=== PATIENT | female | born 1965 | race Caucasian/White ===

== ENCOUNTER 2019-05-19 16:58 | Emergency (ER) | payer BC, OTHER ==
[2019-05-19 17:22] VITALS: BP 183/89; PULSE 94; TEMP 98.4; BMI 50.8
--- NOTE | 2019-05-19 17:46 | PDOC ---
History of Present Illness - General Chief Complaint: Respiratory Stated Complaint: sore throat dry cough Time Seen by Provider: 05/19/19 17:15 - History of Present Illness Initial Comments: 05/19/19 17:39 53 F with h/o HTN, HLD, DM, CKD, presenting to ED with cough and sore throat. Pt states that she started having ear pain and a sore throat a week ago. She went to urgent care and was started on flonase, which she has been using. Pt's sore throat eventually improved but she then developed a cough. She reports a dry cough that is worse at night. Denies CP/SOB. She reports a fever of 101 two days ago but no recent fevers/chills. Denies any leg swelling. Past History - Past Medical History Allergies/Adverse Reactions: Allergies Allergy/AdvReac Type Severity Reaction Status Date / Time amlodipine Allergy Severe Swelling Verified 05/19/19 17:21 ciprofloxacin [From Cipro] Allergy Severe Difficulty Verified 05/19/19 17:20 Breathing Home Medications: Ambulatory Orders Amoxicillin/Potassium Clav [Augmentin 875-125 Tablet] 1 each PO BID #10 tablet 05/19/19 Atorvastatin Ca [Lipitor] 40 mg PO HS 05/19/19 Azithromycin 250 mg PO DAILY #5 tablet 05/19/19 Carvedilol [Coreg -] 25 mg PO BID 05/19/19 Hydralazine HCl 100 mg PO TID 05/19/19 Insulin Glargine,Hum.rec.anlog [Basaglar Kwikpen U-100] 68 unit SQ BID 05/19/19 Insulin Lispro [Humalog] 27 unit SQ ASDIR 05/19/19 Linaclotide [Linzess] 145 mcg PO DAILY 05/19/19 Torsemide 100 mg PO DAILY 05/19/19 COPD: No Diabetes: Yes HTN: Yes Other medical history: RENAL INSUFFICIENCY - Psycho Social/Smoking Cessation Hx Smoking History: Former smoker Have you smoked in the past 12 months: No If you are a former smoker, when did you quit?: 1996 Information on smoking cessation initiated: No Hx Alcohol Use: Yes (SOCIAL) Drug/Substance Use Hx: No Review of Systems - Review of Systems Comments:: 05/19/19 17:47 GENERAL/CONSTITUTIONAL: No fever or chills. No weakness. HEAD, EYES, EARS, NOSE AND THROAT: No change in vision. No ear pain or discharge. No sore throat. CARDIOVASCULAR: No chest pain, no shortness of breath, no loss of consciousness RESPIRATORY: + cough, no wheezing, or hemoptysis. GASTROINTESTINAL: No nausea, vomiting, diarrhea or constipation. GENITOURINARY: No dysuria, frequency, or change in urination. MUSCULOSKELETAL: No joint or muscle swelling or pain. No neck or back pain. SKIN: No rash NEUROLOGIC: No vertigo, no change in strength/sensation. ENDOCRINE: No increased thirst. No abnormal weight change. HEMATOLOGIC/LYMPHATIC: No anemia, easy bleeding, or history of blood clots. ALLERGIC/IMMUNOLOGIC: No hives or skin allergy. *Physical Exam - Vital Signs Last Vital Signs Temp Pulse Resp BP Pulse Ox 98.4 F 94 H 20 183/89 H 96 05/19/19 17:01 05/19/19 17:01 05/19/19 17:01 05/19/19 17:05/19/19 17:01 - Physical Exam 05/19/19 17:54 GENERAL: Awake, alert, and fully oriented, in no acute distress. HEAD: No signs of trauma EYES: PERRLA, EOMI, sclera anicteric, conjunctiva clear ENT: Auricles normal inspection, hearing grossly normal, nares patent, oropharynx clear without exudates. Moist mucosa NECK: Nontender, no stepoffs, Normal ROM, supple, no lymphadenopathy, JVD, or masses LUNGS: Breath sounds equal, clear to auscultation bilaterally. No wheezes, and no crackles HEART: Regular rate and rhythm, normal S1 and S2, no murmurs, rubs or gallops ABDOMEN: Soft, nontender, normoactive bowel sounds. No guarding, no rebound. No masses EXTREMITIES: Normal range of motion, no edema. No clubbing or cyanosis. No cords, erythema, or tenderness NEUROLOGICAL: Cranial nerves II through XII intact. 5/5 strength and sensation in all extremities, Normal speech, normal gait, normal cerebellar function SKIN: Warm, Dry, normal turgor, no rashes or lesions noted. ED Treatment Course - RADIOLOGY Radiology Studies Ordered: Category Date Time Status CHEST PA & LAT [RAD] Stat Radiology 05/19/19 17:29 Ordered Medical Decision Making - Medical Decision Making 05/19/19 17:55 53 F with cough and sore throat. Likely viral URI. Pt with clear lungs but will r/o PNA with CXR. - CXR - Trial of nebulizer 05/19/19 18:22 CXR shows possible PNA Will tx with augmentin and azithro Pt's BP elevated today, states that she forgot to take her BP meds Pt is well appearing, with normal vitals. Clinically stable for DC at this time. I discussed the physical exam findings, ancillary test results and final diagnoses with the patient. I answered all of the patient's questions. The patient was satisfied with the care received and felt comfortable with the discharge plan and treatment plan. The patient agrees to follow up with the primary care physician within 24-72 hours. Discharge - Discharge Information Problems reviewed: Yes Clinical Impression/Diagnosis: Cough, Sore throat, PNA (pneumonia) Condition: Stable Disposition: HOME - Additional Discharge Information Prescriptions: Amoxicillin/Potassium Clav [Augmentin 875-125 Tablet] 1 each PO BID #10 tablet Azithromycin 250 mg PO DAILY #5 tablet - Follow up/Referral Referrals: Eulalio Osborne MD [Primary Care Provider] - - Patient Discharge Instructions Patient Printed Discharge Instructions: DI for Pneumonia -- Adult Additional Instructions: Take the antibiotics as prescribed to treat your pneumonia. If you experience worsening cough, fevers, shortness of breath, chest pain, or any other concerning symptoms, return to the ER immediately. Otherwise, please follow up with your primary doctor within 1 week for a re- evaluation. You also need to have your blood pressure re-checked by your primary doctor, as it was slightly elevated today. Uncontrolled blood pressure can eventually lead to kidney disease, heart disease, other serious illness, disability, or even . - Post Discharge Activity
[2019-05-19] MEDS ORDERED: ALBUTEROL SO4 2.5/IPRATROPIUM 0.5 INH SOL 3 ML VIAL.NEB. NEB ONE ×2 (17:54→18:05)
[2019-05-19] MEDS ORDERED: AMOX TR/POT CLAV 875MG/125MG TABLETS (FP) PO ONE (18:21)
[2019-05-19] MEDS ORDERED: AZITHROMYCIN 500 MG TABLET PO ONE (18:21)
[2019-05-19] MEDS ORDERED: AZITHROMYCIN 250 MG TABLET ONE (18:38)
[2019-05-19] MEDS ORDERED: AMOX TR/POT CLAV 875MG/125MG TABLETS (FP) ONE (18:38)
== END 2019-05-19 18:54 | disposition home or self-care (01) ==
LOC: FER 16:58
PROC: 3E0F7GC Introduction of Other Therapeutic Substance into Respiratory Tract, Via Natural or Artificial Opening (ICD-10-PCS; principal; 2019-05-19)
DX: J18.9 Pneumonia, unspecified organism (principal); R05 Cough; J02.9 Acute pharyngitis, unspecified; Z88.8 Allergy status to other drugs, medicaments and biological substances; Z87.891 Personal history of nicotine dependence; N28.9 Disorder of kidney and ureter, unspecified; E11.9 Type 2 diabetes mellitus without complications; I10 Essential (primary) hypertension
CPT/HCPCS: 71046-TC-FY; 99282-25

== ENCOUNTER 2019-07-05 09:38 | Inpatient (IN) | payer BC ==
[2019-07-05] MEDS ORDERED: METHOCARBAMOL 500 MG TABLET PO ONE (10:47)
[2019-07-05] MEDS ORDERED: ACETAMINOPHEN 325 MG TABLET (FP) PO ONE (10:47)
[2019-07-05] MEDS ORDERED: ACETAMINOPHEN 325 MG TABLET (FP) ONE (10:50)
[2019-07-05] MEDS ORDERED: METHOCARBAMOL 500 MG TABLET ONE (10:50)
[2019-07-05] MEDS ORDERED: ONDANSETRON *ODT* 4 MG TABLET SL ONE (10:53)
[2019-07-05] MEDS ORDERED: ONDANSETRON *ODT* 4 MG TABLET ONE (10:53)
--- NOTE | 2019-07-05 10:59 | PDOC ---
History of Present Illness <Agustina Stewart - Last Filed: 07/05/19 13:38> - General History Source: Patient Exam Limitations: Clinical Condition - History of Present Illness Initial Comments: 07/05/19 11:29 Patient with past medical history of hyperlipidemia, CKD not on dialysis, diabetes and hypertension presented with complaint of sudden onset of right mid back pain while sleeping this morning with nausea and vomiting. Patient report vomiting but unsure how many times she had vomited. Patient also reported urinary frequency which is unchanged for her history of chronic kidney disease. Denies fever, chills, diarrhea, constipation, chest pain, shortness of breath , palpitations. Patient has not taken anything for symptoms Timing/Duration: 4-6 hours <Eusebio Patel - Last Filed: 07/05/19 13:58> - General Chief Complaint: Back Pain Stated Complaint: BACK PAIN Time Seen by Provider: 07/05/19 09:59 Past History <Agustina Stewartmarilu - Last Filed: 07/05/19 13:38> - Past Medical History COPD: No Diabetes: Yes HTN: Yes - Psycho Social/Smoking Cessation Hx Smoking History: Never smoked Have you smoked in the past 12 months: No If you are a former smoker, when did you quit?: 1996 Hx Alcohol Use: No Drug/Substance Use Hx: No <JorgeEusebio Hulles - Last Filed: 07/05/19 13:58> - Past Medical History Allergies/Adverse Reactions: Allergies Allergy/AdvReac Type Severity Reaction Status Date / Time amlodipine Allergy Severe Swelling Verified 07/05/19 09:50 ciprofloxacin [From Cipro] Allergy Severe Difficulty Verified 07/05/19 09:50 Breathing Home Medications: Ambulatory Orders Amoxicillin/Potassium Clav [Augmentin 875-125 Tablet] 1 each PO BID #10 tablet 05/19/19 Atorvastatin Ca [Lipitor] 40 mg PO HS 05/19/19 Azithromycin 250 mg PO DAILY #5 tablet 05/19/19 Carvedilol [Coreg -] 25 mg PO BID 05/19/19 Hydralazine HCl 100 mg PO TID 05/19/19 Insulin Glargine,Hum.rec.anlog [Basaglar Kwikpen U-100] 68 unit SQ BID 05/19/19 Insulin Lispro [Humalog] 27 unit SQ ASDIR 05/19/19 Linaclotide [Linzess] 145 mcg PO DAILY 05/19/19 Torsemide 100 mg PO DAILY 05/19/19 Review of Systems - Review of Systems Able to Perform ROS?: Yes Is the patient limited Green[place]ic proficient: No Constitutional: No: Chills, Fever, Malaise HEENTM: No: Symptoms Reported, See HPI, Eye Pain, Blurred Vision, Tearing, Recent change in vision, Double Vision, Cataracts, Ear Pain, Ocular Prothesis, Ear Discharge, Nose Pain, Nose Congestion, Tinnitus, Nose Bleeding, Hearing Loss , Throat Pain, Throat Swelling, Mouth Pain, Dental Problems, Difficulty Swallowing, Mouth Swelling, Other Respiratory: No: Symptoms reported, See HPI, Cough, Orthopnea, Shortness of Breath, SOB with Exertion, SOB at Rest, Stridor, Wheezing, Productive cough, Hemoptysis, Other Cardiac (ROS): No: Symptoms Reported, See HPI, Chest Pain, Edema, Irregular Heart Rate, Lightheadedness, Palpitations, Syncope, Chest Tightness, Other ABD/GI: Yes: Symptoms Reported, See HPI, Nausea, Vomiting. No: Constipated, Diarrhea, Difficulty Swallowing, Poor Appetite, Rectal Bleeding, Indigestion, Abdominal cramping : Yes: Symptoms Reported, See HPI, Burning, Frequency, Flank Pain (right flank area pain), Urgency Musculoskeletal: Yes: Symptoms Reported, See HPI, Back Pain (right midback pain) Integumentary: No: Symptoms Reported Neurological: No: Symptoms reported, Numbness, Paresthesia, Dizziness All Other Systems: Reviewed and Negative <Eusebio Patel - Last Filed: 07/05/19 13:58> *Physical Exam - Vital Signs Last Vital Signs Temp Pulse Resp BP Pulse Ox 97.9 F 98 H 18 118/61 100 07/05/19 09:50 07/05/19 09:50 07/05/19 09:50 07/05/19 09:50 07/05/19 09:50 <Agustina Stewart - Last Filed: 07/05/19 13:38> - Vital Signs Last Vital Signs Temp Pulse Resp BP Pulse Ox 97.9 F 98 H 18 118/61 100 07/05/19 09:50 07/05/19 09:50 07/05/19 09:50 07/05/19 09:50 07/05/19 09:50 - Physical Exam 07/05/19 10:58 GENERAL: Well developed, well nourished. Awake and alert in mild acute distress. NECK: Supple. Full ROM. CARDIOVASCULAR: Regular rate and rhythm. No murmurs, rubs, or gallops. Distal pulses are 2+ and symmetric. PULMONARY: No evidence of respiratory distress. Lungs clear to auscultation bilaterally. No wheezing, rales or rhonchi. ABDOMINAL: Soft. Non-tender. Non-distended. No rebound or guarding. No organomegaly. Normoactive bowel sounds. MUSCULOSKELETAL Normal range of motion at all joints. Moderate point tenderness to right paravertebral muscle of lumbar spine of L2-L3 to S1 lateral aspect. No midline tenderness. SKIN: Warm and dry. Normal capillary refill. No rashes. No jaundice. NEUROLOGICAL: Alert, awake, appropriate. Gait is normal without ataxia. PSYCHIATRIC: Cooperative. Good eye contact. Appropriate mood General Appearance: Yes: Nourished, Appropriately Dressed, Mild Distress <JorgeEusebio - Last Filed: 07/05/19 13:58> ED Treatment Course - LABORATORY CBC & Chemistry Diagram: 07/05/19 10:59 07/05/19 11:05 - ADDITIONAL ORDERS Additional order review: Laboratory Results 07/05/19 11:05 Sodium 132 L Potassium 4.9 Chloride 103 Carbon Dioxide 13 L Anion Gap 16 BUN 111.9 H* Creatinine 4.7 H Est GFR (CKD-EPI)AfAm 11.39 Est GFR (CKD-EPI)NonAf 9.83 Random Glucose 392 H Calcium 9.2 Total Bilirubin 0.3 AST 13 L ALT 18 Alkaline Phosphatase 96 Total Protein 8.6 H Albumin 3.5 07/05/19 10:59 RBC 3.32 L MCV 82.7 MCHC 33.4 RDW 15.0 MPV 6.9 L Neutrophils % 84.3 H Lymphocytes % 8.7 Monocytes % 6.2 Eosinophils % 0.2 Basophils % 0.6 - Medications Given in the ED: ED Medications Discontinued Medications Generic Name Dose Route Start Last Admin Trade Name Freq PRN Reason Stop Dose Admin Acetaminophen 975 mg 07/05/19 10:47 07/05/19 11:04 Tylenol - PO 07/05/19 10:48 975 mg ONCE ONE Administration Methocarbamol 1,000 mg 07/05/19 10:47 07/05/19 11:04 Robaxin - PO 07/05/19 10:48 1,000 mg ONCE ONE Administration Ondansetron HCl 4 mg 07/05/19 10:53 07/05/19 11:04 Zofran Odt - SL 07/05/19 10:54 4 mg ONCE ONE Administration <Agustina Stewart - Last Filed: 07/05/19 13:38> - LABORATORY CBC & Chemistry Diagram: 07/05/19 10:59 07/05/19 11:05 - RADIOLOGY Radiology Studies Ordered: Category Date Time Status SPIRAL- RENAL-STONE CT [CT] Stat CT Scan 07/05/19 10:53 Ordered <Eusebio Patel - Last Filed: 07/05/19 13:58> Medical Decision Making - Medical Decision Making The patient was seen and evaluated in conjunction with midlevel provider under my direct supervision, ancillary studies were reviewed. I agree with the plan as outlined KELSI Patel. HPI, workup/dispo as outlined. VS reviewed, wnl. no fever HD appropriate labs and lytes with Cr 4.7, h/o CKD, baseline closer to 3.5. UA with +UTI, CT spiral give colicky pain, +rt hydro and 6mm stone tammi infected stone, IV ceftriaxone nephro cs DR valera. KELSI in touch with Reyna 07/05/19 12:15 07/05/19 13:39 <Agustina Stewart - Last Filed: 07/05/19 13:38> - Medical Decision Making 07/05/19 11:30 Patient with past medical history of hyperlipidemia, CKD not on dialysis, diabetes and hypertension presented with complaint of sudden onset of right mid back pain while sleeping this morning with nausea and vomiting. Patient report vomiting but unsure how many times she had vomited. Patient also reported urinary frequency which is unchanged for her history of chronic kidney disease. Denies fever, chills, diarrhea, constipation, chest pain, shortness of breath , palpitations. Patient has not taken anything for symptoms Exam significant for moderate point tenderness to right paravertebral muscle of lumbar spine of L2 to L4 with no midline tenderness and pain radiating to lateral aspect. No CVA tenderness. Lungs clear to auscultation bilateral no abdominal tenderness. Symptoms likely back spasm versus cystitis versus less likely kidney stone. CBC, CMP lab ordered and spiral CT ordered to rule out kidney stone. UA and urine culture ordered to rule out cystitis. Tylenol 975 mg p.o. and Robaxin thousand milligrams p.o. ordered for pain and spasm. Treat based on lab and imaging results 07/05/19 13:45 CBC shows no elevated WBC. Chemistry lab showed elevated BUN/creatinine of 4.7 creatinine and 112 BUN. Call placed to patient's PCP Dr. India Tsai ands spoke to Dr. Landrum. [place] office in [facility] will report patient had chemistry lab done a month ago which shows creatinine of 3.6 and BUN of 88. Spiral CT shows 6 mm partially obstructing renal stone to right ureter at the proximal aspect with mild hydronephrosis. Patient seen by flatwork tier Dr. Goldsmith who request patient to be admitted for treatment of obstructing stone and consult urology. Nephrology request to give patient 1 amp of bicarb due to acidosis. Consultation placed with Dr. Hussein urologist will report to prep patient for OR today for stent placement for obstructing right ureter 6 mm stone. UA shows many WBCs and bacteria. Patient still with vomiting despite Zofran and in pain despite Tylenol. Will give Reglan IV for nausea and vomiting and morphine 4 mg IV for pain. Will keep patient n.p.o. as per urologist request for possible surgery later today or tomorrow morning 07/05/19 13:58 Spoke to medicine team who agrees to accept patient for admission to hospitalist under Dr. Roc Heath <Eusebio Patel - Last Filed: 07/05/19 13:58> Discharge <Agustina Stewart - Last Filed: 07/05/19 13:38> - Discharge Information Problems reviewed: Yes - Admission Yes <Eusebio Patel - Last Filed: 07/05/19 13:58> - Discharge Information Clinical Impression/Diagnosis: Renal calculus or stone CKD (chronic kidney disease) Qualifiers: Chronic kidney disease stage: stage 4 (severe) Qualified Code(s): N18.4 - Chronic kidney disease, stage 4 (severe) Diabetes Qualifiers: Diabetes mellitus type: type 2 Diabetes mellitus buttermaker insulin use: without retirement use Diabetes mellitus complication status: with skin complications HTN (hypertension) Qualifiers: Hypertension type: essential hypertension Qualified Code(s): I10 - Essential ( primary) hypertension Condition: Stable - Patient Discharge Instructions - Post Discharge Activity
[2019-07-05 11:16] LABS: BASO % 0.6 % (0-2.0); EOS % 0.2 % (0-4.5); HEMATOCRIT 27.4 % (32.4-45.2); HEMOGLOBIN 9.2 GM/dL (10.7-15.3); LYMPH % 8.7 % (8-40); MCH 27.6 pg (25.7-33.7); MCHC 33.4 g/dl (32.0-36.0); MEAN CELL VOLUME 82.7 fl (80-96); MEAN PLT VOLUME 6.9 fl (7.5-11.1); MONO % 6.2 % (3.8-10.2); NEUT % 84.3 % (42.8-82.8); PLATELET COUNT 347 K/MM3 (134-434); RBC 3.32 M/mm3 (3.60-5.2); WHITE BLOOD COUNT 5.9 K/mm3 (4.0-10.0)
[2019-07-05 11:53] LABS: ALBUMIN 3.5 g/dl (3.4-5.0); ALK PHOS 96 U/L (45-117); ANION GAP 16 MMOL/L (8-16); BILIRUBIN,TOTAL 0.3 mg/dL (0.2-1); CALCIUM 9.2 mg/dL (8.5-10.1); CHLORIDE 103 mmol/L (98-107); CO2 13 mmol/L (21-32); CREATININE 4.7 mg/dL (0.55-1.3); GLUCOSE,RANDOM 392 mg/dL (74-106); POTASSIUM 4.9 mmol/L (3.5-5.1); SGOT/AST 13 U/L (15-37); SGPT/ALT 18 U/L (13-61); SODIUM 132 mmol/L (136-145); TOT PROT 8.6 g/dl (6.4-8.2)
[2019-07-05 11:59] LABS: BLOOD UREA NITROGEN 111.9 mg/dL (7-18)
[2019-07-05] MEDS ORDERED: morphine CARPU-JECT 4 MG/1 ML DISP.SYRIN IVPUSH ONE (13:06)
[2019-07-05] MEDS ORDERED: METOCLOPRAMIDE HCL INJECTION 10 MG/2 ML VIAL IVPB ONE (13:07)
[2019-07-05 13:12] LABS: EPI CELLS 6.1 /HPF (0-5/HPF); HYALINE CASTS 4 /lpf (0-8); URINE APPEARANCE TURBID; URINE BACTERIA 4417.3 /hpf (NEGATIVE); URINE BILIRUBIN NEGATIVE (NEGATIVE); URINE COLOR YELLOW; URINE GLUCOSE (UA) 1+ (NEGATIVE); URINE KETONE TRACE (NEGATIVE); URINE LEUK ESTERASE 2+ (NEGATIVE); URINE NITRITE NEGATIVE (NEGATIVE); URINE PROTEIN 3+ (NEGATIVE); URINE RBC 22 /hpf (0-4); URINE UROBILINOGEN 0.2 mg/dL (0.2-1.0); URINE WBC 943 /hpf (0-5)
[2019-07-05] MEDS ORDERED: morphine SULFATE 4 MG/ML VIAL ONE (13:19)
[2019-07-05] MEDS ORDERED: METOCLOPRAMIDE HCL INJECTION 10 MG/2 ML VIAL ONE (13:19)
[2019-07-05] MEDS ORDERED: SODIUM BICARBONATE 8.4% 50 MEQ/50 ML VIAL IV ONE (13:23)
[2019-07-05] MEDS ORDERED: SODIUM BICARBONATE 8.4% 50 MEQ/50 ML VIAL ONE (13:32)
[2019-07-05] MEDS ORDERED: CEFTRIAXONE 1,000 MG in DEXTROSE 5%-WATER - 50 ML IVPB ONE ×2 (13:37→14:40)
--- NOTE | 2019-07-05 14:07 | CON.GU ---
Consult Consult Specialty:: Reason for Consultation:: Ureteral calculus - History of Present Illness Chief Complaint: R flank pain History of Present Illness: 53 yo f w hx CKD, p/w sudden onset severe R flank pain this morning assoc w N,V d/t 6 mm obstructing R proximal ureteral calculus w mild hydro. No fever, chills. u/a appears infected - History Source History Provided By: Patient, Medical Record - Alcohol/Substance Use Hx Alcohol Use: No - Smoking History Smoking history: Never smoked Have you smoked in the past 12 months: No If you are a former smoker, when did you quit?: 1996 Home Medications - Allergies Allergies/Adverse Reactions: Allergies Allergy/AdvReac Type Severity Reaction Status Date / Time amlodipine Allergy Severe Swelling Verified 07/05/19 09:50 ciprofloxacin [From Cipro] Allergy Severe Difficulty Verified 07/05/19 09:50 Breathing - Home Medications Home Medications: Ambulatory Orders Amoxicillin/Potassium Clav [Augmentin 875-125 Tablet] 1 each PO BID #10 tablet 05/19/19 Atorvastatin Ca [Lipitor] 40 mg PO HS 05/19/19 Azithromycin 250 mg PO DAILY #5 tablet 05/19/19 Carvedilol [Coreg -] 25 mg PO BID 05/19/19 Hydralazine HCl 100 mg PO TID 05/19/19 Insulin Glargine,Hum.rec.anlog [Basaglar Kwikpen U-100] 68 unit SQ BID 05/19/19 Insulin Lispro [Humalog] 27 unit SQ ASDIR 05/19/19 Linaclotide [Linzess] 145 mcg PO DAILY 05/19/19 Torsemide 100 mg PO DAILY 05/19/19 Physical Exam- Vital Signs: Vital Signs Temperature 97.9 F 07/05/19 09:50 Pulse Rate 98 H 07/05/19 09:50 Respiratory Rate 18 07/05/19 09:50 Blood Pressure 118/61 07/05/19 09:50 O2 Sat by Pulse Oximetry (%) 100 07/05/19 09:50 Gastrointestinal: Yes: Soft Renal/: Yes: CVA Tenderness - Right Labs: CBC, BMP 07/05/19 10:59 07/05/19 11:05 Imaging - Results Cat Scan: Report Reviewed Problem List - Problems (1) Ureteral calculus Assessment/Plan: cysto R JJ stent insertion. RULL JJ chng after uti resolved. Code(s): N20.1 - CALCULUS OF URETER (2) Hydronephrosis concurrent with and due to calculi of kidney and ureter Code(s): N13.2 - HYDRONEPHROSIS WITH RENAL AND URETERAL CALCULOUS OBSTRUCTION (3) CKD (chronic kidney disease) Code(s): N18.9 - CHRONIC KIDNEY DISEASE, UNSPECIFIED Qualifiers: Chronic kidney disease stage: stage 4 (severe) Qualified Code(s): N18.4 - Chronic kidney disease, stage 4 (severe) (4) Diabetes Code(s): E11.9 - TYPE 2 DIABETES MELLITUS WITHOUT COMPLICATIONS Qualifiers: Diabetes mellitus type: type 2 Diabetes mellitus vermin exterminator insulin use: without vermin exterminator use Diabetes mellitus complication status: with skin complications (5) HTN (hypertension) Code(s): I10 - ESSENTIAL (PRIMARY) HYPERTENSION Qualifiers: Hypertension type: essential hypertension Qualified Code(s): I10 - Essential (primary) hypertension (6) UTI (urinary tract infection) Assessment/Plan: ur cx, iv abxs Code(s): N39.0 - URINARY TRACT INFECTION, SITE NOT SPECIFIED
[2019-07-05 14:24] LABS: INR 0.98 (0.83-1.09); PROTHROMBIN TIME (PATIENT) 11.6 SEC (9.7-13.0)
[2019-07-05] MEDS ORDERED: CEFTRIAXONE 1 GM/50 ML BAG ONE ×2 (14:24→14:41)
[2019-07-05 14:26] LABS: ACTIVATED PTT 32.4 SECONDS (25.2-36.5)
[2019-07-05] MEDS ORDERED: MORPHINE SULFATE 2 MG/ML VIAL IVPUSH PRN ×2 (14:44→16:56)
[2019-07-05] MEDS ORDERED: ACETAMINOPHEN 1000 MG/100 ML VIAL (NON FORMULARY) IVPB PRN ×2 (14:45→16:56)
[2019-07-05] MEDS ORDERED: INSULIN (LEVEMIR) 100 UNITS/ML UNITS SQ ONE ×3 (14:46→14:57)
[2019-07-05] MEDS ORDERED: TAMSULOSIN HCL 0.4 MG CAP PO ONE (14:50)
[2019-07-05] MEDS ORDERED: SODIUM CHLORIDE 1,000 ML IV SCH ×2 (15:00→16:56)
[2019-07-05] MEDS ORDERED: PROCHLORPERAZINE INJECTION 10 MG/2 ML VIAL IVPB PRN ×2 (15:13→16:56)
--- NOTE | 2019-07-05 15:13 | OP ---
Operative Note - Note: Operative Date: 07/05/19 Pre-Operative Diagnosis: R ureteral calculus, R hydronephrosis Operation: cystoscopy and R JJ stent insertion Findings: 6 mm R proximal ureteral calculus, mild R hydro Post-Operative Diagnosis: Same as Pre-op Surgeon: Brad Hussein Anesthesiologist/[employer]PARTMENT MANAGER: Thien Lawrence Anesthesia: General Estimated Blood Loss (mls): 0 Drains & Tubes with Location: 6 fr 22 cm R JJ stent Operative Report Dictated: Yes
--- NOTE | 2019-07-05 15:14 | HP ---
CHIEF COMPLAINT: right flank pain PCP:Dr. Osborne HISTORY OF PRESENT ILLNESS: Patient is a 53 year old female with past medical history of CKD, HTN, HLD, T2DM on insulin, and kidney stones, presented to the ED due to sudden, severe 10 /10 right flank pain, radiating down to the RLQ that started this morning. Patient reported right flank pain started suddenly at around 5am this morning. Patient reported history of kidney stones about 7 years ago that passed spontaneously. This was accompanied by episodes of NBNB vomiting. Patient denies fevers, chills, headache, dizziness, chest pain, shortness of breath, palpitations, diarrhea, constipation, urinary symptoms. Of note, recent blood work with PCP about 2 weeks ago revealed BUN/Cr 88/3.6. ER course was notable for: (1)Spiral CT - small left pleural effusion and basilar atelectasis. 6mm proximal right ureteral calculus with hydronephrosis. Extensive arterial calcification within the bowel aorta and its branches. (2) (3) Recent Travel:denies PAST MEDICAL HISTORY: CKD HTN HLD T2DM kidney stones PAST SURGICAL HISTORY: x1 Social History: Smoking:denies Alcohol:denies Drugs: denies Allergies amlodipine Allergy (Severe, Verified 07/05/19 09:50) Swelling ciprofloxacin [From Cipro] Allergy (Severe, Verified 07/05/19 09:50) Difficulty Breathing HOME MEDICATIONS: Home Medications Medication Instructions Recorded Amoxicillin/Potassium Clav 1 each PO BID #10 tablet 05/19/19 [Augmentin 875-125 Tablet] Atorvastatin Ca [Lipitor] 40 mg PO HS 05/19/19 Azithromycin 250 mg PO DAILY #5 tablet 05/19/19 Carvedilol [Coreg -] 25 mg PO BID 05/19/19 Hydralazine HCl 100 mg PO TID 05/19/19 Insulin Glargine,Hum.rec.anlog 68 unit SQ BID 05/19/19 [Basaglar Kwikpen U-100] Insulin Lispro [Humalog] 27 unit SQ ASDIR 05/19/19 Linaclotide [Linzess] 145 mcg PO DAILY 05/19/19 Torsemide 100 mg PO DAILY 05/19/19 REVIEW OF SYSTEMS CONSTITUTIONAL: Absent: fever, chills, diaphoresis, generalized weakness, malaise, loss of appetite, weight change HEENT: Absent: rhinorrhea, nasal congestion, throat pain, throat swelling, difficulty swallowing, mouth swelling, ear pain, eye pain, visual changes CARDIOVASCULAR: Absent: chest pain, syncope, palpitations, irregular heart rate, lightheadedness , peripheral edema RESPIRATORY: Absent: cough, shortness of breath, dyspnea with exertion, orthopnea, wheezing, stridor, hemoptysis GASTROINTESTINAL: Absent: abdominal pain, abdominal distension, nausea, vomiting, diarrhea, constipation, melena, hematochezia GENITOURINARY: R flank pain Absent: dysuria, frequency, urgency, hesitancy, hematuria,genital pain MUSCULOSKELETAL: Absent: myalgia, arthralgia, joint swelling, back pain, neck pain SKIN: Absent: rash, itching, pallor HEMATOLOGIC/IMMUNOLOGIC: Absent: easy bleeding, easy bruising, lymphadenopathy, frequent infections ENDOCRINE: Absent: unexplained weight gain, unexplained weight loss, heat intolerance, cold intolerance NEUROLOGIC: Absent: headache, focal weakness or paresthesias, dizziness, unsteady gait, seizure, mental status changes, bladder or bowel incontinence PSYCHIATRIC: Absent: anxiety, depression, suicidal or homicidal ideation, hallucinations. PHYSICAL EXAMINATION Vital Signs - 24 hr 07/05/19 09:50 Temperature 97.9 F Pulse Rate 98 H Respiratory 18 Rate Blood Pressure 118/61 O2 Sat by Pulse 100 Oximetry (%) GENERAL: Awake, alert, and fully oriented, in no acute distress. HEAD: Normal with no signs of trauma. EYES: PERRLA, EOMI, sclera anicteric, conjunctiva clear. EARS, NOSE, THROAT: Dry mucous membranes. NECK: Normal range of motion, supple without lymphadenopathy, JVD, or masses. LUNGS: Breath sounds equal, clear to auscultation bilaterally. HEART: Regular rate and rhythm, normal S1 and S2 without murmur, rub or gallop. ABDOMEN: Soft, nontender, not distended, normoactive bowel sounds. MUSCULOSKELETAL: Normal range of motion at all joints. +Right CVA tenderness. LOWER EXTREMITIES: 2+ pulses, warm, well-perfused. No peripheral edema. NEUROLOGICAL: Cranial nerves II-XII intact. Normal speech. Normal gait. PSYCHIATRIC: Cooperative. Good eye contact. Appropriate mood and affect. SKIN: Warm, dry, normal turgor. Laboratory Results - last 24 hr 07/05/19 07/05/19 07/05/19 10:59 11:05 12:32 WBC 5.9 RBC 3.32 L Hgb 9.2 L Hct 27.4 L MCV 82.7 MCH 27.6 MCHC 33.4 RDW 15.0 Plt Count 347 MPV 6.9 L Absolute Neuts (auto) 5.0 Neutrophils % 84.3 H Lymphocytes % 8.7 Monocytes % 6.2 Eosinophils % 0.2 Basophils % 0.6 Nucleated RBC % 0 PT with INR INR PTT (Actin FS) Sodium 132 L Potassium 4.9 Chloride 103 Carbon Dioxide 13 L Anion Gap 16 BUN 111.9 H* Creatinine 4.7 H Est GFR (CKD-EPI)AfAm 11.39 Est GFR (CKD-EPI)NonAf 9.83 Random Glucose 392 H Calcium 9.2 Total Bilirubin 0.3 AST 13 L ALT 18 Alkaline Phosphatase 96 Total Protein 8.6 H Albumin 3.5 Urine Color Yellow Urine Appearance Turbid Urine pH 5.0 Ur Specific [place] 1.014 Urine Protein 3+ H Urine Glucose (UA) 1+ H Urine Ketones Trace H Urine Blood 3+ H Urine Nitrite Negative Urine Bilirubin Negative Urine Urobilinogen 0.2 Ur Leukocyte Esterase 2+ H Urine WBC (Auto) 943 Urine RBC (Auto) 22 Urine Casts (Auto) 4 U Epithel Cells (Auto) 6.1 Urine Bacteria (Auto) 4417.3 Blood Type Antibody Screen 07/05/19 07/05/19 13:50 13:50 WBC RBC Hgb Hct MCV MCH MCHC RDW Plt Count MPV Absolute Neuts (auto) Neutrophils % Lymphocytes % Monocytes % Eosinophils % Basophils % Nucleated RBC % PT with INR 11.60 INR 0.98 PTT (Actin FS) 32.4 Sodium Potassium Chloride Carbon Dioxide Anion Gap BUN Creatinine Est GFR (CKD-EPI)AfAm Est GFR (CKD-EPI)NonAf Random Glucose Calcium Total Bilirubin AST ALT Alkaline Phosphatase Total Protein Albumin Urine Color Urine Appearance Urine pH Ur Specific [place] Urine Protein Urine Glucose (UA) Urine Ketones Urine Blood Urine Nitrite Urine Bilirubin Urine Urobilinogen Ur Leukocyte Esterase Urine WBC (Auto) Urine RBC (Auto) Urine Casts (Auto) U Epithel Cells (Auto) Urine Bacteria (Auto) Blood Type Cancelled Antibody Screen Cancelled ASSESSMENT/PLAN: Patient is a 53 year old female with past medical history of CKD, HTN, HLD, T2DM on insulin, and kidney stones, presented to the ED due to sudden, severe 10 /10 right flank pain, radiating down to the RLQ that started this morning. #Acute complicated pyelonephritis with R ureteral stone -Spiral CT - small left pleural effusion and basilar atelectasis. 6mm proximal right ureteral calculus with hydronephrosis. Extensive arterial calcification within the bowel aorta and its branches. -UA: 3+TIM, 3+blood, 2+LE, 943 WBC, >4000 bacteria -urine culture, blood cultures pending -will give IV Ceftriaxone 2000mg daily -Plan for stent placement -will keep NPO -IVF -pain control with IV morphine and tylenol -ID (Dr. Pierre) consulted. Recommendations appreciated. -Urology (Dr. Hussein) consulted. Recommendations appreciated. -Cardiology (Dr. Hazel) consulted. Recommendations appreciated. #CKD -worsening renal function, likely due to obstruction -gentle IVF hydration -Nephrology (Dr. Warren) consulted. #HTN -continue home meds [id number] bid, Nifedipine 30mg daily, hydralazine 100mg tid #DM -On Insulin Basaglar 68u BID at home, and Insulin humalog 27u with meals -will continue Levemir 34u bid as patient is currently NPO -Insulin sliding scale implemented -BGM ACHS #HLD -Continue Lipitor 40mg HS #Normocytic Anemia -likely ACD, no previous labs for comparison -will order anemia basic work up including iron studies, retic ct, stool occult -monitor H/H #FEN -Iv NS @75cc/hr -hyponatremia, routine bmp monitoring -NPO #Prophylaxis -SCDs #Disposition -full code -admit to med surg Visit type - Emergency Visit Emergency Visit: Yes ED Registration Date: 07/05/19 Care time: The patient presented to the Emergency Department on the above date and was hospitalized for further evaluation of their emergent condition. - New Patient This patient is new to me today: Yes Date on this admission: 07/05/19 - Critical Care Critical Care patient: No ATTENDING PHYSICIAN STATEMENT I saw and evaluated the patient. I reviewed the resident's note and discussed the case with the resident. I agree with the resident's findings and plan as documented. SUBJECTIVE: OBJECTIVE: ASSESSMENT AND PLAN:
--- NOTE | 2019-07-05 15:48 | CON.CARD ---
Consult Consult Specialty:: Cardiology Referred by:: Medicine Reason for Consultation:: preoperative evaluation - History of Present Illness Chief Complaint: R flank pain History of Present Illness: 53F h/o CKD, HTN, HLD, DM, kidney stones p/w R flank pain, UTI with ureteral cyst on CT abdomen. No cardiac hx, had stress test years ago no cardio follow up recently. No chest pain, palps, dizziness, dyspnea. Was diagnosed with PNA a month ago, since then had mild dyspnea on exertion which has been improving, prior to PNA no dyspnea or exertional symptoms. - Alcohol/Substance Use Hx Alcohol Use: No - Smoking History Smoking history: Never smoked Have you smoked in the past 12 months: No If you are a former smoker, when did you quit?: 1996 Home Medications - Allergies Allergies/Adverse Reactions: Allergies Allergy/AdvReac Type Severity Reaction Status Date / Time amlodipine Allergy Severe Swelling Verified 07/05/19 09:50 ciprofloxacin [From Cipro] Allergy Severe Difficulty Verified 07/05/19 09:50 Breathing - Home Medications Home Medications: Ambulatory Orders Amoxicillin/Potassium Clav [Augmentin 875-125 Tablet] 1 each PO BID #10 tablet 05/19/19 Atorvastatin Ca [Lipitor] 40 mg PO HS 05/19/19 Azithromycin 250 mg PO DAILY #5 tablet 05/19/19 Carvedilol [Coreg -] 25 mg PO BID 05/19/19 Hydralazine HCl 100 mg PO TID 05/19/19 Insulin Glargine,Hum.rec.anlog [Basaglar Kwikpen U-100] 68 unit SQ BID 05/19/19 Insulin Lispro [Humalog] 27 unit SQ ASDIR 05/19/19 Linaclotide [Linzess] 145 mcg PO DAILY 05/19/19 Torsemide 100 mg PO DAILY 05/19/19 Family Medical History Family History: Unremarkable Review of Systems - Review of Systems Constitutional: reports: Weakness Eyes: reports: No Symptoms HENT: reports: No Symptoms Neck: reports: No Symptoms Cardiovascular: reports: No Symptoms Respiratory: reports: No Symptoms Gastrointestinal: reports: No Symptoms Genitourinary: reports: Flank Pain Musculoskeletal: reports: No Symptoms Integumentary: reports: No Symptoms Neurological: reports: No Symptoms Endocrine: reports: No Symptoms Hematology/Lymphatic: reports: No Symptoms Psychiatric: reports: No Symptoms Vital Signs: Vital Signs Temperature 97.9 F 07/05/19 09:50 Pulse Rate 98 H 07/05/19 09:50 Respiratory Rate 18 07/05/19 09:50 Blood Pressure 118/61 07/05/19 09:50 O2 Sat by Pulse Oximetry (%) 100 07/05/19 09:50 Constitutional: Yes: Well Nourished, Calm Eyes: Yes: Conjunctiva Clear, EOM Intact HENT: Yes: Atraumatic, Normocephalic Neck: Yes: Supple, Trachea Midline Respiratory: Yes: Regular, CTA Bilaterally Gastrointestinal: Yes: Normal Bowel Sounds, Soft Cardiovascular: Yes: Regular Rate and Rhythm JVD: No Heart Sounds: Yes: S1, S2 Extremities: No: Cold Edema: No Peripheral Pulses WNL: No Integumentary: No: Jaundice Neurological: Yes: Alert, Oriented Psychiatric: No: Agitated - Other Data Labs, Other Data: CBC, BMP 07/05/19 10:59 07/05/19 11:05 INR, PTT INR 0.98 (0.83-1.09) 07/05/19 13:50 Assessment/Plan EKG: sinus tach, LA enlargement, no ischemic changes CXR: no acute process CT abd: sm L pleural effusion and bibasilar atelectasis, prox R ureteral calculus with mild hydronephrosis, extensive arterial calcification within bowel aorta and its branches preop evaluation, acute complicated pyelonephritis, ureteral stone - she has multiple CV risk factors, however no hx cardiac disease and is stable from cardiac perspective - echo ordered given risk factors, however this does not need to be done prior to cystoscopy - she is at acceptable risk for procedure, no further testing needed prior to cystoscopy/stent placement HTN - cont home meds DM - manage per primary HLD - cont statin calcification of aorta - noted on CT abd/pelvis with extensive arterial calcification of aorta and its branches - cont statin, would consider further workup as outpatient when acute issues resolved
[2019-07-05] MEDS ORDERED: MIDAZOLAM HCL 2 MG/2 ML SINGLE DOSE VIAL ONE (15:54)
[2019-07-05] MEDS ORDERED: fentaNYL CITRATE 250 MCG/5 ML VIAL ONE (15:54)
--- NOTE | 2019-07-05 15:59 | PN ---
Teaching Attending Note Name of Resident: Adamaris Calderon ATTENDING PHYSICIAN STATEMENT I saw and evaluated the patient. I reviewed the resident's note and discussed the case with the resident. I agree with the resident's findings and plan as documented. SUBJECTIVE: Patient seen and examined at bedside. She presents with R mid back pain radiating down R flank, found to have 6mm ureteral stone w/ underlying pyelonephritis. OBJECTIVE: PE GA AAox3, speaking in full sentences, mild distress HEENT NC/AT, EOMI, dry MM, neck supple Chest CTAB, no crackles or wheezing CVS S1, S2+, RRR, no m/r/g Abd obese, Soft, NT, BS+, no guarding Ext 1+ non-pitting edema LE b/l, no calf tenderness, good pedal pulses R CVA tenderness, no guarding Vital Signs - 24 hr 07/05/19 09:50 Temperature 97.9 F Pulse Rate 98 H Respiratory 18 Rate Blood Pressure 118/61 O2 Sat by Pulse 100 Oximetry (%) Laboratory Results - last 24 hr 07/05/19 07/05/19 07/05/19 10:59 11:05 12:32 WBC 5.9 RBC 3.32 L Hgb 9.2 L Hct 27.4 L MCV 82.7 MCH 27.6 MCHC 33.4 RDW 15.0 Plt Count 347 MPV 6.9 L Absolute Neuts (auto) 5.0 Neutrophils % 84.3 H Lymphocytes % 8.7 Monocytes % 6.2 Eosinophils % 0.2 Basophils % 0.6 Nucleated RBC % 0 PT with INR INR PTT (Actin FS) Sodium 132 L Potassium 4.9 Chloride 103 Carbon Dioxide 13 L Anion Gap 16 BUN 111.9 H* Creatinine 4.7 H Est GFR (CKD-EPI)AfAm 11.39 Est GFR (CKD-EPI)NonAf 9.83 Random Glucose 392 H Calcium 9.2 Total Bilirubin 0.3 AST 13 L ALT 18 Alkaline Phosphatase 96 Total Protein 8.6 H Albumin 3.5 Urine Color Yellow Urine Appearance Turbid Urine pH 5.0 Ur Specific [place] 1.014 Urine Protein 3+ H Urine Glucose (UA) 1+ H Urine Ketones Trace H Urine Blood 3+ H Urine Nitrite Negative Urine Bilirubin Negative Urine Urobilinogen 0.2 Ur Leukocyte Esterase 2+ H Urine WBC (Auto) 943 Urine RBC (Auto) 22 Urine Casts (Auto) 4 U Epithel Cells (Auto) 6.1 Urine Bacteria (Auto) 4417.3 Blood Type Antibody Screen 07/05/19 07/05/19 13:50 13:50 WBC RBC Hgb Hct MCV MCH MCHC RDW Plt Count MPV Absolute Neuts (auto) Neutrophils % Lymphocytes % Monocytes % Eosinophils % Basophils % Nucleated RBC % PT with INR 11.60 INR 0.98 PTT (Actin FS) 32.4 Sodium Potassium Chloride Carbon Dioxide Anion Gap BUN Creatinine Est GFR (CKD-EPI)AfAm Est GFR (CKD-EPI)NonAf Random Glucose Calcium Total Bilirubin AST ALT Alkaline Phosphatase Total Protein Albumin Urine Color Urine Appearance Urine pH Ur Specific [place] Urine Protein Urine Glucose (UA) Urine Ketones Urine Blood Urine Nitrite Urine Bilirubin Urine Urobilinogen Ur Leukocyte Esterase Urine WBC (Auto) Urine RBC (Auto) Urine Casts (Auto) U Epithel Cells (Auto) Urine Bacteria (Auto) Blood Type Cancelled Antibody Screen Cancelled Home Medications Medication Instructions Recorded Amoxicillin/Potassium Clav 1 each PO BID #10 tablet 05/19/19 [Augmentin 875-125 Tablet] Atorvastatin Ca [Lipitor] 40 mg PO HS 05/19/19 Azithromycin 250 mg PO DAILY #5 tablet 05/19/19 Carvedilol [Coreg -] 25 mg PO BID 05/19/19 Hydralazine HCl 100 mg PO TID 05/19/19 Insulin Glargine,Hum.rec.anlog 68 unit SQ BID 05/19/19 [Basaglar Kwikpen U-100] Insulin Lispro [Humalog] 27 unit SQ ASDIR 05/19/19 Linaclotide [Linzess] 145 mcg PO DAILY 05/19/19 Torsemide 100 mg PO DAILY 05/19/19 Current Medications Generic Name Dose Route Start Last Admin Trade Name Freq PRN Reason Stop Dose Admin Acetaminophen 1,000 mg 07/05/19 14:45 Ofirmev Injection - IVPB 07/06/19 14:45 Q6H PRN PAIN LEVEL 6-10 Ceftriaxone Sodium 2,000 mg/ 50 mls @ 100 mls/hr 07/06/19 10:00 Dextrose IVPB DAILY ESA Sodium Chloride 1,000 mls @ 75 mls/hr 07/05/19 15:00 07/05/19 15:07 Normal Saline - IV 75 mls/hr ASDIR ESA Administration Insulin Aspart 0 vial 07/05/19 16:30 Novolog Vial Sliding Scale - SQ ACHS [facility] Protocol Insulin Detemir 34 units 07/05/19 22:00 Levemir Vial SQ BID [facility] Morphine Sulfate 2 mg 07/05/19 14:44 Morphine Injection - IVPUSH Q4H PRN PAIN LEVEL 7 - 10 Prochlorperazine Edisylate 10 mg 07/05/19 15:13 Compazine Injection - IVPB Q4H PRN NAUSEA AND/OR VOMITING Tamsulosin HCl 0.4 mg 07/05/19 14:50 07/05/19 15:07 Flomax - PO 07/05/19 14:51 0.4 mg ONCE ONE Administration Tamsulosin HCl 0.4 mg 07/06/19 08:30 Flomax - PO DAILY@0830 [facility] ASSESSMENT AND PLAN: 53 year old female with past medical history of CKD, HTN, HLD, T2DM on insulin, and kidney stones, presented to the ED due to sudden, severe 10/10 right flank pain, radiating down to the RLQ that started this morning. Acute R pyelonephritis w/ underlying urosepsis IV Ceftriaxone 2g, Flomax, IVF, pain control with morphine urology consult: Dr Hussein JUN on CKD 4 likely 2/2 ureteral obstructive with moderate hydronephrosis avoidance of nephrotoxins, IV hydration (avoid overload), morphine for pain control, start PO HCo3 in view of low Bicarb levels, pt. does not report uremic symptoms right now, no signs of fluid overload Renal consult: Dr Warren HTN Restart BP medications as tolerated Uncontrolled IDDM give 50% home dose of basal insulin, supplement with premeal insulin and ISS PRN counseled on diet, exercise, weight loss, and glucose management HLD restart statin Anemia likely anemia of chronic disease from underlying CKD send anemia workup Med-surg
[2019-07-05] MEDS ORDERED: LIDOCAINE HCL/PF 2% SDV 5ML VIAL ONE (16:13)
[2019-07-05] MEDS ORDERED: PROPOFOL 20 ML ONE (16:23)
[2019-07-05] MEDS ORDERED: INSULIN SLIDING SCALE (NOVOLOG) 1 VIAL SQ SCH (16:30)
--- NOTE | 2019-07-05 16:41 | OP ---
DATE OF OPERATION: 07/05/2019 PREOPERATIVE DIAGNOSIS: Right ureteral calculus, right hydronephrosis. POSTOPERATIVE DIAGNOSIS: Right ureteral calculus, right hydronephrosis. PROCEDURE PERFORMED: Cystoscopy, right double J stent insertion. SURGEON: Brad Harrison M.D. WINDOWS APPLICATION PACKAGER: None. ANESTHESIA: General via laryngeal mask. ANESTHESIOLOGIST: Thien Lawrence M.D. SPECIMENS: None. CULTURES: None. DRAINS: A 6-Azerbaijani 24-cm right double J stent. ESTIMATED BLOOD LOSS: None. COMPLICATIONS: None. DESCRIPTION OF PROCEDURE: The patient was brought into the operating room and placed on the operating table in the supine position. After the administration of general anesthesia via laryngeal mask, intravenous antibiotics had been administered in the ER. The patient was placed in the dorsal lithotomy position. The vagina and perineum were prepped and draped in the usual sterile manner. A 22-Azerbaijani cystoscope was inserted into the bladder, with the obturator in place. The obturator was removed. Urine was evacuated. The 30-degree telescope was inserted and cystoscopy was performed. This demonstrated no foreign bodies, tumor, stones or inflammation. Both ureteral orifices were in their locations, with clear efflux bilaterally. There was diminished efflux on the right. The right ureteral orifice was cannulated with the 0.038 guidewire, which was advanced to the level of the right renal pelvis under direct visual and fluoroscopic guidance. A dual-lumen catheter was inserted. Retrograde pyelogram was done and demonstrated mild right hydronephrosis and a proximal right ureteral calculus. The dual-lumen catheter was removed and a 6-Azerbaijani 24-cm right double J stent was inserted over the guidewire under direct visual and fluoroscopic guidance, leaving 1 coil in the renal pelvis and 1 coil in the bladder. The bladder was emptied and the cystoscope removed. She tolerated the procedure well and was transferred to the recovery room in stable condition. BRAD HARRISON M.D. [id number]
[2019-07-05] MEDS ORDERED: INSULIN (NOVOLOG) ASPART 100 UNITS/ML 10ML VIAL ONE ×2 (17:15→21:26)
--- NOTE | 2019-07-05 17:16 | PN ---
Progress Note (short form) - Note Progress Note: ID consult dictated imp/reccd 53 yo with dm and ckd admitted with renal colic- found to have nephrolithaisis with obstructive uropathy and UTI she is s/p stent placement and resting comfortably in the recovery room no fevers, normal wbc, no history of prior UTIs no MDRO would continue rocephin as ordered f/u cultures in am quinolone allergy noted CKD- for f/u with renal DM- per primary service
--- NOTE | 2019-07-05 17:39 | CONS ---
DATE OF CONSULTATION: 07/05/2019 REQUESTED BY: The hospitalist service This is a 53-year-old woman with a history of CKD and diabetes, she has never been in the hospital, she says, who is now admitted with acute onset of right flank pain that started at 5 a.m. this morning. She had not been feeling well last night. She started vomiting. The vomiting continued and she presented to the ER. There was no fevers or chills. She has not had any urinary symptoms, no hematuria or dysuria. She is known to have CKD and she follows with Dr. Chicas. She had a spiral CT done in the ER that showed a small left pleural effusion and a 6-mm proximal right ureteral calculus with accompanying mild hydronephrosis. She is currently status post cystoscopy and right JJ stent insertion, and she had a 6-mm right proximal ureteral calculus with mild right hydro. She is resting comfortably in the recovery room and with stable vital signs. She is awake and alert and her vomiting has stopped. Her past medical history is notable for history of CKD, hypertension, hyperlipidemia, type 2 diabetes. She had apparently kidney stones that passed spontaneously about 7 years ago. She has never had a UTI. SURGICAL HISTORY: Surgical history is notable for section. SOCIAL HISTORY: She lives at home with her daughter and her . There is no history of cigarette, alcohol, or substance use. She is allergic to AMLODIPINE, which causes leg swelling, and CIPRO, which causes difficulty breathing. Her medications at home include atorvastatin, Coreg, hydralazine, insulin, Linzess, . REVIEW OF SYSTEMS: The vomiting has stopped. She currently is resting comfortably. PHYSICAL EXAMINATION: Vital Signs: Temperature is 97.9. Pulse 98. Blood pressure 118/61. Weight 122 kg. HEENT: Normocephalic. Her eyes are anicteric. Neck: Supple. Lungs: Clear to auscultation. Abdomen: Soft, nontender. Extremities: Without edema. White count 5.9, hemoglobin 9.2, platelets 347. BUN 111, creatinine 4.7, glucose 392. Urinalysis has 2+ leukocytes with 943 white cells. Urine and blood cultures are pending. In summary, this is a 53-year-old diabetic woman with CKD, admitted with renal colic and right ureteral stone with UTI. She has been started on ceftriaxone. The stone has been removed. Would suggest we continue her on ceftriaxone and follow up based on the culture results. Case was discussed with the hospitalist. LETY CEDENO M.D. [id number]
[2019-07-05] MEDS ORDERED: INSULIN REGULAR HUMAN 100 UNITS/ML *VIAL SQ ONE (17:40)
[2019-07-05] MEDS ORDERED: ONDANSETRON 4 MG/2 ML VIAL IVPUSH PRN (17:40)
[2019-07-05] MEDS ORDERED: LABETALOL HCL 5 MG/1 ML (100MG/20 ML VIAL) IVPUSH ONE (17:40)
[2019-07-05] MEDS ORDERED: LACTATED RINGERS SOLUTION 1,000 ML IV SCH (17:45)
[2019-07-05] MEDS: INSULIN SLIDING SCALE (NOVOLOG) 1 VIAL SQ SCH (21:43)
[2019-07-05] MEDS: INSULIN (LEVEMIR) 100 UNITS/ML UNITS SQ SCH (21:43)
--- NOTE | 2019-07-05 21:46 | CONSULT ---
Consult Consult Specialty:: Nephrology Reason for Consultation:: JUN - History of Present Illness Chief Complaint: right flank pain History of Present Illness: Pt is a 53 year old female wiht pmhx of ckd, htn, hld, dm and nephrolithiasis who presents to the ER with worsening renal failure and right flank pain. Pain is rateed 10/10. SHe says that it started with morning. 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 She was also found to have a right kidney stone with hydro. She has nausea and vomiting. She denies shortness of breath or palpitations. She denies fevers or chills. - History Source History Provided By: Patient, Medical Record - Past Medical History Cardio/Vascular: Yes: HTN, Hyperlipdemia Renal/: Yes: Renal Inusuff Endocrine: Yes: Diabetes Mellitus - Alcohol/Substance Use Hx Alcohol Use: No - Smoking History Smoking history: Never smoked Have you smoked in the past 12 months: No If you are a former smoker, when did you quit?: 1996 Home Medications - Allergies Allergies/Adverse Reactions: Allergies Allergy/AdvReac Type Severity Reaction Status Date / Time amlodipine Allergy Severe Swelling Verified 07/05/19 09:50 ciprofloxacin [From Cipro] Allergy Severe Difficulty Verified 07/05/19 09:50 Breathing - Home Medications Home Medications: Ambulatory Orders Amoxicillin/Potassium Clav [Augmentin 875-125 Tablet] 1 each PO BID #10 tablet 05/19/19 Atorvastatin Ca [Lipitor] 40 mg PO HS 05/19/19 Azithromycin 250 mg PO DAILY #5 tablet 05/19/19 Carvedilol [Coreg -] 25 mg PO BID 05/19/19 Hydralazine HCl 100 mg PO TID 05/19/19 Insulin Glargine,Hum.rec.anlog [Basaglar Kwikpen U-100] 68 unit SQ BID 05/19/19 Insulin Lispro [Humalog] 27 unit SQ ASDIR 05/19/19 Linaclotide [Linzess] 145 mcg PO DAILY 05/19/19 Torsemide 100 mg PO DAILY 05/19/19 Family Medical History Family History: Denies Review of Systems - Review of Systems Constitutional: reports: Malaise Eyes: reports: No Symptoms HENT: reports: No Symptoms Neck: reports: No Symptoms Cardiovascular: reports: No Symptoms Respiratory: reports: No Symptoms Gastrointestinal: reports: Vomiting Genitourinary: reports: Flank Pain Musculoskeletal: reports: No Symptoms Integumentary: reports: No Symptoms Neurological: reports: No Symptoms Endocrine: reports: No Symptoms Hematology/Lymphatic: reports: No Symptoms Psychiatric: reports: No Symptoms Physical Exam Vital Signs: Vital Signs Temperature 98.1 F 07/05/19 18:54 Pulse Rate 98 H 07/05/19 18:54 Respiratory Rate 18 07/05/19 18:54 Blood Pressure 158/81 07/05/19 18:54 O2 Sat by Pulse Oximetry (%) 96 07/05/19 18:54 Constitutional: Yes: Calm Eyes: Yes: Conjunctiva Clear HENT: Yes: Atraumatic Cardiovascular: Yes: S1, S2 Respiratory: Yes: CTA Bilaterally Gastrointestinal: Yes: Soft, Abdomen, Obese Renal/: Yes: WNL Musculoskeletal: Yes: WNL Edema: No Neurological: Yes: Oriented Psychiatric: Yes: Oriented Labs: CBC, BMP 07/05/19 10:59 07/05/19 11:05 Imaging - Results Cat Scan: Report Reviewed Problem List - Problems (1) CKD (chronic kidney disease) Code(s): N18.9 - CHRONIC KIDNEY DISEASE, UNSPECIFIED Qualifiers: Chronic kidney disease stage: stage 4 (severe) Qualified Code(s): N18.4 - Chronic kidney disease, stage 4 (severe) (2) Diabetes Code(s): E11.9 - TYPE 2 DIABETES MELLITUS WITHOUT COMPLICATIONS Qualifiers: Diabetes mellitus type: type 2 Diabetes mellitus half-way insulin use: without terminal press operator use Diabetes mellitus complication status: with skin complications (3) HTN (hypertension) Code(s): I10 - ESSENTIAL (PRIMARY) HYPERTENSION Qualifiers: Hypertension type: essential hypertension Qualified Code(s): I10 - Essential (primary) hypertension (4) Hydronephrosis concurrent with and due to calculi of kidney and ureter Code(s): N13.2 - HYDRONEPHROSIS WITH RENAL AND URETERAL CALCULOUS OBSTRUCTION Assessment/Plan Current Medications Generic Name Dose Route Start Last Admin Trade Name Freq PRN Reason Stop Dose Admin Acetaminophen 1,000 mg 07/05/19 16:56 Ofirmev Injection - IVPB 07/06/19 14:45 Q6H PRN PAIN LEVEL 6-10 Ceftriaxone Sodium 2,000 mg/ 50 mls @ 100 mls/hr 07/06/19 10:00 Dextrose IVPB DAILY ESA Sodium Chloride 1,000 mls @ 75 mls/hr 07/05/19 16:56 07/05/19 19:42 Normal Saline - IV 75 mls/hr ASDIR [facility] Administration Insulin Aspart 1 vial 07/05/19 22:00 07/05/19 21:43 Novolog Vial Sliding Scale - SQ 8 units ACHS [facility] Administration Protocol Insulin Detemir 34 units 07/05/19 22:00 07/05/19 21:43 Levemir Vial SQ 34 units BID [facility] Administration Morphine Sulfate 2 mg 07/05/19 16:56 07/05/19 19:41 Morphine Sulfate IVPUSH 2 mg Q4H PRN Administration PAIN LEVEL 7 - 10 Prochlorperazine Edisylate 10 mg 07/05/19 16:56 Compazine Injection - IVPB Q4H PRN NAUSEA AND/OR VOMITING Tamsulosin HCl 0.4 mg 07/06/19 08:30 Flomax - PO DAILY@0830 [facility] Impression 1. CKD 2. jun 3. hydronephrosis 4. nephrolithiasis 5. htn 6. DM 7. obesity 8. anemia Plan - urology eval - will start fluids - check blood and urine cultures - renal diet once she is eating - monitor renal function closely - avoid nsaids
[2019-07-05] MEDS ORDERED: INSULIN (LEVEMIR) 100 UNITS/ML UNITS SQ SCH ×2 (22:00)
[2019-07-05] MEDS: SODIUM CHLORIDE 0.45% 1,000 ML IV SCH (22:16)
[2019-07-05] MEDS: SODIUM BICARBONATE 650 MG TABLET PO SCH (22:17)
[2019-07-06] MEDS: INSULIN SLIDING SCALE (NOVOLOG) 1 VIAL SQ SCH ×4 (06:10→21:13)
[2019-07-06 08:12] LABS: BASO % 0.3 % (0-2.0); EOS % 0.1 % (0-4.5); HEMATOCRIT 21.8 % (32.4-45.2); HEMOGLOBIN 7.3 GM/dL (10.7-15.3); LYMPH % 10.9 % (8-40); MCH 27.5 pg (25.7-33.7); MCHC 33.7 g/dl (32.0-36.0); MEAN CELL VOLUME 81.6 fl (80-96); MEAN PLT VOLUME 7.1 fl (7.5-11.1); NEUT % 72.7 % (42.8-82.8); PLATELET COUNT 293 K/MM3 (134-434); RBC 2.67 M/mm3 (3.60-5.2); RDW 15.1 % (11.6-15.6); WHITE BLOOD COUNT 5.3 K/mm3 (4.0-10.0)
[2019-07-06] MEDS ORDERED: TAMSULOSIN HCL 0.4 MG CAP PO SCH (08:30)
[2019-07-06 08:52] LABS: ALBUMIN 2.8 g/dl (3.4-5.0); BILIRUBIN,TOTAL 0.6 mg/dL (0.2-1); CALCIUM 8.9 mg/dL (8.5-10.1); CREATININE 4.5 mg/dL (0.55-1.3); MAGNESIUM 2.2 mg/dL (1.8-2.4); PHOSPHOROUS 5.7 mg/dL (2.5-4.9); POTASSIUM 4.1 mmol/L (3.5-5.1); TOT PROT 7.1 g/dl (6.4-8.2)
[2019-07-06 09:04] LABS: BLOOD UREA NITROGEN 113.8 mg/dL (7-18)
[2019-07-06] MEDS: TAMSULOSIN HCL 0.4 MG CAP PO SCH (09:27)
[2019-07-06] MEDS: SODIUM BICARBONATE 650 MG TABLET PO SCH ×2 (09:27→21:56)
[2019-07-06] MEDS: INSULIN (LEVEMIR) 100 UNITS/ML UNITS SQ SCH ×2 (09:29→21:17)
[2019-07-06] MEDS ORDERED: INSULIN (LEVEMIR) 100 UNITS/ML UNITS SQ ONE (09:36)
[2019-07-06] MEDS ORDERED: DEXTROSE 5%-WATER 100 ML IVPB ONE (09:37)
[2019-07-06] MEDS ORDERED: CEFTRIAXONE 2 GM in DEXTROSE 5%-WATER 100 ML IVPB SCH (10:00)
[2019-07-06] MEDS ORDERED: CEFTRIAXONE 2,000 MG in DEXTROSE 5%-WATER - 50 ML IVPB SCH (10:00)
[2019-07-06] MEDS: ACETAMINOPHEN 325 MG TABLET (FP) PO PRN ×2 (11:38→21:00)
--- NOTE | 2019-07-06 11:45 | PN ---
Physical Exam: SUBJECTIVE: Patient seen and examined OBJECTIVE: Vital Signs Period Temp Pulse Resp BP Sys/Sloan Pulse Ox Last 24 Hr 97.8 F-98.9 F 88-108 16-20 109-194/64-81 96-100 GENERAL: The patient is awake, alert, and fully oriented, in no acute distress. HEAD: Normal with no signs of trauma. EYES: PERRL, extraocular movements intact, sclera anicteric, conjunctiva clear. No ptosis. ENT: Ears normal, nares patent, oropharynx clear without exudates, moist mucous membranes. NECK: Trachea midline, full range of motion, supple. LUNGS: Breath sounds equal, clear to auscultation bilaterally, no wheezes, no crackles, no accessory muscle use. HEART: Regular rate and rhythm, S1, S2 without murmur, rub or gallop. ABDOMEN: Soft, nontender, nondistended, normoactive bowel sounds, no guarding, no rebound, no hepatosplenomegaly, no masses. EXTREMITIES: 2+ pulses, warm, well-perfused, no edema. NEUROLOGICAL: Cranial nerves II through XII grossly intact. Normal speech, gait not observed. PSYCH: Normal mood, normal affect. SKIN: Warm, dry, normal turgor, no rashes or lesions noted Laboratory Results - last 24 hr 07/05/19 07/05/19 07/05/19 11:05 12:32 13:50 WBC RBC Hgb Hct MCV MCH MCHC RDW Plt Count MPV Absolute Neuts (auto) Neutrophils % Lymphocytes % Monocytes % Eosinophils % Basophils % Nucleated RBC % Retic Count PT with INR INR PTT (Actin FS) Sodium 132 L Potassium 4.9 Chloride 103 Carbon Dioxide 13 L Anion Gap 16 BUN 111.9 H* Creatinine 4.7 H Est GFR (CKD-EPI)AfAm 11.39 Est GFR (CKD-EPI)NonAf 9.83 POC Glucometer Random Glucose 392 H Calcium 9.2 Phosphorus Magnesium Iron TIBC Iron Saturation Unsaturated IBC Ferritin Total Bilirubin 0.3 AST 13 L ALT 18 Alkaline Phosphatase 96 Creatine Kinase 33 Troponin I < 0.02 Total Protein 8.6 H Albumin 3.5 TSH Urine Color Yellow Urine Appearance Turbid Urine pH 5.0 Ur Specific Doswell 1.014 Urine Protein 3+ H Urine Glucose (UA) 1+ H Urine Ketones Trace H Urine Blood 3+ H Urine Nitrite Negative Urine Bilirubin Negative Urine Urobilinogen 0.2 Ur Leukocyte Esterase 2+ H Urine WBC (Auto) 943 Urine RBC (Auto) 22 Urine Casts (Auto) 4 U Epithel Cells (Auto) 6.1 Urine Bacteria (Auto) 4417.3 Blood Type Cancelled Antibody Screen Cancelled 07/05/19 07/05/19 07/05/19 13:50 15:00 15:55 WBC RBC Hgb Hct MCV MCH MCHC RDW Plt Count MPV Absolute Neuts (auto) Neutrophils % Lymphocytes % Monocytes % Eosinophils % Basophils % Nucleated RBC % Retic Count PT with INR 11.60 INR 0.98 PTT (Actin FS) 32.4 Sodium Potassium Chloride Carbon Dioxide Anion Gap BUN Creatinine Est GFR (CKD-EPI)AfAm Est GFR (CKD-EPI)NonAf POC Glucometer 455 Random Glucose Calcium Phosphorus Magnesium Iron TIBC Iron Saturation Unsaturated IBC Ferritin Total Bilirubin AST ALT Alkaline Phosphatase Creatine Kinase Troponin I Total Protein Albumin TSH Urine Color Urine Appearance Urine pH Ur Specific [place] Urine Protein Urine Glucose (UA) Urine Ketones Urine Blood Urine Nitrite Urine Bilirubin Urine Urobilinogen Ur Leukocyte Esterase Urine WBC (Auto) Urine RBC (Auto) Urine Casts (Auto) U Epithel Cells (Auto) Urine Bacteria (Auto) Blood Type A POSITIVE Antibody Screen Negative 07/05/19 07/05/19 07/05/19 17:05 19:30 21:42 WBC RBC Hgb Hct MCV MCH MCHC RDW Plt Count MPV Absolute Neuts (auto) Neutrophils % Lymphocytes % Monocytes % Eosinophils % Basophils % Nucleated RBC % Retic Count PT with INR INR PTT (Actin FS) Sodium Potassium Chloride Carbon Dioxide Anion Gap BUN Creatinine Est GFR (CKD-EPI)AfAm Est GFR (CKD-EPI)NonAf POC Glucometer 377 313 Random Glucose Calcium Phosphorus Magnesium Iron TIBC Iron Saturation Unsaturated IBC Ferritin Total Bilirubin AST ALT Alkaline Phosphatase Creatine Kinase Troponin I < 0.02 Total Protein Albumin TSH Urine Color Urine Appearance Urine pH Ur Specific [place] Urine Protein Urine Glucose (UA) Urine Ketones Urine Blood Urine Nitrite Urine Bilirubin Urine Urobilinogen Ur Leukocyte Esterase Urine WBC (Auto) Urine RBC (Auto) Urine Casts (Auto) U Epithel Cells (Auto) Urine Bacteria (Auto) Blood Type Antibody Screen 07/06/19 07/06/19 07/06/19 06:09 07:15 07:15 WBC 5.3 RBC 2.67 L Hgb 7.3 L Hct 21.8 L D MCV 81.6 MCH 27.5 MCHC 33.7 RDW 15.1 Plt Count 293 MPV 7.1 L Absolute Neuts (auto) 3.8 Neutrophils % 72.7 Lymphocytes % 10.9 D Monocytes % 16.0 H D Eosinophils % 0.1 Basophils % 0.3 Nucleated RBC % 0 Retic Count PT with INR INR PTT (Actin FS) Sodium 137 Potassium 4.1 Chloride 108 H Carbon Dioxide 19 L Anion Gap 10 BUN 113.8 H* Creatinine 4.5 H Est GFR (CKD-EPI)AfAm 12.00 Est GFR (CKD-EPI)NonAf 10.36 POC Glucometer 168 Random Glucose 150 H Calcium 8.9 Phosphorus 5.7 H Magnesium 2.2 Iron TIBC Iron Saturation Unsaturated IBC Ferritin Total Bilirubin 0.6 AST 6 L ALT 14 Alkaline Phosphatase 78 Creatine Kinase Troponin I Total Protein 7.1 Albumin 2.8 L TSH 3.73 Urine Color Urine Appearance Urine pH Ur Specific [place] Urine Protein Urine Glucose (UA) Urine Ketones Urine Blood Urine Nitrite Urine Bilirubin Urine Urobilinogen Ur Leukocyte Esterase Urine WBC (Auto) Urine RBC (Auto) Urine Casts (Auto) U Epithel Cells (Auto) Urine Bacteria (Auto) Blood Type Antibody Screen 07/06/19 07/06/19 07/06/19 07:15 07:15 11:35 WBC RBC Hgb Hct MCV MCH MCHC RDW Plt Count MPV Absolute Neuts (auto) Neutrophils % Lymphocytes % Monocytes % Eosinophils % Basophils % Nucleated RBC % Retic Count 2.83 H PT with INR INR PTT (Actin FS) Sodium Potassium Chloride Carbon Dioxide Anion Gap BUN Creatinine Est GFR (CKD-EPI)AfAm Est GFR (CKD-EPI)NonAf POC Glucometer 133 Random Glucose Calcium Phosphorus Magnesium Iron 17 L TIBC 216 L Iron Saturation 7 L Unsaturated IBC 199 L Ferritin 80.7 Total Bilirubin AST ALT Alkaline Phosphatase Creatine Kinase Troponin I Total Protein Albumin TSH Urine Color Urine Appearance Urine pH Ur Specific [place] Urine Protein Urine Glucose (UA) Urine Ketones Urine Blood Urine Nitrite Urine Bilirubin Urine Urobilinogen Ur Leukocyte Esterase Urine WBC (Auto) Urine RBC (Auto) Urine Casts (Auto) U Epithel Cells (Auto) Urine Bacteria (Auto) Blood Type Antibody Screen Active Medications Generic Name Dose Route Start Last Admin Trade Name Freq PRN Reason Stop Dose Admin Acetaminophen 650 mg 07/06/19 11:31 07/06/19 11:38 Tylenol - PO 650 mg Q6H PRN Administration PAIN LEVEL 4 - 6 Sodium Chloride 1,000 mls @ 83 mls/hr 07/05/19 22:00 07/05/19 22:16 1/2 Normal Saline IV 83 mls/hr ASDIR ESA Administration Ceftriaxone Sodium 2 gm/ 100 mls @ 100 mls/hr 07/06/19 10:00 07/06/19 09:39 Dextrose IVPB 100 mls/hr DAILY ESA Administration Insulin Aspart 1 vial 07/05/19 22:00 07/06/19 11:36 Novolog Vial Sliding Scale - SQ Not Given [facility] Protocol Insulin Detemir 34 units 07/05/19 22:00 07/06/19 09:29 Levemir Vial SQ 34 units BID ESA Administration Morphine Sulfate 2 mg 07/05/19 16:56 07/05/19 19:41 Morphine Sulfate IVPUSH 2 mg Q4H PRN Administration PAIN LEVEL 7 - 10 Prochlorperazine Edisylate 10 mg 07/05/19 16:56 Compazine Injection - IVPB Q4H PRN NAUSEA AND/OR VOMITING Sodium Bicarbonate 650 mg 07/05/19 22:00 07/06/19 09:27 Sodium Bicarbonate - PO 650 mg BID [facility] Administration Tamsulosin HCl 0.4 mg 07/06/19 08:30 07/06/19 09:27 Flomax - PO 0.4 mg DAILY@0830 [facility] Administration ASSESSMENT/PLAN:
--- NOTE | 2019-07-06 11:55 | EKG ---
Test Reason : Blood Pressure : / mmHG Vent. Rate : 106 BPM Atrial Rate : 106 BPM P-R Int : 180 ms QRS Dur : 088 ms QT Int : 348 ms P-R-T Axes : 054 003 078 degrees QTc Int : 462 ms SINUS TACHYCARDIA POSSIBLE LEFT ATRIAL ENLARGEMENT NONSPECIFIC ST AND T WAVE ABNORMALITY ABNORMAL ECG WHEN COMPARED WITH ECG OF 23-JUL-2001 01:13, NONSPECIFIC T WAVE ABNORMALITY NOW EVIDENT IN LATERAL LEADS Confirmed by DENISE CARY MD ([id number]) on 07/06/2019 11:54:44 AM Referred By: Confirmed By:DENISE CARY MD
--- NOTE | 2019-07-06 13:06 | PN ---
Progress Note, Physician Chief Complaint: This is a 53-year-old female with the morbid obesity and advanced Chronic kidney failure, Admitted with RIGHT renal colic. Patient underwent placement of a double-J stent. The patient had acute severe gross hematuria which is getting better since placement of the stent. The pain has remarkably improved. The patient does not recall passing of the stone. Denies chest pain or shortness of breath. Denies palpitations. - Current Medication List Current Medications: Active Medications Acetaminophen (Tylenol -) 650 mg PO Q6H PRN PRN Reason: PAIN LEVEL 4 - 6 Last Admin: 07/06/19 11:38 Dose: 650 mg Atorvastatin Calcium (Lipitor -) 40 mg PO HS [facility] Carvedilol (Coreg -) 25 mg PO BID [facility] Hydralazine HCl (Apresoline -) 100 mg PO TID [facility] Sodium Chloride (1/2 Normal Saline) 1,000 mls @ 83 mls/hr IV ASDIR [facility] Last Admin: 07/05/19 22:16 Dose: 83 mls/hr Ceftriaxone Sodium 2 gm/ (Dextrose) 100 mls @ 100 mls/hr IVPB DAILY [facility] Last Admin: 07/06/19 09:39 Dose: 100 mls/hr Insulin Aspart (Novolog Vial Sliding Scale -) 1 vial SQ ACHS [facility]; Protocol Last Admin: 07/06/19 11:36 Dose: Not Given Insulin Detemir (Levemir Vial) 34 units SQ BID [facility] Last Admin: 07/06/19 09:29 Dose: 34 units Morphine Sulfate (Morphine Sulfate) 2 mg IVPUSH Q4H PRN PRN Reason: PAIN LEVEL 7 - 10 Last Admin: 07/05/19 19:41 Dose: 2 mg Prochlorperazine Edisylate (Compazine Injection -) 10 mg IVPB Q4H PRN PRN Reason: NAUSEA AND/OR VOMITING Sodium Bicarbonate (Sodium Bicarbonate -) 650 mg PO BID [facility] Last Admin: 07/06/19 09:27 Dose: 650 mg Tamsulosin HCl (Flomax -) 0.4 mg PO DAILY@0830 [facility] Last Admin: 07/06/19 09:27 Dose: 0.4 mg Torsemide (Demadex -) 100 mg PO DAILY [facility] - Objective Vital Signs: Vital Signs Temperature 97.8 F 07/06/19 09:37 Pulse Rate 92 H 07/06/19 09:37 Respiratory Rate 17 02/21/20 09:37 Blood Pressure 182/79 H 07/06/19 09:37 O2 Sat by Pulse Oximetry (%) 96 07/05/19 21:00 Constitutional: Yes: No Distress, Anxious Eyes: Yes: Conjunctiva Clear HENT: Yes: Normocephalic Cardiovascular: Yes: Regular Rate and Rhythm, S1, S2 Respiratory: Yes: Regular, Diminished, Poor Air Entry Gastrointestinal: Yes: Normal Bowel Sounds, Soft, Abdomen, Obese. No: Tenderness, Tenderness, Rebound Neurological: Yes: Alert, Oriented Labs: CBC, BMP 07/06/19 07:15 07/06/19 07:15 INR, PTT INR 0.98 (0.83-1.09) 07/05/19 13:50 Problem List - Problems (1) Kidney disease, chronic, stage IV (GFR 15-29 ml/min) Code(s): N18.4 - CHRONIC KIDNEY DISEASE, STAGE 4 (SEVERE) (2) Diabetes Code(s): E11.9 - TYPE 2 DIABETES MELLITUS WITHOUT COMPLICATIONS Qualifiers: Diabetes mellitus type: type 2 Diabetes mellitus senior care insulin use: without superintendent container terminal use Diabetes mellitus complication status: with skin complications (3) HTN (hypertension) Code(s): I10 - ESSENTIAL (PRIMARY) HYPERTENSION Qualifiers: Hypertension type: essential hypertension Qualified Code(s): I10 - Essential (primary) hypertension (4) Hydronephrosis concurrent with and due to calculi of kidney and ureter Code(s): N13.2 - HYDRONEPHROSIS WITH RENAL AND URETERAL CALCULOUS OBSTRUCTION (5) Renal calculus or stone Code(s): N20.0 - CALCULUS OF KIDNEY (6) UTI (urinary tract infection) Code(s): N39.0 - URINARY TRACT INFECTION, SITE NOT SPECIFIED (7) Ureteral calculus Code(s): N20.1 - CALCULUS OF URETER Assessment/Plan This is a 53-year-old morbidly obese female with history of hypertension, diabetes, morbid obesity, and advanced chronic kidney disease. Patient was admitted with LEFT ureteric colic. The patient underwent placement of double-J stent on the RIGHT side last evening. Hematuria has improved. The renal colic has improved. No passing of a renal stone reported. The patient has advanced chronic kidney disease, Stage V. Had detailed discussion about the renal replacement therapy with the patient. The patient has no symptoms suggestive of uremia, nor any acute electrolyte abnormalities that necessitates renal replacement therapy. We will continue intravenous hydration to force diuresis. If the patient is discharged, I shall see her as outpatient for close monitoring of her renal function. Dr. Rosa M Chicas
[2019-07-06] MEDS: CARVEDILOL 25 MG TABLET (FP) PO SCH ×2 (14:14→21:56)
[2019-07-06] MEDS: TORSEMIDE 100 MG TABLET PO SCH (14:15)
[2019-07-06] MEDS: hydrALAZINE HCL 50 MG TABLET (FP) PO SCH ×2 (14:15→21:56)
--- NOTE | 2019-07-06 14:20 | PN ---
Progress Note (short form) - Note Progress Note: S: NO CP SOB PALPS DIZZY Current Medications Generic Name Dose Route Start Last Admin Trade Name Freq PRN Reason Stop Dose Admin Acetaminophen 650 mg 07/06/19 11:31 07/06/19 11:38 Tylenol - PO 650 mg Q6H PRN Administration PAIN LEVEL 4 - 6 Atorvastatin Calcium 40 mg 07/06/19 22:00 Lipitor - PO HS [facility] Carvedilol 25 mg 07/06/19 11:45 07/06/19 14:14 Coreg - PO 25 mg BID [facility] Administration Hydralazine HCl 100 mg 07/06/19 14:00 07/06/19 14:15 Apresoline - PO 100 mg TID [facility] Administration Sodium Chloride 1,000 mls @ 83 mls/hr 07/05/19 22:00 07/05/19 22:16 1/2 Normal Saline IV 83 mls/hr ASDIR [facility] Administration Ceftriaxone Sodium 2 gm/ 100 mls @ 100 mls/hr 07/06/19 10:00 07/06/19 09:39 Dextrose IVPB 100 mls/hr DAILY [facility] Administration Insulin Aspart 1 vial 07/05/19 22:00 07/06/19 11:36 Novolog Vial Sliding Scale - SQ Not Given ACHS [facility] Protocol Insulin Detemir 34 units 07/05/19 22:00 07/06/19 09:29 Levemir Vial SQ 34 units BID [facility] Administration Morphine Sulfate 2 mg 07/05/19 16:56 07/05/19 19:41 Morphine Sulfate IVPUSH 2 mg Q4H PRN Administration PAIN LEVEL 7 - 10 Nifedipine 30 mg 07/06/19 14:30 Procardia Xl - PO DAILY [facility] Prochlorperazine Edisylate 10 mg 07/05/19 16:56 Compazine Injection - IVPB Q4H PRN NAUSEA AND/OR VOMITING Sodium Bicarbonate 650 mg 07/05/19 22:00 07/06/19 09:27 Sodium Bicarbonate - PO 650 mg BID [facility] Administration Tamsulosin HCl 0.4 mg 07/06/19 08:30 07/06/19 09:27 Flomax - PO 0.4 mg DAILY@0830 [facility] Administration Torsemide 100 mg 07/06/19 11:45 07/06/19 14:15 Demadex - PO 100 mg DAILY [facility] Administration Vital Signs Period Temp Pulse Resp BP Sys/Sloan Pulse Ox Last 24 Hr 97.8 F-98.9 F 88-108 16-20 109-194/64-81 96-100 Constitutional: Yes: Well Nourished, Calm Eyes: Yes: Conjunctiva Clear Neck: Yes: Supple, Trachea Midline Respiratory: Yes: Regular, CTA Bilaterally Gastrointestinal: Yes: Normal Bowel Sounds, Soft Cardiovascular: Yes: Regular Rate and Rhythm JVD: No Heart Sounds: Yes: S1, S2 Extremities: No: Cold Edema: No Peripheral Pulses WNL: No Integumentary: No: Jaundice Neurological: Yes: Alert, Oriented Psychiatric: No: Agitated CBC, BMP 07/06/19 07:15 07/06/19 07:15 Assessment/Plan EKG: sinus tach, LA enlargement, no ischemic changes CXR: no acute process CT abd: sm L pleural effusion and bibasilar atelectasis, prox R ureteral calculus with mild hydronephrosis, extensive arterial calcification within bowel aorta and its branches preop evaluation, acute complicated pyelonephritis, ureteral stone - she has multiple CV risk factors, however no hx cardiac disease and is stable from cardiac perspective - echo ordered given risk factors, however this does not need to be done prior to cystoscopy - she is at acceptable risk for procedure, no further testing needed prior to cystoscopy/stent placement-->now s/p ureter stent HTN - cont home meds, pt also on nifedipine 30 qd at home, will add DM - manage per primary HLD - cont statin calcification of aorta - noted on CT abd/pelvis with extensive arterial calcification of aorta and its branches - cont statin, would consider further workup as outpatient when acute issues resolved
--- NOTE | 2019-07-06 14:34 | ECHO ---
Name: GLORIA LAWTON Exam:Adult Echocardiogram Study Date: 07/06/2019 01:37 PM Age: 53 yrs Reason For Study: EVALUATE CARDIAC FXN Height: 62 in Weight: 270 lb BSA: 2.2 m2 MMode/2D Measurements & Calculations IVSd: 1.3 cm Ao root diam: 2.5 cm LVIDd: 5.0 cm LA dimension: 3.6 cm LVIDs: 3.2 cm ACS: 1.5 cm LVPWd: 1.2 cm EDV(Dayanara): 116.0 ml LVOT diam: 2.0 cm ESV(Dayanara): 40.5 ml TAPSE: 2.1 cm RV S Manny: 20.1 cm/sec Doppler Measurements & Calculations MV E max manny: 114.6 cm/sec Ao V2 max: 183.2 cm/sec MV A max manny: 94.9 cm/sec Ao max P.4 mmHg MV E/A: 1.2 Ao V2 mean: 125.3 cm/sec MV dec time: 0.18 sec Ao mean P.4 mmHg Ao V2 VTI: 34.9 cm RAISA(I,D): 2.2 cm2 RAISA(V,D): 2.4 cm2 LV V1 max P.3 mmHg SV(LVOT): 78.4 ml LV V1 mean P.5 mmHg LV V1 max: 135.4 cm/sec LV V1 mean: 88.0 cm/sec LV V1 VTI: 24.5 cm TR max manny: 287.8 cm/sec PA V2 max: 124.9 cm/sec TR max P.1 mmHg PA max P.2 mmHg PA acc slope: 744.4 cm/sec2 PA acc time: 0.10 sec Med Peak E' Manny: 7.7 cm/sec PA pr(Accel): 33.1 mmHg Med E/e': 14.9 Lat Peak E' Manny: 7.1 cm/sec Lat E/e': 16.1 Pulm Sys Manny: 70.1 cm/sec Pulm Sloan Manny: 50.3 cm/sec Pulm S/D: 1.4 Tech Comments TDS. Morbidly obese. Left Ventricle There is mild concentric left ventricular hypertrophy. Left ventricular systolic function is normal. Ejection Fraction = 55-60%. Right Ventricle The right ventricle is normal in size and function. Atria The left atrium is mildly dilated. Mitral Valve The mitral valve is normal in structure and function. There is no mitral valve stenosis. There is mil d mitral regurgitation. Tricuspid Valve The tricuspid valve is not well visualized, but is grossly normal. There is mild tricuspid regurgitat ion. Right ventricular systolic pressure is normal. Aortic Valve There is mild to moderate aortic sclerosis.;. No hemodynamically significant valvular aortic stenosis . No aortic regurgitation is present. Pulmonic Valve The pulmonic valve is not well seen, but is grossly normal. There is no pulmonic valvular stenosis. Great Vessels The aortic root is normal size. Pericardium/Pleura There is no pericardial effusion. Interpretation Summary Left ventricular systolic function is normal. Ejection Fraction = 55-60%. The left atrium is mildly dilated. There is mild mitral regurgitation. There is mild tricuspid regurgitation. There is mild to moderate aortic sclerosis.; There is no pericardial effusion. MD Langford *Antonette 07/06/2019 02:33 PM
--- NOTE | 2019-07-06 15:01 | PN ---
Physical Exam: SUBJECTIVE: Patient seen and examined at the bedside. states her pain is controlled. OBJECTIVE: Patient is a 53 year old female with past medical history of CKD, HTN, HLD, T2DM on insulin, and kidney stones, presented to the ED due to sudden, severe 10 /10 right flank pain, radiating down to the RLQ. Patient reported history of kidney stones about 7 years ago that passed spontaneously. Per Ed notes, recent blood work with PCP about 2 weeks ago revealed BUN/Cr 88/3.6. She is s/p cystoscopy and R JJ stent insertion for right ureteral calculus and right hydronephrosis. imaging: Spiral CT - small left pleural effusion and basilar atelectasis. 6mm proximal right ureteral calculus with hydronephrosis. Extensive arterial calcification within the bowel aorta and its branches. Vital Signs Period Temp Pulse Resp BP Sys/Sloan Pulse Ox Last 24 Hr 97.8 F-98.9 F 88-108 16-20 109-194/64-81 96-100 GENERAL: The patient is awake, alert, and fully oriented, in no acute distress. HEAD: Normal with no signs of trauma. EYES: PERRL, extraocular movements intact, sclera anicteric, conjunctiva clear. No ptosis. ENT: Ears normal, nares patent, oropharynx clear without exudates, moist mucous membranes. NECK: Trachea midline, full range of motion, supple. LUNGS: Breath sounds equal, clear to auscultation bilaterally HEART: Regular rate and rhythm ABDOMEN: Soft, nontender, nondistended, normoactive bowel sounds, no guarding, no rebound, no hepatosplenomegaly, no masses. EXTREMITIES: 2+ pulses, warm, well-perfused, no edema. NEUROLOGICAL: Normal speech, gait not observed. PSYCH: Normal mood, normal affect. SKIN: Warm, dry, normal turgor, no rashes or lesions noted Laboratory Results - last 24 hr 07/05/19 07/05/19 07/05/19 11:05 15:00 15:55 WBC RBC Hgb Hct MCV MCH MCHC RDW Plt Count MPV Absolute Neuts (auto) Neutrophils % Lymphocytes % Monocytes % Eosinophils % Basophils % Nucleated RBC % Retic Count Sodium 132 L Potassium 4.9 Chloride 103 Carbon Dioxide 13 L Anion Gap 16 BUN 111.9 H* Creatinine 4.7 H Est GFR (CKD-EPI)AfAm 11.39 Est GFR (CKD-EPI)NonAf 9.83 POC Glucometer 455 Random Glucose 392 H Calcium 9.2 Phosphorus Magnesium Iron TIBC Iron Saturation Unsaturated IBC Ferritin Total Bilirubin 0.3 AST 13 L ALT 18 Alkaline Phosphatase 96 Creatine Kinase 33 Troponin I < 0.02 Total Protein 8.6 H Albumin 3.5 TSH Blood Type A POSITIVE Antibody Screen Negative 07/05/19 07/05/19 07/05/19 17:05 19:30 21:42 WBC RBC Hgb Hct MCV MCH MCHC RDW Plt Count MPV Absolute Neuts (auto) Neutrophils % Lymphocytes % Monocytes % Eosinophils % Basophils % Nucleated RBC % Retic Count Sodium Potassium Chloride Carbon Dioxide Anion Gap BUN Creatinine Est GFR (CKD-EPI)AfAm Est GFR (CKD-EPI)NonAf POC Glucometer 377 313 Random Glucose Calcium Phosphorus Magnesium Iron TIBC Iron Saturation Unsaturated IBC Ferritin Total Bilirubin AST ALT Alkaline Phosphatase Creatine Kinase Troponin I < 0.02 Total Protein Albumin TSH Blood Type Antibody Screen 07/06/19 07/06/19 07/06/19 06:09 07:15 07:15 WBC 5.3 RBC 2.67 L Hgb 7.3 L Hct 21.8 L D MCV 81.6 MCH 27.5 MCHC 33.7 RDW 15.1 Plt Count 293 MPV 7.1 L Absolute Neuts (auto) 3.8 Neutrophils % 72.7 Lymphocytes % 10.9 D Monocytes % 16.0 H D Eosinophils % 0.1 Basophils % 0.3 Nucleated RBC % 0 Retic Count Sodium 137 Potassium 4.1 Chloride 108 H Carbon Dioxide 19 L Anion Gap 10 BUN 113.8 H* Creatinine 4.5 H Est GFR (CKD-EPI)AfAm 12.00 Est GFR (CKD-EPI)NonAf 10.36 POC Glucometer 168 Random Glucose 150 H Calcium 8.9 Phosphorus 5.7 H Magnesium 2.2 Iron TIBC Iron Saturation Unsaturated IBC Ferritin Total Bilirubin 0.6 AST 6 L ALT 14 Alkaline Phosphatase 78 Creatine Kinase Troponin I Total Protein 7.1 Albumin 2.8 L TSH 3.73 Blood Type Antibody Screen 07/06/19 07/06/19 07/06/19 07:15 07:15 11:35 WBC RBC Hgb Hct MCV MCH MCHC RDW Plt Count MPV Absolute Neuts (auto) Neutrophils % Lymphocytes % Monocytes % Eosinophils % Basophils % Nucleated RBC % Retic Count 2.83 H Sodium Potassium Chloride Carbon Dioxide Anion Gap BUN Creatinine Est GFR (CKD-EPI)AfAm Est GFR (CKD-EPI)NonAf POC Glucometer 133 Random Glucose Calcium Phosphorus Magnesium Iron 17 L TIBC 216 L Iron Saturation 7 L Unsaturated IBC 199 L Ferritin 80.7 Total Bilirubin AST ALT Alkaline Phosphatase Creatine Kinase Troponin I Total Protein Albumin TSH Blood Type Antibody Screen Active Medications Generic Name Dose Route Start Last Admin Trade Name Freq PRN Reason Stop Dose Admin Acetaminophen 650 mg 07/06/19 11:31 07/06/19 11:38 Tylenol - PO 650 mg Q6H PRN Administration PAIN LEVEL 4 - 6 Atorvastatin Calcium 40 mg 07/06/19 22:00 Lipitor - PO HS ESA Carvedilol 25 mg 07/06/19 11:45 07/06/19 14:14 Coreg - PO 25 mg BID ESA Administration Hydralazine HCl 100 mg 07/06/19 14:00 07/06/19 14:15 Apresoline - PO 100 mg TID ESA Administration Sodium Chloride 1,000 mls @ 83 mls/hr 07/05/19 22:00 07/05/19 22:16 1/2 Normal Saline IV 83 mls/hr ASDIR ESA Administration Ceftriaxone Sodium 2 gm/ 100 mls @ 100 mls/hr 07/06/19 10:00 07/06/19 09:39 Dextrose IVPB 100 mls/hr DAILY ESA Administration Insulin Aspart 1 vial 07/05/19 22:00 07/06/19 11:36 Novolog Vial Sliding Scale - SQ Not Given [facility] Protocol Insulin Detemir 34 units 07/05/19 22:00 07/06/19 09:29 Levemir Vial SQ 34 units BID ESA Administration Morphine Sulfate 2 mg 07/05/19 16:56 07/05/19 19:41 Morphine Sulfate IVPUSH 2 mg Q4H PRN Administration PAIN LEVEL 7 - 10 Nifedipine 30 mg 07/06/19 14:30 Procardia Xl - PO DAILY [facility] Prochlorperazine Edisylate 10 mg 07/05/19 16:56 Compazine Injection - IVPB Q4H PRN NAUSEA AND/OR VOMITING Sodium Bicarbonate 650 mg 07/05/19 22:00 07/06/19 09:27 Sodium Bicarbonate - PO 650 mg BID ESA Administration Tamsulosin HCl 0.4 mg 07/06/19 08:30 07/06/19 09:27 Flomax - PO 0.4 mg DAILY@0830 ESA Administration Torsemide 100 mg 07/06/19 11:45 07/06/19 14:15 Demadex - PO 100 mg DAILY ESA Administration ASSESSMENT/PLAN: Problem List - Problems (1) Pyelonephritis Assessment/Plan: acute complicated pyelonephritis, ureteral stone on rocephin monitor intake and output Code(s): N12 - TUBULO-INTERSTITIAL NEPHRITIS, NOT SPCF ACUTE OR CHRONIC (2) CKD (chronic kidney disease) Assessment/Plan: elevated bun/creat renal dose meds monitor daily renal following Code(s): N18.9 - CHRONIC KIDNEY DISEASE, UNSPECIFIED Qualifiers: Chronic kidney disease stage: stage 4 (severe) Qualified Code(s): N18.4 - Chronic kidney disease, stage 4 (severe) (3) Diabetes Assessment/Plan: on novolog bgms readings acceptable levels Code(s): E11.9 - TYPE 2 DIABETES MELLITUS WITHOUT COMPLICATIONS Qualifiers: Diabetes mellitus type: type 2 Diabetes mellitus fci insulin use: without fci use Diabetes mellitus complication status: with skin complications (4) HTN (hypertension) Assessment/Plan: bp elevated, restart home meds Code(s): I10 - ESSENTIAL (PRIMARY) HYPERTENSION Qualifiers: Hypertension type: essential hypertension Qualified Code(s): I10 - Essential (primary) hypertension (5) Hydronephrosis concurrent with and due to calculi of kidney and ureter Code(s): N13.2 - HYDRONEPHROSIS WITH RENAL AND URETERAL CALCULOUS OBSTRUCTION (6) Prophylactic measure Assessment/Plan: 1/2 ns @ 83 no a/c due to hematuria/scds only Code(s): Z29.9 - ENCOUNTER FOR PROPHYLACTIC MEASURES, UNSPECIFIED Visit type - Emergency Visit Emergency Visit: Yes ED Registration Date: 07/05/19 Care time: The patient presented to the Emergency Department on the above date and was hospitalized for further evaluation of their emergent condition. - New Patient This patient is new to me today: Yes Date on this admission: 07/06/19 - Critical Care Critical Care patient: No - Discharge Referral Referred to [facility] Med P.C.: No
--- NOTE | 2019-07-06 15:48 | PN ---
Progress Note (short form) - Note Progress Note: no fevers minimal pain less hematuria since last night Vital Signs Period Temp Pulse Resp BP Sys/Sloan Pulse Ox Last 24 Hr 97.8 F-98.9 F 88-108 16-20 109-194/64-81 96-100 cor-rrr lungs clear'no cvat abd soft,nt ext no edema CBC, BMP 07/06/19 07:15 07/06/19 07:15 Microbiology 07/05/19 13:55 Blood - Peripheral Venous Blood Culture - Preliminary NO GROWTH OBTAINED AFTER 24 HOURS, INCUBATION TO CONTINUE FOR 4 DAYS. 07/05/19 13:50 Blood - Peripheral Venous Blood Culture - Preliminary NO GROWTH OBTAINED AFTER 24 HOURS, INCUBATION TO CONTINUE FOR 4 DAYS. 07/05/19 12:32 Urine - Urine Clean Catch Urine Culture - Final NO GROWTH OBTAINED imp/reccd 53 yo with dm and ckd nephrolithiasis with hydronephrosis s/p stent placement last night anemia quinolone allergy noted CKD- for f/u with renal DM- per primary service continue rocephin can switch to ceftin 500 daily when ready for discharge for one week Problem List - Problems (1) Hydronephrosis concurrent with and due to calculi of kidney and ureter Code(s): N13.2 - HYDRONEPHROSIS WITH RENAL AND URETERAL CALCULOUS OBSTRUCTION (2) UTI (urinary tract infection) Code(s): N39.0 - URINARY TRACT INFECTION, SITE NOT SPECIFIED (3) CKD (chronic kidney disease) Code(s): N18.9 - CHRONIC KIDNEY DISEASE, UNSPECIFIED Qualifiers: Chronic kidney disease stage: stage 4 (severe) Qualified Code(s): N18.4 - Chronic kidney disease, stage 4 (severe) (4) Diabetes Code(s): E11.9 - TYPE 2 DIABETES MELLITUS WITHOUT COMPLICATIONS Qualifiers: Diabetes mellitus type: type 2 Diabetes mellitus ferry terminal agent insulin use: without custodial use Diabetes mellitus complication status: with skin complications (5) Allergy to antibiotic Code(s): Z88.1 - ALLERGY STATUS TO OTHER ANTIBIOTIC AGENTS STATUS
[2019-07-06 16:31] LABS: BASO % 0.5 % (0-2.0); EOS % 0.9 % (0-4.5); HEMATOCRIT 22.9 % (32.4-45.2); HEMOGLOBIN 7.7 GM/dL (10.7-15.3); LYMPH % 13.2 % (8-40); MCH 27.5 pg (25.7-33.7); MCHC 33.8 g/dl (32.0-36.0); MEAN CELL VOLUME 81.4 fl (80-96); MEAN PLT VOLUME 7.2 fl (7.5-11.1); MONO % 16.2 % (3.8-10.2); NEUT % 69.2 % (42.8-82.8); PLATELET COUNT 284 K/MM3 (134-434); RBC 2.81 M/mm3 (3.60-5.2); RDW 14.9 % (11.6-15.6); WHITE BLOOD COUNT 4.9 K/mm3 (4.0-10.0)
[2019-07-06] MEDS: NIFEdipine E.R. 30 MG TABLET PO SCH (16:34)
[2019-07-06] MEDS: ATORVASTATIN CA 40 MG TABLET (FP) PO SCH (21:56)
[2019-07-07] MEDS: hydrALAZINE HCL 50 MG TABLET (FP) PO SCH ×3 (05:45→21:31)
[2019-07-07] MEDS: SODIUM CHLORIDE 0.45% 1,000 ML IV SCH ×4 (05:50→21:32)
[2019-07-07] MEDS: INSULIN SLIDING SCALE (NOVOLOG) 1 VIAL SQ SCH ×4 (06:07→21:51)
[2019-07-07] MEDS ORDERED: PT OWN MED DRAWER 7, Y5N ONE (08:53)
[2019-07-07] MEDS ORDERED: cefTRIAXone SODIUM 1 GM VIAL ONE (08:54)
[2019-07-07] MEDS ORDERED: DEXTROSE 5%-WATER - 50 ML IVPB ONE (08:54)
[2019-07-07] MEDS: CEFTRIAXONE 1 GM in DEXTROSE 5%-WATER - 50 ML IVPB SCH (09:02)
[2019-07-07] MEDS: SODIUM BICARBONATE 650 MG TABLET PO SCH ×2 (09:02→21:32)
[2019-07-07] MEDS: TAMSULOSIN HCL 0.4 MG CAP PO SCH (09:02)
[2019-07-07] MEDS: NIFEdipine E.R. 30 MG TABLET PO SCH (09:02)
[2019-07-07] MEDS: CARVEDILOL 25 MG TABLET (FP) PO SCH ×2 (09:02→21:40)
[2019-07-07] MEDS: INSULIN (LEVEMIR) 100 UNITS/ML UNITS SQ SCH ×2 (09:07→21:51)
[2019-07-07 09:26] LABS: ALBUMIN 2.8 g/dl (3.4-5.0); BILIRUBIN,TOTAL 0.2 mg/dL (0.2-1); BLOOD UREA NITROGEN 102.5 mg/dL (7-18); CALCIUM 8.7 mg/dL (8.5-10.1); CREATININE 4.3 mg/dL (0.55-1.3); POTASSIUM 3.9 mmol/L (3.5-5.1); TOT PROT 7.4 g/dl (6.4-8.2)
--- NOTE | 2019-07-07 09:46 | PN ---
Physical Exam: SUBJECTIVE: Patient seen and examined at the bedside. OBJECTIVE: Patient is a 53 year old female with past medical history of CKD, HTN, HLD, T2DM on insulin, and kidney stones, presented to the ED on 07/05/19 due to sudden , severe 10/10 right flank pain, radiating down to the RLQ. Patient reported history of kidney stones about 7 years ago that passed spontaneously. Per Ed notes, recent blood work with PCP about 2 weeks ago revealed BUN/Cr 88/3.6. She is s/p cystoscopy and R JJ stent insertion for right ureteral calculus and right hydronephrosis. imaging: Spiral CT - small left pleural effusion and basilar atelectasis. 6mm proximal right ureteral calculus with hydronephrosis. Extensive arterial calcification within the bowel aorta and its branches. Vital Signs Period Temp Pulse Resp BP Sys/Sloan Pulse Ox Last 24 Hr 98.2 F-100.0 F 94-98 16-18 151-164/72-81 98 GENERAL: The patient is awake, alert, and fully oriented, in no acute distress. HEAD: Normal with no signs of trauma. EYES: PERRL, extraocular movements intact, sclera anicteric, conjunctiva clear. No ptosis. ENT: Ears normal, nares patent, oropharynx clear without exudates, moist mucous membranes. NECK: Trachea midline, full range of motion, supple. LUNGS: Breath sounds equal, clear to auscultation bilaterally HEART: Regular rate and rhythm ABDOMEN: Soft, nontender, nondistended, normoactive bowel sounds, no guarding, no rebound, no hepatosplenomegaly, no masses. EXTREMITIES: 2+ pulses, warm, well-perfused, no edema. NEUROLOGICAL: Normal speech, gait not observed. PSYCH: Normal mood, normal affect. SKIN: Warm, dry, normal turgor, no rashes or lesions noted Laboratory Results - last 24 hr 07/06/19 07/06/19 07/06/19 11:35 15:45 16:36 WBC 4.9 RBC 2.81 L Hgb 7.7 L Hct 22.9 L MCV 81.4 MCH 27.5 MCHC 33.8 RDW 14.9 Plt Count 284 MPV 7.2 L Absolute Neuts (auto) 3.4 Neutrophils % 69.2 Lymphocytes % 13.2 D Monocytes % 16.2 H Eosinophils % 0.9 D Basophils % 0.5 Nucleated RBC % 0 Sodium Potassium Chloride Carbon Dioxide Anion Gap BUN Creatinine Est GFR (CKD-EPI)AfAm Est GFR (CKD-EPI)NonAf POC Glucometer 133 88 Random Glucose Calcium Total Bilirubin AST ALT Alkaline Phosphatase Total Protein Albumin 07/06/19 07/07/19 07/07/19 21:08 05:48 08:30 WBC RBC Hgb Hct MCV MCH MCHC RDW Plt Count MPV Absolute Neuts (auto) Neutrophils % Lymphocytes % Monocytes % Eosinophils % Basophils % Nucleated RBC % Sodium 135 L Potassium 3.9 Chloride 106 Carbon Dioxide 19 L Anion Gap 10 BUN 102.5 H Creatinine 4.3 H Est GFR (CKD-EPI)AfAm 12.68 Est GFR (CKD-EPI)NonAf 10.94 POC Glucometer 98 80 Random Glucose 104 Calcium 8.7 Total Bilirubin 0.2 AST 11 L ALT 14 Alkaline Phosphatase 80 Total Protein 7.4 Albumin 2.8 L 07/07/19 08:59 WBC RBC Hgb Hct MCV MCH MCHC RDW Plt Count MPV Absolute Neuts (auto) Neutrophils % Lymphocytes % Monocytes % Eosinophils % Basophils % Nucleated RBC % Sodium Potassium Chloride Carbon Dioxide Anion Gap BUN Creatinine Est GFR (CKD-EPI)AfAm Est GFR (CKD-EPI)NonAf POC Glucometer 136 Random Glucose Calcium Total Bilirubin AST ALT Alkaline Phosphatase Total Protein Albumin Active Medications Generic Name Dose Route Start Last Admin Trade Name Freq PRN Reason Stop Dose Admin Acetaminophen 650 mg 07/06/19 11:31 07/06/19 21:00 Tylenol - PO 650 mg Q6H PRN Administration PAIN LEVEL 4 - 6 Atorvastatin Calcium 40 mg 07/06/19 22:00 07/06/19 21:56 Lipitor - PO 40 mg HS ESA Administration Carvedilol 25 mg 07/06/19 11:45 07/07/19 09:02 Coreg - PO 25 mg BID ESA Administration Hydralazine HCl 100 mg 07/06/19 14:00 07/07/19 05:45 Apresoline - PO 100 mg TID ESA Administration Sodium Chloride 1,000 mls @ 83 mls/hr 07/05/19 22:00 07/07/19 05:51 1/2 Normal Saline IV 83 mls/hr ASDIR ESA Administration Ceftriaxone Sodium 1 gm/ 50 mls @ 100 mls/hr 07/07/19 10:00 07/07/19 09:02 Dextrose IVPB 100 mls/hr DAILY ESA Administration Protocol Insulin Aspart 1 vial 07/05/19 22:00 07/07/19 06:07 Novolog Vial Sliding Scale - SQ Not Given ACHS [facility] Protocol Insulin Detemir 34 units 07/05/19 22:00 07/07/19 09:07 Levemir Vial SQ 34 units BID ESA Administration Morphine Sulfate 2 mg 07/05/19 16:56 07/05/19 19:41 Morphine Sulfate IVPUSH 2 mg Q4H PRN Administration PAIN LEVEL 7 - 10 Nifedipine 30 mg 07/06/19 14:30 07/07/19 09:02 Procardia Xl - PO 30 mg DAILY ESA Administration Prochlorperazine Edisylate 10 mg 07/05/19 16:56 Compazine Injection - IVPB Q4H PRN NAUSEA AND/OR VOMITING Sodium Bicarbonate 650 mg 07/05/19 22:00 07/07/19 09:02 Sodium Bicarbonate - PO 650 mg BID ESA Administration Tamsulosin HCl 0.4 mg 07/06/19 08:30 07/07/19 09:02 Flomax - PO 0.4 mg DAILY@0830 ESA Administration Torsemide 100 mg 07/06/19 11:45 07/06/19 14:15 Demadex - PO 100 mg DAILY ESA Administration ASSESSMENT/PLAN: Problem List - Problems (1) Pyelonephritis Assessment/Plan: acute complicated pyelonephritis, ureteral stone on rocephin monitor intake and output Code(s): N12 - TUBULO-INTERSTITIAL NEPHRITIS, NOT SPCF ACUTE OR CHRONIC (2) CKD (chronic kidney disease) Assessment/Plan: elevated bun/creat renal dose meds monitor daily renal following Code(s): N18.9 - CHRONIC KIDNEY DISEASE, UNSPECIFIED Qualifiers: Chronic kidney disease stage: stage 4 (severe) Qualified Code(s): N18.4 - Chronic kidney disease, stage 4 (severe) (3) Diabetes Assessment/Plan: on novolog bgms readings acceptable levels Code(s): E11.9 - TYPE 2 DIABETES MELLITUS WITHOUT COMPLICATIONS Qualifiers: Diabetes mellitus type: type 2 Diabetes mellitus jail insulin use: without jail use Diabetes mellitus complication status: with skin complications (4) HTN (hypertension) Assessment/Plan: bp elevated, restart home meds Code(s): I10 - ESSENTIAL (PRIMARY) HYPERTENSION Qualifiers: Hypertension type: essential hypertension Qualified Code(s): I10 - Essential (primary) hypertension (5) Hydronephrosis concurrent with and due to calculi of kidney and ureter Code(s): N13.2 - HYDRONEPHROSIS WITH RENAL AND URETERAL CALCULOUS OBSTRUCTION (6) Anemia Assessment/Plan: likely from underlying CKD cbc daily, transfuse if <7 hmg Code(s): D64.9 - ANEMIA, UNSPECIFIED (7) Prophylactic measure Assessment/Plan: / ns @ 83 no a/c due to hematuria/scds only Code(s): Z29.9 - ENCOUNTER FOR PROPHYLACTIC MEASURES, UNSPECIFIED Visit type - Emergency Visit Emergency Visit: Yes ED Registration Date: 07/05/19 Care time: The patient presented to the Emergency Department on the above date and was hospitalized for further evaluation of their emergent condition. - New Patient This patient is new to me today: No - Critical Care Critical Care patient: No - Discharge Referral Referred to [facility] Med P.C.: No
--- NOTE | 2019-07-07 10:22 | PN ---
Progress Note (short form) - Note Progress Note: S: NO CP SOB PALPS DIZZY Current Medications Generic Name Dose Route Start Last Admin Trade Name Freq PRN Reason Stop Dose Admin Acetaminophen 650 mg 07/06/19 11:31 07/06/19 21:00 Tylenol - PO 650 mg Q6H PRN Administration PAIN LEVEL 4 - 6 Atorvastatin Calcium 40 mg 07/06/19 22:00 07/06/19 21:56 Lipitor - PO 40 mg HS ESA Administration Carvedilol 25 mg 07/06/19 11:45 07/07/19 09:02 Coreg - PO 25 mg BID ESA Administration Hydralazine HCl 100 mg 07/06/19 14:00 07/07/19 05:45 Apresoline - PO 100 mg TID ESA Administration Sodium Chloride 1,000 mls @ 83 mls/hr 07/05/19 22:00 07/07/19 05:51 1/2 Normal Saline IV 83 mls/hr ASDIR ESA Administration Ceftriaxone Sodium 1 gm/ 50 mls @ 100 mls/hr 07/07/19 10:00 07/07/19 09:02 Dextrose IVPB 100 mls/hr DAILY ESA Administration Protocol Insulin Aspart 1 vial 07/05/19 22:00 07/07/19 06:07 Novolog Vial Sliding Scale - SQ Not Given ACHS [facility] Protocol Insulin Detemir 34 units 07/05/19 22:00 07/07/19 09:07 Levemir Vial SQ 34 units BID ESA Administration Morphine Sulfate 2 mg 07/05/19 16:56 07/05/19 19:41 Morphine Sulfate IVPUSH 2 mg Q4H PRN Administration PAIN LEVEL 7 - 10 Nifedipine 30 mg 07/06/19 14:30 07/07/19 09:02 Procardia Xl - PO 30 mg DAILY ESA Administration Prochlorperazine Edisylate 10 mg 07/05/19 16:56 Compazine Injection - IVPB Q4H PRN NAUSEA AND/OR VOMITING Sodium Bicarbonate 650 mg 07/05/19 22:00 07/07/19 09:02 Sodium Bicarbonate - PO 650 mg BID ESA Administration Tamsulosin HCl 0.4 mg 07/06/19 08:30 07/07/19 09:02 Flomax - PO 0.4 mg DAILY@0830 ESA Administration Torsemide 100 mg 07/06/19 11:45 07/06/19 14:15 Demadex - PO 100 mg DAILY ESA Administration CBC, [facility] 07/06/19 15:45 07/07/19 08:30 Constitutional: Yes: Well Nourished, Calm Eyes: Yes: Conjunctiva Clear Neck: Yes: Supple, Trachea Midline Respiratory: Yes: Regular, CTA Bilaterally Gastrointestinal: Yes: Normal Bowel Sounds, Soft Cardiovascular: Yes: Regular Rate and Rhythm JVD: No Heart Sounds: Yes: S1, S2 Extremities: No: Cold Edema: No Peripheral Pulses WNL: No Integumentary: No: Jaundice Neurological: Yes: Alert, Oriented Psychiatric: No: Agitated CBC, [facility] 07/06/19 15:45 07/07/19 08:30 Assessment/Plan EKG: sinus tach, LA enlargement, no ischemic changes CXR: no acute process CT abd: sm L pleural effusion and bibasilar atelectasis, prox R ureteral calculus with mild hydronephrosis, extensive arterial calcification within bowel aorta and its branches preop evaluation, acute complicated pyelonephritis, ureteral stone - she has multiple CV risk factors, however no hx cardiac disease and is stable from cardiac perspective - echo ordered given risk factors, however this does not need to be done prior to cystoscopy - she is at acceptable risk for procedure, no further testing needed prior to cystoscopy/stent placement-->now s/p ureter stent HTN - cont home meds, bp improved today DM - manage per primary HLD - cont statin calcification of aorta - noted on CT abd/pelvis with extensive arterial calcification of aorta and its branches - cont statin, would consider further workup as outpatient when acute issues resolved
[2019-07-07] MEDS: TORSEMIDE 100 MG TABLET PO SCH (14:35)
[2019-07-07 15:19] LABS: BASO % 0.7 % (0-2.0); EOS % 0.9 % (0-4.5); HEMATOCRIT 22.8 % (32.4-45.2); HEMOGLOBIN 7.6 GM/dL (10.7-15.3); LYMPH % 10.1 % (8-40); MCH 27.5 pg (25.7-33.7); MCHC 33.4 g/dl (32.0-36.0); MEAN CELL VOLUME 82.1 fl (80-96); MONO % 11.6 % (3.8-10.2); NEUT % 76.7 % (42.8-82.8); PLATELET COUNT 281 K/MM3 (134-434); RBC 2.77 M/mm3 (3.60-5.2); RDW 15.2 % (11.6-15.6); WHITE BLOOD COUNT 4.4 K/mm3 (4.0-10.0)
[2019-07-07] MEDS ORDERED: INSULIN (NOVOLOG) ASPART 100 UNITS/ML 10ML VIAL ONE (21:15)
[2019-07-07] MEDS: ATORVASTATIN CA 40 MG TABLET (FP) PO SCH (21:32)
--- NOTE | 2019-07-07 23:43 | PN ---
Progress Note (short form) - Note Progress Note: This is a 53-year-old morbidly obese female with history of hypertension, diabetes, morbid obesity, and advanced chronic kidney disease. Patient was admitted with LEFT ureteric colic. The patient underwent placement of double-J stent on the RIGHT side last evening. Hematuria has improved. The renal colic has improved. No passing of a renal stone reported. The patient has advanced chronic kidney disease, Stage V. Had detailed discussion about the renal replacement therapy with the patient. The patient has no symptoms suggestive of uremia, nor any acute electrolyte abnormalities that necessitates renal replacement therapy. We will continue intravenous hydration to force diuresis. If the patient is discharged, I shall see her as outpatient for close monitoring of her renal function. Current Medications Acetaminophen (Tylenol -) 650 mg PO Q6H PRN PRN Reason: PAIN LEVEL 4 - 6 Last Admin: 07/06/19 21:00 Dose: 650 mg Atorvastatin Calcium (Lipitor -) 40 mg PO HS [facility] Last Admin: 07/07/19 21:32 Dose: 40 mg Carvedilol (Coreg -) 25 mg PO BID [facility] Last Admin: 07/07/19 21:40 Dose: 25 mg Hydralazine HCl (Apresoline -) 100 mg PO TID [facility] Last Admin: 07/07/19 21:31 Dose: 100 mg Sodium Chloride (1/2 Normal Saline) 1,000 mls @ 83 mls/hr IV ASDIR [facility] Last Admin: 07/07/19 21:32 Dose: Not Given Ceftriaxone Sodium 1 gm/ (Dextrose) 50 mls @ 100 mls/hr IVPB DAILY [facility]; Protocol Last Admin: 07/07/19 09:02 Dose: 100 mls/hr Insulin Aspart (Novolog Vial Sliding Scale -) 1 vial SQ ACHS [facility]; Protocol Last Admin: 07/07/19 21:51 Dose: Not Given Insulin Detemir (Levemir Vial) 34 units SQ BID [facility] Last Admin: 07/07/19 21:51 Dose: 34 units Morphine Sulfate (Morphine Sulfate) 2 mg IVPUSH Q4H PRN PRN Reason: PAIN LEVEL 7 - 10 Last Admin: 07/05/19 19:41 Dose: 2 mg Nifedipine (Procardia Xl -) 30 mg PO DAILY [facility] Last Admin: 07/07/19 09:02 Dose: 30 mg Prochlorperazine Edisylate (Compazine Injection -) 10 mg IVPB Q4H PRN PRN Reason: NAUSEA AND/OR VOMITING Sodium Bicarbonate (Sodium Bicarbonate -) 650 mg PO BID [facility] Last Admin: 07/07/19 21:32 Dose: 650 mg Tamsulosin HCl (Flomax -) 0.4 mg PO DAILY@0830 [facility] Last Admin: 07/07/19 09:02 Dose: 0.4 mg Last Vital Signs Temp Pulse Resp BP Pulse Ox 98.4 F 93 H 16 148/76 97 07/07/19 19:00 07/07/19 19:00 07/07/19 21:00 07/07/19 19:00 07/07/19 21:00 CBC, BMP 07/07/19 14:45 07/07/19 08:30 CKD 5 left renal stone Plan- follow up labs
[2019-07-08] MEDS: SODIUM CHLORIDE 0.45% 1,000 ML IV SCH ×2 (05:42→16:11)
[2019-07-08] MEDS: hydrALAZINE HCL 50 MG TABLET (FP) PO SCH ×4 (05:51→21:10)
[2019-07-08] MEDS: INSULIN SLIDING SCALE (NOVOLOG) 1 VIAL SQ SCH ×4 (06:08→21:11)
[2019-07-08 09:17] LABS: ALBUMIN 2.7 g/dl (3.4-5.0); BILIRUBIN,TOTAL 0.3 mg/dL (0.2-1); BLOOD UREA NITROGEN 103.8 mg/dL (7-18); CALCIUM 8.6 mg/dL (8.5-10.1); CREATININE 4.7 mg/dL (0.55-1.3); TOT PROT 7.2 g/dl (6.4-8.2)
[2019-07-08] MEDS ORDERED: DEXTROSE 5%-WATER - 50 ML IVPB ONE (09:39)
[2019-07-08] MEDS ORDERED: cefTRIAXone SODIUM 1 GM VIAL ONE (09:39)
[2019-07-08] MEDS: CEFTRIAXONE 1 GM in DEXTROSE 5%-WATER - 50 ML IVPB SCH (09:43)
[2019-07-08] MEDS: TAMSULOSIN HCL 0.4 MG CAP PO SCH (09:47)
[2019-07-08] MEDS: CARVEDILOL 25 MG TABLET (FP) PO SCH ×2 (09:47→21:10)
[2019-07-08] MEDS: SODIUM BICARBONATE 650 MG TABLET PO SCH ×2 (09:47→21:11)
[2019-07-08] MEDS: NIFEdipine E.R. 30 MG TABLET PO SCH (09:47)
--- NOTE | 2019-07-08 09:52 | PN ---
Progress Note (short form) - Note Progress Note: S: NO CP SOB PALPS DIZZY Current Medications Generic Name Dose Route Start Last Admin Trade Name Freq PRN Reason Stop Dose Admin Acetaminophen 650 mg 07/06/19 11:31 07/06/19 21:00 Tylenol - PO 650 mg Q6H PRN Administration PAIN LEVEL 4 - 6 Atorvastatin Calcium 40 mg 07/06/19 22:00 07/07/19 21:32 Lipitor - PO 40 mg HS ESA Administration Carvedilol 25 mg 07/06/19 11:45 07/08/19 09:47 Coreg - PO 25 mg BID ESA Administration Hydralazine HCl 100 mg 07/06/19 14:00 07/08/19 05:51 Apresoline - PO 100 mg TID ESA Administration Sodium Chloride 1,000 mls @ 83 mls/hr 07/05/19 22:00 07/08/19 05:42 1/2 Normal Saline IV 83 mls/hr ASDIR ESA Administration Ceftriaxone Sodium 1 gm/ 50 mls @ 100 mls/hr 07/07/19 10:00 07/08/19 09:43 Dextrose IVPB 100 mls/hr DAILY ESA Administration Protocol Insulin Aspart 1 vial 07/05/19 22:00 07/08/19 06:08 Novolog Vial Sliding Scale - SQ Not Given ACHS [facility] Protocol Insulin Detemir 34 units 07/05/19 22:00 07/07/19 21:51 Levemir Vial SQ 34 units BID ESA Administration Morphine Sulfate 2 mg 07/05/19 16:56 07/05/19 19:41 Morphine Sulfate IVPUSH 2 mg Q4H PRN Administration PAIN LEVEL 7 - 10 Nifedipine 30 mg 07/06/19 14:30 07/08/19 09:47 Procardia Xl - PO 30 mg DAILY ESA Administration Prochlorperazine Edisylate 10 mg 07/05/19 16:56 Compazine Injection - IVPB Q4H PRN NAUSEA AND/OR VOMITING Sodium Bicarbonate 650 mg 07/05/19 22:00 07/08/19 09:47 Sodium Bicarbonate - PO 650 mg BID ESA Administration Tamsulosin HCl 0.4 mg 07/06/19 08:30 07/08/19 09:47 Flomax - PO 0.4 mg DAILY@0830 ESA Administration Vital Signs Period Temp Pulse Resp BP Sys/Sloan Pulse Ox Last 24 Hr 97.9 F-99.8 F 93-103 14-18 107-155/56-87 97 Constitutional: Yes: Well Nourished, Calm Eyes: Yes: Conjunctiva Clear Neck: Yes: Supple, Trachea Midline Respiratory: Yes: Regular, CTA Bilaterally Gastrointestinal: Yes: Normal Bowel Sounds, Soft Cardiovascular: Yes: Regular Rate and Rhythm JVD: No Heart Sounds: Yes: S1, S2 Extremities: No: Cold Edema: No Peripheral Pulses WNL: No Integumentary: No: Jaundice Neurological: Yes: Alert, Oriented Psychiatric: No: Agitated CBC, BMP 07/07/19 14:45 07/08/19 07:40 Assessment/Plan EKG: sinus tach, LA enlargement, no ischemic changes CXR: no acute process CT abd: sm L pleural effusion and bibasilar atelectasis, prox R ureteral calculus with mild hydronephrosis, extensive arterial calcification within bowel aorta and its branches preop evaluation, acute complicated pyelonephritis, ureteral stone - she is at acceptable risk for procedure, no further testing needed prior to cystoscopy/stent placement-->now s/p ureter stent HTN - cont home meds DM - manage per primary HLD - cont statin calcification of aorta - noted on CT abd/pelvis with extensive arterial calcification of aorta and its branches - cont statin, would consider further workup as outpatient when acute issues resolved
[2019-07-08] MEDS: INSULIN (LEVEMIR) 100 UNITS/ML UNITS SQ SCH ×2 (09:56→21:10)
[2019-07-08] MEDS ORDERED: INSULIN (NOVOLOG) ASPART 100 UNITS/ML 10ML VIAL ONE ×2 (11:09→21:01)
--- NOTE | 2019-07-08 11:12 | PN ---
Physical Exam: SUBJECTIVE: Patient seen and examined at the bedside. OBJECTIVE: +blood culture bottle (gram pos cocci in chains) repeat blood cultures negative ----- Patient is a 53 year old female with past medical history of CKD, HTN, HLD, T2DM on insulin, and kidney stones, presented to the ED on 07/05/19 due to sudden , severe 10/10 right flank pain, radiating down to the RLQ. Patient reported history of kidney stones about 7 years ago that passed spontaneously. Per Ed notes, recent blood work with PCP about 2 weeks ago revealed BUN/Cr 88/3.6. She is s/p cystoscopy and R JJ stent insertion for right ureteral calculus and right hydronephrosis. imaging: Spiral CT - small left pleural effusion and basilar atelectasis. 6mm proximal right ureteral calculus with hydronephrosis. Extensive arterial calcification within the bowel aorta and its branches. Vital Signs Period Temp Pulse Resp BP Sys/Sloan Pulse Ox Last 24 Hr 97.9 F-99.8 F 93-103 14-18 107-155/56-87 97 GENERAL: The patient is awake, alert, and fully oriented, in no acute distress. HEAD: Normal with no signs of trauma. EYES: PERRL, extraocular movements intact, sclera anicteric, conjunctiva clear. No ptosis. ENT: Ears normal, nares patent, oropharynx clear without exudates, moist mucous membranes. NECK: Trachea midline, full range of motion, supple. LUNGS: Breath sounds equal, clear to auscultation bilaterally HEART: Regular rate and rhythm ABDOMEN: Soft, nontender, nondistended, normoactive bowel sounds, no guarding, no rebound, no hepatosplenomegaly, no masses. EXTREMITIES: 2+ pulses, warm, well-perfused, no edema. NEUROLOGICAL: Normal speech, gait not observed. PSYCH: Normal mood, normal affect. SKIN: Warm, dry, normal turgor, no rashes or lesions noted Laboratory Results - last 24 hr 07/07/19 07/07/19 07/07/19 14:45 16:18 21:28 WBC 4.4 RBC 2.77 L Hgb 7.6 L Hct 22.8 L MCV 82.1 MCH 27.5 MCHC 33.4 RDW 15.2 Plt Count 281 MPV 7.0 L Absolute Neuts (auto) 3.4 Neutrophils % 76.7 Lymphocytes % 10.1 D Monocytes % 11.6 H Eosinophils % 0.9 Basophils % 0.7 Nucleated RBC % 0 Sodium Potassium Chloride Carbon Dioxide Anion Gap BUN Creatinine Est GFR (CKD-EPI)AfAm Est GFR (CKD-EPI)NonAf POC Glucometer 100 89 Random Glucose Calcium Total Bilirubin AST ALT Alkaline Phosphatase Total Protein Albumin 07/08/19 07/08/19 07/08/19 05:45 07:40 09:52 WBC RBC Hgb Hct MCV MCH MCHC RDW Plt Count MPV Absolute Neuts (auto) Neutrophils % Lymphocytes % Monocytes % Eosinophils % Basophils % Nucleated RBC % Sodium 134 L Potassium 4.0 Chloride 104 Carbon Dioxide 20 L Anion Gap 10 BUN 103.8 H Creatinine 4.7 H Est GFR (CKD-EPI)AfAm 11.39 Est GFR (CKD-EPI)NonAf 9.83 POC Glucometer 75 140 Random Glucose 90 Calcium 8.6 Total Bilirubin 0.3 AST 11 L ALT 15 Alkaline Phosphatase 79 Total Protein 7.2 Albumin 2.7 L 07/08/19 11:01 WBC RBC Hgb Hct MCV MCH MCHC RDW Plt Count MPV Absolute Neuts (auto) Neutrophils % Lymphocytes % Monocytes % Eosinophils % Basophils % Nucleated RBC % Sodium Potassium Chloride Carbon Dioxide Anion Gap BUN Creatinine Est GFR (CKD-EPI)AfAm Est GFR (CKD-EPI)NonAf POC Glucometer 152 Random Glucose Calcium Total Bilirubin AST ALT Alkaline Phosphatase Total Protein Albumin Active Medications Generic Name Dose Route Start Last Admin Trade Name Freq PRN Reason Stop Dose Admin Acetaminophen 650 mg 07/06/19 11:31 07/06/19 21:00 Tylenol - PO 650 mg Q6H PRN Administration PAIN LEVEL 4 - 6 Atorvastatin Calcium 40 mg 07/06/19 22:00 07/07/19 21:32 Lipitor - PO 40 mg HS ESA Administration Carvedilol 25 mg 07/06/19 11:45 07/08/19 09:47 Coreg - PO 25 mg BID ESA Administration Hydralazine HCl 100 mg 07/06/19 14:00 07/08/19 05:51 Apresoline - PO 100 mg TID ESA Administration Sodium Chloride 1,000 mls @ 83 mls/hr 07/05/19 22:00 07/08/19 05:42 1/2 Normal Saline IV 83 mls/hr ASDIR ESA Administration Ceftriaxone Sodium 1 gm/ 50 mls @ 100 mls/hr 07/07/19 10:00 07/08/19 09:43 Dextrose IVPB 100 mls/hr DAILY ESA Administration Protocol Insulin Aspart 1 vial 07/05/19 22:00 07/08/19 06:08 Novolog Vial Sliding Scale - SQ Not Given ACHS [facility] Protocol Insulin Detemir 34 units 07/05/19 22:00 07/08/19 09:56 Levemir Vial SQ 34 units BID ESA Administration Morphine Sulfate 2 mg 07/05/19 16:56 07/05/19 19:41 Morphine Sulfate IVPUSH 2 mg Q4H PRN Administration PAIN LEVEL 7 - 10 Nifedipine 30 mg 07/06/19 14:30 07/08/19 09:47 Procardia Xl - PO 30 mg DAILY ESA Administration Prochlorperazine Edisylate 10 mg 07/05/19 16:56 Compazine Injection - IVPB Q4H PRN NAUSEA AND/OR VOMITING Sodium Bicarbonate 650 mg 07/05/19 22:00 07/08/19 09:47 Sodium Bicarbonate - PO 650 mg BID ESA Administration Tamsulosin HCl 0.4 mg 07/06/19 08:30 07/08/19 09:47 Flomax - PO 0.4 mg DAILY@0830 ESA Administration ASSESSMENT/PLAN: Problem List - Problems (1) Pyelonephritis Assessment/Plan: s/p cystoscopy and R JJ stent insertion for right ureteral calculus and right hydronephrosis. on rocephin monitor intake and output Code(s): N12 - TUBULO-INTERSTITIAL NEPHRITIS, NOT SPCF ACUTE OR CHRONIC (2) CKD (chronic kidney disease) Assessment/Plan: elevated bun/creat renal dose meds monitor daily renal following Code(s): N18.9 - CHRONIC KIDNEY DISEASE, UNSPECIFIED Qualifiers: Chronic kidney disease stage: stage 4 (severe) Qualified Code(s): N18.4 - Chronic kidney disease, stage 4 (severe) (3) Diabetes Assessment/Plan: on novolog bgms readings acceptable levels Code(s): E11.9 - TYPE 2 DIABETES MELLITUS WITHOUT COMPLICATIONS Qualifiers: Diabetes mellitus type: type 2 Diabetes mellitus halfway insulin use: without long term care social worker use Diabetes mellitus complication status: with skin complications (4) HTN (hypertension) Assessment/Plan: bp elevated, restart home meds Code(s): I10 - ESSENTIAL (PRIMARY) HYPERTENSION Qualifiers: Hypertension type: essential hypertension Qualified Code(s): I10 - Essential (primary) hypertension (5) Hydronephrosis concurrent with and due to calculi of kidney and ureter Code(s): N13.2 - HYDRONEPHROSIS WITH RENAL AND URETERAL CALCULOUS OBSTRUCTION (6) Anemia Assessment/Plan: likely from underlying CKD cbc daily, transfuse if <7 hmg Code(s): D64.9 - ANEMIA, UNSPECIFIED (7) Prophylactic measure Assessment/Plan: 1/2 ns @ 83 no a/c due to hematuria/scds only Code(s): Z29.9 - ENCOUNTER FOR PROPHYLACTIC MEASURES, UNSPECIFIED Visit type - Emergency Visit Emergency Visit: Yes ED Registration Date: 07/05/19 Care time: The patient presented to the Emergency Department on the above date and was hospitalized for further evaluation of their emergent condition. - New Patient This patient is new to me today: No - Critical Care Critical Care patient: No - Discharge Referral Referred to [facility] Med P.C.: No
[2019-07-08 11:15] LABS: BASO % 0.9 % (0-2.0); EOS % 1.3 % (0-4.5); HEMATOCRIT 23.5 % (32.4-45.2); HEMOGLOBIN 7.8 GM/dL (10.7-15.3); LYMPH % 11.2 % (8-40); MCH 27.4 pg (25.7-33.7); MCHC 33.2 g/dl (32.0-36.0); MEAN CELL VOLUME 82.6 fl (80-96); MEAN PLT VOLUME 7.3 fl (7.5-11.1); MONO % 8.6 % (3.8-10.2); PLATELET COUNT 300 K/MM3 (134-434); RBC 2.84 M/mm3 (3.60-5.2); RDW 15.6 % (11.6-15.6); WHITE BLOOD COUNT 3.7 K/mm3 (4.0-10.0)
[2019-07-08 11:51] LABS: PLATELET ESTIMATE ADEQUATE
[2019-07-08 12:17] VITALS: BMI 48.8
--- NOTE | 2019-07-08 18:26 | PN ---
Progress Note (short form) - Note Progress Note: hypertension, diabetes, morbid obesity, and advanced chronic kidney disease. LEFT ureteric colic. s/p double-J stent on the RIGHT side last evening. s/p Hematuria advanced chronic kidney disease, Stage V. Current Medications Acetaminophen (Tylenol -) 650 mg PO Q6H PRN PRN Reason: PAIN LEVEL 4 - 6 Last Admin: 07/06/19 21:00 Dose: 650 mg Atorvastatin Calcium (Lipitor -) 40 mg PO HS [facility] Last Admin: 07/07/19 21:32 Dose: 40 mg Carvedilol (Coreg -) 25 mg PO BID [facility] Last Admin: 07/08/19 09:47 Dose: 25 mg Hydralazine HCl (Apresoline -) 100 mg PO TID [facility] Last Admin: 07/08/19 14:27 Dose: 100 mg Sodium Chloride (1/2 Normal Saline) 1,000 mls @ 83 mls/hr IV ASDIR [facility] Last Admin: 07/08/19 16:11 Dose: 83 mls/hr Ceftriaxone Sodium 1 gm/ (Dextrose) 50 mls @ 100 mls/hr IVPB DAILY [facility]; Protocol Last Admin: 07/08/19 09:43 Dose: 100 mls/hr Insulin Aspart (Novolog Vial Sliding Scale -) 1 vial SQ ACHS [facility]; Protocol Last Admin: 07/08/19 16:07 Dose: Not Given Insulin Detemir (Levemir Vial) 34 units SQ BID [facility] Last Admin: 07/08/19 09:56 Dose: 34 units Morphine Sulfate (Morphine Sulfate) 2 mg IVPUSH Q4H PRN PRN Reason: PAIN LEVEL 7 - 10 Last Admin: 07/05/19 19:41 Dose: 2 mg Nifedipine (Procardia Xl -) 30 mg PO DAILY [facility] Last Admin: 07/08/19 09:47 Dose: 30 mg Prochlorperazine Edisylate (Compazine Injection -) 10 mg IVPB Q4H PRN PRN Reason: NAUSEA AND/OR VOMITING Sodium Bicarbonate (Sodium Bicarbonate -) 650 mg PO BID [facility] Last Admin: 07/08/19 09:47 Dose: 650 mg Tamsulosin HCl (Flomax -) 0.4 mg PO DAILY@0830 [facility] Last Admin: 07/08/19 09:47 Dose: 0.4 mg Last Vital Signs Temp Pulse Resp BP Pulse Ox 97.8 F 94 H 16 152/72 96 07/08/19 14:45 07/08/19 14:45 07/08/19 14:45 07/08/19 14:45 07/08/19 09:00 alert in nad Lungs clear Heart reg Abd soft nontender Ext no edema CBC, BMP 07/08/19 07:40 07/08/19 07:40 CBC, BMP 07/07/19 14:45 07/07/19 08:30 CKD 5 left renal stone anemia Plan- follow up labs
[2019-07-08] MEDS: ATORVASTATIN CA 40 MG TABLET (FP) PO SCH (21:10)
[2019-07-09] MEDS ORDERED: INSULIN (NOVOLOG) ASPART 100 UNITS/ML 10ML VIAL ONE ×2 (06:01→21:38)
[2019-07-09] MEDS: hydrALAZINE HCL 50 MG TABLET (FP) PO SCH ×3 (06:16→21:50)
[2019-07-09] MEDS: INSULIN SLIDING SCALE (NOVOLOG) 1 VIAL SQ SCH ×4 (07:18→21:51)
[2019-07-09 09:02] LABS: BASO % 0.6 % (0-2.0); EOS % 0.8 % (0-4.5); HEMATOCRIT 22.5 % (32.4-45.2); HEMOGLOBIN 7.6 GM/dL (10.7-15.3); LYMPH % 8.5 % (8-40); MCH 27.5 pg (25.7-33.7); MCHC 33.8 g/dl (32.0-36.0); MEAN CELL VOLUME 81.4 fl (80-96); MEAN PLT VOLUME 7.1 fl (7.5-11.1); MONO % 9.4 % (3.8-10.2); NEUT % 80.7 % (42.8-82.8); PLATELET COUNT 273 K/MM3 (134-434); RBC 2.77 M/mm3 (3.60-5.2); RDW 15.1 % (11.6-15.6); WHITE BLOOD COUNT 4.2 K/mm3 (4.0-10.0)
[2019-07-09] MEDS: TAMSULOSIN HCL 0.4 MG CAP PO SCH (09:17)
[2019-07-09] MEDS: INSULIN (LEVEMIR) 100 UNITS/ML UNITS SQ SCH ×2 (09:17→21:50)
[2019-07-09] MEDS: SODIUM BICARBONATE 650 MG TABLET PO SCH ×2 (09:17→21:50)
[2019-07-09] MEDS: NIFEdipine E.R. 30 MG TABLET PO SCH (09:17)
[2019-07-09] MEDS: CARVEDILOL 25 MG TABLET (FP) PO SCH ×2 (09:17→21:50)
[2019-07-09 09:40] LABS: ALBUMIN 2.6 g/dl (3.4-5.0); BILIRUBIN,TOTAL 0.2 mg/dL (0.2-1); CALCIUM 8.4 mg/dL (8.5-10.1); CREATININE 4.6 mg/dL (0.55-1.3); MAGNESIUM 2.2 mg/dL (1.8-2.4); POTASSIUM 3.9 mmol/L (3.5-5.1); TOT PROT 6.7 g/dl (6.4-8.2)
[2019-07-09] MEDS: CEFTRIAXONE 1 GM in DEXTROSE 5%-WATER - 50 ML IVPB SCH (10:08)
[2019-07-09] MEDS: FERROUS SO4 325 MG TABLET (FP) PO SCH ×2 (12:52→21:50)
[2019-07-09 13:57] LABS: EPI CELLS 11.8 /HPF (0-5/HPF); HYALINE CASTS 10 /lpf (0-8); URINE APPEARANCE CLOUDY; URINE BACTERIA 6.4 /hpf (NEGATIVE); URINE BILIRUBIN NEGATIVE (NEGATIVE); URINE COLOR YELLOW; URINE GLUCOSE (UA) NEGATIVE (NEGATIVE); URINE KETONE NEGATIVE (NEGATIVE); URINE LEUK ESTERASE 1+ (NEGATIVE); URINE NITRITE NEGATIVE (NEGATIVE); URINE PROTEIN 3+ (NEGATIVE); URINE RBC 5 /hpf (0-4); URINE UROBILINOGEN 0.2 mg/dL (0.2-1.0); URINE WBC 42 /hpf (0-5)
[2019-07-09] MEDS ORDERED: CEFTRIAXONE 1 GM in DEXTROSE 5%-WATER - 50 ML IVPB ONE (14:31)
--- NOTE | 2019-07-09 14:41 | PN ---
Progress Note (short form) - Note Progress Note: no complaints feels well Vital Signs Period Temp Pulse Resp BP Sys/Sloan Pulse Ox Last 24 Hr 97.4 F-98.7 F 86-99 16-18 146-163/66-72 96-96 cor-rrr lungs clear abd soft,nt ext no edema CBC, BMP 07/09/19 07:30 07/09/19 07:30 Microbiology 07/05/19 13:55 Blood - Peripheral Venous Blood Culture - Preliminary NO GROWTH OBTAINED AFTER 96 HOURS, INCUBATION TO CONTINUE FOR 1 DAYS. 07/05/19 13:50 Blood - Peripheral Venous Blood Culture - Final Streptococcus Mitis 07/07/19 08:30 Blood - Peripheral Venous Blood Culture - Preliminary NO GROWTH OBTAINED AFTER 48 HOURS, INCUBATION TO CONTINUE FOR 3 DAYS. 07/07/19 08:30 Blood - Peripheral Venous Blood Culture - Preliminary NO GROWTH OBTAINED AFTER 48 HOURS, INCUBATION TO CONTINUE FOR 3 DAYS. 07/05/19 12:32 Urine - Urine Clean Catch Urine Culture - Final NO GROWTH OBTAINED echo- no vegt imp/reccd 53 yo with dm and ckd nephrolithiasis with hydronephrosis-s/p stent placement chronic anemia quinolone allergy noted CKD- for f/u with renal DM- per primary service asked to f/u for gram positive bacteremia- one of 4 bottles with strep mitis- no fevers, normal wbc, repeat blood cultures negative suspect most likely contaminant now day #4 ceftriaxone, would complete 7 days iv then po ceftin for one week suggest repeat blood cultures as outpt one week after she completes all her antibiotics Problem List - Problems (1) Hydronephrosis concurrent with and due to calculi of kidney and ureter Code(s): N13.2 - HYDRONEPHROSIS WITH RENAL AND URETERAL CALCULOUS OBSTRUCTION (2) UTI (urinary tract infection) Code(s): N39.0 - URINARY TRACT INFECTION, SITE NOT SPECIFIED (3) CKD (chronic kidney disease) Code(s): N18.9 - CHRONIC KIDNEY DISEASE, UNSPECIFIED Qualifiers: Chronic kidney disease stage: stage 4 (severe) Qualified Code(s): N18.4 - Chronic kidney disease, stage 4 (severe) (4) Diabetes Code(s): E11.9 - TYPE 2 DIABETES MELLITUS WITHOUT COMPLICATIONS Qualifiers: Diabetes mellitus type: type 2 Diabetes mellitus keno terminal operator insulin use: without keno terminal operator use Diabetes mellitus complication status: with skin complications (5) Allergy to antibiotic Code(s): Z88.1 - ALLERGY STATUS TO OTHER ANTIBIOTIC AGENTS STATUS
[2019-07-09] MEDS ORDERED: DEXTROSE 5%-WATER - 50 ML IVPB ONE (15:14)
[2019-07-09] MEDS ORDERED: cefTRIAXone SODIUM 1 GM VIAL ONE (15:14)
--- NOTE | 2019-07-09 15:47 | PN ---
Progress Note (short form) - Note Progress Note: S: no cp, sob, palps, dizziness Current Medications Acetaminophen (Tylenol -) 650 mg PO Q6H PRN PRN Reason: PAIN LEVEL 4 - 6 Last Admin: 07/06/19 21:00 Dose: 650 mg Atorvastatin Calcium (Lipitor -) 40 mg PO HS [facility] Last Admin: 07/08/19 21:10 Dose: 40 mg Carvedilol (Coreg -) 25 mg PO BID [facility] Last Admin: 07/09/19 09:17 Dose: 25 mg Ferrous Sulfate (Feosol -) 325 mg PO BID [facility] Last Admin: 07/09/19 12:52 Dose: 325 mg Hydralazine HCl (Apresoline -) 100 mg PO TID [facility] Last Admin: 07/09/19 14:04 Dose: 100 mg Sodium Chloride (1/2 Normal Saline) 1,000 mls @ 83 mls/hr IV ASDIR [facility] Last Admin: 07/08/19 16:11 Dose: 83 mls/hr Ceftriaxone Sodium 2 gm/ (Dextrose) 100 mls @ 100 mls/hr IVPB DAILY [facility]; Protocol Insulin Aspart (Novolog Vial Sliding Scale -) 1 vial SQ ACHS [facility]; Protocol Last Admin: 07/09/19 12:07 Dose: Not Given Insulin Detemir (Levemir Vial) 34 units SQ BID [facility] Last Admin: 07/09/19 09:17 Dose: 34 units Morphine Sulfate (Morphine Sulfate) 2 mg IVPUSH Q4H PRN PRN Reason: PAIN LEVEL 7 - 10 Last Admin: 07/05/19 19:41 Dose: 2 mg Nifedipine (Procardia Xl -) 30 mg PO DAILY [facility] Last Admin: 07/09/19 09:17 Dose: 30 mg Prochlorperazine Edisylate (Compazine Injection -) 10 mg IVPB Q4H PRN PRN Reason: NAUSEA AND/OR VOMITING Sodium Bicarbonate (Sodium Bicarbonate -) 650 mg PO BID [facility] Last Admin: 07/09/19 09:17 Dose: 650 mg Tamsulosin HCl (Flomax -) 0.4 mg PO DAILY@0830 [facility] Last Admin: 07/09/19 09:17 Dose: 0.4 mg Vital Signs Period Temp Pulse Resp BP Sys/Sloan Pulse Ox Last 24 Hr 97.4 F-99.1 F 86-99 18-18 126-163/64-68 96-96 Constitutional: Yes: Well Nourished, Calm Eyes: Yes: Conjunctiva Clear Neck: Yes: Supple, Trachea Midline Respiratory: Yes: Regular, CTA Bilaterally Gastrointestinal: Yes: Normal Bowel Sounds, Soft Cardiovascular: Yes: Regular Rate and Rhythm JVD: No Heart Sounds: Yes: S1, S2 Extremities: No: Cold Edema: No Peripheral Pulses WNL: No Integumentary: No: Jaundice Neurological: Yes: Alert, Oriented Psychiatric: No: Agitated Assessment/Plan EKG: sinus tach, LA enlargement, no ischemic changes CXR: no acute process CT abd: sm L pleural effusion and bibasilar atelectasis, prox R ureteral calculus with mild hydronephrosis, extensive arterial calcification within bowel aorta and its branches preop evaluation, acute complicated pyelonephritis, ureteral stone - s/p ureter stent - manage per urology HTN - cont home meds DM - manage per primary HLD - cont statin calcification of aorta - noted on CT abd/pelvis with extensive arterial calcification of aorta and its branches - cont statin, would consider further workup as outpatient when acute issues resolved
--- NOTE | 2019-07-09 17:51 | PN ---
Physical Exam: SUBJECTIVE: Patient seen and examined OBJECTIVE: +blood culture bottle (gram pos cocci in chains) repeat blood cultures negative. informed ID and ceftriaxone dose increased. per ID, patient now day #4 ceftriaxone, would complete 7 days iv then po ceftin for one week. she will need repeat blood cultures as an outpatient once completes antibiotics. ----- Patient is a 53 year old female with past medical history of CKD, HTN, HLD, T2DM on insulin, and kidney stones, presented to the ED on 07/05/19 due to sudden , severe 10/10 right flank pain, radiating down to the RLQ. Patient reported history of kidney stones about 7 years ago that passed spontaneously. Per Ed notes, recent blood work with PCP about 2 weeks ago revealed BUN/Cr 88/3.6. She is s/p cystoscopy and R JJ stent insertion for right ureteral calculus and right hydronephrosis. imaging: Spiral CT - small left pleural effusion and basilar atelectasis. 6mm proximal right ureteral calculus with hydronephrosis. Extensive arterial calcification within the bowel aorta and its branches. Vital Signs Period Temp Pulse Resp BP Sys/Sloan Pulse Ox Last 24 Hr 97.4 F-99.1 F 86-99 18-18 126-163/64-68 96-96 GENERAL: The patient is awake, alert, and fully oriented, in no acute distress. HEAD: Normal with no signs of trauma. EYES: PERRL, extraocular movements intact, sclera anicteric, conjunctiva clear. No ptosis. ENT: Ears normal, nares patent, oropharynx clear without exudates, moist mucous membranes. NECK: Trachea midline, full range of motion, supple. LUNGS: Breath sounds equal, clear to auscultation bilaterally HEART: Regular rate and rhythm ABDOMEN: Soft, nontender, nondistended, normoactive bowel sounds, no guarding, no rebound, no hepatosplenomegaly, no masses. EXTREMITIES: 2+ pulses, warm, well-perfused, no edema. NEUROLOGICAL: Normal speech, gait not observed. PSYCH: Normal mood, normal affect. SKIN: Warm, dry, normal turgor, no rashes or lesions noted Laboratory Results - last 24 hr 07/08/19 07/09/19 07/09/19 21:08 06:15 07:30 WBC 4.2 RBC 2.77 L Hgb 7.6 L Hct 22.5 L MCV 81.4 MCH 27.5 MCHC 33.8 RDW 15.1 Plt Count 273 MPV 7.1 L Absolute Neuts (auto) 3.4 Neutrophils % 80.7 Lymphocytes % 8.5 D Monocytes % 9.4 Eosinophils % 0.8 Basophils % 0.6 Nucleated RBC % 0 Sodium Potassium Chloride Carbon Dioxide Anion Gap BUN Creatinine Est GFR (CKD-EPI)AfAm Est GFR (CKD-EPI)NonAf POC Glucometer 128 99 Random Glucose Calcium Magnesium Total Bilirubin AST ALT Alkaline Phosphatase Total Protein Albumin Urine Color Urine Appearance Urine pH Ur Specific [place] Urine Protein Urine Glucose (UA) Urine Ketones Urine Blood Urine Nitrite Urine Bilirubin Urine Urobilinogen Ur Leukocyte Esterase Urine WBC (Auto) Urine RBC (Auto) Urine Casts (Auto) U Pathogenic Cast Auto U Epithel Cells (Auto) U Sm Round Cell (Auto) Urine Bacteria (Auto) Urine Yeast (Auto) 07/09/19 07/09/19 07/09/19 07:30 12:00 13:30 WBC RBC Hgb Hct MCV MCH MCHC RDW Plt Count MPV Absolute Neuts (auto) Neutrophils % Lymphocytes % Monocytes % Eosinophils % Basophils % Nucleated RBC % Sodium 134 L Potassium 3.9 Chloride 104 Carbon Dioxide 18 L Anion Gap 12 BUN 103.0 H Creatinine 4.6 H Est GFR (CKD-EPI)AfAm 11.69 Est GFR (CKD-EPI)NonAf 10.08 POC Glucometer 100 Random Glucose 96 Calcium 8.4 L Magnesium 2.2 Total Bilirubin 0.2 AST 9 L ALT 15 Alkaline Phosphatase 76 Total Protein 6.7 Albumin 2.6 L Urine Color Yellow Urine Appearance Cloudy Urine pH 5.0 Ur Specific [place] 1.012 Urine Protein 3+ H Urine Glucose (UA) Negative Urine Ketones Negative Urine Blood Negative Urine Nitrite Negative Urine Bilirubin Negative Urine Urobilinogen 0.2 Ur Leukocyte Esterase 1+ H Urine WBC (Auto) 42 Urine RBC (Auto) 5 Urine Casts (Auto) 10 U Pathogenic Cast Auto Rare waxy U Epithel Cells (Auto) 11.8 U Sm Round Cell (Auto) None Urine Bacteria (Auto) 6.4 Urine Yeast (Auto) None 07/09/19 16:57 WBC RBC Hgb Hct MCV MCH MCHC RDW Plt Count MPV Absolute Neuts (auto) Neutrophils % Lymphocytes % Monocytes % Eosinophils % Basophils % Nucleated RBC % Sodium Potassium Chloride Carbon Dioxide Anion Gap BUN Creatinine Est GFR (CKD-EPI)AfAm Est GFR (CKD-EPI)NonAf POC Glucometer 72 Random Glucose Calcium Magnesium Total Bilirubin AST ALT Alkaline Phosphatase Total Protein Albumin Urine Color Urine Appearance Urine pH Ur Specific [place] Urine Protein Urine Glucose (UA) Urine Ketones Urine Blood Urine Nitrite Urine Bilirubin Urine Urobilinogen Ur Leukocyte Esterase Urine WBC (Auto) Urine RBC (Auto) Urine Casts (Auto) U Pathogenic Cast Auto U Epithel Cells (Auto) U Sm Round Cell (Auto) Urine Bacteria (Auto) Urine Yeast (Auto) Active Medications Generic Name Dose Route Start Last Admin Trade Name Freq PRN Reason Stop Dose Admin Acetaminophen 650 mg 07/06/19 11:31 07/06/19 21:00 Tylenol - PO 650 mg Q6H PRN Administration PAIN LEVEL 4 - 6 Atorvastatin Calcium 40 mg 07/06/19 22:00 07/08/19 21:10 Lipitor - PO 40 mg HS ESA Administration Carvedilol 25 mg 07/06/19 11:45 07/09/19 09:17 Coreg - PO 25 mg BID ESA Administration Ferrous Sulfate 325 mg 07/09/19 12:30 07/09/19 12:52 Feosol - PO 325 mg BID ESA Administration Hydralazine HCl 100 mg 07/06/19 14:00 07/09/19 14:04 Apresoline - PO 100 mg TID ESA Administration Sodium Chloride 1,000 mls @ 83 mls/hr 07/05/19 22:00 07/08/19 16:11 1/2 Normal Saline IV 83 mls/hr ASDIR ESA Administration Ceftriaxone Sodium 2 gm/ 100 mls @ 100 mls/hr 07/10/19 10:00 Dextrose IVPB DAILY [facility] Protocol Insulin Aspart 1 vial 07/05/19 22:00 07/09/19 17:00 Novolog Vial Sliding Scale - SQ Not Given ACHS [facility] Protocol Insulin Detemir 34 units 07/05/19 22:00 07/09/19 09:17 Levemir Vial SQ 34 units BID ESA Administration Morphine Sulfate 2 mg 07/05/19 16:56 07/05/19 19:41 Morphine Sulfate IVPUSH 2 mg Q4H PRN Administration PAIN LEVEL 7 - 10 Nifedipine 30 mg 07/06/19 14:30 07/09/19 09:17 Procardia Xl - PO 30 mg DAILY ESA Administration Prochlorperazine Edisylate 10 mg 07/05/19 16:56 Compazine Injection - IVPB Q4H PRN NAUSEA AND/OR VOMITING Sodium Bicarbonate 650 mg 07/05/19 22:00 07/09/19 09:17 Sodium Bicarbonate - PO 650 mg BID ESA Administration Tamsulosin HCl 0.4 mg 07/06/19 08:30 07/09/19 09:17 Flomax - PO 0.4 mg DAILY@0830 ESA Administration ASSESSMENT/PLAN: Problem List - Problems (1) Pyelonephritis Assessment/Plan: s/p cystoscopy and R JJ stent insertion for right ureteral calculus and right hydronephrosis. on day #4 ceftriaxone, per ID, complete 7 days, then po ceftin for one week monitor intake and output urology follow up appreciated Code(s): N12 - TUBULO-INTERSTITIAL NEPHRITIS, NOT SPCF ACUTE OR CHRONIC (2) CKD (chronic kidney disease) Assessment/Plan: elevated bun/creat renal dose meds monitor daily renal following Code(s): N18.9 - CHRONIC KIDNEY DISEASE, UNSPECIFIED Qualifiers: Chronic kidney disease stage: stage 4 (severe) Qualified Code(s): N18.4 - Chronic kidney disease, stage 4 (severe) (3) Diabetes Assessment/Plan: on novolog bgms readings acceptable levels Code(s): E11.9 - TYPE 2 DIABETES MELLITUS WITHOUT COMPLICATIONS Qualifiers: Diabetes mellitus type: type 2 Diabetes mellitus snf insulin use: without terminal gauger use Diabetes mellitus complication status: with skin complications (4) HTN (hypertension) Assessment/Plan: bp elevated, restart home meds Code(s): I10 - ESSENTIAL (PRIMARY) HYPERTENSION Qualifiers: Hypertension type: essential hypertension Qualified Code(s): I10 - Essential (primary) hypertension (5) Hydronephrosis concurrent with and due to calculi of kidney and ureter Code(s): N13.2 - HYDRONEPHROSIS WITH RENAL AND URETERAL CALCULOUS OBSTRUCTION (6) Anemia Assessment/Plan: likely from underlying CKD cbc daily, transfuse if <7 hmg Code(s): D64.9 - ANEMIA, UNSPECIFIED (7) Prophylactic measure Assessment/Plan: 1/2 ns @ 83 no a/c due to hematuria/scds only Code(s): Z29.9 - ENCOUNTER FOR PROPHYLACTIC MEASURES, UNSPECIFIED Visit type - Emergency Visit Emergency Visit: Yes ED Registration Date: 07/05/19 Care time: The patient presented to the Emergency Department on the above date and was hospitalized for further evaluation of their emergent condition. - New Patient This patient is new to me today: No - Critical Care Critical Care patient: No - Discharge Referral Referred to [facility] No
--- NOTE | 2019-07-09 18:56 | PN ---
Progress Note, Physician History of Present Illness: Pt seen and examined at bedside. She is awake and alert. SHe denies pain. - Current Medication List Current Medications: Active Medications Acetaminophen (Tylenol -) 650 mg PO Q6H PRN PRN Reason: PAIN LEVEL 4 - 6 Last Admin: 07/06/19 21:00 Dose: 650 mg Atorvastatin Calcium (Lipitor -) 40 mg PO HS [facility] Last Admin: 07/08/19 21:10 Dose: 40 mg Carvedilol (Coreg -) 25 mg PO BID [facility] Last Admin: 07/09/19 09:17 Dose: 25 mg Ferrous Sulfate (Feosol -) 325 mg PO BID [facility] Last Admin: 07/09/19 12:52 Dose: 325 mg Hydralazine HCl (Apresoline -) 100 mg PO TID [facility] Last Admin: 07/09/19 14:04 Dose: 100 mg Sodium Chloride (1/2 Normal Saline) 1,000 mls @ 83 mls/hr IV ASDIR [facility] Last Admin: 07/08/19 16:11 Dose: 83 mls/hr Ceftriaxone Sodium 2 gm/ (Dextrose) 100 mls @ 100 mls/hr IVPB DAILY [facility]; Protocol Insulin Aspart (Novolog Vial Sliding Scale -) 1 vial SQ ACHS [facility]; Protocol Last Admin: 07/09/19 17:00 Dose: Not Given Insulin Detemir (Levemir Vial) 34 units SQ BID [facility] Last Admin: 07/09/19 09:17 Dose: 34 units Morphine Sulfate (Morphine Sulfate) 2 mg IVPUSH Q4H PRN PRN Reason: PAIN LEVEL 7 - 10 Last Admin: 07/05/19 19:41 Dose: 2 mg Nifedipine (Procardia Xl -) 30 mg PO DAILY [facility] Last Admin: 07/09/19 09:17 Dose: 30 mg Prochlorperazine Edisylate (Compazine Injection -) 10 mg IVPB Q4H PRN PRN Reason: NAUSEA AND/OR VOMITING Sodium Bicarbonate (Sodium Bicarbonate -) 650 mg PO BID [facility] Last Admin: 07/09/19 09:17 Dose: 650 mg Tamsulosin HCl (Flomax -) 0.4 mg PO DAILY@0830 [facility] Last Admin: 07/09/19 09:17 Dose: 0.4 mg - Objective Vital Signs: Vital Signs Temperature 99.1 F 07/09/19 14:55 Pulse Rate 95 H 07/09/19 14:55 Respiratory Rate 18 07/09/19 14:55 Blood Pressure 126/64 07/09/19 14:55 O2 Sat by Pulse Oximetry (%) 96 07/09/19 09:00 Constitutional: Yes: Calm Eyes: Yes: Conjunctiva Clear HENT: Yes: Atraumatic Neck: Yes: Supple Cardiovascular: Yes: S1, S2 Respiratory: Yes: CTA Bilaterally Gastrointestinal: Yes: Soft, Abdomen, Obese Genitourinary: Yes: WNL Edema: No Integumentary: Yes: Tattoos Neurological: Yes: Oriented Psychiatric: Yes: Oriented Labs: CBC, BMP 07/09/19 07:30 07/09/19 07:30 INR, PTT INR 0.98 (0.83-1.09) 07/05/19 13:50 Problem List - Problems (1) CKD (chronic kidney disease) Code(s): N18.9 - CHRONIC KIDNEY DISEASE, UNSPECIFIED Qualifiers: Qualified Code(s): N18.4 - Chronic kidney disease, stage 4 (severe) (2) Diabetes Code(s): E11.9 - TYPE 2 DIABETES MELLITUS WITHOUT COMPLICATIONS (3) HTN (hypertension) Code(s): I10 - ESSENTIAL (PRIMARY) HYPERTENSION Qualifiers: Qualified Code(s): I10 - Essential (primary) hypertension (4) Hydronephrosis concurrent with and due to calculi of kidney and ureter Code(s): N13.2 - HYDRONEPHROSIS WITH RENAL AND URETERAL CALCULOUS OBSTRUCTION Assessment/Plan Current Medications Generic Name Dose Route Start Last Admin Trade Name Freq PRN Reason Stop Dose Admin Acetaminophen 650 mg 07/06/19 11:31 07/06/19 21:00 Tylenol - PO 650 mg Q6H PRN Administration PAIN LEVEL 4 - 6 Atorvastatin Calcium 40 mg 07/06/19 22:00 07/08/19 21:10 Lipitor - PO 40 mg HS ESA Administration Carvedilol 25 mg 07/06/19 11:45 07/09/19 09:17 Coreg - PO 25 mg BID ESA Administration Ferrous Sulfate 325 mg 07/09/19 12:30 07/09/19 12:52 Feosol - PO 325 mg BID ESA Administration Hydralazine HCl 100 mg 07/06/19 14:00 07/09/19 14:04 Apresoline - PO 100 mg TID ESA Administration Sodium Chloride 1,000 mls @ 83 mls/hr 07/05/19 22:00 07/08/19 16:11 1/2 Normal Saline IV 83 mls/hr ASDIR ESA Administration Ceftriaxone Sodium 2 gm/ 100 mls @ 100 mls/hr 07/10/19 10:00 Dextrose IVPB DAILY [facility] Protocol Insulin Aspart 1 vial 07/05/19 22:00 07/09/19 17:00 Novolog Vial Sliding Scale - SQ Not Given ACHS [facility] Protocol Insulin Detemir 34 units 07/05/19 22:00 07/09/19 09:17 Levemir Vial SQ 34 units BID [facility] Administration Morphine Sulfate 2 mg 07/05/19 16:56 07/05/19 19:41 Morphine Sulfate IVPUSH 2 mg Q4H PRN Administration PAIN LEVEL 7 - 10 Nifedipine 30 mg 07/06/19 14:30 07/09/19 09:17 Procardia Xl - PO 30 mg DAILY [facility] Administration Prochlorperazine Edisylate 10 mg 07/05/19 16:56 Compazine Injection - IVPB Q4H PRN NAUSEA AND/OR VOMITING Sodium Bicarbonate 650 mg 07/05/19 22:00 07/09/19 09:17 Sodium Bicarbonate - PO 650 mg BID ESA Administration Tamsulosin HCl 0.4 mg 07/06/19 08:30 07/09/19 09:17 Flomax - PO 0.4 mg DAILY@0830 ESA Administration Impression 1. CKD 2. leander 3. hydronephrosis 4. nephrolithiasis 5. htn 6. DM 7. obesity 8. anemia Plan - cont fluids - cont bicarb - repeat labs in am - urology follow up - monitor renal function - avoid nsaids
[2019-07-09] MEDS ORDERED: SODIUM CHLORIDE 1,000 ML IV SCH (19:00)
[2019-07-09] MEDS: ATORVASTATIN CA 40 MG TABLET (FP) PO SCH (21:50)
[2019-07-10] MEDS ORDERED: INSULIN (NOVOLOG) ASPART 100 UNITS/ML 10ML VIAL ONE (06:10)
[2019-07-10] MEDS: hydrALAZINE HCL 50 MG TABLET (FP) PO SCH ×3 (06:33→21:25)
[2019-07-10] MEDS: INSULIN SLIDING SCALE (NOVOLOG) 1 VIAL SQ SCH ×4 (06:33→21:29)
[2019-07-10] MEDS: TAMSULOSIN HCL 0.4 MG CAP PO SCH (08:32)
[2019-07-10 08:37] LABS: BASO % 0.5 % (0-2.0); EOS % 1.2 % (0-4.5); HEMOGLOBIN 7.8 GM/dL (10.7-15.3); LYMPH % 9.4 % (8-40); MCH 27.3 pg (25.7-33.7); MCHC 33.8 g/dl (32.0-36.0); MONO % 11.6 % (3.8-10.2); NEUT % 77.3 % (42.8-82.8); PLATELET COUNT 299 K/MM3 (134-434); RBC 2.84 M/mm3 (3.60-5.2); RDW 15.3 % (11.6-15.6); WHITE BLOOD COUNT 4.3 K/mm3 (4.0-10.0)
[2019-07-10 08:55] LABS: ALBUMIN 2.6 g/dl (3.4-5.0); BILIRUBIN,TOTAL 0.8 mg/dL (0.2-1); BLOOD UREA NITROGEN 100.1 mg/dL (7-18); CALCIUM 8.4 mg/dL (8.5-10.1); CREATININE 4.4 mg/dL (0.55-1.3); MAGNESIUM 2.1 mg/dL (1.8-2.4); POTASSIUM 3.7 mmol/L (3.5-5.1); TOT PROT 6.8 g/dl (6.4-8.2)
--- NOTE | 2019-07-10 09:00 | PN ---
Progress Note, Physician Chief Complaint: States she is ready to go home. Questioning why her torsemide is being held. History of Present Illness: This is a 53-year-old female with the morbid obesity and advanced Chronic kidney failure, Admitted with RIGHT renal colic. Patient underwent placement of a double-J stent. The patient had acute severe gross hematuria which is getting better since placement of the stent. The pain has remarkably improved. The patient does not recall passing of the stone. Denies chest pain or shortness of breath. Denies palpitations. - Current Medication List Current Medications: Active Medications Acetaminophen (Tylenol -) 650 mg PO Q6H PRN PRN Reason: PAIN LEVEL 4 - 6 Last Admin: 07/06/19 21:00 Dose: 650 mg Atorvastatin Calcium (Lipitor -) 40 mg PO HS [facility] Last Admin: 07/09/19 21:50 Dose: 40 mg Carvedilol (Coreg -) 25 mg PO BID [facility] Last Admin: 07/09/19 21:50 Dose: 25 mg Ferrous Sulfate (Feosol -) 325 mg PO BID [facility] Last Admin: 07/09/19 21:50 Dose: 325 mg Hydralazine HCl (Apresoline -) 100 mg PO TID [facility] Last Admin: 07/10/19 06:33 Dose: 100 mg Ceftriaxone Sodium 2 gm/ (Dextrose) 100 mls @ 100 mls/hr IVPB DAILY [facility]; Protocol Insulin Aspart (Novolog Vial Sliding Scale -) 1 vial SQ ACHS [facility]; Protocol Last Admin: 07/10/19 06:33 Dose: Not Given Insulin Detemir (Levemir Vial) 34 units SQ BID [facility] Last Admin: 07/09/19 21:50 Dose: 34 units Morphine Sulfate (Morphine Sulfate) 2 mg IVPUSH Q4H PRN PRN Reason: PAIN LEVEL 7 - 10 Last Admin: 07/05/19 19:41 Dose: 2 mg Nifedipine (Procardia Xl -) 30 mg PO DAILY [facility] Last Admin: 07/09/19 09:17 Dose: 30 mg Prochlorperazine Edisylate (Compazine Injection -) 10 mg IVPB Q4H PRN PRN Reason: NAUSEA AND/OR VOMITING Sodium Bicarbonate (Sodium Bicarbonate -) 650 mg PO BID [facility] Last Admin: 07/09/19 21:50 Dose: 650 mg Tamsulosin HCl (Flomax -) 0.4 mg PO DAILY@0830 [facility] Last Admin: 07/10/19 08:32 Dose: 0.4 mg - Objective Vital Signs: Vital Signs Temperature 97.9 F 07/10/19 06:00 Pulse Rate 86 07/10/19 06:00 Respiratory Rate 18 07/10/19 06:00 Blood Pressure 139/58 L 07/10/19 06:00 O2 Sat by Pulse Oximetry (%) 96 07/09/19 21:00 Constitutional: Yes: Well Nourished, No Distress, Calm, Obese Eyes: Yes: WNL, Conjunctiva Clear HENT: Yes: WNL, Atraumatic, Normocephalic Neck: Yes: WNL, Supple, Trachea Midline Cardiovascular: Yes: WNL, Regular Rate and Rhythm Respiratory: Yes: WNL, Regular, CTA Bilaterally Gastrointestinal: Yes: WNL, Normal Bowel Sounds, Soft, Abdomen, Obese ...Rectal Exam: Yes: Deferred Genitourinary: Yes: WNL Breast(s): Yes: WNL Musculoskeletal: Yes: WNL Extremities: Yes: WNL Edema: Yes Edema: LLE: 2+, RLE: 2+ Peripheral Pulses WNL: Yes Peripheral Pulses: Left Radial: 2+, Right Radial: 2+, Left Doralis Pedis: 2+, Right Dorsalis Pedis: 2+, Left Femoral: 2+, Right Femoral: 2+ Integumentary: Yes: WNL, Tattoos Neurological: Yes: WNL, Alert, Oriented ...Motor Strength: WNL Psychiatric: Yes: WNL Labs: CBC, BMP 07/10/19 07:50 07/10/19 07:50 INR, PTT INR 0.98 (0.83-1.09) 07/05/19 13:50 - ....Imaging Cat Scan: Report Reviewed (Left pleural effusion. Right renal calculus with mild hydro.) Problem List - Problems (1) CKD (chronic kidney disease) Assessment/Plan: Cr baseline in 4.0's currently 4.4 avoid nephrotovic agents hold torsemide until GFR returns to baseline c/w IVF renal following Code(s): N18.9 - CHRONIC KIDNEY DISEASE, UNSPECIFIED Qualifiers: Chronic kidney disease stage: stage 4 (severe) Qualified Code(s): N18.4 - Chronic kidney disease, stage 4 (severe) (2) Diabetes Assessment/Plan: BGM AC/qHS with novolog sliding scale BS 73 this am levemir decreased to 28 from 32 continue to monitor diabetic diet Code(s): E11.9 - TYPE 2 DIABETES MELLITUS WITHOUT COMPLICATIONS Qualifiers: Diabetes mellitus type: type 2 Diabetes mellitus [employer] insulin use: without jail use Diabetes mellitus complication status: with skin complications (3) HTN (hypertension) Assessment/Plan: c/w hydralazine TID, procardia Code(s): I10 - ESSENTIAL (PRIMARY) HYPERTENSION Qualifiers: Hypertension type: essential hypertension Qualified Code(s): I10 - Essential (primary) hypertension (4) Hydronephrosis concurrent with and due to calculi of kidney and ureter Assessment/Plan: POD #5 from JJ stent with Dr Hussein c/w flomax c/w ceftraixone x 3 additional days c/w IVF Code(s): N13.2 - HYDRONEPHROSIS WITH RENAL AND URETERAL CALCULOUS OBSTRUCTION (5) Prophylactic measure Code(s): Z29.9 - ENCOUNTER FOR PROPHYLACTIC MEASURES, UNSPECIFIED (6) UTI (urinary tract infection) Assessment/Plan: UCx negative Code(s): N39.0 - URINARY TRACT INFECTION, SITE NOT SPECIFIED (7) HLD (hyperlipidemia) Assessment/Plan: c/w atorvastatin Code(s): E78.5 - HYPERLIPIDEMIA, UNSPECIFIED (8) Anemia Assessment/Plan: hgb 7, stable c/w iron supplememts Code(s): D64.9 - ANEMIA, UNSPECIFIED (9) Morbid obesity Assessment/Plan: BMI 48.8 counseled on weight loss and exercise plan Code(s): E66.01 - MORBID (SEVERE) OBESITY DUE TO EXCESS CALORIES Visit type - Emergency Visit Emergency Visit: Yes ED Registration Date: 07/05/19 Care time: The patient presented to the Emergency Department on the above date and was hospitalized for further evaluation of their emergent condition. - New Patient This patient is new to me today: Yes Date on this admission: 07/10/19 - Critical Care Critical Care patient: No - Discharge Referral Referred to [facility] No
[2019-07-10] MEDS ORDERED: DEXTROSE 5%-WATER 100 ML IVPB ONE (10:38)
[2019-07-10] MEDS: CARVEDILOL 25 MG TABLET (FP) PO SCH ×2 (11:03→21:25)
[2019-07-10] MEDS: FERROUS SO4 325 MG TABLET (FP) PO SCH (11:03)
[2019-07-10] MEDS: NIFEdipine E.R. 30 MG TABLET PO SCH (11:03)
[2019-07-10] MEDS: CEFTRIAXONE 2 GM in DEXTROSE 5%-WATER 100 ML IVPB SCH (11:04)
[2019-07-10] MEDS: SODIUM BICARBONATE 650 MG TABLET PO SCH ×2 (11:04→21:25)
[2019-07-10] MEDS: INSULIN (LEVEMIR) 100 UNITS/ML UNITS SQ SCH ×2 (11:35→21:25)
[2019-07-10] MEDS: SODIUM CHLORIDE 0.45% 1,000 ML IV SCH (13:19)
--- NOTE | 2019-07-10 14:05 | PN ---
Progress Note, Physician Chief Complaint: denies CP, SOB, palps - Current Medication List Current Medications: Active Medications Acetaminophen (Tylenol -) 650 mg PO Q6H PRN PRN Reason: PAIN LEVEL 4 - 6 Last Admin: 07/06/19 21:00 Dose: 650 mg Atorvastatin Calcium (Lipitor -) 40 mg PO HS [facility] Last Admin: 07/09/19 21:50 Dose: 40 mg Carvedilol (Coreg -) 25 mg PO BID [facility] Last Admin: 07/10/19 11:03 Dose: 25 mg Ferrous Sulfate (Feosol -) 325 mg PO BID [facility] Last Admin: 07/10/19 11:03 Dose: 325 mg Hydralazine HCl (Apresoline -) 100 mg PO TID [facility] Last Admin: 07/10/19 13:19 Dose: 100 mg Ceftriaxone Sodium 2 gm/ (Dextrose) 100 mls @ 100 mls/hr IVPB DAILY [facility]; Protocol Last Admin: 07/10/19 11:04 Dose: 100 mls/hr Sodium Chloride (1/2 Normal Saline) 1,000 mls @ 83 mls/hr IV ASDIR [facility] Last Admin: 07/10/19 13:19 Dose: 83 mls/hr Insulin Aspart (Novolog Vial Sliding Scale -) 1 vial SQ ACHS [facility]; Protocol Last Admin: 07/10/19 11:05 Dose: Not Given Insulin Detemir (Levemir Vial) 28 units SQ 0700,2200 [facility] Morphine Sulfate (Morphine Sulfate) 2 mg IVPUSH Q4H PRN PRN Reason: PAIN LEVEL 7 - 10 Last Admin: 07/05/19 19:41 Dose: 2 mg Nifedipine (Procardia Xl -) 30 mg PO DAILY [facility] Last Admin: 07/10/19 11:03 Dose: 30 mg Prochlorperazine Edisylate (Compazine Injection -) 10 mg IVPB Q4H PRN PRN Reason: NAUSEA AND/OR VOMITING Sodium Bicarbonate (Sodium Bicarbonate -) 650 mg PO BID [facility] Last Admin: 07/10/19 11:04 Dose: 650 mg Tamsulosin HCl (Flomax -) 0.4 mg PO DAILY@0830 [facility] Last Admin: 07/10/19 08:32 Dose: 0.4 mg - Objective Vital Signs: Vital Signs Temperature 98.1 F 07/10/19 13:45 Pulse Rate 92 H 07/10/19 13:45 Respiratory Rate 18 07/10/19 13:45 Blood Pressure 152/79 07/10/19 13:45 O2 Sat by Pulse Oximetry (%) 96 07/10/19 09:00 Constitutional: Yes: No Distress Cardiovascular: Yes: Regular Rate and Rhythm Respiratory: Yes: CTA Bilaterally Gastrointestinal: Yes: Soft, Abdomen, Obese Edema: Yes Edema: LLE: 1+, RLE: 1+ Neurological: Yes: Alert, Oriented Labs: CBC, BMP 07/10/19 07:50 07/10/19 07:50 INR, PTT INR 0.98 (0.83-1.09) 07/05/19 13:50 Microbiology 07/05/19 13:55 Blood - Peripheral Venous Blood Culture - Final NO GROWTH AFTER 5 DAYS INCUBATION 07/05/19 12:32 Urine - Urine Clean Catch Urine Culture - Final NO GROWTH OBTAINED 07/07/19 08:30 Blood - Peripheral Venous Blood Culture - Preliminary NO GROWTH OBTAINED AFTER 72 HOURS, INCUBATION TO CONTINUE FOR 2 DAYS. 07/07/19 08:30 Blood - Peripheral Venous Blood Culture - Preliminary NO GROWTH OBTAINED AFTER 72 HOURS, INCUBATION TO CONTINUE FOR 2 DAYS. Laboratory Tests 07/10/19 07/10/19 07:50 07:50 WBC 4.3 Hgb 7.8 L Plt Count 299 Sodium 134 L Potassium 3.7 BUN 100.1 H Creatinine 4.4 H Assessment/Plan Assessment/Plan EKG: sinus tach, LA enlargement, no ischemic changes CXR: no acute process CT abd: sm L pleural effusion and bibasilar atelectasis, prox R ureteral calculus with mild hydronephrosis, extensive arterial calcification within bowel aorta and its branches preop evaluation, acute complicated pyelonephritis, ureteral stone: - s/p ureter stent - manage per urology HTN: - cont home meds DM: - manage per primary HLD: - cont statin calcification of aorta: - noted on CT abd/pelvis with extensive arterial calcification of aorta and its branches - cont statin, would consider further workup as outpatient when acute issues resolved -Gave patient office card to plan f/u CKD: d/w renal. BUN and creat up a bit from baseline. -Holding Torsemide for now until GFR returns to baseline -appears euvolemic
--- NOTE | 2019-07-10 15:28 | PN ---
Progress Note (short form) - Note Progress Note: Renal follow up for JUN on CKD Seen and examined at the bedside awake and alert offers no acute complaints denies any sob, cp, fever, chills, N/V/D. making urine no flank pain Vital Signs Temperature 98.1 F 07/10/19 13:45 Pulse Rate 92 H 07/10/19 13:45 Respiratory Rate 18 07/10/19 13:45 Blood Pressure 152/79 07/10/19 13:45 O2 Sat by Pulse Oximetry (%) 96 07/10/19 09:00 Intake & Output 07/07/19 07/08/19 07/09/19 07/10/19 23:59 23:59 23:59 23:59 Intake Total 2552 950 450 400 Balance 2552 950 450 400 Weight 121.109 kg NAD awake and alert neck supple RRR CTA soft NT/ND, obese no LE edema CBC, BMP 07/10/19 07:50 07/10/19 07:50 Current Medications Acetaminophen (Tylenol -) 650 mg PO Q6H PRN PRN Reason: PAIN LEVEL 4 - 6 Last Admin: 07/06/19 21:00 Dose: 650 mg Atorvastatin Calcium (Lipitor -) 40 mg PO HS [facility] Last Admin: 07/09/19 21:50 Dose: 40 mg Carvedilol (Coreg -) 25 mg PO BID [facility] Last Admin: 07/10/19 11:03 Dose: 25 mg Ferrous Sulfate (Feosol -) 325 mg PO BID [facility] Last Admin: 07/10/19 11:03 Dose: 325 mg Hydralazine HCl (Apresoline -) 100 mg PO TID [facility] Last Admin: 07/10/19 13:19 Dose: 100 mg Ceftriaxone Sodium 2 gm/ (Dextrose) 100 mls @ 100 mls/hr IVPB DAILY [facility]; Protocol Last Admin: 07/10/19 11:04 Dose: 100 mls/hr Sodium Chloride (1/2 Normal Saline) 1,000 mls @ 83 mls/hr IV ASDIR [facility] Last Admin: 07/10/19 13:19 Dose: 83 mls/hr Insulin Aspart (Novolog Vial Sliding Scale -) 1 vial SQ ACHS [facility]; Protocol Last Admin: 07/10/19 11:05 Dose: Not Given Insulin Detemir (Levemir Vial) 28 units SQ 0700,2200 [facility] Nifedipine (Procardia Xl -) 30 mg PO DAILY [facility] Last Admin: 07/10/19 11:03 Dose: 30 mg Prochlorperazine Edisylate (Compazine Injection -) 10 mg IVPB Q4H PRN PRN Reason: NAUSEA AND/OR VOMITING Sodium Bicarbonate (Sodium Bicarbonate -) 650 mg PO BID [facility] Last Admin: 07/10/19 11:04 Dose: 650 mg Tamsulosin HCl (Flomax -) 0.4 mg PO DAILY@0830 [facility] Last Admin: 07/10/19 08:32 Dose: 0.4 mg 53 year old female wiht pmhx of ckd, htn, hld, dm and nephrolithiasis who presents to the ER with worsening renal failure and right flank pain and to have obstructing nephrolithiasis 1. JUN on CKD 2. CKD stage 4 3. Nephrolithiasis 4. Hypertension 5. DM Renal function stable Will start gentle hydration with goal of improving BUN/Cr to baseline Check iron studies in AM, may need MALVIN or iron continue hydralazine and nifedpine for hypertension continue flomax Mau Warren DO
[2019-07-10] MEDS ORDERED: IRON SUCROSE INJECTION 200 MG in SODIUM CHLORIDE 90 ML IVPB ONE (16:42)
[2019-07-10] MEDS ORDERED: IRON SUCROSE INJECTION 200 MG in SODIUM CHLORIDE 90 ML IVPB SCH (18:30)
[2019-07-10] MEDS: IRON SUCROSE INJECTION 200 MG in SODIUM CHLORIDE 90 ML IVPB SCH (19:31)
[2019-07-10] MEDS: ATORVASTATIN CA 40 MG TABLET (FP) PO SCH (21:25)
[2019-07-11] MEDS: INSULIN SLIDING SCALE (NOVOLOG) 1 VIAL SQ SCH ×4 (06:05→21:25)
[2019-07-11] MEDS: INSULIN (LEVEMIR) 100 UNITS/ML UNITS SQ SCH ×2 (06:08→21:24)
[2019-07-11] MEDS: hydrALAZINE HCL 50 MG TABLET (FP) PO SCH ×3 (06:08→21:23)
[2019-07-11] MEDS ORDERED: PT OWN MED DRAWER 7, Y5N ONE (07:04)
--- NOTE | 2019-07-11 07:43 | PN ---
Progress Note, Physician Chief Complaint: Anxious to go home. Completing antibiotics tomorrow History of Present Illness: This is a 53-year-old female with the morbid obesity and advanced Chronic kidney failure, Admitted with RIGHT renal colic. Patient underwent placement of a double-J stent. The patient had acute severe gross hematuria which is getting better since placement of the stent. The pain has remarkably improved. The patient does not recall passing of the stone. Denies chest pain or shortness of breath. Denies palpitations. - Current Medication List Current Medications: Active Medications Acetaminophen (Tylenol -) 650 mg PO Q6H PRN PRN Reason: PAIN LEVEL 4 - 6 Last Admin: 07/06/19 21:00 Dose: 650 mg Atorvastatin Calcium (Lipitor -) 40 mg PO HS [facility] Last Admin: 07/10/19 21:25 Dose: 40 mg Carvedilol (Coreg -) 25 mg PO BID [facility] Last Admin: 07/10/19 21:25 Dose: 25 mg Ferrous Sulfate (Feosol -) 325 mg PO BID [facility] Last Admin: 07/10/19 11:03 Dose: 325 mg Hydralazine HCl (Apresoline -) 100 mg PO TID [facility] Last Admin: 07/11/19 06:08 Dose: 100 mg Ceftriaxone Sodium 2 gm/ (Dextrose) 100 mls @ 100 mls/hr IVPB DAILY [facility]; Protocol Last Admin: 07/10/19 11:04 Dose: 100 mls/hr Sodium Chloride (1/2 Normal Saline) 1,000 mls @ 83 mls/hr IV ASDIR [facility] Last Admin: 07/10/19 13:19 Dose: 83 mls/hr Iron Sucrose 200 mg/ Sodium (Chloride) 100 mls @ 100 mls/hr IVPB DAILY [facility] Stop: 07/14/19 10:59 Last Admin: 07/10/19 19:31 Dose: 100 mls/hr Insulin Aspart (Novolog Vial Sliding Scale -) 1 vial SQ ACHS [facility]; Protocol Last Admin: 07/11/19 06:05 Dose: Not Given Insulin Detemir (Levemir Vial) 28 units SQ 0700,2200 [facility] Last Admin: 07/11/19 06:08 Dose: 28 units Nifedipine (Procardia Xl -) 30 mg PO DAILY [facility] Last Admin: 07/10/19 11:03 Dose: 30 mg Prochlorperazine Edisylate (Compazine Injection -) 10 mg IVPB Q4H PRN PRN Reason: NAUSEA AND/OR VOMITING Sodium Bicarbonate (Sodium Bicarbonate -) 650 mg PO BID [facility] Last Admin: 07/10/19 21:25 Dose: 650 mg Tamsulosin HCl (Flomax -) 0.4 mg PO DAILY@0830 [facility] Last Admin: 07/10/19 08:32 Dose: 0.4 mg - Objective Vital Signs: Vital Signs Temperature 98.6 F 07/11/19 05:50 Pulse Rate 87 07/11/19 05:50 Respiratory Rate 18 07/11/19 05:50 Blood Pressure 119/59 L 07/11/19 05:50 O2 Sat by Pulse Oximetry (%) 97 07/10/19 21:00 Additional Findings/Remarks: Constitutional: Yes: Well Nourished, No Distress, Calm, Obese Eyes: Yes: WNL, Conjunctiva Clear HENT: Yes: WNL, Atraumatic, Normocephalic Neck: Yes: WNL, Supple, Trachea Midline Cardiovascular: Yes: WNL, Regular Rate and Rhythm Respiratory: Yes: WNL, Regular, CTA Bilaterally Gastrointestinal: Yes: WNL, Normal Bowel Sounds, Soft, Abdomen, Obese ...Rectal Exam: Yes: Deferred Genitourinary: Yes: WNL Breast(s): Yes: WNL Musculoskeletal: Yes: WNL Extremities: Yes: WNL Edema: Yes Edema: LLE: 2+, RLE: 2+ Peripheral Pulses WNL: Yes Peripheral Pulses: Left Radial: 2+, Right Radial: 2+, Left Doralis Pedis: 2+, Right Dorsalis Pedis: 2+, Left Femoral: 2+, Right Femoral: 2+ Integumentary: Yes: WNL, Tattoos Neurological: Yes: WNL, Alert, Oriented ...Motor Strength: WNL Psychiatric: Yes: WNL Labs: CBC, BMP 07/10/19 07:50 07/10/19 07:50 INR, PTT INR 0.98 (0.83-1.09) 07/05/19 13:50 Problem List - Problems (1) CKD (chronic kidney disease) Assessment/Plan: Cr baseline in 4.0's currently 4.4 avoid nephrotoxic agents holding torsemide until GFR returns to baseline c/w IVF renal following Code(s): N18.9 - CHRONIC KIDNEY DISEASE, UNSPECIFIED Qualifiers: Chronic kidney disease stage: stage 4 (severe) Qualified Code(s): N18.4 - Chronic kidney disease, stage 4 (severe) (2) Diabetes Assessment/Plan: BGM AC/qHS with novolog sliding scale BS 73 this am levemir decreased to 28 from 32 continue to monitor diabetic diet Code(s): E11.9 - TYPE 2 DIABETES MELLITUS WITHOUT COMPLICATIONS Qualifiers: Diabetes mellitus type: type 2 Diabetes mellitus care home insulin use: without buttermaker use Diabetes mellitus complication status: with skin complications (3) HTN (hypertension) Assessment/Plan: c/w hydralazine TID, procardia Code(s): I10 - ESSENTIAL (PRIMARY) HYPERTENSION Qualifiers: Hypertension type: essential hypertension Qualified Code(s): I10 - Essential (primary) hypertension (4) Hydronephrosis concurrent with and due to calculi of kidney and ureter Assessment/Plan: POD #6 from JJ stent with Dr Hussein c/w flomax c/w ceftraixone x 2 additional days c/w IVF Code(s): N13.2 - HYDRONEPHROSIS WITH RENAL AND URETERAL CALCULOUS OBSTRUCTION (5) Prophylactic measure Assessment/Plan: FEN Fluids: adequate PO intake Electrolytes: monitor & replete as needed Nutrition: diabetic diet DVT moderate risk sq heparin Dispo Maintain as inpatient full code discharge planning Code(s): Z29.9 - ENCOUNTER FOR PROPHYLACTIC MEASURES, UNSPECIFIED (6) UTI (urinary tract infection) Assessment/Plan: UCx negative Code(s): N39.0 - URINARY TRACT INFECTION, SITE NOT SPECIFIED (7) HLD (hyperlipidemia) Assessment/Plan: c/w atorvastatin Code(s): E78.5 - HYPERLIPIDEMIA, UNSPECIFIED (8) Anemia Assessment/Plan: hgb 7, stable venefor ordered for total 3 days and then will convert back to oral FESO4 Code(s): D64.9 - ANEMIA, UNSPECIFIED (9) Morbid obesity Assessment/Plan: BMI 48.8 counseled on weight loss and exercise plan Code(s): E66.01 - MORBID (SEVERE) OBESITY DUE TO EXCESS CALORIES Visit type - Emergency Visit Emergency Visit: Yes ED Registration Date: 07/05/19 Care time: The patient presented to the Emergency Department on the above date and was hospitalized for further evaluation of their emergent condition. - New Patient This patient is new to me today: No - Critical Care Critical Care patient: No - Discharge Referral Referred to [facility] No
[2019-07-11] MEDS ORDERED: DEXTROSE 5%-WATER 100 ML IVPB ONE (08:02)
[2019-07-11 08:05] LABS: EOS % 1.7 % (0-4.5); HEMATOCRIT 21.9 % (32.4-45.2); HEMOGLOBIN 7.4 GM/dL (10.7-15.3); LYMPH % 10.7 % (8-40); MCH 27.4 pg (25.7-33.7); MEAN CELL VOLUME 80.7 fl (80-96); MEAN PLT VOLUME 6.9 fl (7.5-11.1); MONO % 10.2 % (3.8-10.2); NEUT % 76.4 % (42.8-82.8); PLATELET COUNT 287 K/MM3 (134-434); RBC 2.72 M/mm3 (3.60-5.2); RDW 15.1 % (11.6-15.6); WHITE BLOOD COUNT 3.7 K/mm3 (4.0-10.0)
[2019-07-11 09:07] LABS: ALBUMIN 2.5 g/dl (3.4-5.0); BILIRUBIN,TOTAL 0.3 mg/dL (0.2-1); CALCIUM 8.1 mg/dL (8.5-10.1); CREATININE 4.4 mg/dL (0.55-1.3); MAGNESIUM 2.2 mg/dL (1.8-2.4); POTASSIUM 3.9 mmol/L (3.5-5.1); TOT PROT 6.7 g/dl (6.4-8.2)
[2019-07-11] MEDS: TAMSULOSIN HCL 0.4 MG CAP PO SCH (09:07)
[2019-07-11] MEDS: CEFTRIAXONE 2 GM in DEXTROSE 5%-WATER 100 ML IVPB SCH (09:08)
[2019-07-11] MEDS: NIFEdipine E.R. 30 MG TABLET PO SCH (09:08)
[2019-07-11] MEDS: SODIUM BICARBONATE 650 MG TABLET PO SCH ×2 (09:08→21:24)
[2019-07-11] MEDS: CARVEDILOL 25 MG TABLET (FP) PO SCH ×2 (09:08→21:23)
[2019-07-11 09:12] LABS: BLOOD UREA NITROGEN 105.1 mg/dL (7-18)
[2019-07-11 10:58] LABS: ANISOCYTOSIS 1+; MACROCYTOSIS 0; OVALOCYTE 1+; PLATELET ESTIMATE NORMAL; TARGET CELLS 1+
[2019-07-11] MEDS: IRON SUCROSE INJECTION 200 MG in SODIUM CHLORIDE 90 ML IVPB SCH (11:06)
--- NOTE | 2019-07-11 11:58 | PN ---
Progress Note (short form) - Note Progress Note: s: no chest pain, palps, dizziness, dyspnea Current Medications Acetaminophen (Tylenol -) 650 mg PO Q6H PRN PRN Reason: PAIN LEVEL 4 - 6 Last Admin: 07/06/19 21:00 Dose: 650 mg Atorvastatin Calcium (Lipitor -) 40 mg PO HS [facility] Last Admin: 07/10/19 21:25 Dose: 40 mg Carvedilol (Coreg -) 25 mg PO BID [facility] Last Admin: 07/11/19 09:08 Dose: 25 mg Ferrous Sulfate (Feosol -) 325 mg PO BID [facility] Last Admin: 07/10/19 11:03 Dose: 325 mg Hydralazine HCl (Apresoline -) 100 mg PO TID [facility] Last Admin: 07/11/19 06:08 Dose: 100 mg Ceftriaxone Sodium 2 gm/ (Dextrose) 100 mls @ 100 mls/hr IVPB DAILY [facility]; Protocol Last Admin: 07/11/19 09:08 Dose: 100 mls/hr Sodium Chloride (1/2 Normal Saline) 1,000 mls @ 83 mls/hr IV ASDIR [facility] Last Admin: 07/10/19 13:19 Dose: 83 mls/hr Iron Sucrose 200 mg/ Sodium (Chloride) 100 mls @ 100 mls/hr IVPB DAILY [facility] Stop: 07/14/19 10:59 Last Admin: 07/11/19 11:06 Dose: 100 mls/hr Insulin Aspart (Novolog Vial Sliding Scale -) 1 vial SQ ACHS [facility]; Protocol Last Admin: 07/11/19 11:28 Dose: Not Given Insulin Detemir (Levemir Vial) 28 units SQ 0700,2200 [facility] Last Admin: 07/11/19 06:08 Dose: 28 units Nifedipine (Procardia Xl -) 30 mg PO DAILY [facility] Last Admin: 07/11/19 09:08 Dose: 30 mg Prochlorperazine Edisylate (Compazine Injection -) 10 mg IVPB Q4H PRN PRN Reason: NAUSEA AND/OR VOMITING Sodium Bicarbonate (Sodium Bicarbonate -) 650 mg PO BID [facility] Last Admin: 07/11/19 09:08 Dose: 650 mg Tamsulosin HCl (Flomax -) 0.4 mg PO DAILY@0830 [facility] Last Admin: 07/11/19 09:07 Dose: 0.4 mg Vital Signs Period Temp Pulse Resp BP Sys/Sloan Pulse Ox Last 24 Hr 98 F-98.6 F 87-92 17-18 119-152/59-79 97-97 Constitutional: Yes: No Distress Cardiovascular: Yes: Regular Rate and Rhythm Respiratory: Yes: CTA Bilaterally Gastrointestinal: Yes: Soft, Abdomen, Obese Edema: Yes Edema: LLE: 1+, RLE: 1+ Neurological: Yes: Alert, Oriented no jaundice, diaphoresis not agitated Assessment/Plan EKG: sinus tach, LA enlargement, no ischemic changes CXR: no acute process CT abd: sm L pleural effusion and bibasilar atelectasis, prox R ureteral calculus with mild hydronephrosis, extensive arterial calcification within bowel aorta and its branches preop evaluation, acute complicated pyelonephritis, ureteral stone: - s/p ureter stent - manage per urology HTN: - cont home meds DM: - manage per primary HLD: - cont statin calcification of aorta: - noted on CT abd/pelvis with extensive arterial calcification of aorta and its branches - cont statin, would consider further workup as outpatient when acute issues resolved CKD: -Holding Torsemide for now until GFR returns to baseline -appears euvolemic - renal following
[2019-07-11] MEDS: SODIUM CHLORIDE 0.45% 1,000 ML IV SCH (14:32)
[2019-07-11] MEDS ORDERED: EPOETIN ALFA 20,000 UNIT/1 ML VIAL SQ ONE (17:09)
--- NOTE | 2019-07-11 17:15 | PN ---
Progress Note (short form) - Note Progress Note: Renal follow up for JUN on CKD Seen and examined at the bedside awake and alert offers no acute complaints denies any sob, cp, fever, chills, N/V/D. making urine no flank pain tolerating diet better today was not on IVF overnight as she has lost her IV access no uremic symptoms Vital Signs Temperature 98.2 F 07/11/19 14:44 Pulse Rate 87 07/11/19 14:44 Respiratory Rate 07/11/19 14:44 Blood Pressure 148/65 07/11/19 14:44 O2 Sat by Pulse Oximetry (%) 97 07/11/19 09:00 Intake & Output 07/08/19 07/09/19 07/10/19 07/11/19 23:59 23:59 23:59 23:59 Intake Total 378 132 1147 954 Balance 347 068 0950 954 Weight 121.109 kg NAD awake and alert neck supple RRR CTA soft NT/ND, obese no LE edema CBC, BMP 07/11/19 07:30 07/11/19 07:30 Current Medications Acetaminophen (Tylenol -) 650 mg PO Q6H PRN PRN Reason: PAIN LEVEL 4 - 6 Last Admin: 07/06/19 21:00 Dose: 650 mg Atorvastatin Calcium (Lipitor -) 40 mg PO HS [facility] Last Admin: 07/10/19 21:25 Dose: 40 mg Carvedilol (Coreg -) 25 mg PO BID [facility] Last Admin: 07/11/19 09:08 Dose: 25 mg Epoetin Ricco (Procrit -) 20,000 unit SQ ONCE ONE Stop: 07/11/19 17:10 Ferrous Sulfate (Feosol -) 325 mg PO BID [facility] Last Admin: 07/10/19 11:03 Dose: 325 mg Hydralazine HCl (Apresoline -) 100 mg PO TID [facility] Last Admin: 07/11/19 14:32 Dose: 100 mg Ceftriaxone Sodium 2 gm/ (Dextrose) 100 mls @ 100 mls/hr IVPB DAILY [facility]; Protocol Last Admin: 07/11/19 09:08 Dose: 100 mls/hr Sodium Chloride (1/2 Normal Saline) 1,000 mls @ 83 mls/hr IV ASDIR [facility] Last Admin: 07/11/19 14:32 Dose: 83 mls/hr Iron Sucrose 200 mg/ Sodium (Chloride) 100 mls @ 100 mls/hr IVPB DAILY [facility] Stop: 07/12/19 10:59 Last Admin: 07/11/19 11:06 Dose: 100 mls/hr Insulin Aspart (Novolog Vial Sliding Scale -) 1 vial SQ ACHS [facility]; Protocol Last Admin: 07/11/19 16:37 Dose: Not Given Insulin Detemir (Levemir Vial) 28 units SQ 0700,2200 [facility] Last Admin: 07/11/19 06:08 Dose: 28 units Nifedipine (Procardia Xl -) 30 mg PO DAILY [facility] Last Admin: 07/11/19 09:08 Dose: 30 mg Prochlorperazine Edisylate (Compazine Injection -) 10 mg IVPB Q4H PRN PRN Reason: NAUSEA AND/OR VOMITING Sodium Bicarbonate (Sodium Bicarbonate -) 650 mg PO BID [facility] Last Admin: 07/11/19 09:08 Dose: 650 mg Tamsulosin HCl (Flomax -) 0.4 mg PO DAILY@0830 [facility] Last Admin: 07/11/19 09:07 Dose: 0.4 mg 53 year old female wiht pmhx of ckd, htn, hld, dm and nephrolithiasis who presents to the ER with worsening renal failure and right flank pain and to have obstructing nephrolithiasis 1. JUN on CKD 2. CKD stage 4 3. Nephrolithiasis 4. Hypertension 5. DM 6. Anemia in CKD/Iron Deficiency anemia Renal function stable but not at baseline. pt may have delayed recovery of renal function given significant underlying CKD. no uremic symptoms despite BUN being > 100. no acute indication for dialysis. Baseline Cr ~3.7 Continue gentle hydration for additional 12 hours as pt did not receive it overnight last night. She appears euvolemic, holding diuretics for now. s/p IV iron this AM. Will give Epogen 57981 units SC x 1 for management of CKd related anemia. Check stool for occult blood. continue hydralazine and nifedpine for hypertension continue flomax urology follow up as an outpatient continue antibiotics as per primary team if clinically stable can anticipate discharge tomorrow with close outpatient monitoring of renal function Mau Warren DO
[2019-07-11] MEDS ORDERED: INSULIN (NOVOLOG) ASPART 100 UNITS/ML 10ML VIAL ONE (21:06)
[2019-07-11] MEDS: ATORVASTATIN CA 40 MG TABLET (FP) PO SCH (21:23)
[2019-07-12] MEDS: hydrALAZINE HCL 50 MG TABLET (FP) PO SCH (05:58)
[2019-07-12] MEDS: INSULIN SLIDING SCALE (NOVOLOG) 1 VIAL SQ SCH (06:28)
[2019-07-12] MEDS: INSULIN (LEVEMIR) 100 UNITS/ML UNITS SQ SCH (06:28)
[2019-07-12] MEDS ORDERED: DEXTROSE 5%-WATER 100 ML IVPB ONE (07:43)
[2019-07-12 08:01] LABS: BASO % 1.1 % (0-2.0); EOS % 1.8 % (0-4.5); HEMATOCRIT 22.3 % (32.4-45.2); HEMOGLOBIN 7.5 GM/dL (10.7-15.3); LYMPH % 9.3 % (8-40); MCH 27.6 pg (25.7-33.7); MCHC 33.8 g/dl (32.0-36.0); MEAN CELL VOLUME 81.6 fl (80-96); MONO % 9.4 % (3.8-10.2); NEUT % 78.4 % (42.8-82.8); PLATELET COUNT 292 K/MM3 (134-434); RBC 2.74 M/mm3 (3.60-5.2); RDW 15.2 % (11.6-15.6); WHITE BLOOD COUNT 3.9 K/mm3 (4.0-10.0)
[2019-07-12] MEDS: CEFTRIAXONE 2 GM in DEXTROSE 5%-WATER 100 ML IVPB SCH (08:09)
--- NOTE | 2019-07-12 08:36 | DS ---
Physical Exam: SUBJECTIVE: Patient seen and examined This is a 53-year-old female with the morbid obesity and advanced Chronic kidney failure, Admitted with RIGHT renal colic. Patient underwent placement of a double-J stent. OBJECTIVE: Vital Signs Period Temp Pulse Resp BP Sys/Sloan Pulse Ox Last 24 Hr 98 F-98.5 F 85-90 18-20 144-151/62-78 97-97 PHYSICAL EXAM Constitutional: Yes: Well Nourished, No Distress, Calm, Obese Eyes: Yes: WNL, Conjunctiva Clear HENT: Yes: WNL, Atraumatic, Normocephalic Neck: Yes: WNL, Supple, Trachea Midline Cardiovascular: Yes: WNL, Regular Rate and Rhythm Respiratory: Yes: WNL, Regular, CTA Bilaterally Gastrointestinal: Yes: WNL, Normal Bowel Sounds, Soft, Abdomen, Obese ...Rectal Exam: Yes: Deferred Genitourinary: Yes: WNL Breast(s): Yes: WNL Musculoskeletal: Yes: WNL Extremities: Yes: WNL Edema: Yes Edema: LLE: 2+, RLE: 2+ Peripheral Pulses WNL: Yes Peripheral Pulses: Left Radial: 2+, Right Radial: 2+, Left Doralis Pedis: 2+, Right Dorsalis Pedis: 2+, Left Femoral: 2+, Right Femoral: 2+ Integumentary: Yes: WNL, Tattoos Neurological: Yes: WNL, Alert, Oriented ...Motor Strength: WNL Psychiatric: Yes: WNL LABS Laboratory Results - last 24 hr 07/11/19 07/11/19 07/11/19 07:30 07:30 11:08 WBC RBC Hgb Hct MCV MCH MCHC RDW Plt Count MPV Absolute Neuts (auto) Neutrophils % Neutrophils % (Manual) 78.3 Band Neutrophils % 3.8 Lymphocytes % Lymphocytes % (Manual) 12.3 D Monocytes % Monocytes % (Manual) 6 D Eosinophils % Eosinophils % (Manual) 0.0 D Basophils % Basophils % (Manual) 0.0 Myelocytes % (Man) 0 D Promyelocytes % (Man) 0 Blast Cells % (Manual) 0 D Nucleated RBC % Metamyelocytes 0 D Hypochromia 2+ Platelet Estimate Normal Polychromasia 2+ Poikilocytosis 1+ Anisocytosis 1+ Microcytosis 1+ Macrocytosis 0 Target Cells 1+ Ovalocytes 1+ Sodium 136 Potassium 3.9 Chloride 105 Carbon Dioxide 18 L Anion Gap 13 BUN 105.1 H* Creatinine 4.4 H Est GFR (CKD-EPI)AfAm 12.33 Est GFR (CKD-EPI)NonAf 10.64 POC Glucometer 104 Random Glucose 90 Calcium 8.1 L Magnesium 2.2 Total Bilirubin 0.3 AST 13 L ALT 15 Alkaline Phosphatase 78 Total Protein 6.7 Albumin 2.5 L 07/11/19 07/11/19 07/12/19 16:01 21:20 05:55 WBC RBC Hgb Hct MCV MCH MCHC RDW Plt Count MPV Absolute Neuts (auto) Neutrophils % Neutrophils % (Manual) Band Neutrophils % Lymphocytes % Lymphocytes % (Manual) Monocytes % Monocytes % (Manual) Eosinophils % Eosinophils % (Manual) Basophils % Basophils % (Manual) Myelocytes % (Man) Promyelocytes % (Man) Blast Cells % (Manual) Nucleated RBC % Metamyelocytes Hypochromia Platelet Estimate Polychromasia Poikilocytosis Anisocytosis Microcytosis Macrocytosis Target Cells Ovalocytes Sodium Potassium Chloride Carbon Dioxide Anion Gap BUN Creatinine Est GFR (CKD-EPI)AfAm Est GFR (CKD-EPI)NonAf POC Glucometer 85 90 60 Random Glucose Calcium Magnesium Total Bilirubin AST ALT Alkaline Phosphatase Total Protein Albumin 07/12/19 07:00 WBC 3.9 L RBC 2.74 L Hgb 7.5 L Hct 22.3 L MCV 81.6 MCH 27.6 MCHC 33.8 RDW 15.2 Plt Count 292 MPV 7.0 L Absolute Neuts (auto) 3.1 Neutrophils % 78.4 Neutrophils % (Manual) Band Neutrophils % Lymphocytes % 9.3 Lymphocytes % (Manual) Monocytes % 9.4 Monocytes % (Manual) Eosinophils % 1.8 Eosinophils % (Manual) Basophils % 1.1 Basophils % (Manual) Myelocytes % (Man) Promyelocytes % (Man) Blast Cells % (Manual) Nucleated RBC % 0 Metamyelocytes Hypochromia Platelet Estimate Polychromasia Poikilocytosis Anisocytosis Microcytosis Macrocytosis Target Cells Ovalocytes Sodium Potassium Chloride Carbon Dioxide Anion Gap BUN Creatinine Est GFR (CKD-EPI)AfAm Est GFR (CKD-EPI)NonAf POC Glucometer Random Glucose Calcium Magnesium Total Bilirubin AST ALT Alkaline Phosphatase Total Protein Albumin HOSPITAL COURSE: Date of Admission:07/05/19 Date of Discharge: 07/12/19 - Problems (1) CKD (chronic kidney disease) Assessment/Plan: Cr baseline in 4.0's continue to avoid nephrotoxic agents holding torsemide until GFR returns to baseline close follow up with nephrology as outpatient Code(s): N18.9 - CHRONIC KIDNEY DISEASE, UNSPECIFIED Qualifiers: Chronic kidney disease stage: stage 4 (severe) Qualified Code(s): N18.4 - Chronic kidney disease, stage 4 (severe) (2) Diabetes Assessment/Plan: BGM AC/qHS with novolog sliding scale c/w long active insulin as outpat diabetic diet Code(s): E11.9 - TYPE 2 DIABETES MELLITUS WITHOUT COMPLICATIONS Qualifiers: Diabetes mellitus type: type 2 Diabetes mellitus correction insulin use: without correction use Diabetes mellitus complication status: with skin complications (3) HTN (hypertension) Assessment/Plan: c/w hydralazine TID, procardia Code(s): I10 - ESSENTIAL (PRIMARY) HYPERTENSION Qualifiers: Hypertension type: essential hypertension Qualified Code(s): I10 - Essential (primary) hypertension (4) Hydronephrosis concurrent with and due to calculi of kidney and ureter Assessment/Plan: POD #[address] Hussein c/w flomax completed ceftraixone, cc/w ceftin x 1 week Code(s): N13.2 - HYDRONEPHROSIS WITH RENAL AND URETERAL CALCULOUS OBSTRUCTION (5) UTI (urinary tract infection) Assessment/Plan: UCx negative Code(s): N39.0 - URINARY TRACT INFECTION, SITE NOT SPECIFIED (6) HLD (hyperlipidemia) Assessment/Plan: c/w atorvastatin Code(s): E78.5 - HYPERLIPIDEMIA, UNSPECIFIED (7) Anemia Assessment/Plan: eopegen x 1 dose venefor x 3 days and then will convert back to oral FESO4 Code(s): D64.9 - ANEMIA, UNSPECIFIED (8) Morbid obesity Assessment/Plan: BMI 48.8 counseled on weight loss and exercise plan Code(s): E66.01 - MORBID (SEVERE) OBESITY DUE TO EXCESS CALORIES Medically stable for discarge to home with close follow up with nephrology Minutes to complete discharge: 35 Discharge Summary Problems reviewed: Yes Reason For Visit: DM,CALCULUS OF KIDNEY,CHRONIC KID DISEASE,HYPERTEN Current Active Problems Allergy to antibiotic (Acute) Anemia (Acute) CKD (chronic kidney disease) (Acute) Diabetes (Acute) HLD (hyperlipidemia) (Acute) HTN (hypertension) (Acute) Hydronephrosis concurrent with and due to calculi of kidney and ureter (Acute) Hypertension (Acute) Kidney disease, chronic, stage IV (GFR 15-29 ml/min) (Acute) Morbid obesity (Acute) Prophylactic measure (Acute) Pyelonephritis (Acute) Renal calculus or stone (Acute) UTI (urinary tract infection) (Acute) Ureteral calculus (Acute) Hospital Course: - Problems (1) CKD (chronic kidney disease) Assessment/Plan: Cr baseline in 4.0's continue to avoid nephrotoxic agents holding torsemide until GFR returns to baseline close follow up with nephrology as outpatient Code(s): N18.9 - CHRONIC KIDNEY DISEASE, UNSPECIFIED Qualifiers: Chronic kidney disease stage: stage 4 (severe) Qualified Code(s): N18.4 - Chronic kidney disease, stage 4 (severe) (2) Diabetes Assessment/Plan: BGM AC/qHS with novolog sliding scale c/w long active insulin as outpat diabetic diet Code(s): E11.9 - TYPE 2 DIABETES MELLITUS WITHOUT COMPLICATIONS Qualifiers: Diabetes mellitus type: type 2 Diabetes mellitus rodent exterminator insulin use: without rodent exterminator use Diabetes mellitus complication status: with skin complications (3) HTN (hypertension) Assessment/Plan: c/w hydralazine TID, procardia Code(s): I10 - ESSENTIAL (PRIMARY) HYPERTENSION Qualifiers: Hypertension type: essential hypertension Qualified Code(s): I10 - Essential (primary) hypertension (4) Hydronephrosis concurrent with and due to calculi of kidney and ureter Assessment/Plan: POD #[address] Hussein c/w flomax completed ceftraixone, cc/w ceftin x 1 week Code(s): N13.2 - HYDRONEPHROSIS WITH RENAL AND URETERAL CALCULOUS OBSTRUCTION (5) UTI (urinary tract infection) Assessment/Plan: UCx negative Code(s): N39.0 - URINARY TRACT INFECTION, SITE NOT SPECIFIED (6) HLD (hyperlipidemia) Assessment/Plan: c/w atorvastatin Code(s): E78.5 - HYPERLIPIDEMIA, UNSPECIFIED (7) Anemia Assessment/Plan: eopegen x 1 dose venefor x 3 days and then will convert back to oral FESO4 Code(s): D64.9 - ANEMIA, UNSPECIFIED (8) Morbid obesity Assessment/Plan: BMI 48.8 counseled on weight loss and exercise plan Code(s): E66.01 - MORBID (SEVERE) OBESITY DUE TO EXCESS CALORIES Medically stable for discarge to home with close follow up with nephrology Condition: Improved - Instructions Diet, Activity, Other Instructions: DISCHARGE YOUR VISIT You came to the hospital because developed kidney stones and a stent was placed in the ureter by Dr Hussein. You were placed on flomax and should continue that . You were treated with ceftriaxone x 1 wwek and should continue antiobitics ( Ceftin) for an additional 7 days. An infectious disease doctor saw you iand it is recommended that you have blood cultures 1 week after you complete your antiobitocs (Tuesdayjuly 19) . You can make an appointment with your primary care provider Dr Osborne. While you were here your Creatinine (kidney function test) increased and you were seen by a senior research associate. You were given additional IV fluids and your torsemide was held until it improved.You were also found to be iron deficient and IV iron was given. MEDICATIONS Please continue to take your home medications as prescribed. There was no changes NEW ceftin 500 twice a day x 1 week DIET Continue your home diet ADDITIONAL CARE Please make an appointment to see your primary care provider, Dr Osborne 1 week after you complete the antibiotics. Have blood cultures repeated at the same time ADDITIONAL INFORMATION Please call 911 or come directly to the emergency department if you experience unusual headache, vision change, shortness of breath, chest pain, numbness, tingling, loss of alertness/awareness, loss of function, unusual bleeding or any alarming symptoms. Thank you for allowing me to care for you. Koko Lu, [facility], [facility] [phone] Referrals: Minerva Pierre MD [Staff Physician] - Eulalio Osborne MD [Primary Care Provider] - Mau Warren MD [Staff Physician] - Disposition: HOME - Home Medications Comprehensive Discharge Medication List: Ambulatory Orders Amoxicillin/Potassium Clav [Augmentin 875-125 Tablet] 1 each PO BID #10 tablet 05/19/19 Atorvastatin Ca [Lipitor] 40 mg PO HS 05/19/19 Azithromycin 250 mg PO DAILY #5 tablet 05/19/19 Carvedilol [Coreg -] 25 mg PO BID 05/19/19 Hydralazine HCl 100 mg PO TID 05/19/19 Insulin Glargine,Hum.rec.anlog [Basaglar Kwikpen U-100] 68 unit SQ BID 05/19/19 Insulin Lispro [Humalog] 27 unit SQ ASDIR 05/19/19 Linaclotide [Linzess] 145 mcg PO DAILY 05/19/19 Torsemide 100 mg PO DAILY 05/19/19 Cefuroxime Axetil [Ceftin -] 500 mg PO Q12H #14 tablet 07/10/19 Prescription Drug Monitoring Program (I-STOP) results: I-STOP not reviewed Problem List - Problems (1) CKD (chronic kidney disease) Code(s): N18.9 - CHRONIC KIDNEY DISEASE, UNSPECIFIED Qualifiers: Chronic kidney disease stage: stage 4 (severe) Qualified Code(s): N18.4 - Chronic kidney disease, stage 4 (severe) (2) Diabetes Code(s): E11.9 - TYPE 2 DIABETES MELLITUS WITHOUT COMPLICATIONS Qualifiers: Diabetes mellitus type: type 2 Diabetes mellitus rodent exterminator insulin use: without rodent exterminator use Diabetes mellitus complication status: with skin complications (3) HTN (hypertension) Code(s): I10 - ESSENTIAL (PRIMARY) HYPERTENSION Qualifiers: Hypertension type: essential hypertension Qualified Code(s): I10 - Essential (primary) hypertension (4) Hydronephrosis concurrent with and due to calculi of kidney and ureter Code(s): N13.2 - HYDRONEPHROSIS WITH RENAL AND URETERAL CALCULOUS OBSTRUCTION (5) Prophylactic measure Code(s): Z29.9 - ENCOUNTER FOR PROPHYLACTIC MEASURES, UNSPECIFIED (6) UTI (urinary tract infection) Code(s): N39.0 - URINARY TRACT INFECTION, SITE NOT SPECIFIED (7) HLD (hyperlipidemia) Code(s): E78.5 - HYPERLIPIDEMIA, UNSPECIFIED (8) Anemia Code(s): D64.9 - ANEMIA, UNSPECIFIED (9) Morbid obesity Code(s): E66.01 - MORBID (SEVERE) OBESITY DUE TO EXCESS CALORIES This patient is new to me today: No Emergency Visit: Yes ED Registration Date: 07/05/19 Care time: The patient presented to the Emergency Department on the above date and was hospitalized for further evaluation of their emergent condition. Critical Care patient: No - Discharge Referral Referred to [facility] No
[2019-07-12 09:01] LABS: ALBUMIN 2.5 g/dl (3.4-5.0); BILIRUBIN,TOTAL 0.2 mg/dL (0.2-1); CALCIUM 8.5 mg/dL (8.5-10.1); CREATININE 4.1 mg/dL (0.55-1.3); MAGNESIUM 2.2 mg/dL (1.8-2.4); POTASSIUM 3.8 mmol/L (3.5-5.1); TOT PROT 6.5 g/dl (6.4-8.2)
[2019-07-12 09:02] LABS: BLOOD UREA NITROGEN 104.6 mg/dL (7-18)
[2019-07-12] MEDS: TAMSULOSIN HCL 0.4 MG CAP PO SCH (09:09)
[2019-07-12] MEDS: NIFEdipine E.R. 30 MG TABLET PO SCH (09:09)
[2019-07-12] MEDS: SODIUM BICARBONATE 650 MG TABLET PO SCH (09:09)
[2019-07-12] MEDS: CARVEDILOL 25 MG TABLET (FP) PO SCH (09:09)
[2019-07-12] MEDS: IRON SUCROSE INJECTION 200 MG in SODIUM CHLORIDE 90 ML IVPB SCH (09:10)
[2019-07-12 09:17] VITALS: BP 157/53; PULSE 88; TEMP 98
[2019-07-12 11:24] LABS: ANISOCYTOSIS 1+; MACROCYTOSIS 0; OVALOCYTE 1+; PLATELET ESTIMATE NORMAL; TEAR DROP CELLS 1+
--- NOTE | 2019-07-12 11:30 | PN ---
Progress Note (short form) - Note Progress Note: S: NO CP SOB PALPS DIZZY Vital Signs Period Temp Pulse Resp BP Sys/Sloan Pulse Ox Last 24 Hr 98 F-98.4 F 85-90 18-20 148-157/53-78 97-97 Constitutional: Yes: Well Nourished, Calm Eyes: Yes: Conjunctiva Clear Neck: Yes: Supple, Trachea Midline Respiratory: Yes: Regular, CTA Bilaterally Gastrointestinal: Yes: Normal Bowel Sounds, Soft Cardiovascular: Yes: Regular Rate and Rhythm JVD: No Heart Sounds: Yes: S1, S2 Extremities: No: Cold Edema: No Peripheral Pulses WNL: No Integumentary: No: Jaundice Neurological: Yes: Alert, Oriented Psychiatric: No: Agitated CBC, BMP 07/12/19 07:00 07/12/19 07:00 Assessment/Plan EKG: sinus tach, LA enlargement, no ischemic changes CXR: no acute process CT abd: sm L pleural effusion and bibasilar atelectasis, prox R ureteral calculus with mild hydronephrosis, extensive arterial calcification within bowel aorta and its branches preop evaluation, acute complicated pyelonephritis, ureteral stone: - s/p ureter stent - manage per urology HTN: - cont home meds DM: - manage per primary HLD: - cont statin calcification of aorta: - noted on CT abd/pelvis with extensive arterial calcification of aorta and its branches - cont statin, would consider further workup as outpatient when acute issues resolved CKD: -Holding Torsemide for now until GFR returns to baseline -appears euvolemic -renal following
== END 2019-07-12 11:21 | disposition home or self-care (01) | DRG 660 ==
LOC: JERFT 09:38 → JER 09:38 → JERBED 13:10 → J6S 18:36
PROVIDERS: ATTEND Nurse Practitioner Acute Care
PROC: 0T768ZZ Dilation of Right Ureter, Via Natural or Artificial Opening Endoscopic (ICD-10-PCS; principal; 2019-07-05 15:00)
DX: N13.6 Pyonephrosis (principal); Z68.42 Body mass index [BMI] 45.0-49.9, adult; J98.11 Atelectasis; J90 Pleural effusion, not elsewhere classified; E78.5 Hyperlipidemia, unspecified; N17.9 Acute kidney failure, unspecified; N18.4 Chronic kidney disease, stage 4 (severe); D64.9 Anemia, unspecified; I12.9 Hypertensive chronic kidney disease with stage 1 through stage 4 chronic kidney disease, or unspecified chronic kidney disease; E11.22 Type 2 diabetes mellitus with diabetic chronic kidney disease; E66.01 Morbid (severe) obesity due to excess calories; R00.0 Tachycardia, unspecified; E11.65 Type 2 diabetes mellitus with hyperglycemia
CPT/HCPCS: 36415; 71046-TC-FY; 74176-TC; 80048; 80053; 81003; 82550; 82728; 82962; 83540; 83550; 83735; 84100; 84443; 84484; 85025; 85044; 85610; 85730; 86850; 86900; 86901; 87040; 87077; 87086; 87186; 93005; 93010; 93306-TC; 94760; 97116-GP; 97161-GP; 99285-25; J0131; J0885; J1756; J7030; Q0162

== ENCOUNTER 2019-07-25 12:01 | Day surgery (SDC) | payer BC ==
[2019-07-24 09:36] VITALS: BMI 48.2
--- NOTE | 2019-07-25 15:00 | HP ---
History & Physical Update - History History: No Change - Physical Physical: No Change - Assessment Assessment: No Change - Plan Plan: No Change
--- NOTE | 2019-07-25 15:03 | OP ---
Operative Note - Note: Operative Date: 07/25/19 Pre-Operative Diagnosis: R ureteral calculus Operation: R ureteroscopic laser lithotripsy and JJ stent change Findings: R ureteral calculus Post-Operative Diagnosis: Same as Pre-op Anesthesiologist/DATA ANALYST ETL DEVELOPER: Flor Sharma Anesthesia: General Specimens Removed: R ureteral calculus, R JJ stent Estimated Blood Loss (mls): 0 Drains & Tubes with Location: 6 fr 24 cm R JJ stent Operative Report Dictated: Yes
[2019-07-25] MEDS ORDERED: MIDAZOLAM HCL 2 MG/2 ML SINGLE DOSE VIAL ONE (15:11)
[2019-07-25] MEDS ORDERED: PROPOFOL 20 ML ONE (15:29)
[2019-07-25] MEDS ORDERED: ceFAZolin SODIUM 1 GM VIAL ONE (15:30)
[2019-07-25] MEDS ORDERED: ceFAZolin SODIUM 1 GM VIAL IVPB ONE (15:30)
[2019-07-25] MEDS ORDERED: SODIUM CHLORIDE 0.9% P/F 10 ML VIAL IJ ONE (15:33)
[2019-07-25] MEDS ORDERED: ONDANSETRON 4 MG/2 ML VIAL IVPUSH PRN ×2 (16:19→16:25)
[2019-07-25] MEDS ORDERED: ACETAMINOPHEN 325 MG TABLET (FP) PO PRN (16:19)
[2019-07-25] MEDS ORDERED: oxyCODONE HCL 5 MG TABLET PO PRN (16:25)
[2019-07-25] MEDS ORDERED: PROMETHAZINE HCL 25 MG/1 ML VIAL IVPUSH PRN (16:25)
[2019-07-25] MEDS ORDERED: LACTATED RINGERS SOLUTION 1,000 ML IV SCH (16:30)
[2019-07-25 18:08] VITALS: PULSE 79; TEMP 97.8
[2019-07-25 18:57] VITALS: BP 140/64
--- NOTE | 2019-07-26 08:32 | OP ---
DATE OF OPERATION: 07/25/2019 PREOPERATIVE DIAGNOSIS: Right ureteral calculus. POSTOPERATIVE DIAGNOSIS: Right ureteral calculus. PROCEDURE: Right ureteroscopic laser lithotripsy, right double-J stent change. SURGEON: Brad Hussein MD JOURNEYMAN PAINTER: None. ANESTHESIA: General via laryngeal mask. ANESTHESIOLOGIST: DANIEL Carrillo SPECIMENS: Right ureteral calculus. CULTURES: None. DRAINS: A 6-Togolese, 24-cm right double-J stent. ESTIMATED BLOOD LOSS: None. COMPLICATIONS: None. DESCRIPTION OF PROCEDURE: Patient was brought to the operating room, placed on the operating table in a supine position. After administration of general anesthesia via laryngeal mask, intravenous antibiotics were administered. Sequential compression devices were placed. Patient was placed in a dorsal lithotomy position. The vagina and perineum were prepped and draped in usual sterile manner. The 22-Togolese cystoscope was inserted into the bladder with a 30-degree telescope. The bladder was emptied. Cystoscopy was performed. This demonstrated no tumors, stones, or inflammation. The right double-J stent was in good position. The right double-J stent was grasped at its tip with the grasping forceps, brought to the urethral meatus, cannulated with a 0.038 guidewire which was advanced to the level of the right renal pelvis under fluoroscopic guidance. Double-J stent was removed, sent to pathology as specimen. The dual-lumen catheter was inserted, and a Super Stiff guidewire was inserted under fluoroscopic guidance to the level of the right renal pelvis. Dual-lumen catheter was removed. Flexible ureteroscope was inserted in monorail fashion over the Super Stiff guidewire to the level of the right renal pelvis. Now, ureteropyeloscopy was done. The entire renal collecting system was inspected. There was a stone at the ureteropelvic junction. A 200-micron laser fiber was inserted. Laser lithotripsy was done until the stone was fragmented into minute pieces. Once of these was basketed and removed. Now, a 6-Togolese, 24-cm right double-J stent was inserted over the guidewire under fluoroscopic guidance, leaving 1 coil in the renal pelvis and 1 coil in the bladder. Its position was confirmed with cystoscopy. The bladder was emptied. Cystoscope removed, and the stent was secured to the thigh with its suture and a Tegaderm. She tolerated the procedure well, transferred to recovery in stable condition. Mindi [id number]
--- NOTE | 2019-07-27 18:20 | PATH ---
Surgical Pathology Report Patient Name: GLORIA LAWTON Med. Rec. #: [id number] /Age/Gender: 1965 (Age: 53) / F Account: [id number] Location: [facility] SURGICAL Taken: 07/25/2019 Received: 07/26/2019 Reported: 07/27/2019 Physicians: Brad Hussein M.D. Specimen(s) Received A: RIGHT URETERAL STENT B: RIGHT URETERAL STONE Clinical History Right hydronephrosis Final Diagnosis A. URETERAL STENT, RIGHT, REMOVAL: URETERAL STENT. MACROSCOPIC DIAGNOSIS. B. URETERAL STONE, RIGHT, LASER LITHOTRIPSY: URETEROLITHIASIS. MACROSCOPIC DIAGNOSIS. Electronically Signed Cleo Shah M.D. Gross Description A. Received fresh labeled "right ureteral stent," is a 37 cm in length yellow-green, coiled portion of tubing, consistent with a ureteral stent. No soft tissue is present. No sections are submitted, gross only. B. Received fresh labeled "right ureteral stone," is a less than 0.1 cm in greatest dimension chung-yellow, irregular calculus which is sent for chemical analysis. DL/07/26/2019 saudi/07/26/2019
== END 2019-07-25 18:30 | disposition home or self-care (01) ==
LOC: JASU-SURG 12:01
PROVIDERS: ATTEND Urology
PROC: 0TF68ZZ Fragmentation in Right Ureter, Via Natural or Artificial Opening Endoscopic (ICD-10-PCS; principal; 2019-07-25 14:00)
PROC: 0T768DZ Dilation of Right Ureter with Intraluminal Device, Via Natural or Artificial Opening Endoscopic (ICD-10-PCS; 2019-07-25 14:00)
DX: N20.1 Calculus of ureter (principal); I10 Essential (primary) hypertension; E11.9 Type 2 diabetes mellitus without complications; G47.30 Sleep apnea, unspecified
CPT/HCPCS: 36415; 82360; 82962; 94760

== ENCOUNTER 2019-11-07 09:08 | Day surgery (SDC) | payer BC ==
[2019-11-06 14:40] VITALS: BMI 40.8
[2019-11-07] MEDS ORDERED: ROCURONIUM BROMIDE 50 MG/5 ML SYRINGE ONE (10:37)
[2019-11-07] MEDS ORDERED: PROPOFOL 20 ML ONE (10:37)
[2019-11-07] MEDS ORDERED: MIDAZOLAM HCL 2 MG/2 ML SINGLE DOSE VIAL ONE (10:37)
[2019-11-07] MEDS ORDERED: LIDOCAINE HCL/PF 2% SDV 5ML VIAL ONE (11:12)
[2019-11-07] MEDS ORDERED: ceFAZolin 2 GRAM PREMIX BAG IVPB ONE (11:25)
[2019-11-07] MEDS ORDERED: BUPIVACAINE HCL/PF 0.5% (5 MG/ML) 30 ML VIAL IJ ONE ×2 (11:34)
[2019-11-07] MEDS ORDERED: NEOSTIGMINE METHYLSULFATE 0.5 MG/1 ML - 10 ML MDV ONE (12:05)
[2019-11-07] MEDS ORDERED: ONDANSETRON 4 MG/2 ML VIAL ONE (12:07)
[2019-11-07] MEDS ORDERED: GLYCOPYRROLATE 0.2 MG/1 ML VIAL ONE (12:16)
[2019-11-07] MEDS ORDERED: oxyCODONE HCL 5 MG TABLET PO PRN (12:18)
[2019-11-07] MEDS ORDERED: ONDANSETRON 4 MG/2 ML VIAL IVPUSH PRN (12:49)
[2019-11-07] MEDS ORDERED: SODIUM CHLORIDE 1,000 ML IV SCH (13:00)
[2019-11-07 15:41] VITALS: BP 141/76; PULSE 60; TEMP 97.7
== END 2019-11-07 15:35 | disposition home or self-care (01) ==
LOC: JASU-SURG 09:08
PROVIDERS: ATTEND Surgery
PROC: 0WHG43Z Insertion of Infusion Device into Peritoneal Cavity, Percutaneous Endoscopic Approach (ICD-10-PCS; principal; 2019-11-07 10:45)
DX: I12.0 Hypertensive chronic kidney disease with stage 5 chronic kidney disease or end stage renal disease (principal); E11.22 Type 2 diabetes mellitus with diabetic chronic kidney disease; N18.6 End stage renal disease; Z79.4 Long term (current) use of insulin; Z96.41 Presence of insulin pump (external) (internal); N73.6 Female pelvic peritoneal adhesions (postinfective)
CPT/HCPCS: 82962; 94760

== ENCOUNTER 2020-05-21 09:46 | Emergency (ER) | payer BC, OTHER ==
[2020-05-21] MEDS ORDERED: DEXAMETHASONE SOD PHOSPHATE 10 MG/1 ML VIAL IVPUSH ONE (10:09)
[2020-05-21] MEDS ORDERED: FAMOTIDINE 20 MG/50 ML IVPB 20 MG/50 ML MG IVPB ONE ×2 (10:10→10:13)
[2020-05-21] MEDS ORDERED: DEXAMETHASONE SOD PHOSPHATE 10 MG/1 ML VIAL ONE (10:13)
[2020-05-21 10:15] VITALS: BMI 41.1
[2020-05-21 10:50] LABS: BASO % 0.5 % (0-2.0); HEMATOCRIT 31.7 % (32.4-45.2); HEMOGLOBIN 10.8 GM/dL (10.7-15.3); LYMPH % 4.6 % (8-40); MCHC 33.9 g/dl (32.0-36.0); MEAN CELL VOLUME 91.5 fl (80-96); MONO % 5.5 % (3.8-10.2); NEUT % 88.4 % (42.8-82.8); PLATELET COUNT 455 K/MM3 (134-434); RBC 3.47 M/mm3 (3.60-5.2)
[2020-05-21 11:29] LABS: ALBUMIN 2.8 g/dl (3.4-5.0); CALCIUM 9.2 mg/dL (8.5-10.1)
[2020-05-21 11:30] LABS: BLOOD UREA NITROGEN 59.5 mg/dL (7-18)
[2020-05-21 11:33] LABS: CREATININE 5.5 mg/dL (0.55-1.3)
[2020-05-21 11:34] LABS: BILIRUBIN,TOTAL 0.4 mg/dL (0.2-1); TOT PROT 7.5 g/dl (6.4-8.2)
[2020-05-21] MEDS ORDERED: ACETAMINOPHEN INJECTION 100 ML IVPB ONE (11:53)
[2020-05-21] MEDS ORDERED: ACETAMINOPHEN 1000 MG/100 ML BAG IVPB ONE (11:56)
[2020-05-21 13:37] VITALS: TEMP 98.5
[2020-05-21 14:47] VITALS: BP 138/79; PULSE 89
== END 2020-05-21 14:30 | disposition home or self-care (01) ==
LOC: JER 09:46
PROC: 3E0333Z Introduction of Anti-inflammatory into Peripheral Vein, Percutaneous Approach (ICD-10-PCS; principal; 2020-05-21)
PROC: 3E033GC Introduction of Other Therapeutic Substance into Peripheral Vein, Percutaneous Approach (ICD-10-PCS; 2020-05-21)
PROC: 3E033GC Introduction of Other Therapeutic Substance into Peripheral Vein, Percutaneous Approach (ICD-10-PCS; 2020-05-21)
PROC: 3E033GC Introduction of Other Therapeutic Substance into Peripheral Vein, Percutaneous Approach (ICD-10-PCS; 2020-05-21)
DX: R21 Rash and other nonspecific skin eruption (principal)
CPT/HCPCS: 36415; 71045-TC-FY; 80053; 85025; 99284-25; C9803; J0131; J1100; U0003

== ENCOUNTER 2021-02-23 08:01 | Day surgery (SDC) | payer BC, OTHER ==
[2021-02-19 12:01] VITALS: BMI 49.4
[2021-02-23] MEDS ORDERED: CEFAZOLIN 1 GM/D5W 2 GM/100 ML BAG ONE (08:49)
[2021-02-23] MEDS ORDERED: GENTAMICIN SO4 80 MG/2 ML VIAL ONE (08:49)
[2021-02-23] MEDS ORDERED: PROPOFOL 20 ML ONE ×4 (09:12)
[2021-02-23 09:22] VITALS: BP 125/71; PULSE 65; TEMP 97.8
== END 2021-02-23 10:05 | disposition home or self-care (01) ==
LOC: FASU-ENDO 08:01
PROVIDERS: ATTEND Internal Medicine Gastroenterology
PROC: 0DJD8ZZ Inspection of Lower Intestinal Tract, Via Natural or Artificial Opening Endoscopic (ICD-10-PCS; principal; 2021-02-23 09:00)
DX: Z12.11 Encounter for screening for malignant neoplasm of colon (principal); Z80.0 Family history of malignant neoplasm of digestive organs; K57.30 Diverticulosis of large intestine without perforation or abscess without bleeding
CPT/HCPCS: 82962

== ENCOUNTER 2022-09-06 20:56 | Inpatient (IN) | payer OTHER, BC ==
[2022-09-06] MEDS ORDERED: LIDOCAINE HCL 2% (20ML MULTI-DOSE VIAL) ONE (22:30)
[2022-09-06 22:52] LABS: HEMATOCRIT 33.3 % (32.4-45.2); HEMOGLOBIN 11.1 GM/dL (10.7-15.3); MCHC 33.4 g/dl (32.0-36.0); MEAN PLT VOLUME 6.4 fl (7.5-11.1); PLATELET COUNT 432 10^3/uL (134-434); RBC 3.47 M/mm3 (3.60-5.2); RDW 16.4 % (11.6-15.6); WHITE BLOOD COUNT 22.9 K/mm3 (4.0-10.0)
[2022-09-06] MEDS ORDERED: ACETAMINOPHEN 1000 MG/100 ML BAG IVPB ONE (22:56)
[2022-09-06] MEDS ORDERED: LIDOCAINE HCL 2% (20ML MULTI-DOSE VIAL) INF ONE (22:57)
[2022-09-06] MEDS ORDERED: ACETAMINOPHEN INJECTION 100 ML IVPB ONE (22:59)
[2022-09-06 23:40] LABS: CHLORIDE 93 mmol/L (98-107); POTASSIUM 4.2 mmol/L (3.5-5.1); SODIUM 133 mmol/L (136-145)
[2022-09-06 23:42] LABS: ALBUMIN 3.2 g/dl (3.4-5.0); ANION GAP 13 MMOL/L (8-16); BLOOD UREA NITROGEN 72.5 mg/dL (7-18); CALCIUM 9.6 mg/dL (8.5-10.1); CO2 27 mmol/L (21-32); GLUCOSE,RANDOM 73 mg/dL (74-106)
[2022-09-06 23:45] LABS: SGPT/ALT 26 U/L (13-61)
[2022-09-06 23:46] LABS: SGOT/AST 6 U/L (15-37)
[2022-09-06 23:47] LABS: BILIRUBIN,TOTAL 0.3 mg/dL (0.2-1); TOT PROT 7.1 g/dl (6.4-8.2)
[2022-09-06 23:48] LABS: ALK PHOS 85 U/L (45-117)
[2022-09-06 23:57] LABS: CREATININE 11.5 mg/dL (0.55-1.3)
[2022-09-06 23:59] LABS: PLATELET ESTIMATE NORMAL
[2022-09-07] MEDS ORDERED: PATIENT'S OWN MEDICATION (NON-FORMULARY) (Ferric Citrate [Auryxia] 210 MG Tablet) PO SCH (00:30)
[2022-09-07] MEDS ORDERED: ACETAMINOPHEN INJECTION 100 ML IVPB ONE (03:40)
[2022-09-07] MEDS: ACETAMINOPHEN 1000 MG/100 ML BAG IVPB PRN ×2 (03:45→23:19)
[2022-09-07 06:28] LABS: BASO % 0.4 % (0-2.0); EOS % 0.9 % (0-4.5); HEMATOCRIT 28.8 % (32.4-45.2); MCH 33.4 pg (25.7-33.7); MCHC 34.9 g/dl (32.0-36.0); MEAN CELL VOLUME 95.8 fl (80-96); MEAN PLT VOLUME 7.1 fl (7.5-11.1); NEUT % 80.7 % (42.8-82.8); PLATELET COUNT 366 10^3/uL (134-434); RDW 16.3 % (11.6-15.6); WHITE BLOOD COUNT 15.9 K/mm3 (4.0-10.0)
[2022-09-07 06:35] LABS: INR 1.09 (0.83-1.09); PROTHROMBIN TIME (PATIENT) 12.6 SEC (9.7-13.0)
[2022-09-07 06:37] LABS: ACTIVATED PTT 29.2 SECONDS (25.2-36.5)
[2022-09-07 06:46] LABS: CHLORIDE 91 mmol/L (98-107); POTASSIUM 4.5 mmol/L (3.5-5.1); SODIUM 131 mmol/L (136-145)
[2022-09-07 06:48] LABS: CALCIUM 9.2 mg/dL (8.5-10.1)
[2022-09-07 06:49] LABS: ALBUMIN 2.9 g/dl (3.4-5.0); ANION GAP 14 MMOL/L (8-16); BLOOD UREA NITROGEN 76.3 mg/dL (7-18); CO2 26 mmol/L (21-32); GLUCOSE,RANDOM 99 mg/dL (74-106); MAGNESIUM 2.6 mg/dL (1.8-2.4)
[2022-09-07 06:52] LABS: PHOSPHOROUS 6.9 mg/dL (2.5-4.9); SGOT/AST 8 U/L (15-37); SGPT/ALT 25 U/L (13-61)
[2022-09-07 06:53] LABS: BILIRUBIN,TOTAL 0.3 mg/dL (0.2-1); TOT PROT 6.4 g/dl (6.4-8.2)
[2022-09-07 06:54] LABS: ALK PHOS 79 U/L (45-117)
[2022-09-07 06:59] LABS: CREATININE 11.5 mg/dL (0.55-1.3)
[2022-09-07] MEDS ORDERED: HEPARIN NA (PORCINE) 5,000 UNITS/ML 1ML VIAL ONE (07:07)
[2022-09-07] MEDS: HEPARIN NA (PORCINE) 5,000 UNITS/ML 1ML VIAL SQ SCH ×3 (07:08→22:11)
[2022-09-07] MEDS: INSULIN SLIDING SCALE (NOVOLOG) 1 VIAL SQ SCH ×4 (07:18→22:13)
[2022-09-07] MEDS: TORSEMIDE 100 MG TABLET PO SCH ×2 (08:12→13:15)
[2022-09-07] MEDS: LEVOTHYROXINE NA 125 MCG TABLET (FP) PO SCH (08:12)
[2022-09-07] MEDS ORDERED: LIDOCAINE HCL 2% (20ML MULTI-DOSE VIAL) ONE (09:41)
[2022-09-07] MEDS ORDERED: PROPOFOL 1,000,000 MCG/100 ML VIAL ONE (09:53)
[2022-09-07] MEDS ORDERED: PROPOFOL 200 MG/20 ML VIAL IVPUSH ONE ×2 (10:04→10:13)
[2022-09-07] MEDS: CINACALCET HCL 30 MG TAB (FP) PO SCH (13:14)
[2022-09-07] MEDS: oxyCODONE HCL 5 MG TABLET PO PRN ×2 (13:15→23:44)
[2022-09-07] MEDS: LOSARTAN POTASSIUM 50 MG TABLET PO SCH (13:15)
[2022-09-07] MEDS: CALCITRIOL 1 MCG/ML BOT PO SCH (13:18)
[2022-09-07] MEDS: PERITONEAL DIALYSIS 2.5% SOLN 2,500 ML IP SCH ×2 (13:32→21:00)
[2022-09-07] MEDS: INSULIN (LEVEMIR) 100 UNITS/ML UNITS SQ SCH (22:12)
[2022-09-07] MEDS: ATORVASTATIN CA 40 MG TABLET (FP) PO SCH (22:13)
[2022-09-08] MEDS: PERITONEAL DIALYSIS 2.5% SOLN 2,500 ML IP SCH ×3 (03:10→21:30)
[2022-09-08] MEDS: INSULIN SLIDING SCALE (NOVOLOG) 1 VIAL SQ SCH ×4 (06:07→22:36)
[2022-09-08] MEDS: LEVOTHYROXINE NA 125 MCG TABLET (FP) PO SCH (06:07)
[2022-09-08] MEDS: TORSEMIDE 100 MG TABLET PO SCH ×2 (06:07→14:19)
[2022-09-08] MEDS: HEPARIN NA (PORCINE) 5,000 UNITS/ML 1ML VIAL SQ SCH ×3 (06:08→22:33)
[2022-09-08 07:44] LABS: BASO % 0.9 % (0-2.0); EOS % 1.3 % (0-4.5); HEMATOCRIT 28.5 % (32.4-45.2); HEMOGLOBIN 9.8 GM/dL (10.7-15.3); LYMPH % 12.1 % (8-40); MCH 33.2 pg (25.7-33.7); MCHC 34.5 g/dl (32.0-36.0); MEAN CELL VOLUME 96.2 fl (80-96); MEAN PLT VOLUME 7.5 fl (7.5-11.1); MONO % 10.9 % (3.8-10.2); NEUT % 74.8 % (42.8-82.8); PLATELET COUNT 314 10^3/uL (134-434); RBC 2.96 M/mm3 (3.60-5.2); RDW 16.1 % (11.6-15.6); WHITE BLOOD COUNT 10.1 K/mm3 (4.0-10.0)
[2022-09-08 07:49] LABS: INR 1.1 (0.83-1.09); PROTHROMBIN TIME (PATIENT) 12.8 SEC (9.7-13.0)
[2022-09-08] MEDS: oxyCODONE HCL 5 MG TABLET PO PRN ×4 (07:51→22:35)
[2022-09-08 07:59] LABS: CHLORIDE 91 mmol/L (98-107); POTASSIUM 4.2 mmol/L (3.5-5.1); SODIUM 132 mmol/L (136-145)
[2022-09-08 08:06] LABS: CALCIUM 8.7 mg/dL (8.5-10.1)
[2022-09-08 08:07] LABS: ALBUMIN 2.7 g/dl (3.4-5.0); ANION GAP 13 MMOL/L (8-16); BLOOD UREA NITROGEN 73.7 mg/dL (7-18); CO2 28 mmol/L (21-32); GLUCOSE,RANDOM 154 mg/dL (74-106); MAGNESIUM 2.5 mg/dL (1.8-2.4)
[2022-09-08 08:10] LABS: PHOSPHOROUS 7.1 mg/dL (2.5-4.9); SGOT/AST 9 U/L (15-37); SGPT/ALT 25 U/L (13-61)
[2022-09-08 08:11] LABS: BILIRUBIN,TOTAL 0.4 mg/dL (0.2-1); TOT PROT 6.1 g/dl (6.4-8.2)
[2022-09-08 08:13] LABS: ALK PHOS 75 U/L (45-117)
[2022-09-08 08:33] LABS: CREATININE 10.9 mg/dL (0.55-1.3)
[2022-09-08] MEDS: CINACALCET HCL 30 MG TAB (FP) PO SCH (09:46)
[2022-09-08] MEDS: CALCITRIOL 1 MCG/ML BOT PO SCH (09:46)
[2022-09-08] MEDS: INSULIN (LEVEMIR) 100 UNITS/ML UNITS SQ SCH (09:46)
[2022-09-08] MEDS: LOSARTAN POTASSIUM 50 MG TABLET PO SCH (09:46)
[2022-09-08] MEDS: SEVELAMER CARBONATE 800 MG TAB (FP) PO SCH ×2 (12:25→17:36)
[2022-09-08] MEDS: PERITONEAL DIALYSIS 4.25% SOL 2,500 ML IP SCH (15:03)
[2022-09-08] MEDS: ATORVASTATIN CA 40 MG TABLET (FP) PO SCH (22:33)
[2022-09-09] MEDS: PERITONEAL DIALYSIS 4.25% SOL 2,500 ML IP SCH ×2 (03:30→12:11)
[2022-09-09] MEDS: HEPARIN NA (PORCINE) 5,000 UNITS/ML 1ML VIAL SQ SCH ×2 (06:33→18:21)
[2022-09-09] MEDS: INSULIN SLIDING SCALE (NOVOLOG) 1 VIAL SQ SCH ×4 (06:33→21:24)
[2022-09-09] MEDS: LEVOTHYROXINE NA 125 MCG TABLET (FP) PO SCH (06:35)
[2022-09-09] MEDS: TORSEMIDE 100 MG TABLET PO SCH ×2 (06:35→18:21)
[2022-09-09 06:52] LABS: BASO % 0.3 % (0-2.0); EOS % 1.7 % (0-4.5); HEMATOCRIT 27.3 % (32.4-45.2); HEMOGLOBIN 9.3 GM/dL (10.7-15.3); LYMPH % 9.3 % (8-40); MCH 32.9 pg (25.7-33.7); MEAN CELL VOLUME 96.7 fl (80-96); MEAN PLT VOLUME 7.1 fl (7.5-11.1); MONO % 9.7 % (3.8-10.2); PLATELET COUNT 303 10^3/uL (134-434); RBC 2.82 M/mm3 (3.60-5.2); RDW 16.4 % (11.6-15.6); WHITE BLOOD COUNT 11.4 K/mm3 (4.0-10.0)
[2022-09-09 07:11] LABS: CHLORIDE 92 mmol/L (98-107); POTASSIUM 3.8 mmol/L (3.5-5.1); SODIUM 133 mmol/L (136-145)
[2022-09-09 07:15] LABS: ALBUMIN 2.5 g/dl (3.4-5.0); ANION GAP 10 MMOL/L (8-16); CALCIUM 8.3 mg/dL (8.5-10.1); CO2 30 mmol/L (21-32); GLUCOSE,RANDOM 216 mg/dL (74-106); MAGNESIUM 2.3 mg/dL (1.8-2.4)
[2022-09-09 07:18] LABS: PHOSPHOROUS 6.7 mg/dL (2.5-4.9); SGOT/AST 17 U/L (15-37); SGPT/ALT 24 U/L (13-61)
[2022-09-09 07:19] LABS: BILIRUBIN,TOTAL 0.9 mg/dL (0.2-1)
[2022-09-09 07:21] LABS: ALK PHOS 72 U/L (45-117)
[2022-09-09 07:30] LABS: CREATININE 10.1 mg/dL (0.55-1.3)
[2022-09-09] MEDS: CINACALCET HCL 30 MG TAB (FP) PO SCH (11:01)
[2022-09-09] MEDS: CALCITRIOL 1 MCG/ML BOT PO SCH (11:11)
[2022-09-09] MEDS: LOSARTAN POTASSIUM 50 MG TABLET PO SCH (11:13)
[2022-09-09] MEDS: INSULIN (LEVEMIR) 100 UNITS/ML UNITS SQ SCH ×3 (11:14→21:25)
[2022-09-09] MEDS: PERITONEAL DIALYSIS 2.5% SOLN 2,500 ML IP SCH ×2 (11:21→20:30)
[2022-09-09] MEDS ORDERED: MIDAZOLAM HCL 2 MG/2 ML SINGLE DOSE VIAL ONE ×3 (14:07→16:20)
[2022-09-09] MEDS ORDERED: BUPIVACAINE HCL/PF 0.5% (5MG/ML) 10 ML VIAL ONE (14:15)
[2022-09-09] MEDS ORDERED: ROPIVACAINE HCL 0.5% 30ML VIAL ONE (14:16)
[2022-09-09] MEDS ORDERED: DEXAMETHASONE SOD PHOSPHATE 10 MG/1 ML VIAL ONE (14:16)
[2022-09-09] MEDS ORDERED: ceFAZolin 2 GRAM PREMIX BAG IVPB ONE (15:00)
[2022-09-09] MEDS ORDERED: ONDANSETRON 4 MG/2 ML VIAL IVPUSH PRN (17:38)
[2022-09-09] MEDS ORDERED: SODIUM CHLORIDE 1,000 ML IV SCH (17:45)
[2022-09-09] MEDS ORDERED: oxyCODONE HCL 5 MG TABLET PO PRN (17:48)
[2022-09-09] MEDS: ATORVASTATIN CA 40 MG TABLET (FP) PO SCH (21:24)
[2022-09-09] MEDS: CEFAZOLIN 1 GM in DEXTROSE 5%-WATER - 50 ML IVPB SCH (23:01)
[2022-09-10] MEDS: PERITONEAL DIALYSIS 4.25% SOL 2,500 ML IP SCH ×4 (02:45→23:08)
[2022-09-10 06:24] LABS: BASO % 0.1 % (0-2.0); HEMATOCRIT 29.1 % (32.4-45.2); HEMOGLOBIN 9.9 GM/dL (10.7-15.3); LYMPH % 4.5 % (8-40); MCH 33.1 pg (25.7-33.7); MCHC 33.9 g/dl (32.0-36.0); MEAN CELL VOLUME 97.6 fl (80-96); MEAN PLT VOLUME 7.4 fl (7.5-11.1); MONO % 6.3 % (3.8-10.2); NEUT % 89.1 % (42.8-82.8); PLATELET COUNT 355 10^3/uL (134-434); RBC 2.98 M/mm3 (3.60-5.2); WHITE BLOOD COUNT 11.6 K/mm3 (4.0-10.0)
[2022-09-10] MEDS: INSULIN (LEVEMIR) 100 UNITS/ML UNITS SQ SCH ×2 (06:30→22:24)
[2022-09-10] MEDS: LEVOTHYROXINE NA 125 MCG TABLET (FP) PO SCH (06:31)
[2022-09-10] MEDS: TORSEMIDE 100 MG TABLET PO SCH ×2 (06:31→15:40)
[2022-09-10] MEDS: INSULIN SLIDING SCALE (NOVOLOG) 1 VIAL SQ SCH ×4 (06:31→22:24)
[2022-09-10] MEDS: CEFAZOLIN 1 GM in DEXTROSE 5%-WATER - 50 ML IVPB SCH ×2 (06:32→15:40)
[2022-09-10 06:43] LABS: CHLORIDE 92 mmol/L (98-107); POTASSIUM 4.5 mmol/L (3.5-5.1); SODIUM 132 mmol/L (136-145)
[2022-09-10 06:45] LABS: CALCIUM 8.9 mg/dL (8.5-10.1)
[2022-09-10 06:46] LABS: ANION GAP 12 MMOL/L (8-16); BLOOD UREA NITROGEN 64.5 mg/dL (7-18); CO2 28 mmol/L (21-32); GLUCOSE,RANDOM 368 mg/dL (74-106); MAGNESIUM 2.3 mg/dL (1.8-2.4)
[2022-09-10 06:49] LABS: PHOSPHOROUS 6.8 mg/dL (2.5-4.9)
[2022-09-10] MEDS: PERITONEAL DIALYSIS 2.5% SOLN 2,500 ML IP SCH ×2 (08:46→18:20)
[2022-09-10] MEDS: CINACALCET HCL 30 MG TAB (FP) PO SCH (10:35)
[2022-09-10] MEDS: CHOLECALCIFEROL (VIT D3) 1,000 UNIT (25 MCG) TABLET PO SCH (10:35)
[2022-09-10] MEDS: LOSARTAN POTASSIUM 50 MG TABLET PO SCH (10:35)
[2022-09-10] MEDS: CALCITRIOL 1 MCG/ML BOT PO SCH (10:38)
[2022-09-10] MEDS: TRIMETHOBENZAMIDE HCL 200MG/2ML INJ IM PRN (21:51)
[2022-09-10] MEDS: HEPARIN NA (PORCINE) 5,000 UNITS/ML 1ML VIAL SQ SCH (21:54)
[2022-09-10] MEDS: POLYETHYLENE GLYCOL (HEALTHYLAX) 3350 17 GM PACKET PO ONE (21:54)
[2022-09-10] MEDS: ATORVASTATIN CA 40 MG TABLET (FP) PO SCH (21:55)
[2022-09-10] MEDS: ACETAMINOPHEN 325 MG TABLET (FP) PO PRN (21:57)
[2022-09-11] MEDS: PERITONEAL DIALYSIS 2.5% SOLN 2,500 ML IP SCH ×2 (05:58→18:15)
[2022-09-11] MEDS: TORSEMIDE 100 MG TABLET PO SCH ×2 (05:58→13:30)
[2022-09-11] MEDS: INSULIN (LEVEMIR) 100 UNITS/ML UNITS SQ SCH ×2 (05:59→21:07)
[2022-09-11] MEDS: LEVOTHYROXINE NA 125 MCG TABLET (FP) PO SCH (05:59)
[2022-09-11] MEDS: INSULIN SLIDING SCALE (NOVOLOG) 1 VIAL SQ SCH ×4 (05:59→21:08)
[2022-09-11] MEDS: ACETAMINOPHEN 325 MG TABLET (FP) PO PRN ×2 (05:59→13:30)
[2022-09-11] MEDS: POLYETHYLENE GLYCOL (HEALTHYLAX) 3350 17 GM PACKET PO ONE (06:09)
[2022-09-11 07:15] LABS: BASO % 0.4 % (0-2.0); EOS % 0.7 % (0-4.5); HEMATOCRIT 28.1 % (32.4-45.2); HEMOGLOBIN 9.6 GM/dL (10.7-15.3); LYMPH % 8.4 % (8-40); MCH 33.1 pg (25.7-33.7); MCHC 34.2 g/dl (32.0-36.0); MEAN CELL VOLUME 96.8 fl (80-96); MEAN PLT VOLUME 7.1 fl (7.5-11.1); MONO % 11.2 % (3.8-10.2); NEUT % 79.3 % (42.8-82.8); PLATELET COUNT 375 10^3/uL (134-434); RDW 16.1 % (11.6-15.6); WHITE BLOOD COUNT 13.9 K/mm3 (4.0-10.0)
[2022-09-11 07:30] LABS: CHLORIDE 92 mmol/L (98-107); POTASSIUM 3.9 mmol/L (3.5-5.1); SODIUM 133 mmol/L (136-145)
[2022-09-11 07:35] LABS: CALCIUM 9.3 mg/dL (8.5-10.1)
[2022-09-11 07:36] LABS: ALBUMIN 2.4 g/dl (3.4-5.0); ANION GAP 10 MMOL/L (8-16); BLOOD UREA NITROGEN 62.8 mg/dL (7-18); CO2 31 mmol/L (21-32); MAGNESIUM 2.2 mg/dL (1.8-2.4)
[2022-09-11 07:37] LABS: GLUCOSE,RANDOM 214 mg/dL (74-106)
[2022-09-11 07:39] LABS: PHOSPHOROUS 6.1 mg/dL (2.5-4.9); SGOT/AST 13 U/L (15-37); SGPT/ALT 7 U/L (13-61)
[2022-09-11 07:40] LABS: BILIRUBIN,TOTAL 0.3 mg/dL (0.2-1); TOT PROT 6.2 g/dl (6.4-8.2)
[2022-09-11 07:41] LABS: ALK PHOS 72 U/L (45-117)
[2022-09-11 07:51] LABS: CREATININE 9.3 mg/dL (0.55-1.3)
[2022-09-11] MEDS: HEPARIN NA (PORCINE) 5,000 UNITS/ML 1ML VIAL SQ SCH ×2 (09:29→21:03)
[2022-09-11] MEDS: CINACALCET HCL 30 MG TAB (FP) PO SCH (09:30)
[2022-09-11] MEDS: CHOLECALCIFEROL (VIT D3) 1,000 UNIT (25 MCG) TABLET PO SCH (09:30)
[2022-09-11] MEDS: LOSARTAN POTASSIUM 50 MG TABLET PO SCH (09:30)
[2022-09-11] MEDS: CALCITRIOL 1 MCG/ML BOT PO SCH (09:30)
[2022-09-11] MEDS: PERITONEAL DIALYSIS 4.25% SOL 2,500 ML IP SCH (12:19)
[2022-09-11] MEDS: DOCUSATE SODIUM 100 MG CAPSULE (FP) PO SCH (12:55)
[2022-09-11] MEDS: POLYETHYLENE GLYCOL (HEALTHYLAX) 3350 17 GM PACKET PO SCH (12:55)
[2022-09-11] MEDS: ATORVASTATIN CA 40 MG TABLET (FP) PO SCH (21:03)
[2022-09-11] MEDS: ALPRAZolam 0.25 MG TABLET PO ONE (21:03)
[2022-09-12] MEDS: PERITONEAL DIALYSIS 4.25% SOL 2,500 ML IP SCH ×2 (00:03→12:20)
[2022-09-12] MEDS: INSULIN (LEVEMIR) 100 UNITS/ML UNITS SQ SCH ×2 (06:11→22:44)
[2022-09-12] MEDS: LEVOTHYROXINE NA 125 MCG TABLET (FP) PO SCH (06:12)
[2022-09-12] MEDS: TORSEMIDE 100 MG TABLET PO SCH ×2 (06:12→13:58)
[2022-09-12] MEDS: PERITONEAL DIALYSIS 2.5% SOLN 2,500 ML IP SCH ×2 (06:13→17:48)
[2022-09-12] MEDS: INSULIN SLIDING SCALE (NOVOLOG) 1 VIAL SQ SCH ×4 (06:13→22:56)
[2022-09-12 07:01] LABS: BASO % 0.4 % (0-2.0); EOS % 0.9 % (0-4.5); HEMATOCRIT 29.5 % (32.4-45.2); LYMPH % 8.2 % (8-40); MCH 32.6 pg (25.7-33.7); MCHC 33.8 g/dl (32.0-36.0); MEAN CELL VOLUME 96.4 fl (80-96); MEAN PLT VOLUME 7.2 fl (7.5-11.1); MONO % 8.8 % (3.8-10.2); NEUT % 81.7 % (42.8-82.8); PLATELET COUNT 384 10^3/uL (134-434); RBC 3.06 M/mm3 (3.60-5.2); RDW 16.2 % (11.6-15.6); WHITE BLOOD COUNT 19.5 K/mm3 (4.0-10.0)
[2022-09-12 07:08] LABS: CHLORIDE 94 mmol/L (98-107); POTASSIUM 3.5 mmol/L (3.5-5.1); SODIUM 134 mmol/L (136-145)
[2022-09-12 07:12] LABS: ALBUMIN 2.4 g/dl (3.4-5.0); ANION GAP 9 MMOL/L (8-16); CALCIUM 9.3 mg/dL (8.5-10.1); CO2 31 mmol/L (21-32); GLUCOSE,RANDOM 142 mg/dL (74-106)
[2022-09-12 07:15] LABS: SGOT/AST 13 U/L (15-37); SGPT/ALT 6 U/L (13-61)
[2022-09-12 07:17] LABS: BILIRUBIN,TOTAL 0.4 mg/dL (0.2-1); TOT PROT 6.1 g/dl (6.4-8.2)
[2022-09-12 07:18] LABS: ALK PHOS 72 U/L (45-117)
[2022-09-12 07:27] LABS: CREATININE 9.1 mg/dL (0.55-1.3)
[2022-09-12] MEDS: CHOLECALCIFEROL (VIT D3) 1,000 UNIT (25 MCG) TABLET PO SCH (09:40)
[2022-09-12] MEDS: CINACALCET HCL 30 MG TAB (FP) PO SCH (09:41)
[2022-09-12] MEDS: CALCITRIOL 1 MCG/ML BOT PO SCH (09:41)
[2022-09-12] MEDS: LOSARTAN POTASSIUM 50 MG TABLET PO SCH (09:41)
[2022-09-12] MEDS: HEPARIN NA (PORCINE) 5,000 UNITS/ML 1ML VIAL SQ SCH ×2 (09:41→22:46)
[2022-09-12] MEDS: DOCUSATE SODIUM 100 MG CAPSULE (FP) PO SCH (09:41)
[2022-09-12] MEDS: ACETAMINOPHEN 325 MG TABLET (FP) PO PRN (10:27)
[2022-09-12] MEDS: SERTRALINE HCL 25 MG TABLET (FP) PO SCH (11:36)
[2022-09-12 11:43] LABS: HEMATOCRIT 32.7 % (32.4-45.2); HEMOGLOBIN 10.6 GM/dL (10.7-15.3); MCH 31.5 pg (25.7-33.7); MCHC 32.4 g/dl (32.0-36.0); MEAN CELL VOLUME 97.1 fl (80-96); MEAN PLT VOLUME 6.9 fl (7.5-11.1); PLATELET COUNT 414 10^3/uL (134-434); RBC 3.37 M/mm3 (3.60-5.2); RDW 16.1 % (11.6-15.6); WHITE BLOOD COUNT 21.1 K/mm3 (4.0-10.0)
[2022-09-12] MEDS: POLYETHYLENE GLYCOL (HEALTHYLAX) 3350 17 GM PACKET PO SCH (13:56)
[2022-09-12] MEDS: TRIMETHOBENZAMIDE HCL 200MG/2ML INJ IM PRN (15:40)
[2022-09-12] MEDS: ATORVASTATIN CA 40 MG TABLET (FP) PO SCH (22:46)
[2022-09-13] MEDS: PERITONEAL DIALYSIS 4.25% SOL 2,500 ML IP SCH ×2 (00:01→11:59)
[2022-09-13] MEDS ORDERED: BISACODYL 10 MG SUPP.RECT PR ONE (01:59)
[2022-09-13] MEDS: PERITONEAL DIALYSIS 2.5% SOLN 2,500 ML IP SCH ×2 (06:07→17:38)
[2022-09-13] MEDS: TORSEMIDE 100 MG TABLET PO SCH ×2 (06:07→13:07)
[2022-09-13] MEDS: INSULIN SLIDING SCALE (NOVOLOG) 1 VIAL SQ SCH ×4 (06:28→21:30)
[2022-09-13] MEDS: INSULIN (LEVEMIR) 100 UNITS/ML UNITS SQ SCH ×2 (06:28→21:29)
[2022-09-13] MEDS: LEVOTHYROXINE NA 125 MCG TABLET (FP) PO SCH (06:33)
[2022-09-13 07:10] LABS: CHLORIDE 92 mmol/L (98-107); POTASSIUM 3.3 mmol/L (3.5-5.1); SODIUM 134 mmol/L (136-145)
[2022-09-13 07:12] LABS: HEMOGLOBIN 9.7 GM/dL (10.7-15.3); MCH 32.2 pg (25.7-33.7); MCHC 33.4 g/dl (32.0-36.0); MEAN CELL VOLUME 96.4 fl (80-96); MEAN PLT VOLUME 6.7 fl (7.5-11.1); PLATELET COUNT 412 10^3/uL (134-434); RBC 3.01 M/mm3 (3.60-5.2); RDW 16.5 % (11.6-15.6); WHITE BLOOD COUNT 21.5 K/mm3 (4.0-10.0)
[2022-09-13 07:14] LABS: CALCIUM 9.1 mg/dL (8.5-10.1)
[2022-09-13 07:15] LABS: ALBUMIN 2.4 g/dl (3.4-5.0); ANION GAP 12 MMOL/L (8-16); BLOOD UREA NITROGEN 56.8 mg/dL (7-18); CO2 30 mmol/L (21-32); GLUCOSE,RANDOM 181 mg/dL (74-106)
[2022-09-13 07:18] LABS: SGOT/AST 15 U/L (15-37); SGPT/ALT 10 U/L (13-61)
[2022-09-13 07:20] LABS: BILIRUBIN,TOTAL 0.4 mg/dL (0.2-1); TOT PROT 6.1 g/dl (6.4-8.2)
[2022-09-13 07:21] LABS: ALK PHOS 94 U/L (45-117)
[2022-09-13 08:30] LABS: CREATININE 8.9 mg/dL (0.55-1.3)
[2022-09-13] MEDS: CINACALCET HCL 30 MG TAB (FP) PO SCH (09:41)
[2022-09-13] MEDS: SERTRALINE HCL 25 MG TABLET (FP) PO SCH (09:41)
[2022-09-13] MEDS: LOSARTAN POTASSIUM 50 MG TABLET PO SCH (09:42)
[2022-09-13] MEDS: DOCUSATE SODIUM 100 MG CAPSULE (FP) PO SCH (09:42)
[2022-09-13] MEDS: CHOLECALCIFEROL (VIT D3) 1,000 UNIT (25 MCG) TABLET PO SCH (09:42)
[2022-09-13] MEDS: HEPARIN NA (PORCINE) 5,000 UNITS/ML 1ML VIAL SQ SCH ×2 (09:42→21:28)
[2022-09-13] MEDS: CALCITRIOL 1 MCG/ML BOT PO SCH (09:42)
[2022-09-13 10:24] LABS: ANISOCYTOSIS 2+; MACROCYTOSIS 2+; TOXIC GRANULATION 2+
[2022-09-13] MEDS ORDERED: POTASSIUM CHLORIDE ORAL LIQUID 20 MEQ/15 ML PO ONE (12:45)
[2022-09-13] MEDS: POLYETHYLENE GLYCOL (HEALTHYLAX) 3350 17 GM PACKET PO SCH (13:30)
[2022-09-13 16:53] VITALS: BMI 47.7
[2022-09-13] MEDS: ATORVASTATIN CA 40 MG TABLET (FP) PO SCH (21:28)
[2022-09-14] MEDS ORDERED: ACETAMINOPHEN 1000 MG/100 ML BAG IVPB ONE (00:49)
[2022-09-14] MEDS: PERITONEAL DIALYSIS 4.25% SOL 2,500 ML IP SCH ×3 (01:41→12:18)
[2022-09-14] MEDS: LEVOTHYROXINE NA 125 MCG TABLET (FP) PO SCH (06:14)
[2022-09-14] MEDS: TORSEMIDE 100 MG TABLET PO SCH (06:14)
[2022-09-14] MEDS: INSULIN SLIDING SCALE (NOVOLOG) 1 VIAL SQ SCH ×4 (06:22→21:12)
[2022-09-14] MEDS: INSULIN (LEVEMIR) 100 UNITS/ML UNITS SQ SCH ×2 (06:22→21:14)
[2022-09-14 07:00] LABS: HEMATOCRIT 28.9 % (32.4-45.2); HEMOGLOBIN 9.9 GM/dL (10.7-15.3); MCHC 34.1 g/dl (32.0-36.0); MEAN CELL VOLUME 96.7 fl (80-96); MEAN PLT VOLUME 6.5 fl (7.5-11.1); PLATELET COUNT 367 10^3/uL (134-434); RBC 2.99 M/mm3 (3.60-5.2); RDW 16.1 % (11.6-15.6); WHITE BLOOD COUNT 19.9 K/mm3 (4.0-10.0)
[2022-09-14] MEDS: PERITONEAL DIALYSIS 2.5% SOLN 2,500 ML IP SCH ×3 (07:14→20:56)
[2022-09-14 07:25] LABS: CHLORIDE 94 mmol/L (98-107); POTASSIUM 3.8 mmol/L (3.5-5.1); SODIUM 136 mmol/L (136-145)
[2022-09-14 07:31] LABS: ANION GAP 11 MMOL/L (8-16); BLOOD UREA NITROGEN 59.3 mg/dL (7-18); CALCIUM 9.4 mg/dL (8.5-10.1); CO2 31 mmol/L (21-32); GLUCOSE,RANDOM 75 mg/dL (74-106); MAGNESIUM 2.2 mg/dL (1.8-2.4)
[2022-09-14 07:35] LABS: PHOSPHOROUS 5.3 mg/dL (2.5-4.9)
[2022-09-14 07:38] LABS: CREATININE 8.9 mg/dL (0.55-1.3)
[2022-09-14 08:41] LABS: ANISOCYTOSIS 0; HELMET CELLS 0; HOWELL-JOLLY BODIES 0; MACROCYTOSIS 0; OVALOCYTE 0; ROULEAU 0; SICKELED CELLS 0; TARGET CELLS 0; TEAR DROP CELLS 0; TOXIC GRANULATION 0
[2022-09-14] MEDS: CINACALCET HCL 30 MG TAB (FP) PO SCH (09:59)
[2022-09-14] MEDS: LOSARTAN POTASSIUM 50 MG TABLET PO SCH (09:59)
[2022-09-14] MEDS: SERTRALINE HCL 25 MG TABLET (FP) PO SCH (09:59)
[2022-09-14] MEDS: CHOLECALCIFEROL (VIT D3) 1,000 UNIT (25 MCG) TABLET PO SCH (09:59)
[2022-09-14] MEDS: HEPARIN NA (PORCINE) 5,000 UNITS/ML 1ML VIAL SQ SCH ×2 (10:00→21:16)
[2022-09-14] MEDS: CALCITRIOL 1 MCG/ML BOT PO SCH (10:01)
[2022-09-14] MEDS: DOCUSATE SODIUM 100 MG CAPSULE (FP) PO SCH ×2 (13:31→21:15)
[2022-09-14] MEDS ORDERED: FAMOTIDINE 20 MG TABLET PO ONE (20:22)
[2022-09-14] MEDS: ATORVASTATIN CA 40 MG TABLET (FP) PO SCH (21:15)
[2022-09-14] MEDS: TRIMETHOBENZAMIDE HCL 200MG/2ML INJ IM PRN (21:20)
[2022-09-14 21:31] LABS: BF WBC & OTHER NUCLEATED CELLS 33 /mm3
[2022-09-14 23:02] LABS: BODY FLUID BASOPHIL 4 %; BODY FLUID MONOCYTE 44 %; BODYL FLD EOSINOPHIL 2 %
[2022-09-15] MEDS: PERITONEAL DIALYSIS 4.25% SOL 2,500 ML IP SCH ×2 (00:55→02:44)
[2022-09-15] MEDS ORDERED: PERITONEAL DIALYSIS 2.5% IP SCH (06:01)
[2022-09-15] MEDS ORDERED: HEPARIN IP SCH ×2 (06:01→07:00)
[2022-09-15] MEDS: PERITONEAL DIALYSIS 2.5% SOLN 2,500 ML IP SCH ×2 (06:03→12:47)
[2022-09-15] MEDS: INSULIN SLIDING SCALE (NOVOLOG) 1 VIAL SQ SCH ×4 (06:34→21:27)
[2022-09-15] MEDS: LEVOTHYROXINE NA 125 MCG TABLET (FP) PO SCH (06:41)
[2022-09-15] MEDS ORDERED: PERITONEAL DIALYSIS 4.25% IP SCH (07:00)
[2022-09-15 07:13] LABS: HEMATOCRIT 30.2 % (32.4-45.2); HEMOGLOBIN 10.3 GM/dL (10.7-15.3); MCH 32.9 pg (25.7-33.7); MCHC 33.9 g/dl (32.0-36.0); PLATELET COUNT 381 10^3/uL (134-434); RBC 3.12 M/mm3 (3.60-5.2); RDW 16.2 % (11.6-15.6); WHITE BLOOD COUNT 18.8 K/mm3 (4.0-10.0)
[2022-09-15 07:33] LABS: CHLORIDE 92 mmol/L (98-107); POTASSIUM 4.1 mmol/L (3.5-5.1); SODIUM 133 mmol/L (136-145)
[2022-09-15 07:35] LABS: ANION GAP 10 MMOL/L (8-16); BLOOD UREA NITROGEN 61.7 mg/dL (7-18); CALCIUM 9.2 mg/dL (8.5-10.1); CO2 32 mmol/L (21-32); GLUCOSE,RANDOM 115 mg/dL (74-106)
[2022-09-15 07:36] LABS: ALBUMIN 2.4 g/dl (3.4-5.0); MAGNESIUM 2.3 mg/dL (1.8-2.4)
[2022-09-15 07:39] LABS: PHOSPHOROUS 6.3 mg/dL (2.5-4.9); SGOT/AST 15 U/L (15-37); SGPT/ALT 10 U/L (13-61)
[2022-09-15 07:41] LABS: ALK PHOS 87 U/L (45-117); BILIRUBIN,TOTAL 0.4 mg/dL (0.2-1); TOT PROT 6.2 g/dl (6.4-8.2)
[2022-09-15] MEDS: INSULIN (LEVEMIR) 100 UNITS/ML UNITS SQ SCH ×2 (07:48→21:28)
[2022-09-15 08:34] LABS: ANISOCYTOSIS 0; HELMET CELLS 0; HOWELL-JOLLY BODIES 0; MACROCYTOSIS 0; OVALOCYTE 0; ROULEAU 0; SICKELED CELLS 0; TARGET CELLS 0; TEAR DROP CELLS 0; TOXIC GRANULATION 0
[2022-09-15] MEDS ORDERED: POLYETHYLENE GLYCOL (HEALTHYLAX) 3350 17 GM PACKET PO SCH (10:00)
[2022-09-15] MEDS: DOCUSATE SODIUM 100 MG CAPSULE (FP) PO SCH (10:35)
[2022-09-15] MEDS: LOSARTAN POTASSIUM 50 MG TABLET PO SCH (10:36)
[2022-09-15] MEDS: HEPARIN NA (PORCINE) 5,000 UNITS/ML 1ML VIAL SQ SCH ×2 (10:37→21:27)
[2022-09-15] MEDS: CALCITRIOL 1 MCG/ML BOT PO SCH (10:38)
[2022-09-15] MEDS: CINACALCET HCL 30 MG TAB (FP) PO SCH (10:38)
[2022-09-15] MEDS: CHOLECALCIFEROL (VIT D3) 1,000 UNIT (25 MCG) TABLET PO SCH (10:38)
[2022-09-15] MEDS: SERTRALINE HCL 25 MG TABLET (FP) PO SCH (10:38)
[2022-09-15] MEDS ORDERED: ACETAMINOPHEN 1000 MG/100 ML BAG IVPB PRN (13:23)
[2022-09-15] MEDS: LIDOCAINE 5% TOPICAL PATCH TP SCH (15:21)
[2022-09-15] MEDS: VANCOMYCIN 250 MG/5 ML ORAL SOLUTION PO SCH ×2 (15:22→17:18)
[2022-09-15] MEDS: PERITONEAL DIALYSIS 4.25% IP SCH (18:45)
[2022-09-15] MEDS: HEPARIN IP SCH (18:45)
[2022-09-15] MEDS: ATORVASTATIN CA 40 MG TABLET (FP) PO SCH (21:27)
[2022-09-15] MEDS: LIDOCAINE PATCH REMOVAL MC SCH (21:29)
[2022-09-16] MEDS: VANCOMYCIN 250 MG/5 ML ORAL SOLUTION PO SCH ×4 (00:31→17:58)
[2022-09-16] MEDS: PERITONEAL DIALYSIS 2.5% SOLN 2,500 ML IP SCH ×2 (01:16→12:45)
[2022-09-16] MEDS: INSULIN SLIDING SCALE (NOVOLOG) 1 VIAL SQ SCH ×4 (06:25→22:12)
[2022-09-16] MEDS: LEVOTHYROXINE NA 125 MCG TABLET (FP) PO SCH (06:25)
[2022-09-16] MEDS: INSULIN (LEVEMIR) 100 UNITS/ML UNITS SQ SCH ×2 (06:25→22:12)
[2022-09-16 06:43] LABS: BASO % 0.5 % (0-2.0); EOS % 0.8 % (0-4.5); HEMATOCRIT 31.1 % (32.4-45.2); HEMOGLOBIN 10.3 GM/dL (10.7-15.3); LYMPH % 9.5 % (8-40); MCH 32.4 pg (25.7-33.7); MCHC 33.3 g/dl (32.0-36.0); MEAN CELL VOLUME 97.4 fl (80-96); NEUT % 80.2 % (42.8-82.8); PLATELET COUNT 368 10^3/uL (134-434); RBC 3.19 M/mm3 (3.60-5.2); RDW 16.1 % (11.6-15.6); WHITE BLOOD COUNT 17.3 K/mm3 (4.0-10.0)
[2022-09-16] MEDS: PERITONEAL DIALYSIS 4.25% SOL 2,500 ML IP SCH (06:48)
[2022-09-16 07:07] LABS: CHLORIDE 93 mmol/L (98-107); POTASSIUM 3.6 mmol/L (3.5-5.1); SODIUM 136 mmol/L (136-145)
[2022-09-16 07:08] LABS: CALCIUM 9.3 mg/dL (8.5-10.1)
[2022-09-16 07:09] LABS: ANION GAP 11 MMOL/L (8-16); BLOOD UREA NITROGEN 63.8 mg/dL (7-18); CO2 32 mmol/L (21-32); GLUCOSE,RANDOM 157 mg/dL (74-106); MAGNESIUM 2.3 mg/dL (1.8-2.4)
[2022-09-16 07:12] LABS: PHOSPHOROUS 6.5 mg/dL (2.5-4.9)
[2022-09-16 07:18] LABS: CREATININE 8.9 mg/dL (0.55-1.3)
[2022-09-16] MEDS: CALCITRIOL 1 MCG/ML BOT PO SCH (09:46)
[2022-09-16] MEDS: LIDOCAINE 5% TOPICAL PATCH TP SCH (09:46)
[2022-09-16] MEDS: CINACALCET HCL 30 MG TAB (FP) PO SCH (09:47)
[2022-09-16] MEDS: LOSARTAN POTASSIUM 50 MG TABLET PO SCH (09:47)
[2022-09-16] MEDS: SERTRALINE HCL 25 MG TABLET (FP) PO SCH (09:47)
[2022-09-16] MEDS: HEPARIN NA (PORCINE) 5,000 UNITS/ML 1ML VIAL SQ SCH ×2 (09:47→22:12)
[2022-09-16] MEDS: CHOLECALCIFEROL (VIT D3) 1,000 UNIT (25 MCG) TABLET PO SCH (09:47)
[2022-09-16 10:07] LABS: ANISOCYTOSIS 2+; MACROCYTOSIS 0; OVALOCYTE 2+
[2022-09-16] MEDS: TRIMETHOBENZAMIDE HCL 200MG/2ML INJ IM PRN (12:24)
[2022-09-16] MEDS: TORSEMIDE 100 MG TABLET PO SCH (17:58)
[2022-09-16] MEDS: PERITONEAL DIALYSIS 4.25% IP SCH (18:41)
[2022-09-16] MEDS: HEPARIN IP SCH (18:41)
[2022-09-16] MEDS: ATORVASTATIN CA 40 MG TABLET (FP) PO SCH (22:12)
[2022-09-16] MEDS: LIDOCAINE PATCH REMOVAL MC SCH (22:12)
[2022-09-17] MEDS: VANCOMYCIN 250 MG/5 ML ORAL SOLUTION PO SCH ×5 (00:41→23:01)
[2022-09-17] MEDS: PERITONEAL DIALYSIS 2.5% SOLN 2,500 ML IP SCH ×2 (00:41→13:05)
[2022-09-17] MEDS: PERITONEAL DIALYSIS 4.25% SOL 2,500 ML IP SCH (06:38)
[2022-09-17] MEDS: INSULIN (LEVEMIR) 100 UNITS/ML UNITS SQ SCH ×2 (06:39→22:53)
[2022-09-17] MEDS: INSULIN SLIDING SCALE (NOVOLOG) 1 VIAL SQ SCH ×4 (06:39→22:52)
[2022-09-17] MEDS: LEVOTHYROXINE NA 125 MCG TABLET (FP) PO SCH (06:39)
[2022-09-17 08:47] LABS: CALCIUM 9.4 mg/dL (8.5-10.1); CHLORIDE 93 mmol/L (98-107); POTASSIUM 3.4 mmol/L (3.5-5.1); SODIUM 135 mmol/L (136-145)
[2022-09-17 08:49] LABS: ANION GAP 10 MMOL/L (8-16); BLOOD UREA NITROGEN 53.3 mg/dL (7-18); CO2 32 mmol/L (21-32); GLUCOSE,RANDOM 200 mg/dL (74-106)
[2022-09-17 08:50] LABS: HEMATOCRIT 30.8 % (32.4-45.2); HEMOGLOBIN 10.5 GM/dL (10.7-15.3); MCH 33.3 pg (25.7-33.7); MCHC 34.2 g/dl (32.0-36.0); MEAN CELL VOLUME 97.4 fl (80-96); MEAN PLT VOLUME 7.1 fl (7.5-11.1); PLATELET COUNT 333 10^3/uL (134-434); RBC 3.17 M/mm3 (3.60-5.2); RDW 16.4 % (11.6-15.6); WHITE BLOOD COUNT 17.7 K/mm3 (4.0-10.0)
[2022-09-17 08:51] LABS: PHOSPHOROUS 5.8 mg/dL (2.5-4.9)
[2022-09-17 08:58] LABS: CREATININE 8.3 mg/dL (0.55-1.3)
[2022-09-17] MEDS ORDERED: POTASSIUM CHLORIDE ORAL LIQUID 20 MEQ/15 ML PO ONE (09:05)
[2022-09-17] MEDS: LIDOCAINE 5% TOPICAL PATCH TP SCH (09:16)
[2022-09-17] MEDS: HEPARIN NA (PORCINE) 5,000 UNITS/ML 1ML VIAL SQ SCH ×2 (09:17→22:51)
[2022-09-17] MEDS: CHOLECALCIFEROL (VIT D3) 1,000 UNIT (25 MCG) TABLET PO SCH (09:17)
[2022-09-17] MEDS: CINACALCET HCL 30 MG TAB (FP) PO SCH (09:17)
[2022-09-17] MEDS: SERTRALINE HCL 25 MG TABLET (FP) PO SCH (09:17)
[2022-09-17] MEDS: LOSARTAN POTASSIUM 50 MG TABLET PO SCH (09:17)
[2022-09-17] MEDS: TORSEMIDE 100 MG TABLET PO SCH (09:17)
[2022-09-17] MEDS: CALCITRIOL 1 MCG/ML BOT PO SCH (09:17)
[2022-09-17 10:17] LABS: ANISOCYTOSIS 1+; MACROCYTOSIS 1+
[2022-09-17] MEDS ORDERED: HEPARIN PEDIATRIC IVPB ONE (19:30)
[2022-09-17] MEDS ORDERED: PERITONEAL DIALYSIS 2.5% IVPB ONE (19:30)
[2022-09-17] MEDS: LIDOCAINE PATCH REMOVAL MC SCH (22:53)
[2022-09-17] MEDS: ATORVASTATIN CA 40 MG TABLET (FP) PO SCH (22:53)
[2022-09-18] MEDS: PERITONEAL DIALYSIS 2.5% SOLN 2,500 ML IP SCH ×2 (02:00→13:19)
[2022-09-18] MEDS: INSULIN SLIDING SCALE (NOVOLOG) 1 VIAL SQ SCH ×4 (06:29→22:04)
[2022-09-18] MEDS: VANCOMYCIN 250 MG/5 ML ORAL SOLUTION PO SCH ×4 (06:32→23:54)
[2022-09-18] MEDS: LEVOTHYROXINE NA 125 MCG TABLET (FP) PO SCH (06:42)
[2022-09-18] MEDS: PERITONEAL DIALYSIS 4.25% SOL 2,500 ML IP SCH (07:03)
[2022-09-18 07:07] LABS: HEMOGLOBIN 9.9 GM/dL (10.7-15.3); MCH 33.2 pg (25.7-33.7); MCHC 34.2 g/dl (32.0-36.0); MEAN CELL VOLUME 97.3 fl (80-96); MEAN PLT VOLUME 7.1 fl (7.5-11.1); PLATELET COUNT 292 10^3/uL (134-434); RBC 2.98 M/mm3 (3.60-5.2); RDW 16.2 % (11.6-15.6); WHITE BLOOD COUNT 19.4 K/mm3 (4.0-10.0)
[2022-09-18 07:29] LABS: CHLORIDE 93 mmol/L (98-107); POTASSIUM 3.2 mmol/L (3.5-5.1); SODIUM 134 mmol/L (136-145)
[2022-09-18 07:33] LABS: ANION GAP 9 MMOL/L (8-16); BLOOD UREA NITROGEN 51.1 mg/dL (7-18); CALCIUM 8.8 mg/dL (8.5-10.1); CO2 32 mmol/L (21-32); GLUCOSE,RANDOM 137 mg/dL (74-106)
[2022-09-18 07:36] LABS: PHOSPHOROUS 5.9 mg/dL (2.5-4.9)
[2022-09-18 07:38] LABS: CREATININE 8.4 mg/dL (0.55-1.3)
[2022-09-18 08:35] LABS: ANISOCYTOSIS 1+; MACROCYTOSIS 1+
[2022-09-18] MEDS: CINACALCET HCL 30 MG TAB (FP) PO SCH (09:05)
[2022-09-18] MEDS: LOSARTAN POTASSIUM 50 MG TABLET PO SCH (09:05)
[2022-09-18] MEDS: CHOLECALCIFEROL (VIT D3) 1,000 UNIT (25 MCG) TABLET PO SCH (09:05)
[2022-09-18] MEDS: SERTRALINE HCL 25 MG TABLET (FP) PO SCH (09:05)
[2022-09-18] MEDS: CALCITRIOL 1 MCG/ML BOT PO SCH (09:06)
[2022-09-18] MEDS: HEPARIN NA (PORCINE) 5,000 UNITS/ML 1ML VIAL SQ SCH ×2 (09:07→22:03)
[2022-09-18] MEDS: INSULIN (LEVEMIR) 100 UNITS/ML UNITS SQ SCH ×2 (09:08→22:03)
[2022-09-18] MEDS: LACTOBACILLUS ACIDOPHILUS 1 TABLET PO SCH (09:09)
[2022-09-18] MEDS: LIDOCAINE 5% TOPICAL PATCH TP SCH (09:20)
[2022-09-18] MEDS: HEPARIN IP SCH (19:58)
[2022-09-18] MEDS: PERITONEAL DIALYSIS 4.25% IP SCH (19:58)
[2022-09-18] MEDS ORDERED: PANTOPRAZOLE 40 MG TABLET PO ONE (21:05)
[2022-09-18] MEDS: LIDOCAINE PATCH REMOVAL MC SCH (22:03)
[2022-09-18] MEDS: ATORVASTATIN CA 40 MG TABLET (FP) PO SCH (22:04)
[2022-09-18] MEDS: ACETAMINOPHEN 325 MG TABLET (FP) PO PRN (23:53)
[2022-09-19] MEDS: PERITONEAL DIALYSIS 2.5% SOLN 2,500 ML IP SCH ×2 (02:10→13:51)
[2022-09-19 06:46] LABS: CHLORIDE 93 mmol/L (98-107); POTASSIUM 3.3 mmol/L (3.5-5.1); SODIUM 134 mmol/L (136-145)
[2022-09-19 06:50] LABS: CALCIUM 8.9 mg/dL (8.5-10.1)
[2022-09-19 06:51] LABS: ANION GAP 8 MMOL/L (8-16); BLOOD UREA NITROGEN 45.6 mg/dL (7-18); CO2 32 mmol/L (21-32); GLUCOSE,RANDOM 182 mg/dL (74-106); MAGNESIUM 2.1 mg/dL (1.8-2.4)
[2022-09-19 06:54] LABS: PHOSPHOROUS 6.2 mg/dL (2.5-4.9)
[2022-09-19 07:00] LABS: CREATININE 8.3 mg/dL (0.55-1.3)
[2022-09-19 07:10] LABS: HEMATOCRIT 30.4 % (32.4-45.2); HEMOGLOBIN 10.1 GM/dL (10.7-15.3); MCH 32.3 pg (25.7-33.7); MCHC 33.1 g/dl (32.0-36.0); MEAN CELL VOLUME 97.6 fl (80-96); MEAN PLT VOLUME 7.4 fl (7.5-11.1); PLATELET COUNT 282 10^3/uL (134-434); RBC 3.11 M/mm3 (3.60-5.2); RDW 15.9 % (11.6-15.6); WHITE BLOOD COUNT 24.4 K/mm3 (4.0-10.0)
[2022-09-19] MEDS: VANCOMYCIN 250 MG/5 ML ORAL SOLUTION PO SCH ×3 (07:25→18:08)
[2022-09-19] MEDS: INSULIN SLIDING SCALE (NOVOLOG) 1 VIAL SQ SCH ×4 (07:29→22:50)
[2022-09-19] MEDS: PERITONEAL DIALYSIS 4.25% SOL 2,500 ML IP SCH (07:30)
[2022-09-19] MEDS: LEVOTHYROXINE NA 125 MCG TABLET (FP) PO SCH (07:31)
[2022-09-19 09:23] LABS: BF WBC & OTHER NUCLEATED CELLS 29 /mm3
[2022-09-19 09:38] LABS: ANISOCYTOSIS 1+; MACROCYTOSIS 1+
[2022-09-19] MEDS: INSULIN (LEVEMIR) 100 UNITS/ML UNITS SQ SCH ×3 (10:03→22:49)
[2022-09-19] MEDS: CALCITRIOL 1 MCG/ML BOT PO SCH (10:06)
[2022-09-19] MEDS: LOSARTAN POTASSIUM 50 MG TABLET PO SCH ×2 (10:06→10:14)
[2022-09-19] MEDS: HEPARIN NA (PORCINE) 5,000 UNITS/ML 1ML VIAL SQ SCH ×2 (10:06→22:49)
[2022-09-19] MEDS: CINACALCET HCL 30 MG TAB (FP) PO SCH (10:07)
[2022-09-19] MEDS: CHOLECALCIFEROL (VIT D3) 1,000 UNIT (25 MCG) TABLET PO SCH (10:07)
[2022-09-19] MEDS: LACTOBACILLUS ACIDOPHILUS 1 TABLET PO SCH (10:07)
[2022-09-19] MEDS: SERTRALINE HCL 25 MG TABLET (FP) PO SCH (10:07)
[2022-09-19] MEDS: LIDOCAINE 5% TOPICAL PATCH TP SCH (10:07)
[2022-09-19 10:33] LABS: BODY FLUID MACROPHAGES 12 %; BODY FLUID MONOCYTE 40 %; BODYL FLD EOSINOPHIL 1 %
[2022-09-19 10:35] LABS: BODY FLUID MESOTHELIAL 12 %
[2022-09-19] MEDS: ACETAMINOPHEN 325 MG TABLET (FP) PO PRN (18:06)
[2022-09-19] MEDS: HEPARIN IP SCH (18:50)
[2022-09-19] MEDS: PERITONEAL DIALYSIS 4.25% IP SCH (18:50)
[2022-09-19] MEDS ORDERED: MECLIZINE HCL 25 MG TABLET (FP) PO ONE (20:22)
[2022-09-19] MEDS ORDERED: ACETAMINOPHEN 1000 MG/100 ML BAG IVPB ONE (22:14)
[2022-09-19] MEDS: LIDOCAINE PATCH REMOVAL MC SCH (22:50)
[2022-09-19] MEDS: ATORVASTATIN CA 40 MG TABLET (FP) PO SCH (22:50)
[2022-09-19] MEDS ORDERED: SODIUM CHLORIDE 500 ML IV STA (23:25)
[2022-09-20 00:11] LABS: HEMATOCRIT 30.9 % (32.4-45.2); HEMOGLOBIN 10.4 GM/dL (10.7-15.3); MCH 32.7 pg (25.7-33.7); MCHC 33.6 g/dl (32.0-36.0); MEAN CELL VOLUME 97.3 fl (80-96); MEAN PLT VOLUME 6.9 fl (7.5-11.1); PLATELET COUNT 285 10^3/uL (134-434); RBC 3.17 M/mm3 (3.60-5.2); RDW 16.3 % (11.6-15.6); WHITE BLOOD COUNT 26.7 K/mm3 (4.0-10.0)
[2022-09-20 00:28] LABS: CHLORIDE 94 mmol/L (98-107); POTASSIUM 3.2 mmol/L (3.5-5.1); SODIUM 136 mmol/L (136-145)
[2022-09-20 00:30] LABS: ALBUMIN 2.3 g/dl (3.4-5.0); ANION GAP 13 MMOL/L (8-16); CALCIUM 9.5 mg/dL (8.5-10.1); CO2 29 mmol/L (21-32)
[2022-09-20 00:31] LABS: BLOOD UREA NITROGEN 46.7 mg/dL (7-18); GLUCOSE,RANDOM 216 mg/dL (74-106)
[2022-09-20 00:34] LABS: SGOT/AST 11 U/L (15-37); SGPT/ALT 6 U/L (13-61)
[2022-09-20 00:35] LABS: BILIRUBIN,TOTAL 0.4 mg/dL (0.2-1); TOT PROT 6.1 g/dl (6.4-8.2)
[2022-09-20 00:36] LABS: ALK PHOS 92 U/L (45-117)
[2022-09-20 00:37] LABS: CREATININE 8.3 mg/dL (0.55-1.3)
[2022-09-20] MEDS ORDERED: SODIUM CHLORIDE 250 ML IV STA (00:38)
[2022-09-20] MEDS ORDERED: POTASSIUM CHLORIDE TABS 20 MEQ TABLET.ER (FP) PO ONE (00:39)
[2022-09-20] MEDS: VANCOMYCIN ORAL SOLUTION 125 MG/2.5 ML PO SCH ×4 (00:57→17:47)
[2022-09-20 02:16] LABS: MAGNESIUM 2.1 mg/dL (1.8-2.4)
[2022-09-20 02:20] LABS: PHOSPHOROUS 6.5 mg/dL (2.5-4.9)
[2022-09-20] MEDS: PERITONEAL DIALYSIS 2.5% SOLN 2,500 ML IP SCH ×2 (02:32→13:46)
[2022-09-20] MEDS: ACETAMINOPHEN 325 MG TABLET (FP) PO PRN ×2 (05:13→14:47)
[2022-09-20] MEDS: LEVOTHYROXINE NA 125 MCG TABLET (FP) PO SCH (06:54)
[2022-09-20] MEDS: INSULIN (LEVEMIR) 100 UNITS/ML UNITS SQ SCH ×2 (06:54→22:00)
[2022-09-20] MEDS: INSULIN SLIDING SCALE (NOVOLOG) 1 VIAL SQ SCH ×4 (06:54→22:01)
[2022-09-20] MEDS: PERITONEAL DIALYSIS 4.25% SOL 2,500 ML IP SCH (08:22)
[2022-09-20] MEDS: CINACALCET HCL 30 MG TAB (FP) PO SCH (10:45)
[2022-09-20] MEDS: SERTRALINE HCL 25 MG TABLET (FP) PO SCH (11:28)
[2022-09-20] MEDS: LACTOBACILLUS ACIDOPHILUS 1 TABLET PO SCH (11:29)
[2022-09-20] MEDS: CHOLECALCIFEROL (VIT D3) 1,000 UNIT (25 MCG) TABLET PO SCH (11:30)
[2022-09-20] MEDS: LIDOCAINE 5% TOPICAL PATCH TP SCH (11:36)
[2022-09-20] MEDS: CALCITRIOL 1 MCG/ML BOT PO SCH (11:36)
[2022-09-20] MEDS: LOSARTAN POTASSIUM 50 MG TABLET PO SCH (12:50)
[2022-09-20] MEDS: HEPARIN NA (PORCINE) 5,000 UNITS/ML 1ML VIAL SQ SCH ×2 (14:48→22:00)
[2022-09-20] MEDS: ACETAMINOPHEN 1000 MG/100 ML BAG IVPB PRN ×2 (15:53→23:29)
[2022-09-20] MEDS: POTASSIUM CHLORIDE ORAL LIQUID 20 MEQ/15 ML PO ONE ×2 (15:56→17:08)
[2022-09-20] MEDS: VANCOMYCIN/WATER FOR INJ (PEG) 1,000 MG/200 ML BAG IVPB ONE ×2 (17:11→17:43)
[2022-09-20] MEDS: CEFEPIME 1 GM in DEXTROSE 5%-WATER 100 ML IVPB SCH (17:44)
[2022-09-20] MEDS: HEPARIN IP SCH (18:59)
[2022-09-20] MEDS: PERITONEAL DIALYSIS 4.25% IP SCH (18:59)
[2022-09-20] MEDS: ATORVASTATIN CA 40 MG TABLET (FP) PO SCH (21:59)
[2022-09-20] MEDS: LIDOCAINE PATCH REMOVAL MC SCH (22:00)
[2022-09-21] MEDS: PERITONEAL DIALYSIS 2.5% SOLN 2,500 ML IP SCH ×2 (00:34→13:01)
[2022-09-21] MEDS: VANCOMYCIN ORAL SOLUTION 125 MG/2.5 ML PO SCH ×5 (00:53→23:22)
[2022-09-21] MEDS: INSULIN SLIDING SCALE (NOVOLOG) 1 VIAL SQ SCH ×4 (06:20→22:13)
[2022-09-21] MEDS: HEPARIN NA (PORCINE) 5,000 UNITS/ML 1ML VIAL SQ SCH ×3 (06:20→22:16)
[2022-09-21] MEDS: LEVOTHYROXINE NA 125 MCG TABLET (FP) PO SCH (06:20)
[2022-09-21] MEDS: INSULIN (LEVEMIR) 100 UNITS/ML UNITS SQ SCH ×2 (06:21→22:12)
[2022-09-21] MEDS: PERITONEAL DIALYSIS 4.25% SOL 2,500 ML IP SCH (06:31)
[2022-09-21 07:22] LABS: HEMATOCRIT 29.6 % (32.4-45.2); MCHC 33.7 g/dl (32.0-36.0); MEAN PLT VOLUME 7.6 fl (7.5-11.1); PLATELET COUNT 243 10^3/uL (134-434); RBC 3.02 M/mm3 (3.60-5.2); RDW 16.1 % (11.6-15.6); WHITE BLOOD COUNT 22.6 K/mm3 (4.0-10.0)
[2022-09-21 07:38] LABS: CHLORIDE 94 mmol/L (98-107); POTASSIUM 3.2 mmol/L (3.5-5.1); SODIUM 136 mmol/L (136-145)
[2022-09-21 07:45] LABS: CALCIUM 9.5 mg/dL (8.5-10.1)
[2022-09-21 07:46] LABS: ANION GAP 12 MMOL/L (8-16); CO2 30 mmol/L (21-32); GLUCOSE,RANDOM 91 mg/dL (74-106); MAGNESIUM 2.1 mg/dL (1.8-2.4)
[2022-09-21 07:47] LABS: BLOOD UREA NITROGEN 46.5 mg/dL (7-18)
[2022-09-21 07:49] LABS: PHOSPHOROUS 6.9 mg/dL (2.5-4.9)
[2022-09-21 07:51] LABS: CREATININE 8.5 mg/dL (0.55-1.3)
[2022-09-21] MEDS: ACETAMINOPHEN 1000 MG/100 ML BAG IVPB PRN ×2 (08:28→22:08)
[2022-09-21 08:41] LABS: ANISOCYTOSIS 0; HELMET CELLS 0; HOWELL-JOLLY BODIES 0; MACROCYTOSIS 0; OVALOCYTE 0; ROULEAU 0; SICKELED CELLS 0; TARGET CELLS 0; TEAR DROP CELLS 0; TOXIC GRANULATION 0
[2022-09-21] MEDS: CINACALCET HCL 30 MG TAB (FP) PO SCH (09:30)
[2022-09-21] MEDS: SERTRALINE HCL 25 MG TABLET (FP) PO SCH (09:30)
[2022-09-21] MEDS: LOSARTAN POTASSIUM 50 MG TABLET PO SCH ×2 (09:30→09:37)
[2022-09-21] MEDS: CHOLECALCIFEROL (VIT D3) 1,000 UNIT (25 MCG) TABLET PO SCH (09:31)
[2022-09-21] MEDS: CALCITRIOL 1 MCG/ML BOT PO SCH (09:31)
[2022-09-21] MEDS: LIDOCAINE 5% TOPICAL PATCH TP SCH (09:31)
[2022-09-21] MEDS: LACTOBACILLUS ACIDOPHILUS 1 TABLET PO SCH (09:31)
[2022-09-21] MEDS: POTASSIUM CHLORIDE ORAL LIQUID 20 MEQ/15 ML PO ONE ×2 (13:09→13:20)
[2022-09-21] MEDS ORDERED: VANCOMYCIN/WATER FOR INJ (PEG) 1,000 MG/200 ML BAG IVPB ONE (15:00)
[2022-09-21] MEDS ORDERED: ACETAMINOPHEN 325 MG TABLET (FP) PO PRN (18:09)
[2022-09-21] MEDS: CEFEPIME 1 GM in DEXTROSE 5%-WATER 100 ML IVPB SCH (18:22)
[2022-09-21] MEDS: NYSTATIN 500,000 UNITS/5 ML SUSPENSION PO SCH ×2 (18:38→23:18)
[2022-09-21] MEDS: HEPARIN IP SCH (19:06)
[2022-09-21] MEDS: PERITONEAL DIALYSIS 4.25% IP SCH (19:06)
[2022-09-21] MEDS: LIDOCAINE PATCH REMOVAL MC SCH (22:17)
[2022-09-21] MEDS: ATORVASTATIN CA 40 MG TABLET (FP) PO SCH (22:17)
[2022-09-22] MEDS: PERITONEAL DIALYSIS 2.5% SOLN 2,500 ML IP SCH ×2 (01:45→12:59)
[2022-09-22] MEDS: TRIMETHOBENZAMIDE HCL 200MG/2ML INJ IM PRN ×2 (02:30→16:49)
[2022-09-22] MEDS: ACETAMINOPHEN 1000 MG/100 ML BAG IVPB PRN (06:36)
[2022-09-22] MEDS: VANCOMYCIN ORAL SOLUTION 125 MG/2.5 ML PO SCH ×3 (06:37→17:05)
[2022-09-22] MEDS: NYSTATIN 500,000 UNITS/5 ML SUSPENSION PO SCH (06:38)
[2022-09-22] MEDS: HEPARIN NA (PORCINE) 5,000 UNITS/ML 1ML VIAL SQ SCH ×3 (06:38→21:13)
[2022-09-22] MEDS: INSULIN SLIDING SCALE (NOVOLOG) 1 VIAL SQ SCH ×4 (06:39→21:13)
[2022-09-22] MEDS: LEVOTHYROXINE NA 125 MCG TABLET (FP) PO SCH (06:43)
[2022-09-22] MEDS: PERITONEAL DIALYSIS 4.25% SOL 2,500 ML IP SCH (06:55)
[2022-09-22] MEDS: INSULIN (LEVEMIR) 100 UNITS/ML UNITS SQ SCH ×2 (07:29→21:13)
[2022-09-22 09:31] LABS: HEMATOCRIT 31.6 % (32.4-45.2); HEMOGLOBIN 10.5 GM/dL (10.7-15.3); MCHC 33.3 g/dl (32.0-36.0); MEAN CELL VOLUME 99.2 fl (80-96); MEAN PLT VOLUME 7.3 fl (7.5-11.1); PLATELET COUNT 277 10^3/uL (134-434); RBC 3.18 M/mm3 (3.60-5.2); RDW 16.4 % (11.6-15.6); WHITE BLOOD COUNT 24.8 K/mm3 (4.0-10.0)
[2022-09-22 09:47] LABS: CHLORIDE 93 mmol/L (98-107); POTASSIUM 3.1 mmol/L (3.5-5.1); SODIUM 136 mmol/L (136-145)
[2022-09-22] MEDS: CALCITRIOL 1 MCG/ML BOT PO SCH (09:48)
[2022-09-22] MEDS: LIDOCAINE 5% TOPICAL PATCH TP SCH (09:48)
[2022-09-22] MEDS: LACTOBACILLUS ACIDOPHILUS 1 TABLET PO SCH (09:48)
[2022-09-22] MEDS: CHOLECALCIFEROL (VIT D3) 1,000 UNIT (25 MCG) TABLET PO SCH (09:48)
[2022-09-22] MEDS: SERTRALINE HCL 25 MG TABLET (FP) PO SCH (09:48)
[2022-09-22] MEDS: CINACALCET HCL 30 MG TAB (FP) PO SCH (09:48)
[2022-09-22] MEDS: LOSARTAN POTASSIUM 50 MG TABLET PO SCH (09:49)
[2022-09-22 09:50] LABS: SGPT/ALT 8 U/L (13-61)
[2022-09-22 09:53] LABS: ALBUMIN 2.1 g/dl (3.4-5.0); PHOSPHOROUS 6.6 mg/dL (2.5-4.9)
[2022-09-22 09:54] LABS: BLOOD UREA NITROGEN 45.2 mg/dL (7-18)
[2022-09-22 09:55] LABS: ANION GAP 14 MMOL/L (8-16); BILIRUBIN,TOTAL 0.4 mg/dL (0.2-1); CO2 28 mmol/L (21-32); TOT PROT 6.2 g/dl (6.4-8.2)
[2022-09-22 09:56] LABS: ALK PHOS 94 U/L (45-117); CALCIUM 9.3 mg/dL (8.5-10.1); SGOT/AST 13 U/L (15-37)
[2022-09-22 09:57] LABS: GLUCOSE,RANDOM 285 mg/dL (74-106); MAGNESIUM 1.9 mg/dL (1.8-2.4)
[2022-09-22 09:58] LABS: CREATININE 7.9 mg/dL (0.55-1.3)
[2022-09-22 10:10] LABS: ANISOCYTOSIS 0; HELMET CELLS 0; HOWELL-JOLLY BODIES 0; MACROCYTOSIS 0; OVALOCYTE 0; ROULEAU 0; SICKELED CELLS 0; TARGET CELLS 0; TEAR DROP CELLS 0; TOXIC GRANULATION 0
[2022-09-22] MEDS ORDERED: ALPRAZolam 1 MG TABLET PO ONE (11:45)
[2022-09-22 12:11] LABS: INR 1.33 (0.83-1.09); PROTHROMBIN TIME (PATIENT) 15.4 SEC (9.7-13.0)
[2022-09-22] MEDS ORDERED: POTASSIUM CHLORIDE ORAL LIQUID 20 MEQ/15 ML PO ONE (12:47)
[2022-09-22] MEDS ORDERED: POTASSIUM CHLORIDE TABS 20 MEQ TABLET.ER (FP) PO ONE (13:12)
[2022-09-22] MEDS: ACETAMINOPHEN 325 MG TABLET (FP) PO PRN ×2 (13:45→23:14)
[2022-09-22] MEDS: CEFEPIME 1 GM in DEXTROSE 5%-WATER 100 ML IVPB SCH (16:49)
[2022-09-22] MEDS ORDERED: INSULIN SLIDING SCALE (NOVOLOG) 1 VIAL SQ ONE (17:16)
[2022-09-22] MEDS: PERITONEAL DIALYSIS 4.25% IP SCH (18:42)
[2022-09-22] MEDS: HEPARIN IP SCH (18:42)
[2022-09-22] MEDS: oxyCODONE HCL 5 MG TABLET PO PRN (20:01)
[2022-09-22] MEDS: ATORVASTATIN CA 40 MG TABLET (FP) PO SCH (21:11)
[2022-09-22] MEDS: POLYETHYLENE GLYCOL (HEALTHYLAX) 3350 17 GM PACKET PO SCH (21:36)
[2022-09-22] MEDS: LIDOCAINE PATCH REMOVAL MC SCH (21:36)
[2022-09-22] MEDS: MELATONIN 5 MG TABLETS PO PRN (23:14)
[2022-09-23] MEDS: VANCOMYCIN ORAL SOLUTION 125 MG/2.5 ML PO SCH ×4 (00:34→18:21)
[2022-09-23] MEDS: PIPERACILLIN/TAZOB 2.25 GM 2.25 GM in DEXTROSE 5%-WATER - 50 ML IVPB SCH ×3 (01:35→18:20)
[2022-09-23] MEDS: PERITONEAL DIALYSIS 2.5% SOLN 2,500 ML IP SCH ×2 (01:35→13:21)
[2022-09-23] MEDS: oxyCODONE HCL 5 MG TABLET PO PRN ×2 (02:59→22:02)
[2022-09-23] MEDS: INSULIN (LEVEMIR) 100 UNITS/ML UNITS SQ SCH ×2 (06:20→22:01)
[2022-09-23] MEDS: LEVOTHYROXINE NA 125 MCG TABLET (FP) PO SCH (06:20)
[2022-09-23] MEDS: HEPARIN NA (PORCINE) 5,000 UNITS/ML 1ML VIAL SQ SCH ×3 (06:20→22:02)
[2022-09-23] MEDS: INSULIN SLIDING SCALE (NOVOLOG) 1 VIAL SQ SCH ×4 (06:21→22:01)
[2022-09-23] MEDS: PERITONEAL DIALYSIS 4.25% SOL 2,500 ML IP SCH (06:53)
[2022-09-23 09:04] LABS: CHLORIDE 93 mmol/L (98-107); POTASSIUM 3.3 mmol/L (3.5-5.1); SODIUM 133 mmol/L (136-145)
[2022-09-23 09:05] LABS: CALCIUM 9.6 mg/dL (8.5-10.1)
[2022-09-23 09:06] LABS: ANION GAP 13 MMOL/L (8-16); BLOOD UREA NITROGEN 45.3 mg/dL (7-18); CO2 28 mmol/L (21-32); GLUCOSE,RANDOM 237 mg/dL (74-106)
[2022-09-23 09:09] LABS: PHOSPHOROUS 6.8 mg/dL (2.5-4.9)
[2022-09-23 09:11] LABS: BASO % 0.2 % (0-2.0); EOS % 0.2 % (0-4.5); HEMATOCRIT 32.2 % (32.4-45.2); HEMOGLOBIN 10.6 GM/dL (10.7-15.3); LYMPH % 5.9 % (8-40); MCH 32.7 pg (25.7-33.7); MCHC 32.9 g/dl (32.0-36.0); MEAN CELL VOLUME 99.1 fl (80-96); MEAN PLT VOLUME 7.8 fl (7.5-11.1); MONO % 8.2 % (3.8-10.2); NEUT % 85.5 % (42.8-82.8); PLATELET COUNT 303 10^3/uL (134-434); RBC 3.25 M/mm3 (3.60-5.2); RDW 16.7 % (11.6-15.6); WHITE BLOOD COUNT 26.2 K/mm3 (4.0-10.0)
[2022-09-23 09:12] LABS: CREATININE 7.8 mg/dL (0.55-1.3)
[2022-09-23] MEDS: LACTOBACILLUS ACIDOPHILUS 1 TABLET PO SCH ×2 (10:41→22:01)
[2022-09-23] MEDS: CINACALCET HCL 30 MG TAB (FP) PO SCH (10:41)
[2022-09-23] MEDS: SERTRALINE HCL 25 MG TABLET (FP) PO SCH (10:41)
[2022-09-23] MEDS: TRIMETHOBENZAMIDE HCL 200MG/2ML INJ IM PRN (10:41)
[2022-09-23] MEDS: LOSARTAN POTASSIUM 50 MG TABLET PO SCH (10:41)
[2022-09-23] MEDS: LIDOCAINE 5% TOPICAL PATCH TP SCH (10:42)
[2022-09-23] MEDS: CHOLECALCIFEROL (VIT D3) 1,000 UNIT (25 MCG) TABLET PO SCH (10:42)
[2022-09-23] MEDS: POLYETHYLENE GLYCOL (HEALTHYLAX) 3350 17 GM PACKET PO SCH ×2 (10:42→22:00)
[2022-09-23] MEDS: ACETAMINOPHEN 325 MG TABLET (FP) PO PRN ×2 (10:46→16:24)
[2022-09-23] MEDS: CALCITRIOL 1 MCG/ML BOT PO SCH (10:46)
[2022-09-23 14:19] LABS: ANISOCYTOSIS 1+; MACROCYTOSIS 1+
[2022-09-23] MEDS ORDERED: POTASSIUM CHLORIDE TABS 20 MEQ TABLET.ER (FP) PO ONE (14:59)
[2022-09-23] MEDS: PERITONEAL DIALYSIS 4.25% IP SCH (20:57)
[2022-09-23] MEDS: HEPARIN IP SCH (20:57)
[2022-09-23] MEDS: ATORVASTATIN CA 40 MG TABLET (FP) PO SCH (22:01)
[2022-09-23] MEDS: LIDOCAINE PATCH REMOVAL MC SCH (22:01)
[2022-09-24] MEDS: VANCOMYCIN ORAL SOLUTION 125 MG/2.5 ML PO SCH ×5 (00:51→23:17)
[2022-09-24] MEDS ORDERED: PERITONEAL DIALYSIS 1.5% SOLN 2,500 ML IP PRN (01:00)
[2022-09-24] MEDS: PERITONEAL DIALYSIS 2.5% SOLN 2,500 ML IP SCH ×2 (01:40→13:37)
[2022-09-24] MEDS: PIPERACILLIN/TAZOB 2.25 GM 2.25 GM in DEXTROSE 5%-WATER - 50 ML IVPB SCH ×2 (02:03→10:59)
[2022-09-24] MEDS: ACETAMINOPHEN 325 MG TABLET (FP) PO PRN ×3 (02:25→18:28)
[2022-09-24] MEDS: oxyCODONE HCL 5 MG TABLET PO PRN ×2 (05:29→13:42)
[2022-09-24] MEDS: HEPARIN NA (PORCINE) 5,000 UNITS/ML 1ML VIAL SQ SCH ×3 (06:56→23:18)
[2022-09-24] MEDS: LEVOTHYROXINE NA 125 MCG TABLET (FP) PO SCH (06:57)
[2022-09-24] MEDS: INSULIN SLIDING SCALE (NOVOLOG) 1 VIAL SQ SCH ×5 (06:57→23:19)
[2022-09-24] MEDS: INSULIN (LEVEMIR) 100 UNITS/ML UNITS SQ SCH ×2 (06:57→23:20)
[2022-09-24 07:39] LABS: HEMOGLOBIN 10.3 GM/dL (10.7-15.3); MCH 33.3 pg (25.7-33.7); MCHC 33.1 g/dl (32.0-36.0); MEAN CELL VOLUME 100.5 fl (80-96); MEAN PLT VOLUME 7.8 fl (7.5-11.1); PLATELET COUNT 301 10^3/uL (134-434); RBC 3.09 M/mm3 (3.60-5.2); WHITE BLOOD COUNT 27.7 K/mm3 (4.0-10.0)
[2022-09-24 07:49] LABS: CHLORIDE 92 mmol/L (98-107); POTASSIUM 3.1 mmol/L (3.5-5.1); SODIUM 135 mmol/L (136-145)
[2022-09-24] MEDS: PERITONEAL DIALYSIS 4.25% SOL 2,500 ML IP SCH (07:53)
[2022-09-24 08:04] LABS: CALCIUM 10.1 mg/dL (8.5-10.1)
[2022-09-24 08:05] LABS: BLOOD UREA NITROGEN 45.3 mg/dL (7-18)
[2022-09-24 08:08] LABS: PHOSPHOROUS 7.5 mg/dL (2.5-4.9)
[2022-09-24 08:09] LABS: GLUCOSE,RANDOM 181 mg/dL (74-106)
[2022-09-24 08:10] LABS: ANION GAP 15 MMOL/L (8-16); CO2 27 mmol/L (21-32)
[2022-09-24 08:13] LABS: CREATININE 7.7 mg/dL (0.55-1.3)
[2022-09-24 09:03] LABS: ANISOCYTOSIS 1+; MACROCYTOSIS 1+; OVALOCYTE 1+
[2022-09-24] MEDS ORDERED: POTASSIUM CHLORIDE TABS 20 MEQ TABLET.ER (FP) PO ONE (10:25)
[2022-09-24] MEDS: POLYETHYLENE GLYCOL (HEALTHYLAX) 3350 17 GM PACKET PO SCH ×2 (10:54→23:17)
[2022-09-24] MEDS: SERTRALINE HCL 25 MG TABLET (FP) PO SCH (10:59)
[2022-09-24] MEDS: LOSARTAN POTASSIUM 50 MG TABLET PO SCH ×2 (10:59→12:13)
[2022-09-24] MEDS: CINACALCET HCL 30 MG TAB (FP) PO SCH (10:59)
[2022-09-24] MEDS: LIDOCAINE 5% TOPICAL PATCH TP SCH (10:59)
[2022-09-24] MEDS: CHOLECALCIFEROL (VIT D3) 1,000 UNIT (25 MCG) TABLET PO SCH (10:59)
[2022-09-24] MEDS: TRIMETHOBENZAMIDE HCL 200MG/2ML INJ IM PRN (11:24)
[2022-09-24] MEDS: CALCITRIOL 1 MCG/ML BOT PO SCH (13:42)
[2022-09-24] MEDS: AMINO ACIDS/PROTEIN HYDROLYS 30 ML LIQUID.PKT PO SCH (17:57)
[2022-09-24] MEDS ORDERED: SODIUM CHLORIDE 250 ML IV STA (19:54)
[2022-09-24] MEDS ORDERED: SODIUM CHLORIDE 250 ML IV ONE (21:30)
[2022-09-24] MEDS: PERITONEAL DIALYSIS 4.25% IP SCH (21:30)
[2022-09-24] MEDS: HEPARIN IP SCH (21:30)
[2022-09-24] MEDS ORDERED: PERITONEAL DIALYSIS 1.5% IP PRN (22:00)
[2022-09-24] MEDS ORDERED: HEPARIN IP PRN (22:00)
[2022-09-24] MEDS ORDERED: HEPARIN IP ONE (22:30)
[2022-09-24] MEDS ORDERED: PERITONEAL DIALYSIS 1.5% IP ONE (22:30)
[2022-09-24] MEDS: LACTOBACILLUS ACIDOPHILUS 1 TABLET PO SCH (23:17)
[2022-09-24] MEDS: ATORVASTATIN CA 40 MG TABLET (FP) PO SCH (23:18)
[2022-09-24] MEDS: LIDOCAINE PATCH REMOVAL MC SCH (23:19)
[2022-09-25] MEDS: ACETAMINOPHEN 325 MG TABLET (FP) PO PRN ×3 (00:32→13:34)
[2022-09-25] MEDS: MELATONIN 5 MG TABLETS PO PRN ×2 (00:33→22:42)
[2022-09-25] MEDS: PERITONEAL DIALYSIS 2.5% SOLN 2,500 ML IP SCH ×2 (05:15→18:37)
[2022-09-25] MEDS: VANCOMYCIN ORAL SOLUTION 125 MG/2.5 ML PO SCH ×4 (06:38→23:17)
[2022-09-25] MEDS: LEVOTHYROXINE NA 125 MCG TABLET (FP) PO SCH (06:38)
[2022-09-25] MEDS: INSULIN SLIDING SCALE (NOVOLOG) 1 VIAL SQ SCH ×4 (06:42→23:00)
[2022-09-25] MEDS: HEPARIN NA (PORCINE) 5,000 UNITS/ML 1ML VIAL SQ SCH ×3 (06:42→22:44)
[2022-09-25] MEDS: INSULIN (LEVEMIR) 100 UNITS/ML UNITS SQ SCH ×2 (06:42→22:59)
[2022-09-25 08:29] LABS: HEMATOCRIT 32.6 % (32.4-45.2); HEMOGLOBIN 10.8 GM/dL (10.7-15.3); MCH 32.9 pg (25.7-33.7); MCHC 33.2 g/dl (32.0-36.0); MEAN CELL VOLUME 99.3 fl (80-96); MEAN PLT VOLUME 8.3 fl (7.5-11.1); PLATELET COUNT 257 10^3/uL (134-434); RBC 3.29 M/mm3 (3.60-5.2); RDW 17.4 % (11.6-15.6)
[2022-09-25 08:35] LABS: WHITE BLOOD COUNT 34.2 K/mm3 (4.0-10.0)
[2022-09-25 08:57] LABS: CHLORIDE 92 mmol/L (98-107); SODIUM 136 mmol/L (136-145)
[2022-09-25 09:01] LABS: ALBUMIN 1.9 g/dl (3.4-5.0); BLOOD UREA NITROGEN 46.8 mg/dL (7-18); CALCIUM 9.9 mg/dL (8.5-10.1); CO2 27 mmol/L (21-32); GLUCOSE,RANDOM 195 mg/dL (74-106)
[2022-09-25 09:04] LABS: CREATININE 7.1 mg/dL (0.55-1.3); PHOSPHOROUS 7.7 mg/dL (2.5-4.9); SGOT/AST 52 U/L (15-37); SGPT/ALT 28 U/L (13-61)
[2022-09-25 09:06] LABS: BILIRUBIN,TOTAL 0.4 mg/dL (0.2-1); TOT PROT 6.3 g/dl (6.4-8.2)
[2022-09-25 09:07] LABS: ALK PHOS 89 U/L (45-117)
[2022-09-25 09:12] LABS: ANION GAP 16 MMOL/L (8-16); POTASSIUM 2.9 mmol/L (3.5-5.1)
[2022-09-25 10:15] LABS: ANISOCYTOSIS 0; HELMET CELLS 0; HOWELL-JOLLY BODIES 0; MACROCYTOSIS 0; OVALOCYTE 0; ROULEAU 0; SICKELED CELLS 0; TARGET CELLS 0; TEAR DROP CELLS 0; TOXIC GRANULATION 0
[2022-09-25] MEDS: LIDOCAINE 5% TOPICAL PATCH TP SCH (10:20)
[2022-09-25] MEDS: AMINO ACIDS/PROTEIN HYDROLYS 30 ML LIQUID.PKT PO SCH ×2 (10:21→17:40)
[2022-09-25] MEDS: CHOLECALCIFEROL (VIT D3) 1,000 UNIT (25 MCG) TABLET PO SCH (10:21)
[2022-09-25] MEDS: CALCITRIOL 1 MCG/ML BOT PO SCH (10:21)
[2022-09-25] MEDS: LOSARTAN POTASSIUM 50 MG TABLET PO SCH (10:21)
[2022-09-25] MEDS: SERTRALINE HCL 25 MG TABLET (FP) PO SCH (10:22)
[2022-09-25] MEDS: CINACALCET HCL 30 MG TAB (FP) PO SCH (10:22)
[2022-09-25] MEDS: POLYETHYLENE GLYCOL (HEALTHYLAX) 3350 17 GM PACKET PO SCH ×2 (10:22→22:58)
[2022-09-25] MEDS: PERITONEAL DIALYSIS 4.25% SOL 2,500 ML IP SCH (10:23)
[2022-09-25] MEDS: KCL 10 MEQ IVPB 10 MEQ/100 ML INFUS.BAG IVPB SCH ×3 (12:12→17:41)
[2022-09-25] MEDS: oxyCODONE HCL 5 MG TABLET PO PRN ×2 (15:38→22:42)
[2022-09-25] MEDS ORDERED: PERITONEAL DIALYSIS 1.5% SOLN 2,500 ML IP ONE (17:15)
[2022-09-25] MEDS ORDERED: FAMOTIDINE 20 MG TABLET PO ONE (20:12)
[2022-09-25] MEDS ORDERED: SODIUM CHLORIDE 500 ML IV ONE (20:30)
[2022-09-25] MEDS: LACTOBACILLUS ACIDOPHILUS 1 TABLET PO SCH (22:43)
[2022-09-25] MEDS: ATORVASTATIN CA 40 MG TABLET (FP) PO SCH (22:44)
[2022-09-25] MEDS: LIDOCAINE PATCH REMOVAL MC SCH (22:59)
[2022-09-25] MEDS ORDERED: PERITONEAL DIALYSIS 1.5% IP ONE (23:00)
[2022-09-25] MEDS ORDERED: HEPARIN IP ONE (23:00)
[2022-09-26] MEDS ORDERED: PERITONEAL DIALYSIS 1.5% SOLN 2,500 ML IP ONE (05:00)
[2022-09-26] MEDS: VANCOMYCIN ORAL SOLUTION 125 MG/2.5 ML PO SCH (05:06)
[2022-09-26] MEDS: HEPARIN NA (PORCINE) 5,000 UNITS/ML 1ML VIAL SQ SCH ×3 (05:06→21:01)
[2022-09-26] MEDS ORDERED: DEXTROSE 50%-WATER 25 GM/50 ML DISP.SYRIN IVPUSH ONE (05:19)
[2022-09-26] MEDS ORDERED: DEXTROSE 50%-WATER 25 GM/50 ML DISP.SYRIN ONE (05:21)
[2022-09-26] MEDS: INSULIN (LEVEMIR) 100 UNITS/ML UNITS SQ SCH ×2 (06:00→22:10)
[2022-09-26] MEDS: LEVOTHYROXINE NA 125 MCG TABLET (FP) PO SCH (06:01)
[2022-09-26] MEDS: INSULIN SLIDING SCALE (NOVOLOG) 1 VIAL SQ SCH ×4 (06:01→21:01)
[2022-09-26] MEDS ORDERED: DEXTROSE 50%-WATER 25 GM/50 ML DISP.SYRIN IVPUSH PRN (06:55)
[2022-09-26 07:40] LABS: HEMATOCRIT 26.8 % (32.4-45.2); HEMOGLOBIN 8.8 GM/dL (10.7-15.3); MCH 33.1 pg (25.7-33.7); MEAN CELL VOLUME 100.3 fl (80-96); PLATELET COUNT 203 10^3/uL (134-434); RBC 2.67 M/mm3 (3.60-5.2); RDW 17.6 % (11.6-15.6)
[2022-09-26 08:46] LABS: ANISOCYTOSIS 1+; MACROCYTOSIS 1+
[2022-09-26] MEDS: LIDOCAINE 5% TOPICAL PATCH TP SCH (10:58)
[2022-09-26] MEDS: CINACALCET HCL 30 MG TAB (FP) PO SCH (10:58)
[2022-09-26] MEDS: POLYETHYLENE GLYCOL (HEALTHYLAX) 3350 17 GM PACKET PO SCH ×2 (10:58→22:28)
[2022-09-26] MEDS: AMINO ACIDS/PROTEIN HYDROLYS 30 ML LIQUID.PKT PO SCH ×2 (10:58→17:08)
[2022-09-26] MEDS: CHOLECALCIFEROL (VIT D3) 1,000 UNIT (25 MCG) TABLET PO SCH (10:58)
[2022-09-26] MEDS: CALCITRIOL 1 MCG/ML BOT PO SCH (10:58)
[2022-09-26] MEDS: POTASSIUM CHLORIDE TABS 20 MEQ TABLET.ER (FP) PO SCH (10:58)
[2022-09-26] MEDS: LOSARTAN POTASSIUM 50 MG TABLET PO SCH (10:59)
[2022-09-26] MEDS: SERTRALINE HCL 25 MG TABLET (FP) PO SCH (10:59)
[2022-09-26 11:24] LABS: CHLORIDE 95 mmol/L (98-107); SODIUM 134 mmol/L (136-145)
[2022-09-26 11:26] LABS: CALCIUM 8.5 mg/dL (8.5-10.1); CO2 23 mmol/L (21-32)
[2022-09-26 11:27] LABS: BLOOD UREA NITROGEN 54.9 mg/dL (7-18); GLUCOSE,RANDOM 332 mg/dL (74-106)
[2022-09-26 11:29] LABS: CREATININE 6.6 mg/dL (0.55-1.3); SGPT/ALT 27 U/L (13-61)
[2022-09-26 11:30] LABS: SGOT/AST 31 U/L (15-37)
[2022-09-26 11:31] LABS: BILIRUBIN,TOTAL 0.4 mg/dL (0.2-1); TOT PROT 5.1 g/dl (6.4-8.2)
[2022-09-26 11:32] LABS: ALK PHOS 84 U/L (45-117)
[2022-09-26 11:51] LABS: ALBUMIN 1.4 g/dl (3.4-5.0); ANION GAP 16 MMOL/L (8-16); LIPASE 350 U/L (73-393); POTASSIUM 2.7 mmol/L (3.5-5.1)
[2022-09-26] MEDS ORDERED: VANCOMYCIN ORAL SOLUTION 125 MG/2.5 ML PO SCH (12:00)
[2022-09-26] MEDS ORDERED: PERITONEAL DIALYSIS 1.5% SOLN 2,500 ML IP PRN (12:43)
[2022-09-26] MEDS ORDERED: PERITONEAL DIALYSIS 1.5% SOLN 2,500 ML IP SCH (12:44)
[2022-09-26] MEDS: VANCOMYCIN 250 MG/5 ML ORAL SOLUTION PO SCH ×3 (14:46→23:25)
[2022-09-26] MEDS: ACETAMINOPHEN 325 MG TABLET (FP) PO PRN ×2 (14:54→21:03)
[2022-09-26] MEDS: PERITONEAL DIALYSIS 1.5% SOLN 2,500 ML IP SCH (15:32)
[2022-09-26] MEDS ORDERED: POTASSIUM CHLORIDE ORAL LIQUID 20 MEQ/15 ML PO ONE ×2 (18:30→22:00)
[2022-09-26] MEDS ORDERED: FAMOTIDINE 10 MG TABLET PO ONE (20:11)
[2022-09-26] MEDS: KCL 10 MEQ IVPB 10 MEQ/100 ML INFUS.BAG IVPB SCH ×2 (20:50→21:05)
[2022-09-26] MEDS: LACTOBACILLUS ACIDOPHILUS 1 TABLET PO SCH (21:00)
[2022-09-26] MEDS: ATORVASTATIN CA 40 MG TABLET (FP) PO SCH (21:02)
[2022-09-26] MEDS: MELATONIN 5 MG TABLETS PO PRN (21:02)
[2022-09-26] MEDS: HEPARIN IP SCH (22:08)
[2022-09-26] MEDS: PERITONEAL DIALYSIS 1.5% IP SCH (22:08)
[2022-09-26] MEDS: LIDOCAINE PATCH REMOVAL MC SCH (22:11)
[2022-09-27] MEDS: PERITONEAL DIALYSIS 1.5% SOLN 2,500 ML IP SCH ×3 (04:32→14:52)
[2022-09-27] MEDS: VANCOMYCIN 250 MG/5 ML ORAL SOLUTION PO SCH ×3 (05:00→18:33)
[2022-09-27] MEDS: HEPARIN NA (PORCINE) 5,000 UNITS/ML 1ML VIAL SQ SCH (05:02)
[2022-09-27] MEDS: INSULIN SLIDING SCALE (NOVOLOG) 1 VIAL SQ SCH ×4 (06:31→22:42)
[2022-09-27] MEDS: LEVOTHYROXINE NA 125 MCG TABLET (FP) PO SCH (06:31)
[2022-09-27] MEDS: INSULIN (LEVEMIR) 100 UNITS/ML UNITS SQ SCH ×2 (06:48→23:42)
[2022-09-27 07:42] LABS: HEMATOCRIT 28.3 % (32.4-45.2); HEMOGLOBIN 9.5 GM/dL (10.7-15.3); MCH 33.9 pg (25.7-33.7); MCHC 33.8 g/dl (32.0-36.0); MEAN CELL VOLUME 100.5 fl (80-96); MEAN PLT VOLUME 8.5 fl (7.5-11.1); PLATELET COUNT 210 10^3/uL (134-434); RBC 2.81 M/mm3 (3.60-5.2); RDW 17.3 % (11.6-15.6); WHITE BLOOD COUNT 20.8 K/mm3 (4.0-10.0)
[2022-09-27 08:03] LABS: BLOOD UREA NITROGEN 57.6 mg/dL (7-18)
[2022-09-27 08:04] LABS: CALCIUM 8.6 mg/dL (8.5-10.1)
[2022-09-27 08:05] LABS: ALBUMIN 1.5 g/dl (3.4-5.0)
[2022-09-27 08:06] LABS: CREATININE 6.2 mg/dL (0.55-1.3)
[2022-09-27 08:08] LABS: TOT PROT 5.4 g/dl (6.4-8.2)
[2022-09-27 08:10] LABS: BILIRUBIN,TOTAL 0.7 mg/dL (0.2-1)
[2022-09-27] MEDS ORDERED: KCL 10 MEQ IVPB 10 MEQ/100 ML INFUS.BAG IVPB SCH (08:45)
[2022-09-27] MEDS: POTASSIUM CHLORIDE TABS 20 MEQ TABLET.ER (FP) PO SCH (09:07)
[2022-09-27] MEDS: LIDOCAINE 5% TOPICAL PATCH TP SCH (09:07)
[2022-09-27] MEDS: CALCITRIOL 1 MCG/ML BOT PO SCH (09:08)
[2022-09-27] MEDS: LOSARTAN POTASSIUM 50 MG TABLET PO SCH (09:08)
[2022-09-27] MEDS: AMINO ACIDS/PROTEIN HYDROLYS 30 ML LIQUID.PKT PO SCH ×2 (09:08→18:33)
[2022-09-27] MEDS: POLYETHYLENE GLYCOL (HEALTHYLAX) 3350 17 GM PACKET PO SCH ×2 (09:08→22:28)
[2022-09-27] MEDS: CINACALCET HCL 30 MG TAB (FP) PO SCH (09:09)
[2022-09-27] MEDS: CHOLECALCIFEROL (VIT D3) 1,000 UNIT (25 MCG) TABLET PO SCH (09:09)
[2022-09-27] MEDS: SERTRALINE HCL 25 MG TABLET (FP) PO SCH (09:09)
[2022-09-27] MEDS: ACETAMINOPHEN 325 MG TABLET (FP) PO PRN (09:23)
[2022-09-27 09:27] LABS: ANISOCYTOSIS 2+; MACROCYTOSIS 2+
[2022-09-27 10:15] LABS: MAGNESIUM 1.7 mg/dL (1.8-2.4)
[2022-09-27] MEDS ORDERED: MAGNESIUM SULF 50% (8.12 MEQ/2 ML-1 GM VIAL) IVPB ONE (10:15)
[2022-09-27] MEDS ORDERED: ZINC OXIDE/PANTHENOL/VITAMIN E 56 GM TUBE TP PRN (10:18)
[2022-09-27 10:19] LABS: PHOSPHOROUS 5.7 mg/dL (2.5-4.9)
[2022-09-27] MEDS: KCL 10 MEQ IVPB 10 MEQ/100 ML INFUS.BAG IVPB SCH ×3 (11:46→17:01)
[2022-09-27] MEDS: ZINC OXIDE/PANTHENOL/VITAMIN E 56 GM TUBE TP SCH (12:43)
[2022-09-27] MEDS: PERITONEAL DIALYSIS 1.5% IP SCH (18:08)
[2022-09-27] MEDS: HEPARIN IP SCH (18:08)
[2022-09-27] MEDS: oxyCODONE HCL 5 MG TABLET PO PRN (20:33)
[2022-09-27] MEDS: LACTOBACILLUS ACIDOPHILUS 1 TABLET PO SCH (22:28)
[2022-09-27] MEDS ORDERED: DEXTROSE 50%-WATER 25 GM/50 ML DISP.SYRIN IVPUSH PRN (22:35)
[2022-09-27] MEDS: ATORVASTATIN CA 40 MG TABLET (FP) PO SCH (22:42)
[2022-09-27] MEDS: LIDOCAINE PATCH REMOVAL MC SCH (22:42)
[2022-09-27] MEDS ORDERED: INSULIN (LEVEMIR) 100 UNITS/ML UNITS SQ ONE (22:50)
[2022-09-28] MEDS: PERITONEAL DIALYSIS 1.5% SOLN 2,500 ML IP SCH ×3 (00:16→12:00)
[2022-09-28] MEDS: NYSTATIN 500,000 UNITS/5 ML SUSPENSION PO SCH ×5 (00:33→23:54)
[2022-09-28] MEDS: VANCOMYCIN 250 MG/5 ML ORAL SOLUTION PO SCH ×5 (00:33→23:54)
[2022-09-28] MEDS: LEVOTHYROXINE NA 125 MCG TABLET (FP) PO SCH (06:09)
[2022-09-28] MEDS: ACETAMINOPHEN 325 MG TABLET (FP) PO PRN (06:09)
[2022-09-28] MEDS: INSULIN (LEVEMIR) 100 UNITS/ML UNITS SQ SCH ×2 (07:53→22:27)
[2022-09-28] MEDS: INSULIN SLIDING SCALE (NOVOLOG) 1 VIAL SQ SCH ×4 (07:54→22:28)
[2022-09-28 08:43] LABS: HEMATOCRIT 27.2 % (32.4-45.2); MCH 33.6 pg (25.7-33.7); MCHC 33.2 g/dl (32.0-36.0); MEAN PLT VOLUME 7.8 fl (7.5-11.1); PLATELET COUNT 211 10^3/uL (134-434); RBC 2.69 M/mm3 (3.60-5.2)
[2022-09-28] MEDS: AMINO ACIDS/PROTEIN HYDROLYS 30 ML LIQUID.PKT PO SCH ×2 (08:54→17:02)
[2022-09-28] MEDS ORDERED: POTASSIUM CHLORIDE TABS 20 MEQ TABLET.ER (FP) PO ONE (09:05)
[2022-09-28 09:09] LABS: CALCIUM 7.9 mg/dL (8.5-10.1)
[2022-09-28 09:10] LABS: MAGNESIUM 1.8 mg/dL (1.8-2.4)
[2022-09-28 09:12] LABS: PHOSPHOROUS 4.4 mg/dL (2.5-4.9)
[2022-09-28 09:13] LABS: CREATININE 5.8 mg/dL (0.55-1.3)
[2022-09-28 09:37] LABS: ANISOCYTOSIS 2+; MACROCYTOSIS 2+
[2022-09-28] MEDS: CINACALCET HCL 30 MG TAB (FP) PO SCH (09:45)
[2022-09-28] MEDS: LIDOCAINE 5% TOPICAL PATCH TP SCH (09:45)
[2022-09-28] MEDS: CHOLECALCIFEROL (VIT D3) 1,000 UNIT (25 MCG) TABLET PO SCH (09:46)
[2022-09-28] MEDS: SERTRALINE HCL 25 MG TABLET (FP) PO SCH (09:46)
[2022-09-28] MEDS: LOSARTAN POTASSIUM 50 MG TABLET PO SCH (09:47)
[2022-09-28] MEDS: ZINC OXIDE/PANTHENOL/VITAMIN E 56 GM TUBE TP SCH (09:48)
[2022-09-28] MEDS: POLYETHYLENE GLYCOL (HEALTHYLAX) 3350 17 GM PACKET PO SCH ×2 (09:57→22:30)
[2022-09-28] MEDS: POTASSIUM CHLORIDE TABS 20 MEQ TABLET.ER (FP) PO SCH (09:57)
[2022-09-28] MEDS: CALCITRIOL 1 MCG/ML BOT PO SCH (10:19)
[2022-09-28] MEDS: TRIMETHOBENZAMIDE HCL 200MG/2ML INJ IM PRN (14:12)
[2022-09-28] MEDS ORDERED: INSULIN SLIDING SCALE (NOVOLOG) 1 VIAL SQ ONE (16:57)
[2022-09-28] MEDS: PERITONEAL DIALYSIS 1.5% IP SCH (17:38)
[2022-09-28] MEDS: HEPARIN IP SCH (17:38)
[2022-09-28] MEDS: LIDOCAINE PATCH REMOVAL MC SCH (22:29)
[2022-09-28] MEDS: LACTOBACILLUS ACIDOPHILUS 1 TABLET PO SCH (22:29)
[2022-09-28] MEDS: ATORVASTATIN CA 40 MG TABLET (FP) PO SCH (22:29)
[2022-09-29] MEDS: PERITONEAL DIALYSIS 1.5% SOLN 2,500 ML IP SCH ×2 (00:24→06:21)
[2022-09-29] MEDS: HEPARIN NA (PORCINE) 5,000 UNITS/ML 1ML VIAL SQ SCH ×3 (05:55→22:07)
[2022-09-29] MEDS: VANCOMYCIN 250 MG/5 ML ORAL SOLUTION PO SCH ×3 (05:55→17:51)
[2022-09-29] MEDS: NYSTATIN 500,000 UNITS/5 ML SUSPENSION PO SCH ×3 (05:55→17:28)
[2022-09-29] MEDS: INSULIN SLIDING SCALE (NOVOLOG) 1 VIAL SQ SCH ×4 (06:02→22:07)
[2022-09-29] MEDS: INSULIN (LEVEMIR) 100 UNITS/ML UNITS SQ SCH ×2 (06:15→22:07)
[2022-09-29] MEDS: LEVOTHYROXINE NA 125 MCG TABLET (FP) PO SCH (06:18)
[2022-09-29 06:30] LABS: BASO % 0.3 % (0-2.0); EOS % 0.9 % (0-4.5); HEMATOCRIT 27.9 % (32.4-45.2); HEMOGLOBIN 9.5 GM/dL (10.7-15.3); LYMPH % 5.6 % (8-40); MCH 34.2 pg (25.7-33.7); MCHC 34.2 g/dl (32.0-36.0); MEAN PLT VOLUME 8.1 fl (7.5-11.1); NEUT % 88.2 % (42.8-82.8); PLATELET COUNT 198 10^3/uL (134-434); RBC 2.79 M/mm3 (3.60-5.2); RDW 18.3 % (11.6-15.6); WHITE BLOOD COUNT 13.1 K/mm3 (4.0-10.0)
[2022-09-29 06:41] LABS: CHLORIDE 98 mmol/L (98-107); SODIUM 136 mmol/L (136-145)
[2022-09-29 06:47] LABS: ALBUMIN 1.4 g/dl (3.4-5.0); BLOOD UREA NITROGEN 62.1 mg/dL (7-18); CALCIUM 7.8 mg/dL (8.5-10.1); CO2 27 mmol/L (21-32); GLUCOSE,RANDOM 88 mg/dL (74-106); MAGNESIUM 1.7 mg/dL (1.8-2.4)
[2022-09-29 06:50] LABS: CREATININE 5.7 mg/dL (0.55-1.3); SGOT/AST 12 U/L (15-37)
[2022-09-29 06:51] LABS: PHOSPHOROUS 4.5 mg/dL (2.5-4.9); SGPT/ALT 15 U/L (13-61)
[2022-09-29 06:52] LABS: BILIRUBIN,TOTAL 0.4 mg/dL (0.2-1); TOT PROT 4.8 g/dl (6.4-8.2)
[2022-09-29 06:53] LABS: ALK PHOS 76 U/L (45-117)
[2022-09-29 06:55] LABS: ANION GAP 11 MMOL/L (8-16); POTASSIUM 2.6 mmol/L (3.5-5.1)
[2022-09-29] MEDS ORDERED: POTASSIUM CHLORIDE TABS 20 MEQ TABLET.ER (FP) PO ONE ×2 (07:21→21:00)
[2022-09-29] MEDS ORDERED: MAGNESIUM SULF 50% (8.12 MEQ/2 ML-1 GM VIAL) IVPB ONE (07:22)
[2022-09-29] MEDS: AMINO ACIDS/PROTEIN HYDROLYS 30 ML LIQUID.PKT PO SCH ×2 (07:43→17:28)
[2022-09-29] MEDS: KCL 10 MEQ IVPB 10 MEQ/100 ML INFUS.BAG IVPB SCH ×3 (09:08→12:53)
[2022-09-29] MEDS: ACETAMINOPHEN 325 MG TABLET (FP) PO PRN (10:19)
[2022-09-29] MEDS: LIDOCAINE 5% TOPICAL PATCH TP SCH (10:20)
[2022-09-29] MEDS: SERTRALINE HCL 25 MG TABLET (FP) PO SCH (10:20)
[2022-09-29] MEDS: LOSARTAN POTASSIUM 50 MG TABLET PO SCH (10:20)
[2022-09-29] MEDS: CINACALCET HCL 30 MG TAB (FP) PO SCH (10:20)
[2022-09-29] MEDS: CHOLECALCIFEROL (VIT D3) 1,000 UNIT (25 MCG) TABLET PO SCH (10:20)
[2022-09-29] MEDS: ZINC OXIDE/PANTHENOL/VITAMIN E 56 GM TUBE TP SCH (10:22)
[2022-09-29] MEDS: POTASSIUM CHLORIDE TABS 20 MEQ TABLET.ER (FP) PO SCH (10:22)
[2022-09-29] MEDS: POLYETHYLENE GLYCOL (HEALTHYLAX) 3350 17 GM PACKET PO SCH ×2 (10:22→22:06)
[2022-09-29] MEDS: CALCITRIOL 1 MCG/ML BOT PO SCH (10:22)
[2022-09-29] MEDS ORDERED: PERITONEAL DIALYSIS 1.5% SOLN 2,500 ML IP SCH (11:08)
[2022-09-29] MEDS ORDERED: PERITONEAL DIALYSIS 2.5% SOLN 2,500 ML IP SCH (12:00)
[2022-09-29 18:08] LABS: ATYPICAL pANCA <1:20 titer (Neg:<1:20); C-ANCA <1:20 titer (Neg:<1:20)
[2022-09-29] MEDS: HEPARIN IP SCH (19:03)
[2022-09-29] MEDS: PERITONEAL DIALYSIS 1.5% IP SCH (19:03)
[2022-09-29 20:01] LABS: POTASSIUM 3.3 mmol/L (3.5-5.1)
[2022-09-29 20:06] LABS: CALCIUM 7.4 mg/dL (8.5-10.1)
[2022-09-29 20:07] LABS: BLOOD UREA NITROGEN 58.6 mg/dL (7-18)
[2022-09-29 20:10] LABS: CREATININE 5.8 mg/dL (0.55-1.3)
[2022-09-29] MEDS: LACTOBACILLUS ACIDOPHILUS 1 TABLET PO SCH (22:06)
[2022-09-29] MEDS: ATORVASTATIN CA 40 MG TABLET (FP) PO SCH (22:07)
[2022-09-29] MEDS: LIDOCAINE PATCH REMOVAL MC SCH (22:07)
[2022-09-29 23:19] VITALS: BP 149/60; PULSE 88; RESP 16; TEMP 98.1
== END 2022-09-29 23:00 | DRG 492 ==
LOC: JER 20:56 → JERBED 23:10 → J4S 09-07 11:34 → OBSVTOIN 09-08 11:00 → J4S 09-09 19:58
PROVIDERS: ADMIT Internal Medicine; ATTEND Internal Medicine
PROC: 0SSFXZZ Reposition Right Ankle Joint, External Approach (ICD-10-PCS; 2022-09-06)
PROC: 0QSG04Z Reposition Right Tibia with Internal Fixation Device, Open Approach (ICD-10-PCS; 2022-09-09)
PROC: 0QSJ04Z Reposition Right Fibula with Internal Fixation Device, Open Approach (ICD-10-PCS; principal; 2022-09-09 13:00)
PROC: 0H9T0ZZ Drainage of Right Breast, Open Approach (ICD-10-PCS; 2022-09-27)
DX: S82.841A Displaced bimalleolar fracture of right lower leg, initial encounter for closed fracture (principal); N18.6 End stage renal disease; I12.0 Hypertensive chronic kidney disease with stage 5 chronic kidney disease or end stage renal disease; Z68.42 Body mass index [BMI] 45.0-49.9, adult; A04.72 Enterocolitis due to Clostridium difficile, not specified as recurrent; R18.8 Other ascites; E03.9 Hypothyroidism, unspecified; E11.22 Type 2 diabetes mellitus with diabetic chronic kidney disease; E78.5 Hyperlipidemia, unspecified; G62.89 Other specified polyneuropathies; Z99.2 Dependence on renal dialysis; E66.01 Morbid (severe) obesity due to excess calories; G47.33 Obstructive sleep apnea (adult) (pediatric); D72.829 Elevated white blood cell count, unspecified; K59.00 Constipation, unspecified; N61.1 Abscess of the breast and nipple; E87.6 Hypokalemia; N83.8 Other noninflammatory disorders of ovary, fallopian tube and broad ligament; N85.8 Other specified noninflammatory disorders of uterus; W18.30XA Fall on same level, unspecified, initial encounter; Y92.090 Kitchen in other non-institutional residence as the place of occurrence of the external cause
CPT/HCPCS: 0241U-QW; 36415; 71045-TC-FY; 71250-TC; 73562-TC-RT-FY; 73590-TC-RT-FY; 73610-TC-RT-FY; 73630-TC-RT-FY; 74018-TC-FY; 74176-TC; 76000-TC-FY; 76641-TC-RT; 80048; 80053; 82550; 82962; 83520; 83690; 83735; 84100; 84439; 84443; 85025; 85027; 85610; 85730; 86038; 86140; 86160; 86235; 86256; 86850; 86900; 86901; 87040; 87070; 87075; 87076; 87205; 87324; 87340; 87449; 87493; 87517; 93005; 93010; 93971-TC; 94010; 94760; 97116-GP; 97162-GP; 99285-25; C1713; C9803-CS; G0378; G0480; J1100; J1644; U0003; U0005

== ENCOUNTER 2022-10-20 14:18 | Inpatient (IN) | payer OTHER, BC ==
[2022-10-20] MEDS ORDERED: VANCOMYCIN 1 GM in D5W (PRE-DOCKED) 1,000 MG/250 ML (RESTRICTED TO ID ONLY IVPB ONE (14:41)
[2022-10-20] MEDS ORDERED: PIPERACILLIN/TAZOB 4.5 GM 4.5 GM in DEXTROSE 5%-WATER 100 ML IVPB ONE (14:41)
[2022-10-20] MEDS ORDERED: ACETAMINOPHEN 1000 MG/100 ML BAG IVPB ONE (14:41)
[2022-10-20] MEDS ORDERED: PIPERACILLIN/TAZOB 4.5 GM 4.5 GM/100 ML BAG IVPB ONE (16:00)
[2022-10-20] MEDS ORDERED: ACETAMINOPHEN INJECTION 100 ML IVPB ONE (16:00)
[2022-10-20 16:59] LABS: BASO % 0.3 % (0-2.0); EOS % 0.4 % (0-4.5); HEMATOCRIT 28.5 % (32.4-45.2); HEMOGLOBIN 8.8 GM/dL (10.7-15.3); LYMPH % 6.1 % (8-40); MCH 32.9 pg (25.7-33.7); MCHC 30.9 g/dl (32.0-36.0); MEAN CELL VOLUME 106.4 fl (80-96); MEAN PLT VOLUME 6.9 fl (7.5-11.1); NEUT % 89.2 % (42.8-82.8); PLATELET COUNT 716 10^3/uL (134-434); RBC 2.68 M/mm3 (3.60-5.2); RDW 20.3 % (11.6-15.6); WHITE BLOOD COUNT 20.3 K/mm3 (4.0-10.0)
[2022-10-20 17:26] LABS: POTASSIUM 5.6 mmol/L (3.5-5.1)
[2022-10-20 17:28] LABS: ALBUMIN 0.9 g/dl (3.4-5.0); BLOOD UREA NITROGEN 60.1 mg/dL (7-18); CALCIUM 7.4 mg/dL (8.5-10.1); MAGNESIUM 2.2 mg/dL (1.8-2.4)
[2022-10-20 17:31] LABS: CREATININE 5.2 mg/dL (0.55-1.3)
[2022-10-20] MEDS ORDERED: VANCOMYCIN/WATER FOR INJ (PEG) 1,000 MG/200 ML BAG IVPB ONE (17:31)
[2022-10-20 17:33] LABS: BILIRUBIN,TOTAL 0.4 mg/dL (0.2-1); TOT PROT 5.4 g/dl (6.4-8.2)
[2022-10-20] MEDS ORDERED: morphine CARPU-JECT 2 MG/1 ML DISP.SYRIN IVPUSH ONE (18:44)
[2022-10-20] MEDS ORDERED: morphine SULFATE 4 MG/ML VIAL ONE (18:47)
[2022-10-20 19:00] LABS: ANISOCYTOSIS 1+; MACROCYTOSIS 1+; PLATELET ESTIMATE INCREASED
[2022-10-20] MEDS ORDERED: traMADol HCL 50 MG TABLET PO PRN (19:14)
[2022-10-20] MEDS ORDERED: ACETAMINOPHEN 500 MG TABLET (FP) PO PRN (19:14)
[2022-10-20] MEDS ORDERED: ONDANSETRON 4 MG/2 ML VIAL IVPUSH PRN (19:16)
[2022-10-20] MEDS ORDERED: SODIUM CHLORIDE 500 ML IV STA (21:20)
[2022-10-20] MEDS ORDERED: HEPARIN NA (PORCINE) 5,000 UNITS/ML 1ML VIAL SQ SCH (22:00)
[2022-10-20] MEDS ORDERED: TORSEMIDE 100 MG TABLET PO SCH (22:00)
[2022-10-20] MEDS ORDERED: LOSARTAN POTASSIUM 50 MG TABLET PO SCH (22:00)
[2022-10-20] MEDS ORDERED: ATORVASTATIN CA 40 MG TABLET (FP) PO SCH (22:00)
[2022-10-20] MEDS ORDERED: ACETAMINOPHEN 325 MG TABLET (FP) ONE (22:34)
[2022-10-20] MEDS ORDERED: HEPARIN NA (PORCINE) 5,000 UNITS/ML 1ML VIAL ONE (22:34)
[2022-10-20] MEDS ORDERED: ATORVASTATIN CA 40 MG TABLET (FP) ONE (22:34)
[2022-10-21] MEDS ORDERED: MIDODRINE HCL 5 MG TABLET PO ONE (00:45)
[2022-10-21] MEDS ORDERED: traMADol HCL 50 MG TABLET PO PRN (02:32)
[2022-10-21] MEDS ORDERED: ONDANSETRON 4 MG/2 ML VIAL IVPUSH PRN (02:32)
[2022-10-21] MEDS ORDERED: PIPERACILLIN/TAZOB 2.25 GM 2.25 GM in DEXTROSE 5%-WATER - 50 ML IVPB SCH ×4 (05:00)
[2022-10-21] MEDS: LEVOTHYROXINE NA 112 MCG TABLET (FP) PO SCH (06:22)
[2022-10-21] MEDS ORDERED: LEVOTHYROXINE NA 112 MCG TABLET (FP) PO SCH (07:00)
[2022-10-21 07:31] LABS: HEMATOCRIT 25.7 % (32.4-45.2); HEMOGLOBIN 7.5 GM/dL (10.7-15.3); MCH 30.8 pg (25.7-33.7); MEAN CELL VOLUME 105.9 fl (80-96); MEAN PLT VOLUME 6.8 fl (7.5-11.1); PLATELET COUNT 639 10^3/uL (134-434); RBC 2.43 M/mm3 (3.60-5.2); RDW 20.4 % (11.6-15.6); WHITE BLOOD COUNT 20.5 K/mm3 (4.0-10.0)
[2022-10-21 07:53] LABS: POTASSIUM 4.9 mmol/L (3.5-5.1)
[2022-10-21 07:56] LABS: CALCIUM 7.3 mg/dL (8.5-10.1)
[2022-10-21 07:57] LABS: ALBUMIN 0.9 g/dl (3.4-5.0); MAGNESIUM 2.1 mg/dL (1.8-2.4)
[2022-10-21 08:00] LABS: CREATININE 5.7 mg/dL (0.55-1.3)
[2022-10-21 08:01] LABS: TOT PROT 4.5 g/dl (6.4-8.2)
[2022-10-21 08:02] LABS: BILIRUBIN,TOTAL 0.3 mg/dL (0.2-1)
[2022-10-21 09:55] LABS: ANISOCYTOSIS 2+; MACROCYTOSIS 0; OVALOCYTE 2+
[2022-10-21] MEDS ORDERED: VANCOMYCIN 1 GM in D5W (PRE-DOCKED) 1,000 MG/250 ML (RESTRICTED TO ID ONLY IVPB SCH (10:00)
[2022-10-21] MEDS: HEPARIN NA (PORCINE) 5,000 UNITS/ML 1ML VIAL SQ SCH ×2 (10:12→22:11)
[2022-10-21] MEDS: oxyCODONE HCL 5 MG TABLET PO PRN ×2 (11:30→14:50)
[2022-10-21] MEDS: PIPERACILLIN/TAZOB 2.25 GM 2.25 GM in DEXTROSE 5%-WATER - 50 ML IVPB SCH ×2 (11:31→17:16)
[2022-10-21] MEDS: INSULIN SLIDING SCALE (NOVOLOG) 1 VIAL SQ SCH ×3 (11:51→22:11)
[2022-10-21] MEDS ORDERED: VANCOMYCIN/WATER FOR INJ (PEG) 1,000 MG/200 ML BAG IVPB ONE (13:00)
[2022-10-21 13:20] LABS: INR 1.34 (0.83-1.09); PROTHROMBIN TIME (PATIENT) 15.5 SEC (9.7-13.0)
[2022-10-21] MEDS ORDERED: VANCOMYCIN 1 GM/200 ML PREMIX BAG (RESTRICTED TO ID ONLY) IVPB ONE (17:00)
[2022-10-21] MEDS ORDERED: VANCOMYCIN 1 GM/200 ML PREMIX BAG (RESTRICTED TO ID ONLY) IVPB SCH (17:00)
[2022-10-21] MEDS: COLLAGENASE CLOSTRIDIUM HIST. 30 GRAMS TUBE TP SCH (17:04)
[2022-10-21] MEDS: PERITONEAL DIALYSIS 2.5% IVPB SCH (17:32)
[2022-10-21] MEDS: HEPARIN PEDIATRIC IVPB SCH (17:32)
[2022-10-21] MEDS: AMINO ACIDS/PROTEIN HYDROLYS 30 ML LIQUID.PKT PO SCH (17:54)
[2022-10-21] MEDS ORDERED: LOSARTAN POTASSIUM 50 MG TABLET PO SCH (22:00)
[2022-10-21] MEDS: ATORVASTATIN CA 40 MG TABLET (FP) PO SCH (22:10)
[2022-10-22] MEDS: PIPERACILLIN/TAZOB 2.25 GM 2.25 GM in DEXTROSE 5%-WATER - 50 ML IVPB SCH ×3 (02:09→18:34)
[2022-10-22] MEDS: oxyCODONE HCL 5 MG TABLET PO PRN ×4 (06:37→20:47)
[2022-10-22] MEDS: LEVOTHYROXINE NA 112 MCG TABLET (FP) PO SCH (06:38)
[2022-10-22] MEDS: INSULIN SLIDING SCALE (NOVOLOG) 1 VIAL SQ SCH ×4 (06:39→21:40)
[2022-10-22] MEDS: PERITONEAL DIALYSIS 2.5% SOLN 2,500 ML IP SCH ×4 (06:45→23:29)
[2022-10-22 07:57] LABS: HEMATOCRIT 25.2 % (32.4-45.2); HEMOGLOBIN 7.7 GM/dL (10.7-15.3); MCH 32.5 pg (25.7-33.7); MCHC 30.5 g/dl (32.0-36.0); MEAN CELL VOLUME 106.6 fl (80-96); MEAN PLT VOLUME 6.8 fl (7.5-11.1); PLATELET COUNT 697 10^3/uL (134-434); RBC 2.37 M/mm3 (3.60-5.2); RDW 20.1 % (11.6-15.6); WHITE BLOOD COUNT 21.9 K/mm3 (4.0-10.0)
[2022-10-22 08:16] LABS: POTASSIUM 4.3 mmol/L (3.5-5.1)
[2022-10-22 08:19] LABS: BLOOD UREA NITROGEN 72.4 mg/dL (7-18); CALCIUM 7.5 mg/dL (8.5-10.1)
[2022-10-22 08:21] LABS: ALBUMIN 0.9 g/dl (3.4-5.0); MAGNESIUM 2.1 mg/dL (1.8-2.4)
[2022-10-22 08:23] LABS: CREATININE 5.9 mg/dL (0.55-1.3)
[2022-10-22 08:25] LABS: BILIRUBIN,TOTAL 0.4 mg/dL (0.2-1); TOT PROT 4.8 g/dl (6.4-8.2)
[2022-10-22] MEDS: AMINO ACIDS/PROTEIN HYDROLYS 30 ML LIQUID.PKT PO SCH ×2 (08:53→18:34)
[2022-10-22] MEDS: COLLAGENASE CLOSTRIDIUM HIST. 30 GRAMS TUBE TP SCH (10:03)
[2022-10-22] MEDS: HEPARIN NA (PORCINE) 5,000 UNITS/ML 1ML VIAL SQ SCH ×2 (10:03→21:35)
[2022-10-22 13:07] LABS: ANISOCYTOSIS 1+; MACROCYTOSIS 1+; OVALOCYTE 2+
[2022-10-22 13:08] VITALS: BMI 46.6
[2022-10-22] MEDS ORDERED: EPOETIN ALFA-EPBX 10,000 UNIT/ML VIAL SQ ONE (15:00)
[2022-10-22] MEDS: PERITONEAL DIALYSIS 2.5% IVPB SCH (17:33)
[2022-10-22] MEDS: HEPARIN PEDIATRIC IVPB SCH (17:33)
[2022-10-22] MEDS ORDERED: VANCOMYCIN/WATER FOR INJ (PEG) 1,000 MG/200 ML BAG IVPB ONE (18:30)
[2022-10-22] MEDS ORDERED: VANCOMYCIN 1,000 MG in DEXTROSE 5%-WATER - 250 ML IVPB ONE (18:30)
[2022-10-22] MEDS: LORazepam 0.5 MG TABLET PO PRN (21:35)
[2022-10-22] MEDS: ATORVASTATIN CA 40 MG TABLET (FP) PO SCH (21:35)
[2022-10-22] MEDS: LOSARTAN POTASSIUM 50 MG TABLET PO SCH (21:35)
[2022-10-23] MEDS: PIPERACILLIN/TAZOB 2.25 GM 2.25 GM in DEXTROSE 5%-WATER - 50 ML IVPB SCH ×2 (01:35→10:15)
[2022-10-23] MEDS: PERITONEAL DIALYSIS 2.5% SOLN 2,500 ML IP SCH ×3 (05:29→23:25)
[2022-10-23] MEDS: oxyCODONE HCL 5 MG TABLET PO PRN ×3 (06:25→21:26)
[2022-10-23] MEDS: LEVOTHYROXINE NA 112 MCG TABLET (FP) PO SCH (06:25)
[2022-10-23] MEDS: INSULIN SLIDING SCALE (NOVOLOG) 1 VIAL SQ SCH ×4 (06:26→21:30)
[2022-10-23 07:20] LABS: HEMATOCRIT 25.4 % (32.4-45.2); HEMOGLOBIN 7.8 GM/dL (10.7-15.3); MCH 32.5 pg (25.7-33.7); MCHC 30.8 g/dl (32.0-36.0); MEAN CELL VOLUME 105.6 fl (80-96); MEAN PLT VOLUME 6.3 fl (7.5-11.1); PLATELET COUNT 594 10^3/uL (134-434); RDW 20.5 % (11.6-15.6); WHITE BLOOD COUNT 23.5 K/mm3 (4.0-10.0)
[2022-10-23 07:29] LABS: CALCIUM 7.5 mg/dL (8.5-10.1)
[2022-10-23 07:30] LABS: ALBUMIN 0.8 g/dl (3.4-5.0); BLOOD UREA NITROGEN 71.6 mg/dL (7-18)
[2022-10-23 07:32] LABS: CREATININE 5.7 mg/dL (0.55-1.3)
[2022-10-23 07:33] LABS: BILIRUBIN,TOTAL 0.3 mg/dL (0.2-1); TOT PROT 4.7 g/dl (6.4-8.2)
[2022-10-23 08:16] LABS: POTASSIUM 3.6 mmol/L (3.5-5.1)
[2022-10-23] MEDS: HEPARIN NA (PORCINE) 5,000 UNITS/ML 1ML VIAL SQ SCH ×2 (10:15→21:26)
[2022-10-23] MEDS: AMINO ACIDS/PROTEIN HYDROLYS 30 ML LIQUID.PKT PO SCH ×3 (10:16→17:12)
[2022-10-23] MEDS: VITAMIN B COMP W-C 1 EA TABLET (NEPHRO-VITE) PO SCH (10:16)
[2022-10-23 10:36] LABS: ANISOCYTOSIS 2+; MACROCYTOSIS 0
[2022-10-23] MEDS: AMPICILLIN NA/SULBACTAM NA 1.5 GM in SODIUM CHLORIDE 100 ML IVPB SCH (15:38)
[2022-10-23] MEDS: COLLAGENASE CLOSTRIDIUM HIST. 30 GRAMS TUBE TP SCH (15:39)
[2022-10-23] MEDS: CALCIUM ACETATE 667 MG CAPSULE (FP) PO SCH (17:11)
[2022-10-23] MEDS: HEPARIN PEDIATRIC IVPB SCH (17:49)
[2022-10-23] MEDS: PERITONEAL DIALYSIS 2.5% IVPB SCH (17:49)
[2022-10-23] MEDS: ATORVASTATIN CA 40 MG TABLET (FP) PO SCH (21:26)
[2022-10-23] MEDS: LOSARTAN POTASSIUM 50 MG TABLET PO SCH (21:31)
[2022-10-23] MEDS: ACETAMINOPHEN 500 MG TABLET (FP) PO PRN (23:10)
[2022-10-23] MEDS: LORazepam 0.5 MG TABLET PO PRN (23:11)
[2022-10-24] MEDS: AMPICILLIN NA/SULBACTAM NA 1.5 GM in SODIUM CHLORIDE 100 ML IVPB SCH ×2 (00:46→13:53)
[2022-10-24] MEDS: PERITONEAL DIALYSIS 2.5% SOLN 2,500 ML IP SCH ×3 (05:27→23:00)
[2022-10-24] MEDS: INSULIN SLIDING SCALE (NOVOLOG) 1 VIAL SQ SCH ×4 (06:00→21:59)
[2022-10-24] MEDS: LEVOTHYROXINE NA 112 MCG TABLET (FP) PO SCH (06:01)
[2022-10-24 08:04] LABS: HEMATOCRIT 23.1 % (32.4-45.2); HEMOGLOBIN 7.3 GM/dL (10.7-15.3); MCH 33.8 pg (25.7-33.7); MCHC 31.5 g/dl (32.0-36.0); MEAN CELL VOLUME 107.3 fl (80-96); MEAN PLT VOLUME 7.2 fl (7.5-11.1); PLATELET COUNT 519 10^3/uL (134-434); RBC 2.15 M/mm3 (3.60-5.2); RDW 19.9 % (11.6-15.6); WHITE BLOOD COUNT 21.2 K/mm3 (4.0-10.0)
[2022-10-24 08:16] LABS: POTASSIUM 3.9 mmol/L (3.5-5.1)
[2022-10-24 08:18] LABS: CALCIUM 7.5 mg/dL (8.5-10.1)
[2022-10-24 08:19] LABS: ALBUMIN 0.8 g/dl (3.4-5.0); BLOOD UREA NITROGEN 74.9 mg/dL (7-18); MAGNESIUM 1.9 mg/dL (1.8-2.4)
[2022-10-24 08:22] LABS: CREATININE 5.6 mg/dL (0.55-1.3)
[2022-10-24 08:24] LABS: BILIRUBIN,TOTAL 0.2 mg/dL (0.2-1); TOT PROT 4.4 g/dl (6.4-8.2)
[2022-10-24] MEDS: CALCIUM ACETATE 667 MG CAPSULE (FP) PO SCH ×3 (08:40→18:05)
[2022-10-24] MEDS: AMINO ACIDS/PROTEIN HYDROLYS 30 ML LIQUID.PKT PO SCH ×3 (08:41→18:05)
[2022-10-24] MEDS: VITAMIN B COMP W-C 1 EA TABLET (NEPHRO-VITE) PO SCH (09:46)
[2022-10-24] MEDS: COLLAGENASE CLOSTRIDIUM HIST. 30 GRAMS TUBE TP SCH (09:46)
[2022-10-24] MEDS: HEPARIN NA (PORCINE) 5,000 UNITS/ML 1ML VIAL SQ SCH ×2 (09:46→21:58)
[2022-10-24] MEDS: oxyCODONE HCL 5 MG TABLET PO PRN ×3 (09:47→20:21)
[2022-10-24 10:04] LABS: ANISOCYTOSIS 2+; MACROCYTOSIS 1+
[2022-10-24] MEDS: ACETAMINOPHEN 500 MG TABLET (FP) PO PRN ×2 (11:19→23:45)
[2022-10-24] MEDS ORDERED: EPOETIN ALFA-EPBX 10,000 UNIT/ML VIAL SQ ONE (12:45)
[2022-10-24] MEDS: HEPARIN PEDIATRIC IVPB SCH (17:55)
[2022-10-24] MEDS: PERITONEAL DIALYSIS 2.5% IVPB SCH (17:55)
[2022-10-24] MEDS: ATORVASTATIN CA 40 MG TABLET (FP) PO SCH (21:53)
[2022-10-24] MEDS: LOSARTAN POTASSIUM 50 MG TABLET PO SCH (21:58)
[2022-10-24] MEDS: INSULIN (LEVEMIR) 100 UNITS/ML UNITS SQ SCH (21:58)
[2022-10-24] MEDS: LORazepam 0.5 MG TABLET PO PRN (23:44)
[2022-10-25] MEDS: AMPICILLIN NA/SULBACTAM NA 1.5 GM in SODIUM CHLORIDE 100 ML IVPB SCH ×2 (00:44→15:20)
[2022-10-25] MEDS: PERITONEAL DIALYSIS 2.5% SOLN 2,500 ML IP SCH ×3 (05:01→23:09)
[2022-10-25] MEDS: LEVOTHYROXINE NA 112 MCG TABLET (FP) PO SCH (06:16)
[2022-10-25] MEDS: oxyCODONE HCL 5 MG TABLET PO PRN ×2 (06:16→14:20)
[2022-10-25] MEDS: INSULIN SLIDING SCALE (NOVOLOG) 1 VIAL SQ SCH ×4 (06:17→21:23)
[2022-10-25] MEDS: CALCIUM ACETATE 667 MG CAPSULE (FP) PO SCH ×3 (09:08→17:20)
[2022-10-25] MEDS: ACETAMINOPHEN 500 MG TABLET (FP) PO PRN ×2 (09:11→15:20)
[2022-10-25] MEDS: VITAMIN B COMP W-C 1 EA TABLET (NEPHRO-VITE) PO SCH (09:11)
[2022-10-25] MEDS: LORazepam 0.5 MG TABLET PO PRN (09:12)
[2022-10-25] MEDS: AMINO ACIDS/PROTEIN HYDROLYS 30 ML LIQUID.PKT PO SCH ×3 (09:13→17:20)
[2022-10-25] MEDS: HEPARIN NA (PORCINE) 5,000 UNITS/ML 1ML VIAL SQ SCH ×2 (09:17→21:24)
[2022-10-25 09:18] LABS: CHLORIDE 94 mmol/L (98-107); POTASSIUM 4.3 mmol/L (3.5-5.1); SODIUM 136 mmol/L (136-145)
[2022-10-25] MEDS: COLLAGENASE CLOSTRIDIUM HIST. 30 GRAMS TUBE TP SCH ×2 (09:18→15:26)
[2022-10-25 09:20] LABS: ALBUMIN 0.9 g/dl (3.4-5.0); ANION GAP 17 MMOL/L (8-16); CALCIUM 8.2 mg/dL (8.5-10.1); CO2 26 mmol/L (21-32); MAGNESIUM 2.1 mg/dL (1.8-2.4)
[2022-10-25 09:21] LABS: BLOOD UREA NITROGEN 78.3 mg/dL (7-18)
[2022-10-25 09:23] LABS: CREATININE 5.3 mg/dL (0.55-1.3); HEMATOCRIT 28.8 % (32.4-45.2); MCH 32.5 pg (25.7-33.7); MCHC 31.3 g/dl (32.0-36.0); MEAN CELL VOLUME 103.6 fl (80-96); PLATELET COUNT 548 10^3/uL (134-434); RBC 2.78 M/mm3 (3.60-5.2); SGPT/ALT 47 U/L (13-61)
[2022-10-25] MEDS ORDERED: LORazepam 0.5 MG TABLET PO PRN (09:23)
[2022-10-25 09:24] LABS: SGOT/AST 45 U/L (15-37)
[2022-10-25 09:25] LABS: BILIRUBIN,TOTAL 0.2 mg/dL (0.2-1); TOT PROT 5.1 g/dl (6.4-8.2)
[2022-10-25 09:27] LABS: ALK PHOS 215 U/L (45-117)
[2022-10-25 09:32] LABS: INR 1.2 (0.83-1.09); PROTHROMBIN TIME (PATIENT) 13.9 SEC (9.7-13.0)
[2022-10-25 09:41] LABS: GLUCOSE,RANDOM 452 mg/dL (74-106)
[2022-10-25] MEDS ORDERED: SODIUM CHLORIDE 1,000 ML IV SCH (10:00)
[2022-10-25] MEDS ORDERED: INSULIN (LEVEMIR) 100 UNITS/ML UNITS SQ ONE (10:15)
[2022-10-25] MEDS ORDERED: INSULIN (NOVOLOG) ASPART 100 UNITS/ML 10ML VIAL SQ ONE (10:30)
[2022-10-25] MEDS ORDERED: INSULIN SLIDING SCALE (NOVOLOG) 1 VIAL SQ ONE (10:32)
[2022-10-25] MEDS ORDERED: LIDOCAINE HCL 1%, 10 MG/ML (10ML VIAL) MDV ONE (11:23)
[2022-10-25] MEDS ORDERED: BUPIVACAINE HCL/PF 0.5% (5MG/ML) 10 ML VIAL ONE (11:24)
[2022-10-25] MEDS ORDERED: PROPOFOL 20 ML ONE (11:28)
[2022-10-25] MEDS ORDERED: LIDOCAINE HCL/PF 2% SDV 5ML VIAL ONE (11:28)
[2022-10-25 13:29] LABS: ANISOCYTOSIS 2+; MACROCYTOSIS 2+
[2022-10-25] MEDS: PERITONEAL DIALYSIS 2.5% IVPB SCH (17:57)
[2022-10-25] MEDS: HEPARIN PEDIATRIC IVPB SCH (17:57)
[2022-10-25] MEDS: ATORVASTATIN CA 40 MG TABLET (FP) PO SCH (21:22)
[2022-10-25] MEDS: INSULIN (LEVEMIR) 100 UNITS/ML UNITS SQ SCH (21:23)
[2022-10-25] MEDS: LOSARTAN POTASSIUM 50 MG TABLET PO SCH (21:24)
[2022-10-26] MEDS: AMPICILLIN NA/SULBACTAM NA 1.5 GM in SODIUM CHLORIDE 100 ML IVPB SCH ×2 (00:56→23:11)
[2022-10-26] MEDS: PERITONEAL DIALYSIS 2.5% SOLN 2,500 ML IP SCH ×2 (05:10→23:11)
[2022-10-26] MEDS: LEVOTHYROXINE NA 112 MCG TABLET (FP) PO SCH (06:12)
[2022-10-26] MEDS: INSULIN SLIDING SCALE (NOVOLOG) 1 VIAL SQ SCH ×4 (06:12→23:51)
[2022-10-26] MEDS: oxyCODONE HCL 5 MG TABLET PO PRN (08:09)
[2022-10-26] MEDS: ACETAMINOPHEN 500 MG TABLET (FP) PO PRN (08:10)
[2022-10-26] MEDS: AMINO ACIDS/PROTEIN HYDROLYS 30 ML LIQUID.PKT PO SCH ×3 (08:10→23:11)
[2022-10-26] MEDS: CALCIUM ACETATE 667 MG CAPSULE (FP) PO SCH ×3 (08:11→23:11)
[2022-10-26 09:57] LABS: HEMATOCRIT 27.7 % (32.4-45.2); HEMOGLOBIN 9.1 GM/dL (10.7-15.3); MCH 33.1 pg (25.7-33.7); MCHC 32.7 g/dl (32.0-36.0); MEAN PLT VOLUME 6.8 fl (7.5-11.1); PLATELET COUNT 497 10^3/uL (134-434); RBC 2.74 M/mm3 (3.60-5.2); RDW 20.9 % (11.6-15.6); WHITE BLOOD COUNT 22.9 K/mm3 (4.0-10.0)
[2022-10-26 10:00] LABS: INR 1.25 (0.83-1.09); PROTHROMBIN TIME (PATIENT) 14.5 SEC (9.7-13.0)
[2022-10-26 10:12] LABS: CHLORIDE 96 mmol/L (98-107); SODIUM 138 mmol/L (136-145)
[2022-10-26 10:14] LABS: CALCIUM 7.8 mg/dL (8.5-10.1); GLUCOSE,RANDOM 241 mg/dL (74-106)
[2022-10-26 10:15] LABS: ALBUMIN 0.9 g/dl (3.4-5.0); BLOOD UREA NITROGEN 80.8 mg/dL (7-18); CO2 27 mmol/L (21-32); MAGNESIUM 1.9 mg/dL (1.8-2.4)
[2022-10-26 10:17] LABS: SGPT/ALT 40 U/L (13-61)
[2022-10-26 10:18] LABS: CREATININE 5.1 mg/dL (0.55-1.3); SGOT/AST 19 U/L (15-37)
[2022-10-26] MEDS: HEPARIN NA (PORCINE) 5,000 UNITS/ML 1ML VIAL SQ SCH (10:18)
[2022-10-26 10:19] LABS: TOT PROT 4.7 g/dl (6.4-8.2)
[2022-10-26 10:20] LABS: ALK PHOS 193 U/L (45-117); BILIRUBIN,TOTAL 0.5 mg/dL (0.2-1)
[2022-10-26] MEDS: COLLAGENASE CLOSTRIDIUM HIST. 30 GRAMS TUBE TP SCH (10:27)
[2022-10-26 10:35] LABS: ANION GAP 15 MMOL/L (8-16); POTASSIUM 2.9 mmol/L (3.5-5.1)
[2022-10-26 10:37] LABS: ANISOCYTOSIS 2+; MACROCYTOSIS 1+
[2022-10-26] MEDS: VITAMIN B COMP W-C 1 EA TABLET (NEPHRO-VITE) PO SCH (11:27)
[2022-10-26] MEDS ORDERED: POTASSIUM CHLORIDE ORAL LIQUID 20 MEQ/15 ML PO ONE ×2 (12:45→15:59)
[2022-10-26] MEDS ORDERED: PROPOFOL 20 ML ONE (13:55)
[2022-10-26] MEDS ORDERED: MIDAZOLAM HCL 2 MG/2 ML SINGLE DOSE VIAL ONE (13:56)
[2022-10-26] MEDS ORDERED: ONDANSETRON 4 MG/2 ML VIAL ONE (14:26)
[2022-10-26] MEDS ORDERED: BENZOIN/ALOE VERA/STORAX/TOLU 58 ML BOTTLE ONE (14:39)
[2022-10-26] MEDS ORDERED: BENZOIN/ALOE VERA/STORAX/TOLU 58 ML BOTTLE TP ONE (14:40)
[2022-10-26] MEDS ORDERED: ONDANSETRON 4 MG/2 ML VIAL IVPUSH PRN (15:59)
[2022-10-26] MEDS ORDERED: SODIUM CHLORIDE 250 ML IV STA (16:55)
[2022-10-26] MEDS ORDERED: PERITONEAL DIALYSIS 2.5% IVPB SCH (17:00)
[2022-10-26] MEDS ORDERED: HEPARIN PEDIATRIC IVPB SCH (17:00)
[2022-10-26] MEDS ORDERED: LACTATED RINGERS SOLUTION 1,000 ML/1,000 ML INFUS.BAG IV STA (18:46)
[2022-10-26] MEDS ORDERED: SODIUM CHLORIDE 1,000 ML IV STA ×2 (19:02→19:03)
[2022-10-26 19:37] LABS: HEMATOCRIT 23.2 % (32.4-45.2); HEMOGLOBIN 7.2 GM/dL (10.7-15.3); MCH 31.8 pg (25.7-33.7); MCHC 31.1 g/dl (32.0-36.0); MEAN CELL VOLUME 102.1 fl (80-96); PLATELET COUNT 451 10^3/uL (134-434); RBC 2.27 M/mm3 (3.60-5.2); RDW 20.9 % (11.6-15.6); WHITE BLOOD COUNT 23.1 K/mm3 (4.0-10.0)
[2022-10-26] MEDS ORDERED: PHENYLEPHRINE HCL 10 MG/1 ML SINGLE DOSE VIAL ONE (21:22)
[2022-10-26] MEDS: PHENYLEPHRINE NS PREMIX 50,000 MCG/500 ML BAG CVP SCH (21:45)
[2022-10-26] MEDS ORDERED: NOREPINEPHRINE BITARTRATE 4 MG/4 ML ML IV ONE ×2 (21:53→22:38)
[2022-10-26] MEDS ORDERED: DESMOPRESSIN ACETATE 4 MCG/ML AMP IVPB ONE (22:15)
[2022-10-26 22:17] LABS: ANISOCYTOSIS 2+; MACROCYTOSIS 1+
[2022-10-26] MEDS: NOREPINEPHRINE BITARTRATE 4,000 MCG in DEXTROSE 5%-WATER - 496 ML IV SCH ×2 (22:37→23:12)
[2022-10-26] MEDS ORDERED: VASOPRESSIN 20 UNITS/ML VIAL IV ONE (22:38)
[2022-10-26] MEDS: KCL 10 MEQ IVPB 10 MEQ/100 ML INFUS.BAG IVPB SCH ×2 (22:48→22:50)
[2022-10-26] MEDS: VASOPRESSIN 40 UNITS/100 ML BAG IV SCH ×2 (22:52→22:54)
[2022-10-26] MEDS: NOREPINEPHRINE 0.9 % NACL 8 MG/250 ML BAG IVPB SCH (23:03)
[2022-10-26 23:04] LABS: HEMATOCRIT 32.8 % (32.4-45.2); HEMOGLOBIN 10.5 GM/dL (10.7-15.3); MCH 30.6 pg (25.7-33.7); MEAN CELL VOLUME 95.6 fl (80-96); MEAN PLT VOLUME 6.9 fl (7.5-11.1); PLATELET COUNT 582 10^3/uL (134-434); RBC 3.43 M/mm3 (3.60-5.2); RDW 20.5 % (11.6-15.6)
[2022-10-26 23:08] LABS: WHITE BLOOD COUNT 30.5 K/mm3 (4.0-10.0)
[2022-10-26] MEDS: LOSARTAN POTASSIUM 50 MG TABLET PO SCH (23:08)
[2022-10-26 23:10] LABS: ADD RBC MORPHOLOGY YES; INR 1.38 (0.83-1.09)
[2022-10-26] MEDS: ATORVASTATIN CA 40 MG TABLET (FP) PO SCH (23:12)
[2022-10-26 23:23] LABS: POTASSIUM 3.3 mmol/L (3.5-5.1)
[2022-10-26 23:24] LABS: BLOOD UREA NITROGEN 76.9 mg/dL (7-18); CALCIUM 7.5 mg/dL (8.5-10.1)
[2022-10-26 23:28] LABS: CREATININE 4.8 mg/dL (0.55-1.3)
[2022-10-26 23:34] LABS: LACTIC ACID 5.7 mmol/L (0.4-2.0)
[2022-10-26 23:40] LABS: ANISOCYTOSIS 2+; MACROCYTOSIS 1+
[2022-10-26] MEDS ORDERED: INSULIN (NOVOLOG) ASPART 100 UNITS/ML 10ML VIAL ONE (23:50)
[2022-10-26] MEDS: INSULIN (LEVEMIR) 100 UNITS/ML UNITS SQ SCH (23:51)
[2022-10-26] MEDS: CHLORHEXIDINE GLUCONATE 4% CLEANSER FOR DECOLONIZATION TP SCH (23:52)
[2022-10-26] MEDS: MUPIROCIN 2% TOPICAL OINTMENT FOR DECOLONIZATION NS SCH (23:52)
[2022-10-27] MEDS: PERITONEAL DIALYSIS 2.5% SOLN 2,500 ML IP SCH ×3 (00:04→15:47)
[2022-10-27] MEDS ORDERED: HYDROCORTISONE SOD SUCCINATE 100 MG/2 ML VIAL IVPB SCH (00:45)
[2022-10-27] MEDS ORDERED: AMPICILLIN NA/SULBACTAM NA 1.5 GM in SODIUM CHLORIDE 100 ML IVPB SCH (01:30)
[2022-10-27] MEDS ORDERED: methylPREDNISolone NA SUCC 40 MG/1 ML VIAL IVPUSH SCH (02:00)
[2022-10-27] MEDS ORDERED: INSULIN (NOVOLOG) ASPART 100 UNITS/ML 10ML VIAL ONE ×6 (06:34→21:28)
[2022-10-27] MEDS: LEVOTHYROXINE NA 112 MCG TABLET (FP) PO SCH (06:36)
[2022-10-27] MEDS: INSULIN SLIDING SCALE (NOVOLOG) 1 VIAL SQ SCH ×4 (06:36→21:36)
[2022-10-27 07:44] LABS: LACTIC ACID 3.7 mmol/L (0.4-2.0)
[2022-10-27] MEDS ORDERED: LACTATED RINGERS SOLUTION 1000 ML INFUS.BAG IV ONE (08:26)
[2022-10-27 08:33] LABS: POTASSIUM 3.2 mmol/L (3.5-5.1)
[2022-10-27 08:36] LABS: ALBUMIN 0.9 g/dl (3.4-5.0)
[2022-10-27 08:37] LABS: BLOOD UREA NITROGEN 86.8 mg/dL (7-18); INR 1.44 (0.83-1.09); PROTHROMBIN TIME (PATIENT) 16.6 SEC (9.7-13.0)
[2022-10-27 08:39] LABS: CREATININE 4.9 mg/dL (0.55-1.3)
[2022-10-27 08:40] LABS: HEMATOCRIT 38.8 % (32.4-45.2); HEMOGLOBIN 12.5 GM/dL (10.7-15.3); MCH 29.9 pg (25.7-33.7); MCHC 32.4 g/dl (32.0-36.0); MEAN CELL VOLUME 92.3 fl (80-96); MEAN PLT VOLUME 7.2 fl (7.5-11.1); PLATELET COUNT 609 10^3/uL (134-434); RDW 19.3 % (11.6-15.6)
[2022-10-27 08:41] LABS: BILIRUBIN,TOTAL 0.7 mg/dL (0.2-1)
[2022-10-27 08:43] LABS: TOT PROT 4.2 g/dl (6.4-8.2)
[2022-10-27 08:45] LABS: CALCIUM 8.7 mg/dL (8.5-10.1)
[2022-10-27 08:46] LABS: WHITE BLOOD COUNT 39.2 K/mm3 (4.0-10.0)
[2022-10-27] MEDS: VASOPRESSIN 40 UNITS/100 ML BAG IV SCH ×2 (09:00→16:24)
[2022-10-27] MEDS: VITAMIN B COMP W-C 1 EA TABLET (NEPHRO-VITE) PO SCH (09:20)
[2022-10-27] MEDS: CALCIUM ACETATE 667 MG CAPSULE (FP) PO SCH ×3 (09:20→17:11)
[2022-10-27] MEDS: FLUDROCORTISONE ACETATE 0.1 MG TABLET (FP) PO SCH (09:20)
[2022-10-27] MEDS: AMINO ACIDS/PROTEIN HYDROLYS 30 ML LIQUID.PKT PO SCH ×3 (09:21→17:13)
[2022-10-27] MEDS: methylPREDNISolone NA SUCC 40 MG/1 ML VIAL IVPUSH SCH ×3 (09:21→21:38)
[2022-10-27] MEDS ORDERED: POTASSIUM CHLORIDE ORAL LIQUID 20 MEQ/15 ML PO ONE (09:30)
[2022-10-27] MEDS: LORazepam 0.5 MG TABLET PO PRN (09:32)
[2022-10-27] MEDS: MUPIROCIN 2% TOPICAL OINTMENT FOR DECOLONIZATION NS SCH ×2 (09:32→21:39)
[2022-10-27] MEDS ORDERED: VANCOMYCIN 1 GM in D5W (PRE-DOCKED) 1,000 MG/250 ML (RESTRICTED TO ID ONLY IVPB SCH (10:00)
[2022-10-27] MEDS: COLLAGENASE CLOSTRIDIUM HIST. 30 GRAMS TUBE TP SCH (10:00)
[2022-10-27] MEDS ORDERED: VANCOMYCIN 1 GM/200 ML PREMIX BAG (RESTRICTED TO ID ONLY) IVPB ONE (10:00)
[2022-10-27 11:19] LABS: ANISOCYTOSIS 1+; MACROCYTOSIS 0
[2022-10-27] MEDS: NOREPINEPHRINE 0.9 % NACL 8 MG/250 ML BAG IVPB SCH (12:05)
[2022-10-27 12:08] LABS: LACTIC ACID 2.7 mmol/L (0.4-2.0)
[2022-10-27] MEDS: PIPERACILLIN/TAZOB 2.25 GM 2.25 GM in DEXTROSE 5%-WATER - 50 ML IVPB SCH ×2 (12:12→17:11)
[2022-10-27] MEDS: PERITONEAL DIALYSIS 1.5% SOLN 2,500 ML IP SCH (15:10)
[2022-10-27] MEDS: ACETAMINOPHEN 500 MG TABLET (FP) PO PRN (15:19)
[2022-10-27] MEDS: oxyCODONE HCL 5 MG TABLET PO PRN ×3 (15:23→23:01)
[2022-10-27] MEDS: HEPARIN PEDIATRIC IVPB SCH (20:59)
[2022-10-27] MEDS: PERITONEAL DIALYSIS 2.5% IVPB SCH (20:59)
[2022-10-27] MEDS: HEPARIN NA (PORCINE) 5,000 UNITS/ML 1ML VIAL SQ SCH (21:24)
[2022-10-27] MEDS: INSULIN (LEVEMIR) 100 UNITS/ML UNITS SQ SCH (21:37)
[2022-10-27] MEDS: ATORVASTATIN CA 40 MG TABLET (FP) PO SCH (21:39)
[2022-10-27] MEDS: CHLORHEXIDINE GLUCONATE 4% CLEANSER FOR DECOLONIZATION TP SCH (21:40)
[2022-10-28] MEDS: PHENYLEPHRINE NS PREMIX 50,000 MCG/500 ML BAG CVP SCH ×3 (00:05→22:12)
[2022-10-28] MEDS: PIPERACILLIN/TAZOB 2.25 GM 2.25 GM in DEXTROSE 5%-WATER - 50 ML IVPB SCH ×3 (01:02→17:38)
[2022-10-28] MEDS: methylPREDNISolone NA SUCC 40 MG/1 ML VIAL IVPUSH SCH ×4 (02:32→22:11)
[2022-10-28] MEDS: PERITONEAL DIALYSIS 1.5% SOLN 2,500 ML IP SCH ×3 (02:32→16:00)
[2022-10-28] MEDS: HEPARIN NA (PORCINE) 5,000 UNITS/ML 1ML VIAL SQ SCH ×3 (05:07→22:13)
[2022-10-28] MEDS: oxyCODONE HCL 5 MG TABLET PO PRN ×2 (05:11→16:38)
[2022-10-28] MEDS: INSULIN SLIDING SCALE (NOVOLOG) 1 VIAL SQ SCH ×4 (06:15→22:14)
[2022-10-28] MEDS: LEVOTHYROXINE NA 112 MCG TABLET (FP) PO SCH (06:15)
[2022-10-28] MEDS ORDERED: INSULIN (NOVOLOG) ASPART 100 UNITS/ML 10ML VIAL ONE ×2 (06:26→22:10)
[2022-10-28 07:01] LABS: HEMATOCRIT 29.3 % (32.4-45.2); HEMOGLOBIN 9.7 GM/dL (10.7-15.3); MCH 30.8 pg (25.7-33.7); MEAN CELL VOLUME 93.3 fl (80-96); MEAN PLT VOLUME 7.4 fl (7.5-11.1); PLATELET COUNT 314 10^3/uL (134-434); RBC 3.14 M/mm3 (3.60-5.2); RDW 20.5 % (11.6-15.6); WHITE BLOOD COUNT 26.3 K/mm3 (4.0-10.0)
[2022-10-28 07:12] LABS: INR 1.46 (0.83-1.09); PROTHROMBIN TIME (PATIENT) 16.9 SEC (9.7-13.0)
[2022-10-28 07:21] LABS: POTASSIUM 3.5 mmol/L (3.5-5.1)
[2022-10-28 07:25] LABS: ALBUMIN 0.9 g/dl (3.4-5.0); CALCIUM 7.8 mg/dL (8.5-10.1)
[2022-10-28 07:26] LABS: MAGNESIUM 1.8 mg/dL (1.8-2.4)
[2022-10-28 07:29] LABS: CREATININE 4.9 mg/dL (0.55-1.3)
[2022-10-28 07:30] LABS: BILIRUBIN,TOTAL 0.5 mg/dL (0.2-1); TOT PROT 3.6 g/dl (6.4-8.2)
[2022-10-28] MEDS ORDERED: INSULIN (LEVEMIR) 100 UNITS/ML UNITS SQ SCH (08:21)
[2022-10-28] MEDS: CALCIUM ACETATE 667 MG CAPSULE (FP) PO SCH ×3 (09:00→16:38)
[2022-10-28] MEDS: VITAMIN B COMP W-C 1 EA TABLET (NEPHRO-VITE) PO SCH (09:50)
[2022-10-28] MEDS: AMINO ACIDS/PROTEIN HYDROLYS 30 ML LIQUID.PKT PO SCH ×3 (09:50→16:38)
[2022-10-28] MEDS: FLUDROCORTISONE ACETATE 0.1 MG TABLET (FP) PO SCH (09:50)
[2022-10-28] MEDS: FAMOTIDINE 10 MG TABLET PO SCH (09:50)
[2022-10-28] MEDS: LORazepam 0.5 MG TABLET PO PRN (09:50)
[2022-10-28] MEDS: COLLAGENASE CLOSTRIDIUM HIST. 30 GRAMS TUBE TP SCH (09:51)
[2022-10-28] MEDS: MUPIROCIN 2% TOPICAL OINTMENT FOR DECOLONIZATION NS SCH ×2 (09:51→22:12)
[2022-10-28] MEDS: LACTOBACILLUS ACIDOPHILUS 1 TABLET PO SCH (09:52)
[2022-10-28 10:18] LABS: ANISOCYTOSIS 2+; MACROCYTOSIS 0
[2022-10-28] MEDS: VASOPRESSIN 40 UNITS/100 ML BAG IV SCH ×2 (11:27→22:06)
[2022-10-28] MEDS: ACETAMINOPHEN 500 MG TABLET (FP) PO PRN (16:38)
[2022-10-28] MEDS: PERITONEAL DIALYSIS 2.5% SOLN 2,500 ML IP SCH (16:39)
[2022-10-28 17:49] LABS: BF WBC & OTHER NUCLEATED CELLS 29 /mm3
[2022-10-28] MEDS ORDERED: LACTATED RINGERS SOLUTION 1000 ML INFUS.BAG IV ONE (19:09)
[2022-10-28 19:46] LABS: BODY FLUID BASOPHIL 1 %; BODY FLUID MACROPHAGES 19 %; BODY FLUID MONOCYTE 16 %; BODYL FLD EOSINOPHIL 1 %
[2022-10-28] MEDS: PERITONEAL DIALYSIS 2.5% IVPB SCH (21:30)
[2022-10-28] MEDS: HEPARIN PEDIATRIC IVPB SCH (21:30)
[2022-10-28] MEDS: ATORVASTATIN CA 40 MG TABLET (FP) PO SCH (22:12)
[2022-10-28] MEDS: CHLORHEXIDINE GLUCONATE 4% CLEANSER FOR DECOLONIZATION TP SCH (22:13)
[2022-10-28] MEDS: LOSARTAN POTASSIUM 50 MG TABLET PO SCH (22:13)
[2022-10-29] MEDS: PERITONEAL DIALYSIS 2.5% SOLN 2,500 ML IP SCH ×4 (01:42→17:19)
[2022-10-29] MEDS: PIPERACILLIN/TAZOB 2.25 GM 2.25 GM in DEXTROSE 5%-WATER - 50 ML IVPB SCH ×3 (01:44→17:15)
[2022-10-29] MEDS: methylPREDNISolone NA SUCC 40 MG/1 ML VIAL IVPUSH SCH ×4 (02:00→21:56)
[2022-10-29] MEDS: oxyCODONE HCL 5 MG TABLET PO PRN ×3 (02:06→16:22)
[2022-10-29] MEDS: LORazepam 0.5 MG TABLET PO PRN (05:29)
[2022-10-29] MEDS: HEPARIN NA (PORCINE) 5,000 UNITS/ML 1ML VIAL SQ SCH ×3 (05:30→21:56)
[2022-10-29] MEDS: INSULIN SLIDING SCALE (NOVOLOG) 1 VIAL SQ SCH ×7 (06:04→22:09)
[2022-10-29] MEDS: LEVOTHYROXINE NA 112 MCG TABLET (FP) PO SCH (06:12)
[2022-10-29 07:24] LABS: HEMATOCRIT 28.9 % (32.4-45.2); HEMOGLOBIN 9.5 GM/dL (10.7-15.3); MCH 30.9 pg (25.7-33.7); MEAN CELL VOLUME 93.7 fl (80-96); MEAN PLT VOLUME 7.4 fl (7.5-11.1); PLATELET COUNT 239 10^3/uL (134-434); RBC 3.08 M/mm3 (3.60-5.2); RDW 21.7 % (11.6-15.6); WHITE BLOOD COUNT 18.6 K/mm3 (4.0-10.0)
[2022-10-29 07:27] LABS: INR 1.42 (0.83-1.09); PROTHROMBIN TIME (PATIENT) 16.4 SEC (9.7-13.0)
[2022-10-29 07:37] LABS: POTASSIUM 3.2 mmol/L (3.5-5.1)
[2022-10-29 07:40] LABS: CALCIUM 7.6 mg/dL (8.5-10.1); MAGNESIUM 1.8 mg/dL (1.8-2.4)
[2022-10-29 07:43] LABS: CREATININE 4.7 mg/dL (0.55-1.3); PHOSPHOROUS 6.3 mg/dL (2.5-4.9)
[2022-10-29 07:45] LABS: BILIRUBIN,TOTAL 0.4 mg/dL (0.2-1); TOT PROT 3.8 g/dl (6.4-8.2)
[2022-10-29] MEDS ORDERED: POTASSIUM CHLORIDE ORAL LIQUID 20 MEQ/15 ML PO ONE (08:30)
[2022-10-29 09:02] LABS: ANISOCYTOSIS 1+; MACROCYTOSIS 1+
[2022-10-29] MEDS: SEVELAMER CARBONATE 800 MG TAB (FP) PO SCH ×3 (09:18→16:49)
[2022-10-29] MEDS: AMINO ACIDS/PROTEIN HYDROLYS 30 ML LIQUID.PKT PO SCH ×3 (09:19→16:49)
[2022-10-29] MEDS ORDERED: LACTATED RINGERS SOLUTION 1000 ML INFUS.BAG IV ONE (10:08)
[2022-10-29] MEDS: LACTOBACILLUS ACIDOPHILUS 1 TABLET PO SCH (10:22)
[2022-10-29] MEDS: FAMOTIDINE 10 MG TABLET PO SCH (10:22)
[2022-10-29] MEDS: FLUDROCORTISONE ACETATE 0.1 MG TABLET (FP) PO SCH (10:24)
[2022-10-29] MEDS: VITAMIN B COMP W-C 1 EA TABLET (NEPHRO-VITE) PO SCH (10:24)
[2022-10-29] MEDS: MUPIROCIN 2% TOPICAL OINTMENT FOR DECOLONIZATION NS SCH ×2 (10:25→21:56)
[2022-10-29] MEDS ORDERED: INSULIN (LEVEMIR) 100 UNITS/ML UNITS SQ SCH (10:53)
[2022-10-29] MEDS ORDERED: INSULIN (NOVOLOG) ASPART 100 UNITS/ML 10ML VIAL SQ SCH (11:00)
[2022-10-29] MEDS ORDERED: DEXTROSE 50%-WATER 25 GM/50 ML DISP.SYRIN IVPUSH PRN (11:07)
[2022-10-29] MEDS: COLLAGENASE CLOSTRIDIUM HIST. 30 GRAMS TUBE TP SCH (11:28)
[2022-10-29] MEDS ORDERED: SODIUM THIOSULFATE 12.5 GM/50 ML VIAL IVPB SCH (14:00)
[2022-10-29] MEDS: morphine SULFATE 4 MG/ML VIAL IVPUSH PRN (14:09)
[2022-10-29] MEDS: ACETAMINOPHEN 500 MG TABLET (FP) PO PRN (16:25)
[2022-10-29] MEDS: INSULIN (NOVOLOG) ASPART 100 UNITS/ML 10ML VIAL SQ SCH (16:48)
[2022-10-29] MEDS ORDERED: LORazepam 2 MG/ML SDV VIAL IVPUSH ONE (17:14)
[2022-10-29] MEDS: NOREPINEPHRINE 0.9 % NACL 8 MG/250 ML BAG IVPB SCH (18:00)
[2022-10-29] MEDS ORDERED: METOPROLOL TARTRATE 5 MG/5 ML VIAL IVPUSH ONE (18:24)
[2022-10-29] MEDS ORDERED: METOPROLOL TARTRATE 5 MG/5 ML VIAL ONE (18:29)
[2022-10-29] MEDS: SODIUM CHLORIDE IVPB SCH (19:37)
[2022-10-29] MEDS: SODIUM THIOSULFATE IVPB SCH (19:37)
[2022-10-29] MEDS ORDERED: AMIODARONE IN DEXTROSE 150 MG/100 ML PREMIX BAG IV ONE (19:38)
[2022-10-29] MEDS: AMIODARONE IN DEXTROSE,ISO-OSM 360 MG/200 ML BAG IV SCH (20:12)
[2022-10-29] MEDS ORDERED: INSULIN (NOVOLOG) ASPART 100 UNITS/ML 10ML VIAL ONE (21:55)
[2022-10-29] MEDS: ATORVASTATIN CA 40 MG TABLET (FP) PO SCH (21:56)
[2022-10-29] MEDS: CHLORHEXIDINE GLUCONATE 4% CLEANSER FOR DECOLONIZATION TP SCH (21:56)
[2022-10-29] MEDS: INSULIN (LEVEMIR) 100 UNITS/ML UNITS SQ SCH (22:08)
[2022-10-29] MEDS: PHENYLEPHRINE NS PREMIX 50,000 MCG/500 ML BAG CVP SCH (22:41)
[2022-10-29] MEDS: PERITONEAL DIALYSIS 2.5% IVPB SCH (23:30)
[2022-10-29] MEDS: HEPARIN PEDIATRIC IVPB SCH (23:30)
[2022-10-30] MEDS: AMIODARONE IN DEXTROSE,ISO-OSM 360 MG/200 ML BAG IV SCH ×5 (01:24→21:38)
[2022-10-30] MEDS: VASOPRESSIN 40 UNITS/100 ML BAG IV SCH (01:28)
[2022-10-30] MEDS: PIPERACILLIN/TAZOB 2.25 GM 2.25 GM in DEXTROSE 5%-WATER - 50 ML IVPB SCH ×3 (01:29→17:15)
[2022-10-30] MEDS: methylPREDNISolone NA SUCC 40 MG/1 ML VIAL IVPUSH SCH ×4 (03:55→21:38)
[2022-10-30] MEDS: PERITONEAL DIALYSIS 2.5% SOLN 2,500 ML IP SCH ×3 (05:19→16:44)
[2022-10-30] MEDS: LEVOTHYROXINE NA 112 MCG TABLET (FP) PO SCH (06:40)
[2022-10-30] MEDS: INSULIN (LEVEMIR) 100 UNITS/ML UNITS SQ SCH ×2 (06:40→21:39)
[2022-10-30] MEDS: HEPARIN NA (PORCINE) 5,000 UNITS/ML 1ML VIAL SQ SCH ×3 (06:41→21:39)
[2022-10-30] MEDS: INSULIN SLIDING SCALE (NOVOLOG) 1 VIAL SQ SCH ×4 (06:42→21:39)
[2022-10-30] MEDS: INSULIN (NOVOLOG) ASPART 100 UNITS/ML 10ML VIAL SQ SCH ×3 (06:42→16:44)
[2022-10-30 07:09] LABS: INR 1.46 (0.83-1.09); PROTHROMBIN TIME (PATIENT) 16.9 SEC (9.7-13.0)
[2022-10-30 07:11] LABS: HEMATOCRIT 29.9 % (32.4-45.2); HEMOGLOBIN 9.9 GM/dL (10.7-15.3); MCH 31.1 pg (25.7-33.7); MCHC 33.1 g/dl (32.0-36.0); MEAN PLT VOLUME 7.2 fl (7.5-11.1); PLATELET COUNT 287 10^3/uL (134-434); RBC 3.18 M/mm3 (3.60-5.2); RDW 20.4 % (11.6-15.6); WHITE BLOOD COUNT 23.3 K/mm3 (4.0-10.0)
[2022-10-30 07:30] LABS: CALCIUM 7.4 mg/dL (8.5-10.1)
[2022-10-30 07:31] LABS: BLOOD UREA NITROGEN 86.1 mg/dL (7-18); MAGNESIUM 1.8 mg/dL (1.8-2.4)
[2022-10-30 07:33] LABS: PHOSPHOROUS 5.4 mg/dL (2.5-4.9)
[2022-10-30 07:34] LABS: CREATININE 4.5 mg/dL (0.55-1.3)
[2022-10-30 07:35] LABS: BILIRUBIN,TOTAL 0.4 mg/dL (0.2-1)
[2022-10-30 09:04] LABS: ANISOCYTOSIS 1+; MACROCYTOSIS 1+
[2022-10-30] MEDS: AMINO ACIDS/PROTEIN HYDROLYS 30 ML LIQUID.PKT PO SCH ×3 (09:26→16:44)
[2022-10-30] MEDS: SEVELAMER CARBONATE 800 MG TAB (FP) PO SCH ×3 (09:26→16:45)
[2022-10-30] MEDS: LACTOBACILLUS ACIDOPHILUS 1 TABLET PO SCH (09:27)
[2022-10-30] MEDS: FAMOTIDINE 10 MG TABLET PO SCH (09:27)
[2022-10-30] MEDS: MUPIROCIN 2% TOPICAL OINTMENT FOR DECOLONIZATION NS SCH ×2 (09:27→21:40)
[2022-10-30] MEDS: COLLAGENASE CLOSTRIDIUM HIST. 30 GRAMS TUBE TP SCH (09:28)
[2022-10-30] MEDS: FLUDROCORTISONE ACETATE 0.1 MG TABLET (FP) PO SCH (09:28)
[2022-10-30] MEDS: VITAMIN B COMP W-C 1 EA TABLET (NEPHRO-VITE) PO SCH (09:28)
[2022-10-30] MEDS ORDERED: SERTRALINE HCL 25 MG TABLET (FP) PO SCH (10:00)
[2022-10-30] MEDS: MIDODRINE HCL 5 MG TABLET PO SCH ×3 (10:07→17:15)
[2022-10-30 14:13] LABS: BODY FLUID ALBUMIN <0.2 g/dL (Not Estab.)
[2022-10-30] MEDS: oxyCODONE HCL 5 MG TABLET PO PRN (18:52)
[2022-10-30] MEDS ORDERED: INSULIN (NOVOLOG) ASPART 100 UNITS/ML 10ML VIAL ONE (21:37)
[2022-10-30] MEDS: ATORVASTATIN CA 40 MG TABLET (FP) PO SCH (21:39)
[2022-10-30] MEDS: CHLORHEXIDINE GLUCONATE 4% CLEANSER FOR DECOLONIZATION TP SCH (21:39)
[2022-10-30] MEDS: PHENYLEPHRINE NS PREMIX 50,000 MCG/500 ML BAG CVP SCH (21:40)
[2022-10-30] MEDS: PERITONEAL DIALYSIS 2.5% IVPB SCH (23:19)
[2022-10-30] MEDS: HEPARIN PEDIATRIC IVPB SCH (23:19)
[2022-10-31] MEDS: AMIODARONE IN DEXTROSE,ISO-OSM 360 MG/200 ML BAG IV SCH (02:05)
[2022-10-31] MEDS: methylPREDNISolone NA SUCC 40 MG/1 ML VIAL IVPUSH SCH ×4 (03:00→21:52)
[2022-10-31] MEDS: PIPERACILLIN/TAZOB 2.25 GM 2.25 GM in DEXTROSE 5%-WATER - 50 ML IVPB SCH ×3 (03:00→17:14)
[2022-10-31] MEDS: oxyCODONE HCL 5 MG TABLET PO PRN ×3 (03:47→16:53)
[2022-10-31] MEDS ORDERED: INSULIN (NOVOLOG) ASPART 100 UNITS/ML 10ML VIAL ONE (05:49)
[2022-10-31] MEDS: PERITONEAL DIALYSIS 2.5% SOLN 2,500 ML IP SCH ×3 (06:00→17:00)
[2022-10-31] MEDS: INSULIN SLIDING SCALE (NOVOLOG) 1 VIAL SQ SCH ×4 (06:15→22:03)
[2022-10-31] MEDS: INSULIN (NOVOLOG) ASPART 100 UNITS/ML 10ML VIAL SQ SCH ×3 (06:15→17:24)
[2022-10-31] MEDS: HEPARIN NA (PORCINE) 5,000 UNITS/ML 1ML VIAL SQ SCH ×3 (06:15→21:57)
[2022-10-31] MEDS: INSULIN (LEVEMIR) 100 UNITS/ML UNITS SQ SCH ×2 (06:15→21:58)
[2022-10-31] MEDS: LEVOTHYROXINE NA 112 MCG TABLET (FP) PO SCH (06:16)
[2022-10-31 07:17] LABS: HEMATOCRIT 30.1 % (32.4-45.2); HEMOGLOBIN 9.9 GM/dL (10.7-15.3); MCH 30.9 pg (25.7-33.7); MEAN CELL VOLUME 93.6 fl (80-96); MEAN PLT VOLUME 8.2 fl (7.5-11.1); PLATELET COUNT 234 10^3/uL (134-434); RBC 3.22 M/mm3 (3.60-5.2); RDW 21.3 % (11.6-15.6); WHITE BLOOD COUNT 23.5 K/mm3 (4.0-10.0)
[2022-10-31 07:22] LABS: POTASSIUM 3.1 mmol/L (3.5-5.1)
[2022-10-31 07:24] LABS: ALBUMIN 1.1 g/dl (3.4-5.0); CALCIUM 7.4 mg/dL (8.5-10.1); MAGNESIUM 1.8 mg/dL (1.8-2.4)
[2022-10-31 07:25] LABS: BLOOD UREA NITROGEN 85.6 mg/dL (7-18)
[2022-10-31 07:27] LABS: CREATININE 4.5 mg/dL (0.55-1.3); PHOSPHOROUS 5.8 mg/dL (2.5-4.9)
[2022-10-31 07:29] LABS: BILIRUBIN,TOTAL 0.3 mg/dL (0.2-1); TOT PROT 3.9 g/dl (6.4-8.2)
[2022-10-31] MEDS: AMINO ACIDS/PROTEIN HYDROLYS 30 ML LIQUID.PKT PO SCH ×3 (08:55→16:55)
[2022-10-31] MEDS: SEVELAMER CARBONATE 800 MG TAB (FP) PO SCH ×3 (08:55→16:55)
[2022-10-31] MEDS: MUPIROCIN 2% TOPICAL OINTMENT FOR DECOLONIZATION NS SCH (09:10)
[2022-10-31 09:13] LABS: ANISOCYTOSIS 3+; MACROCYTOSIS 0
[2022-10-31] MEDS: FAMOTIDINE 10 MG TABLET PO SCH (10:33)
[2022-10-31] MEDS: ACETAMINOPHEN 500 MG TABLET (FP) PO PRN ×2 (10:35→16:53)
[2022-10-31] MEDS: FLUDROCORTISONE ACETATE 0.1 MG TABLET (FP) PO SCH (10:36)
[2022-10-31] MEDS: VITAMIN B COMP W-C 1 EA TABLET (NEPHRO-VITE) PO SCH (10:36)
[2022-10-31] MEDS: MIDODRINE HCL 5 MG TABLET PO SCH ×3 (10:36→17:14)
[2022-10-31] MEDS: COLLAGENASE CLOSTRIDIUM HIST. 30 GRAMS TUBE TP SCH (12:10)
[2022-10-31] MEDS: LACTOBACILLUS ACIDOPHILUS 1 TABLET PO SCH (12:16)
[2022-10-31] MEDS: morphine SULFATE 4 MG/ML VIAL IVPUSH PRN (16:51)
[2022-10-31] MEDS: KCL 10 MEQ IVPB 10 MEQ/100 ML INFUS.BAG IVPB SCH ×3 (18:46→20:30)
[2022-10-31] MEDS: LORazepam 0.5 MG TABLET PO PRN (20:30)
[2022-10-31] MEDS: CHLORHEXIDINE GLUCONATE 4% CLEANSER FOR DECOLONIZATION TP SCH (21:58)
[2022-10-31] MEDS: ATORVASTATIN CA 40 MG TABLET (FP) PO SCH (21:59)
[2022-10-31] MEDS: PERITONEAL DIALYSIS 2.5% IVPB SCH (23:11)
[2022-10-31] MEDS: HEPARIN PEDIATRIC IVPB SCH (23:11)
[2022-11-01] MEDS: PIPERACILLIN/TAZOB 2.25 GM 2.25 GM in DEXTROSE 5%-WATER - 50 ML IVPB SCH ×3 (02:02→18:44)
[2022-11-01] MEDS: methylPREDNISolone NA SUCC 40 MG/1 ML VIAL IVPUSH SCH ×2 (02:02→08:24)
[2022-11-01] MEDS: PERITONEAL DIALYSIS 2.5% SOLN 2,500 ML IP SCH ×3 (04:47→18:09)
[2022-11-01] MEDS: HEPARIN NA (PORCINE) 5,000 UNITS/ML 1ML VIAL SQ SCH ×3 (06:35→23:51)
[2022-11-01] MEDS: INSULIN (LEVEMIR) 100 UNITS/ML UNITS SQ SCH ×2 (06:37→23:44)
[2022-11-01] MEDS: INSULIN SLIDING SCALE (NOVOLOG) 1 VIAL SQ SCH ×4 (06:38→23:44)
[2022-11-01] MEDS: INSULIN (NOVOLOG) ASPART 100 UNITS/ML 10ML VIAL SQ SCH ×3 (06:40→18:06)
[2022-11-01] MEDS: LEVOTHYROXINE NA 112 MCG TABLET (FP) PO SCH (06:41)
[2022-11-01 07:00] LABS: HEMATOCRIT 32.7 % (32.4-45.2); HEMOGLOBIN 10.6 GM/dL (10.7-15.3); MCH 30.6 pg (25.7-33.7); MCHC 32.5 g/dl (32.0-36.0); MEAN CELL VOLUME 94.2 fl (80-96); MEAN PLT VOLUME 8.4 fl (7.5-11.1); PLATELET COUNT 249 10^3/uL (134-434); RBC 3.47 M/mm3 (3.60-5.2); RDW 23.2 % (11.6-15.6); WHITE BLOOD COUNT 25.4 K/mm3 (4.0-10.0)
[2022-11-01 07:14] LABS: POTASSIUM 3.5 mmol/L (3.5-5.1)
[2022-11-01 07:16] LABS: CALCIUM 7.6 mg/dL (8.5-10.1)
[2022-11-01 07:17] LABS: BLOOD UREA NITROGEN 77.4 mg/dL (7-18); MAGNESIUM 1.7 mg/dL (1.8-2.4)
[2022-11-01 07:20] LABS: PHOSPHOROUS 5.9 mg/dL (2.5-4.9)
[2022-11-01 07:22] LABS: CREATININE 4.4 mg/dL (0.55-1.3)
[2022-11-01] MEDS ORDERED: MAGNESIUM 2GM/50ML STERILE WATER IVPB IVPB ONE (07:45)
[2022-11-01] MEDS: SEVELAMER CARBONATE 800 MG TAB (FP) PO SCH ×3 (08:24→17:22)
[2022-11-01] MEDS: AMINO ACIDS/PROTEIN HYDROLYS 30 ML LIQUID.PKT PO SCH ×3 (08:24→17:24)
[2022-11-01] MEDS: oxyCODONE HCL 5 MG TABLET PO PRN (09:37)
[2022-11-01] MEDS: FLUDROCORTISONE ACETATE 0.1 MG TABLET (FP) PO SCH (09:38)
[2022-11-01] MEDS: MIDODRINE HCL 5 MG TABLET PO SCH ×3 (09:38→17:23)
[2022-11-01] MEDS: LACTOBACILLUS ACIDOPHILUS 1 TABLET PO SCH (09:38)
[2022-11-01] MEDS: VITAMIN B COMP W-C 1 EA TABLET (NEPHRO-VITE) PO SCH (09:38)
[2022-11-01] MEDS: FAMOTIDINE 10 MG TABLET PO SCH (09:38)
[2022-11-01] MEDS: morphine SULFATE 4 MG/ML VIAL IVPUSH PRN (10:27)
[2022-11-01] MEDS: ACETAMINOPHEN 500 MG TABLET (FP) PO PRN ×2 (11:12→18:56)
[2022-11-01] MEDS: COLLAGENASE CLOSTRIDIUM HIST. 30 GRAMS TUBE TP SCH (11:20)
[2022-11-01] MEDS ORDERED: VANCOMYCIN/WATER FOR INJ (PEG) 1,000 MG/200 ML BAG IVPB ONE (14:00)
[2022-11-01] MEDS: SODIUM THIOSULFATE IVPB SCH (14:46)
[2022-11-01] MEDS: SODIUM CHLORIDE IVPB SCH (14:46)
[2022-11-01] MEDS ORDERED: methylPREDNISolone NA SUCC 40 MG/1 ML VIAL IVPUSH SCH (22:00)
[2022-11-01] MEDS: CHLORHEXIDINE GLUCONATE 4% CLEANSER FOR DECOLONIZATION TP SCH (23:34)
[2022-11-01] MEDS: ATORVASTATIN CA 40 MG TABLET (FP) PO SCH (23:38)
[2022-11-01] MEDS: HEPARIN PEDIATRIC IVPB SCH (23:56)
[2022-11-01] MEDS: PERITONEAL DIALYSIS 2.5% IVPB SCH (23:56)
[2022-11-02] MEDS: PIPERACILLIN/TAZOB 2.25 GM 2.25 GM in DEXTROSE 5%-WATER - 50 ML IVPB SCH ×3 (01:16→18:00)
[2022-11-02] MEDS: PERITONEAL DIALYSIS 2.5% SOLN 2,500 ML IP SCH ×3 (05:40→18:15)
[2022-11-02] MEDS: HEPARIN NA (PORCINE) 5,000 UNITS/ML 1ML VIAL SQ SCH ×3 (06:40→22:04)
[2022-11-02] MEDS: oxyCODONE HCL 5 MG TABLET PO PRN ×2 (06:44→14:53)
[2022-11-02] MEDS: LEVOTHYROXINE NA 112 MCG TABLET (FP) PO SCH (06:44)
[2022-11-02] MEDS: AMINO ACIDS/PROTEIN HYDROLYS 30 ML LIQUID.PKT PO SCH ×3 (08:24→16:42)
[2022-11-02] MEDS ORDERED: ONDANSETRON 4 MG/2 ML VIAL IVPUSH PRN (08:43)
[2022-11-02] MEDS ORDERED: LORazepam 0.5 MG TABLET PO PRN (08:43)
[2022-11-02] MEDS ORDERED: DEXTROSE 50%-WATER 25 GM/50 ML DISP.SYRIN IVPUSH PRN (08:43)
[2022-11-02] MEDS ORDERED: methylPREDNISolone NA SUCC 40 MG/1 ML VIAL IVPUSH SCH (10:00)
[2022-11-02] MEDS ORDERED: SODIUM CHLORIDE IVPB SCH (10:30)
[2022-11-02] MEDS ORDERED: SODIUM THIOSULFATE IVPB SCH (10:30)
[2022-11-02 10:50] LABS: HEMATOCRIT 39.5 % (32.4-45.2); HEMOGLOBIN 12.5 GM/dL (10.7-15.3); MCH 30.7 pg (25.7-33.7); MCHC 31.6 g/dl (32.0-36.0); MEAN CELL VOLUME 97.2 fl (80-96); MEAN PLT VOLUME 8.8 fl (7.5-11.1); PLATELET COUNT 285 10^3/uL (134-434); RBC 4.06 M/mm3 (3.60-5.2)
[2022-11-02 10:55] LABS: WHITE BLOOD COUNT 32.4 K/mm3 (4.0-10.0)
[2022-11-02] MEDS: MIDODRINE HCL 5 MG TABLET PO SCH ×3 (10:56→17:59)
[2022-11-02] MEDS: LACTOBACILLUS ACIDOPHILUS 1 TABLET PO SCH (10:56)
[2022-11-02] MEDS: FAMOTIDINE 10 MG TABLET PO SCH (10:57)
[2022-11-02] MEDS: VITAMIN B COMP W-C 1 EA TABLET (NEPHRO-VITE) PO SCH (10:58)
[2022-11-02 11:10] LABS: POTASSIUM 3.4 mmol/L (3.5-5.1)
[2022-11-02 11:11] LABS: CALCIUM 7.9 mg/dL (8.5-10.1)
[2022-11-02 11:12] LABS: MAGNESIUM 2.2 mg/dL (1.8-2.4)
[2022-11-02 11:14] LABS: CREATININE 4.3 mg/dL (0.55-1.3); PHOSPHOROUS 6.4 mg/dL (2.5-4.9)
[2022-11-02 11:16] LABS: BILIRUBIN,TOTAL 0.5 mg/dL (0.2-1); TOT PROT 4.6 g/dl (6.4-8.2)
[2022-11-02] MEDS: FLUDROCORTISONE ACETATE 0.1 MG TABLET (FP) PO SCH (11:19)
[2022-11-02 11:21] LABS: ALBUMIN 1.4 g/dl (3.4-5.0)
[2022-11-02 11:43] LABS: ANISOCYTOSIS 2+; MACROCYTOSIS 1+
[2022-11-02] MEDS: INSULIN (LEVEMIR) 100 UNITS/ML UNITS SQ SCH ×2 (11:43→22:10)
[2022-11-02] MEDS: INSULIN (NOVOLOG) ASPART 100 UNITS/ML 10ML VIAL SQ SCH ×3 (11:45→16:41)
[2022-11-02] MEDS: INSULIN SLIDING SCALE (NOVOLOG) 1 VIAL SQ SCH ×3 (11:48→22:13)
[2022-11-02] MEDS ORDERED: INSULIN SLIDING SCALE (NOVOLOG) 1 VIAL SQ ONE ×2 (11:54→16:50)
[2022-11-02] MEDS: COLLAGENASE CLOSTRIDIUM HIST. 30 GRAMS TUBE TP SCH (13:28)
[2022-11-02] MEDS: SEVELAMER CARBONATE 800 MG TAB (FP) PO SCH ×2 (13:29→16:43)
[2022-11-02] MEDS: morphine SULFATE 4 MG/ML VIAL IVPUSH PRN (16:07)
[2022-11-02] MEDS ORDERED: CHLORHEXIDINE GLUCONATE 4% CLEANSER FOR DECOLONIZATION TP SCH (22:00)
[2022-11-02] MEDS: ATORVASTATIN CA 40 MG TABLET (FP) PO SCH (22:03)
[2022-11-02] MEDS: HEPARIN PEDIATRIC IVPB SCH (23:25)
[2022-11-02] MEDS: PERITONEAL DIALYSIS 2.5% IVPB SCH (23:25)
[2022-11-03] MEDS: PIPERACILLIN/TAZOB 2.25 GM 2.25 GM in DEXTROSE 5%-WATER - 50 ML IVPB SCH ×3 (01:46→17:10)
[2022-11-03] MEDS: PERITONEAL DIALYSIS 2.5% SOLN 2,500 ML IP SCH ×2 (05:00→11:11)
[2022-11-03] MEDS: HEPARIN NA (PORCINE) 5,000 UNITS/ML 1ML VIAL SQ SCH ×3 (06:29→22:28)
[2022-11-03] MEDS: LEVOTHYROXINE NA 112 MCG TABLET (FP) PO SCH (06:30)
[2022-11-03] MEDS: INSULIN (LEVEMIR) 100 UNITS/ML UNITS SQ SCH ×2 (06:33→22:27)
[2022-11-03] MEDS: INSULIN SLIDING SCALE (NOVOLOG) 1 VIAL SQ SCH ×4 (06:42→22:27)
[2022-11-03] MEDS: INSULIN (NOVOLOG) ASPART 100 UNITS/ML 10ML VIAL SQ SCH ×3 (06:42→16:29)
[2022-11-03] MEDS: SEVELAMER CARBONATE 800 MG TAB (FP) PO SCH ×4 (08:49→17:33)
[2022-11-03] MEDS: AMINO ACIDS/PROTEIN HYDROLYS 30 ML LIQUID.PKT PO SCH ×3 (08:49→17:10)
[2022-11-03] MEDS: oxyCODONE HCL 5 MG TABLET PO PRN ×4 (08:56→22:30)
[2022-11-03 09:12] LABS: HEMATOCRIT 33.5 % (32.4-45.2); HEMOGLOBIN 10.9 GM/dL (10.7-15.3); MCH 30.6 pg (25.7-33.7); MCHC 32.6 g/dl (32.0-36.0); MEAN CELL VOLUME 94.1 fl (80-96); MEAN PLT VOLUME 8.6 fl (7.5-11.1); PLATELET COUNT 283 10^3/uL (134-434); RBC 3.56 M/mm3 (3.60-5.2); RDW 22.5 % (11.6-15.6)
[2022-11-03 09:14] LABS: CHLORIDE 94 mmol/L (98-107); SODIUM 139 mmol/L (136-145)
[2022-11-03 09:17] LABS: BLOOD UREA NITROGEN 84.7 mg/dL (7-18); CALCIUM 7.9 mg/dL (8.5-10.1); GLUCOSE,RANDOM 230 mg/dL (74-106)
[2022-11-03 09:18] LABS: ALBUMIN 1.1 g/dl (3.4-5.0); CO2 20 mmol/L (21-32); MAGNESIUM 2.1 mg/dL (1.8-2.4)
[2022-11-03 09:21] LABS: CREATININE 4.3 mg/dL (0.55-1.3); PHOSPHOROUS 6.7 mg/dL (2.5-4.9); SGOT/AST 11 U/L (15-37); SGPT/ALT 31 U/L (13-61)
[2022-11-03 09:22] LABS: TOT PROT 3.7 g/dl (6.4-8.2)
[2022-11-03 09:23] LABS: BILIRUBIN,TOTAL 0.4 mg/dL (0.2-1)
[2022-11-03 09:24] LABS: ALK PHOS 421 U/L (45-117); ANION GAP 25 MMOL/L (8-16); POTASSIUM 2.9 mmol/L (3.5-5.1)
[2022-11-03 10:02] LABS: ANISOCYTOSIS 1+; MACROCYTOSIS 0
[2022-11-03] MEDS: LACTOBACILLUS ACIDOPHILUS 1 TABLET PO SCH (10:19)
[2022-11-03] MEDS: VITAMIN B COMP W-C 1 EA TABLET (NEPHRO-VITE) PO SCH (10:20)
[2022-11-03] MEDS: FAMOTIDINE 10 MG TABLET PO SCH (10:20)
[2022-11-03] MEDS: MIDODRINE HCL 5 MG TABLET PO SCH ×3 (10:20→17:12)
[2022-11-03] MEDS: FLUDROCORTISONE ACETATE 0.1 MG TABLET (FP) PO SCH (10:22)
[2022-11-03] MEDS: KCL 10 MEQ IVPB 10 MEQ/100 ML INFUS.BAG IVPB SCH ×3 (10:24→13:36)
[2022-11-03] MEDS: COLLAGENASE CLOSTRIDIUM HIST. 30 GRAMS TUBE TP SCH (10:26)
[2022-11-03] MEDS ORDERED: INSULIN SLIDING SCALE (NOVOLOG) 1 VIAL SQ ONE (12:01)
[2022-11-03] MEDS: POTASSIUM CHLORIDE ORAL LIQUID 20 MEQ/15 ML PO ONE ×2 (13:26→13:49)
[2022-11-03] MEDS: SODIUM CHLORIDE IVPB SCH (14:06)
[2022-11-03] MEDS: SODIUM THIOSULFATE IVPB SCH (14:06)
[2022-11-03] MEDS: morphine SULFATE 4 MG/ML VIAL IVPUSH PRN (15:21)
[2022-11-03] MEDS: PERITONEAL DIALYSIS 4.25% SOL 2,500 ML IP SCH (17:10)
[2022-11-03] MEDS: CALCIUM ACETATE 667 MG CAPSULE (FP) PO SCH (17:11)
[2022-11-03] MEDS: ATORVASTATIN CA 40 MG TABLET (FP) PO SCH (22:27)
[2022-11-03] MEDS ORDERED: MIDODRINE HCL 5 MG TABLET PO ONE (23:45)
[2022-11-03] MEDS: PERITONEAL DIALYSIS 2.5% IVPB SCH (23:48)
[2022-11-03] MEDS: HEPARIN PEDIATRIC IVPB SCH (23:48)
[2022-11-04] MEDS: PIPERACILLIN/TAZOB 2.25 GM 2.25 GM in DEXTROSE 5%-WATER - 50 ML IVPB SCH ×3 (01:37→18:10)
[2022-11-04] MEDS: PERITONEAL DIALYSIS 2.5% SOLN 2,500 ML IP SCH ×2 (05:00→12:42)
[2022-11-04] MEDS: INSULIN (NOVOLOG) ASPART 100 UNITS/ML 10ML VIAL SQ SCH ×3 (06:36→16:27)
[2022-11-04] MEDS: INSULIN (LEVEMIR) 100 UNITS/ML UNITS SQ SCH ×2 (06:36→21:25)
[2022-11-04] MEDS: INSULIN SLIDING SCALE (NOVOLOG) 1 VIAL SQ SCH ×4 (06:37→21:25)
[2022-11-04] MEDS: HEPARIN NA (PORCINE) 5,000 UNITS/ML 1ML VIAL SQ SCH ×3 (06:38→21:22)
[2022-11-04] MEDS: LEVOTHYROXINE NA 112 MCG TABLET (FP) PO SCH (06:39)
[2022-11-04 09:57] LABS: POTASSIUM 4.1 mmol/L (3.5-5.1)
[2022-11-04 09:59] LABS: CALCIUM 7.8 mg/dL (8.5-10.1); MAGNESIUM 2.1 mg/dL (1.8-2.4)
[2022-11-04 10:02] LABS: CREATININE 4.3 mg/dL (0.55-1.3); PHOSPHOROUS 6.9 mg/dL (2.5-4.9)
[2022-11-04 10:04] LABS: BILIRUBIN,TOTAL 0.4 mg/dL (0.2-1)
[2022-11-04 10:05] LABS: TOT PROT 2.5 g/dl (6.4-8.2)
[2022-11-04 10:11] LABS: ALBUMIN 0.7 g/dl (3.4-5.0)
[2022-11-04] MEDS: AMINO ACIDS/PROTEIN HYDROLYS 30 ML LIQUID.PKT PO SCH ×3 (10:18→18:10)
[2022-11-04] MEDS: SEVELAMER CARBONATE 800 MG TAB (FP) PO SCH ×3 (10:18→18:09)
[2022-11-04] MEDS: CALCIUM ACETATE 667 MG CAPSULE (FP) PO SCH ×3 (10:18→18:09)
[2022-11-04] MEDS: MIDODRINE HCL 5 MG TABLET PO SCH ×3 (10:18→18:09)
[2022-11-04] MEDS: VITAMIN B COMP W-C 1 EA TABLET (NEPHRO-VITE) PO SCH (10:19)
[2022-11-04] MEDS: FAMOTIDINE 10 MG TABLET PO SCH (10:19)
[2022-11-04] MEDS: LACTOBACILLUS ACIDOPHILUS 1 TABLET PO SCH (10:19)
[2022-11-04] MEDS: ACETAMINOPHEN 500 MG TABLET (FP) PO PRN ×2 (12:37→21:21)
[2022-11-04] MEDS: oxyCODONE HCL 5 MG TABLET PO PRN (14:33)
[2022-11-04] MEDS: morphine SULFATE 4 MG/ML VIAL IVPUSH PRN (16:28)
[2022-11-04] MEDS: COLLAGENASE CLOSTRIDIUM HIST. 30 GRAMS TUBE TP SCH (18:10)
[2022-11-04] MEDS: PERITONEAL DIALYSIS 4.25% SOL 2,500 ML IP SCH (18:41)
[2022-11-04] MEDS ORDERED: PANTOPRAZOLE SODIUM 40 MG VIAL IVPUSH ONE (20:59)
[2022-11-04] MEDS: ATORVASTATIN CA 40 MG TABLET (FP) PO SCH (21:22)
[2022-11-04] MEDS: HEPARIN PEDIATRIC IVPB SCH (23:13)
[2022-11-04] MEDS: PERITONEAL DIALYSIS 2.5% IVPB SCH (23:13)
[2022-11-05] MEDS: PIPERACILLIN/TAZOB 2.25 GM 2.25 GM in DEXTROSE 5%-WATER - 50 ML IVPB SCH ×4 (01:19→18:56)
[2022-11-05] MEDS: PERITONEAL DIALYSIS 2.5% SOLN 2,500 ML IP SCH ×2 (05:09→11:13)
[2022-11-05] MEDS: LEVOTHYROXINE NA 112 MCG TABLET (FP) PO SCH (06:06)
[2022-11-05] MEDS: INSULIN (LEVEMIR) 100 UNITS/ML UNITS SQ SCH ×2 (06:06→22:30)
[2022-11-05] MEDS: HEPARIN NA (PORCINE) 5,000 UNITS/ML 1ML VIAL SQ SCH ×3 (06:06→22:29)
[2022-11-05] MEDS: INSULIN (NOVOLOG) ASPART 100 UNITS/ML 10ML VIAL SQ SCH ×3 (06:07→17:45)
[2022-11-05] MEDS: INSULIN SLIDING SCALE (NOVOLOG) 1 VIAL SQ SCH ×4 (06:08→22:30)
[2022-11-05] MEDS: CALCIUM ACETATE 667 MG CAPSULE (FP) PO SCH ×3 (09:29→17:47)
[2022-11-05] MEDS: SEVELAMER CARBONATE 800 MG TAB (FP) PO SCH ×3 (09:29→17:12)
[2022-11-05] MEDS: AMINO ACIDS/PROTEIN HYDROLYS 30 ML LIQUID.PKT PO SCH ×3 (09:29→17:46)
[2022-11-05] MEDS: LACTOBACILLUS ACIDOPHILUS 1 TABLET PO SCH (09:31)
[2022-11-05] MEDS: MIDODRINE HCL 5 MG TABLET PO SCH ×3 (09:31→17:15)
[2022-11-05] MEDS: VITAMIN B COMP W-C 1 EA TABLET (NEPHRO-VITE) PO SCH (09:31)
[2022-11-05] MEDS: FAMOTIDINE 10 MG TABLET PO SCH (09:45)
[2022-11-05] MEDS: COLLAGENASE CLOSTRIDIUM HIST. 30 GRAMS TUBE TP SCH (10:47)
[2022-11-05] MEDS: SODIUM THIOSULFATE IVPB SCH (14:36)
[2022-11-05] MEDS: SODIUM CHLORIDE IVPB SCH (14:36)
[2022-11-05] MEDS: morphine SULFATE 4 MG/ML VIAL IVPUSH PRN (14:47)
[2022-11-05] MEDS: oxyCODONE HCL 5 MG TABLET PO PRN ×2 (15:00→20:34)
[2022-11-05] MEDS: ACETAMINOPHEN 500 MG TABLET (FP) PO PRN (17:10)
[2022-11-05] MEDS: PERITONEAL DIALYSIS 4.25% SOL 2,500 ML IP SCH (17:49)
[2022-11-05 19:35] LABS: POTASSIUM 3.6 mmol/L (3.5-5.1)
[2022-11-05 19:38] LABS: CALCIUM 8.7 mg/dL (8.5-10.1)
[2022-11-05 19:39] LABS: BLOOD UREA NITROGEN 76.3 mg/dL (7-18); MAGNESIUM 2.1 mg/dL (1.8-2.4)
[2022-11-05 19:42] LABS: PHOSPHOROUS 6.9 mg/dL (2.5-4.9)
[2022-11-05 19:43] LABS: TOT PROT 3.4 g/dl (6.4-8.2)
[2022-11-05 19:44] LABS: BILIRUBIN,TOTAL 0.5 mg/dL (0.2-1)
[2022-11-05 19:56] LABS: ALBUMIN 0.9 g/dl (3.4-5.0)
[2022-11-05] MEDS: ATORVASTATIN CA 40 MG TABLET (FP) PO SCH (22:30)
[2022-11-05] MEDS: HEPARIN PEDIATRIC IVPB SCH (22:31)
[2022-11-05] MEDS: PERITONEAL DIALYSIS 2.5% IVPB SCH (22:31)
[2022-11-05] MEDS ORDERED: NALOXONE HCL 0.4 MG/ML VIAL ONE (23:57)
[2022-11-06] MEDS ORDERED: RAPID SEQUENCE INTUBATION KIT NR ONE (00:01)
[2022-11-06] MEDS ORDERED: LACTATED RINGERS SOLUTION 1,000 ML/1,000 ML INFUS.BAG IV ONE (00:14)
[2022-11-06] MEDS ORDERED: VANCOMYCIN 1 GM/200 ML PREMIX BAG (RESTRICTED TO ID ONLY) IVPB ONE (00:22)
[2022-11-06] MEDS ORDERED: MIDAZOLAM HCL 2 MG/2 ML SINGLE DOSE VIAL ONE (01:12)
[2022-11-06] MEDS ORDERED: ROCURONIUM BROMIDE 50 MG/5 ML VIAL ONE (01:12)
[2022-11-06] MEDS ORDERED: KETAMINE HCL 200 MG/20 ML VIAL IVPUSH ONE (01:20)
[2022-11-06] MEDS ORDERED: VASOPRESSIN 20 UNITS/ML VIAL IV ONE (01:27)
[2022-11-06] MEDS ORDERED: DOPAMINE 400 MG/D5W - 400,000 MCG/250 ML INFUS.BAG IVPB ONE (01:54)
[2022-11-06] MEDS ORDERED: LACTATED RINGERS SOLUTION 1,000 ML/1,000 ML INFUS.BAG IV STA (02:54)
[2022-11-06] MEDS ORDERED: PIPERACILLIN/TAZOB 3.375 GM 3.375 GM in DEXTROSE 5%-WATER - 50 ML IVPB SCH (03:00)
[2022-11-06] MEDS ORDERED: VANCOMYCIN/WATER 1,250 MG/250 ML BAG (RESTRICTED TO ID ONLY) IVPB ONE (03:00)
[2022-11-06] MEDS ORDERED: VASOPRESSIN 40 UNITS/100 ML BAG IV SCH (03:00)
[2022-11-06] MEDS ORDERED: NOREPINEPHRINE BITARTRATE 4,000 MCG in DEXTROSE 5%-WATER - 496 ML IV SCH (03:00)
[2022-11-06] MEDS ORDERED: MIDAZOLAM HCL 2 MG/2 ML SINGLE DOSE VIAL IVPUSH STA (03:01)
[2022-11-06] MEDS: VANCOMYCIN ORAL SOLUTION 125 MG/2.5 ML PO SCH ×5 (03:09→23:37)
[2022-11-06] MEDS: DOPAMINE 400 MG/D5W - 400,000 MCG/250 ML INFUS.BAG IVPB SCH ×6 (03:10→21:20)
[2022-11-06] MEDS: NOREPINEPHRINE BITARTRATE/D5W 8 MG/250 ML BAG IVPB SCH ×3 (03:11→18:57)
[2022-11-06] MEDS ORDERED: AMIODARONE HCL INJECTION 150 MG in DEXTROSE 5%-WATER - 100 ML IVPB ONE (03:15)
[2022-11-06] MEDS ORDERED: AMIODARONE IN DEXTROSE,ISO-OSM 360 MG/200 ML BAG IV ONE (03:15)
[2022-11-06] MEDS ORDERED: ROCURONIUM BROMIDE 50 MG/5 ML VIAL IV STA (03:16)
[2022-11-06] MEDS ORDERED: AMIODARONE HCL 150 MG/3 ML VIAL ONE (03:16)
[2022-11-06] MEDS ORDERED: AMIODARONE IN DEXTROSE,ISO-OSM 150 MG/100 ML BAG ONE (03:16)
[2022-11-06 03:20] LABS: ARTERIAL BLD GAS O2 SATURATION 98.8 % (95-98); ARTERIAL BLOOD GAS PO2 176.2 mmHg (80-100); ARTERIAL BLOOD GAS pH 7.166 (7.350-7.450)
[2022-11-06] MEDS ORDERED: AMIODARONE HCL 150 MG/3 ML VIAL IVPUSH ONE (03:21)
[2022-11-06 03:22] LABS: VENT MODE V-A/C; VENT RATE 22
[2022-11-06] MEDS ORDERED: [UNRECOGNIZED DRUG - OTHER] ONE (03:30)
[2022-11-06 03:35] LABS: HEMATOCRIT 39.1 % (32.4-45.2); HEMOGLOBIN 12.2 GM/dL (10.7-15.3); MCH 29.9 pg (25.7-33.7); MCHC 31.1 g/dl (32.0-36.0); MEAN CELL VOLUME 96.2 fl (80-96); MEAN PLT VOLUME 9.2 fl (7.5-11.1); PLATELET COUNT 390 10^3/uL (134-434); RBC 4.06 M/mm3 (3.60-5.2); RDW 23.3 % (11.6-15.6)
[2022-11-06 03:53] LABS: CHLORIDE 97 mmol/L (98-107); SODIUM 143 mmol/L (136-145)
[2022-11-06 03:56] LABS: ALBUMIN 0.9 g/dl (3.4-5.0); CO2 12 mmol/L (21-32); GLUCOSE,RANDOM 305 mg/dL (74-106); MAGNESIUM 2.1 mg/dL (1.8-2.4)
[2022-11-06 03:58] LABS: SGPT/ALT 58 U/L (13-61)
[2022-11-06 03:59] LABS: CREATININE 3.9 mg/dL (0.55-1.3); PHOSPHOROUS 8.2 mg/dL (2.5-4.9); SGOT/AST 68 U/L (15-37)
[2022-11-06 04:00] LABS: BILIRUBIN,TOTAL 0.6 mg/dL (0.2-1); TOT PROT 3.7 g/dl (6.4-8.2)
[2022-11-06 04:06] LABS: WHITE BLOOD COUNT 44.4 K/mm3 (4.0-10.0)
[2022-11-06 04:07] LABS: INR 1.84 (0.83-1.09); PROTHROMBIN TIME (PATIENT) 21.2 SEC (9.7-13.0)
[2022-11-06] MEDS: HYDROCORTISONE SOD SUCCINATE 100 MG/2 ML VIAL IVPB SCH ×3 (04:07→17:40)
[2022-11-06] MEDS: PIPERACILLIN/TAZOB 2.25 GM 2.25 GM in DEXTROSE 5%-WATER - 50 ML IVPB SCH (04:07)
[2022-11-06 04:17] LABS: N-TERMINAL BNP 10680.3 pg/ml (5-125)
[2022-11-06 04:19] LABS: ALK PHOS 760 U/L (45-117); ANION GAP 34 MMOL/L (8-16); POTASSIUM 2.8 mmol/L (3.5-5.1)
[2022-11-06] MEDS: PERITONEAL DIALYSIS 2.5% SOLN 2,500 ML IP SCH ×2 (04:28→17:58)
[2022-11-06 04:50] LABS: LACTIC ACID 4.5 mmol/L (0.4-2.0)
[2022-11-06] MEDS: INSULIN SLIDING SCALE (NOVOLOG) 1 VIAL SQ SCH ×4 (06:17→21:21)
[2022-11-06] MEDS: INSULIN (LEVEMIR) 100 UNITS/ML UNITS SQ SCH ×2 (06:17→21:18)
[2022-11-06] MEDS: INSULIN (NOVOLOG) ASPART 100 UNITS/ML 10ML VIAL SQ SCH ×3 (06:17→17:31)
[2022-11-06] MEDS: LEVOTHYROXINE NA 112 MCG TABLET (FP) PO SCH (06:18)
[2022-11-06] MEDS: HEPARIN NA (PORCINE) 5,000 UNITS/ML 1ML VIAL SQ SCH ×3 (06:18→21:23)
[2022-11-06] MEDS: KCL 20 MEQ PREMIX BAG 100 ML IVPB SCH ×3 (06:20→09:28)
[2022-11-06 06:32] LABS: HEMATOCRIT 38.7 % (32.4-45.2); HEMOGLOBIN 11.9 GM/dL (10.7-15.3); MCH 30.4 pg (25.7-33.7); MCHC 30.8 g/dl (32.0-36.0); MEAN CELL VOLUME 98.4 fl (80-96); MEAN PLT VOLUME 9.7 fl (7.5-11.1); PLATELET COUNT 349 10^3/uL (134-434); RBC 3.93 M/mm3 (3.60-5.2); RDW 23.2 % (11.6-15.6)
[2022-11-06 06:46] LABS: ALBUMIN 0.9 g/dl (3.4-5.0); BLOOD UREA NITROGEN 70.9 mg/dL (7-18); CALCIUM 9.4 mg/dL (8.5-10.1); MAGNESIUM 2.3 mg/dL (1.8-2.4)
[2022-11-06 06:49] LABS: CREATININE 3.8 mg/dL (0.55-1.3)
[2022-11-06 06:51] LABS: BILIRUBIN,TOTAL 1.2 mg/dL (0.2-1); TOT PROT 3.8 g/dl (6.4-8.2); WHITE BLOOD COUNT 49.7 K/mm3 (4.0-10.0)
[2022-11-06] MEDS ORDERED: MEROPENEM 1 GM in DEXTROSE 5%-WATER 100 ML IVPB SCH ×2 (08:15→10:00)
[2022-11-06] MEDS: AMINO ACIDS/PROTEIN HYDROLYS 30 ML LIQUID.PKT PO SCH ×3 (08:52→17:33)
[2022-11-06] MEDS: CALCIUM ACETATE 667 MG CAPSULE (FP) PO SCH ×3 (08:59→17:33)
[2022-11-06] MEDS: SEVELAMER CARBONATE 800 MG TAB (FP) PO SCH ×3 (08:59→17:34)
[2022-11-06] MEDS: LACTOBACILLUS ACIDOPHILUS 1 TABLET PO SCH (09:01)
[2022-11-06] MEDS: VITAMIN B COMP W-C 1 EA TABLET (NEPHRO-VITE) PO SCH (09:01)
[2022-11-06 09:06] LABS: ANISOCYTOSIS 2+; MACROCYTOSIS 0
[2022-11-06] MEDS ORDERED: AMIODARONE IN DEXTROSE,ISO-OSM 360 MG/200 ML BAG IV SCH ×2 (09:15→21:30)
[2022-11-06] MEDS: COLLAGENASE CLOSTRIDIUM HIST. 30 GRAMS TUBE TP SCH (09:27)
[2022-11-06] MEDS ORDERED: PHENYLEPHRINE NS PREMIX 50,000 MCG/500 ML BAG CVP SCH (09:45)
[2022-11-06 10:24] LABS: ARTERIAL BLD GAS O2 SATURATION 99.5 % (95-98); ARTERIAL BLOOD GAS BASE EXCESS -18.3 mmol/L (-2-2); ARTERIAL BLOOD GAS PO2 274.1 mmHg (80-100)
[2022-11-06 10:29] LABS: ALLENS TEST POSITIVE; ARTERIAL BLOOD GAS pH 7.173 (7.350-7.450)
[2022-11-06 10:30] LABS: PT'S TEMP 98.6; VENT MODE AC; VENT RATE 30
[2022-11-06] MEDS ORDERED: CASPOFUNGIN ACETATE 70 MG in SODIUM CHLORIDE 250 ML IVPB ONE (11:00)
[2022-11-06] MEDS ORDERED: SODIUM CHLORIDE 500 ML IV STA ×2 (11:03→12:13)
[2022-11-06] MEDS ORDERED: SODIUM BICARBONATE 8.4% 50 MEQ/50 ML DISP.SYRIN IVPUSH STA (11:03)
[2022-11-06 11:38] LABS: HEMATOCRIT 35.7 % (32.4-45.2); HEMOGLOBIN 11.2 GM/dL (10.7-15.3); MCH 29.9 pg (25.7-33.7); MCHC 31.4 g/dl (32.0-36.0); MEAN CELL VOLUME 95.4 fl (80-96); PLATELET COUNT 331 10^3/uL (134-434); RBC 3.74 M/mm3 (3.60-5.2); RDW 23.7 % (11.6-15.6)
[2022-11-06 11:40] LABS: WHITE BLOOD COUNT 46.5 K/mm3 (4.0-10.0)
[2022-11-06 11:44] LABS: INR 2.07 (0.83-1.09); PROTHROMBIN TIME (PATIENT) 23.8 SEC (9.7-13.0)
[2022-11-06 11:59] LABS: CHLORIDE 90 mmol/L (98-107); POTASSIUM 3.8 mmol/L (3.5-5.1); SODIUM 139 mmol/L (136-145)
[2022-11-06 12:01] LABS: ANION GAP 30 MMOL/L (8-16); BLOOD UREA NITROGEN 67.9 mg/dL (7-18); CO2 18 mmol/L (21-32); GLUCOSE,RANDOM 390 mg/dL (74-106); MAGNESIUM 2.2 mg/dL (1.8-2.4)
[2022-11-06 12:04] LABS: CREATININE 3.8 mg/dL (0.55-1.3); PHOSPHOROUS 8.1 mg/dL (2.5-4.9)
[2022-11-06 12:09] LABS: N-TERMINAL BNP 11713.7 pg/ml (5-125)
[2022-11-06 12:14] LABS: LACTIC ACID 4.2 mmol/L (0.4-2.0)
[2022-11-06] MEDS ORDERED: SODIUM BICARBONATE 8.4% 50 MEQ/50 ML DISP.SYRIN IVPUSH ONE (12:30)
[2022-11-06 13:01] LABS: BF WBC & OTHER NUCLEATED CELLS 33 /mm3
[2022-11-06 13:02] LABS: BODY FLUID MACROPHAGES 9 %; BODY FLUID MESOTHELIAL 5 %; BODY FLUID MONOCYTE 14 %
[2022-11-06] MEDS: VASOPRESSIN 40 UNITS/100 ML BAG IV SCH (15:09)
[2022-11-06] MEDS: PERITONEAL DIALYSIS 4.25% SOL 2,500 ML IP SCH (17:35)
[2022-11-06] MEDS: MEROPENEM 1 GM in DEXTROSE 5%-WATER 100 ML IVPB SCH (20:35)
[2022-11-06] MEDS: ATORVASTATIN CA 40 MG TABLET (FP) PO SCH (21:23)
[2022-11-06] MEDS: PERITONEAL DIALYSIS 2.5% IVPB SCH (22:36)
[2022-11-06] MEDS: HEPARIN PEDIATRIC IVPB SCH (22:36)
[2022-11-07 00:01] LABS: ARTERIAL BLD GAS O2 SATURATION 99.4 % (95-98); ARTERIAL BLOOD GAS BASE EXCESS -16.8 mmol/L (-2-2); ARTERIAL BLOOD GAS pH 7.248 (7.350-7.450)
[2022-11-07] MEDS: DOPAMINE 400 MG/D5W - 400,000 MCG/250 ML INFUS.BAG IVPB SCH ×7 (00:10→21:14)
[2022-11-07 01:16] LABS: LACTIC ACID 4.3 mmol/L (0.4-2.0)
[2022-11-07] MEDS ORDERED: LACTATED RINGERS SOLUTION 1000 ML INFUS.BAG IV STA (01:53)
[2022-11-07] MEDS: HYDROCORTISONE SOD SUCCINATE 100 MG/2 ML VIAL IVPB SCH ×3 (02:36→18:22)
[2022-11-07] MEDS: NOREPINEPHRINE BITARTRATE/D5W 8 MG/250 ML BAG IVPB SCH ×6 (03:41→22:30)
[2022-11-07] MEDS: PERITONEAL DIALYSIS 2.5% SOLN 2,500 ML IP SCH ×2 (04:54→20:09)
[2022-11-07] MEDS: VANCOMYCIN ORAL SOLUTION 125 MG/2.5 ML PO SCH ×3 (05:13→19:02)
[2022-11-07] MEDS: INSULIN (LEVEMIR) 100 UNITS/ML UNITS SQ SCH ×2 (06:40→21:15)
[2022-11-07] MEDS: INSULIN (NOVOLOG) ASPART 100 UNITS/ML 10ML VIAL SQ SCH ×3 (06:40→16:45)
[2022-11-07] MEDS: INSULIN SLIDING SCALE (NOVOLOG) 1 VIAL SQ SCH ×4 (06:40→21:15)
[2022-11-07] MEDS: LEVOTHYROXINE NA 112 MCG TABLET (FP) PO SCH (06:41)
[2022-11-07 07:27] LABS: BASO % 0.1 % (0-2.0); HEMATOCRIT 35.8 % (32.4-45.2); LYMPH % 4.4 % (8-40); MCHC 30.6 g/dl (32.0-36.0); MEAN CELL VOLUME 97.8 fl (80-96); MEAN PLT VOLUME 9.5 fl (7.5-11.1); NEUT % 92.5 % (42.8-82.8); PLATELET COUNT 259 10^3/uL (134-434); RBC 3.66 M/mm3 (3.60-5.2); RDW 24.1 % (11.6-15.6)
[2022-11-07 07:36] LABS: WHITE BLOOD COUNT 35.6 K/mm3 (4.0-10.0)
[2022-11-07 07:46] LABS: CHLORIDE 87 mmol/L (98-107); SODIUM 131 mmol/L (136-145)
[2022-11-07 07:50] LABS: ALBUMIN 0.8 g/dl (3.4-5.0); ANION GAP 31 MMOL/L (8-16); BLOOD UREA NITROGEN 63.7 mg/dL (7-18); CALCIUM 9.4 mg/dL (8.5-10.1); CO2 13 mmol/L (21-32)
[2022-11-07 07:53] LABS: PHOSPHOROUS 7.4 mg/dL (2.5-4.9); SGPT/ALT 651 U/L (13-61)
[2022-11-07] MEDS ORDERED: MIDAZOLAM HCL 2 MG/2 ML SINGLE DOSE VIAL IVPUSH STA (07:53)
[2022-11-07] MEDS ORDERED: FENTANYL CITRATE/PF 50 MCG/ML VIAL IVPUSH STA (07:53)
[2022-11-07 07:54] LABS: CREATININE 3.5 mg/dL (0.55-1.3)
[2022-11-07 07:55] LABS: BILIRUBIN,TOTAL 1.2 mg/dL (0.2-1); TOT PROT 3.1 g/dl (6.4-8.2)
[2022-11-07 08:16] LABS: ALK PHOS 1141 U/L (45-117); GLUCOSE,RANDOM 433 mg/dL (74-106); SGOT/AST 1254 U/L (15-37)
[2022-11-07] MEDS ORDERED: INSULIN REGULAR HUMAN 100 UNITS/ML *VIAL* (FOR IVP) IVPUSH ONE (08:22)
[2022-11-07] MEDS: CALCIUM ACETATE 667 MG CAPSULE (FP) PO SCH ×3 (08:32→19:02)
[2022-11-07] MEDS: SEVELAMER CARBONATE 800 MG TAB (FP) PO SCH ×3 (08:34→19:02)
[2022-11-07] MEDS: MEROPENEM 1 GM in DEXTROSE 5%-WATER 100 ML IVPB SCH ×2 (09:01→21:13)
[2022-11-07] MEDS: LACTOBACILLUS ACIDOPHILUS 1 TABLET PO SCH (09:02)
[2022-11-07] MEDS: HEPARIN NA (PORCINE) 5,000 UNITS/ML 1ML VIAL SQ SCH ×2 (09:02→21:15)
[2022-11-07] MEDS: AMINO ACIDS/PROTEIN HYDROLYS 30 ML LIQUID.PKT PO SCH ×3 (09:02→19:02)
[2022-11-07] MEDS: VITAMIN B COMP W-C 1 EA TABLET (NEPHRO-VITE) PO SCH (09:02)
[2022-11-07] MEDS ORDERED: INSULIN REGULAR HUMAN 100 UNITS/ML *VIAL ONE (09:05)
[2022-11-07] MEDS: MIDAZOLAM IN 0.9 % SOD.CHLORID 100 MG/100 ML PLAST..BAG IVPB SCH (09:27)
[2022-11-07] MEDS: FENTANYL NS IVPB 500 MCG/100 ML BAG IVPB SCH (09:28)
[2022-11-07] MEDS: COLLAGENASE CLOSTRIDIUM HIST. 30 GRAMS TUBE TP SCH (09:40)
[2022-11-07] MEDS: INSULIN REGULAR 100 UNITS in SODIUM CHLORIDE 99 ML IVPB SCH (10:04)
[2022-11-07 10:05] LABS: ANISOCYTOSIS 2+; MACROCYTOSIS 2+
[2022-11-07 10:34] LABS: ARTERIAL BLD GAS O2 SATURATION 99.3 % (95-98); ARTERIAL BLOOD GAS pH 7.217 (7.350-7.450)
[2022-11-07 10:37] LABS: ALLENS TEST POSITIVE; VENT MODE A/C
[2022-11-07 10:38] LABS: VENT RATE 30
[2022-11-07] MEDS ORDERED: SODIUM BICARBONATE 8.4% 50 MEQ/50 ML DISP.SYRIN IVPUSH ONE ×2 (12:00→18:02)
[2022-11-07 12:12] LABS: LACTIC ACID 5.4 mmol/L (0.4-2.0)
[2022-11-07] MEDS ORDERED: SODIUM BICARBONATE 8.4% 50 MEQ/50 ML DISP.SYRIN IVPUSH STA (12:23)
[2022-11-07] MEDS: PERITONEAL DIALYSIS 1.5% SOLN 2,500 ML IP SCH (17:00)
[2022-11-07] MEDS ORDERED: SODIUM BICARBONATE 8.4% 50 MEQ/50 ML DISP.SYRIN ONE (18:18)
[2022-11-07] MEDS: VASOPRESSIN 40 UNITS/100 ML BAG IV SCH (21:12)
[2022-11-07] MEDS: AMIODARONE IN DEXTROSE,ISO-OSM 360 MG/200 ML BAG IV SCH (21:13)
[2022-11-07] MEDS: ATORVASTATIN CA 40 MG TABLET (FP) PO SCH (21:15)
[2022-11-07] MEDS: HEPARIN PEDIATRIC IVPB SCH (22:44)
[2022-11-07] MEDS: PERITONEAL DIALYSIS 1.5% IVPB SCH (22:44)
[2022-11-08] MEDS: VANCOMYCIN ORAL SOLUTION 125 MG/2.5 ML PO SCH ×5 (00:03→23:50)
[2022-11-08] MEDS: DOPAMINE 400 MG/D5W - 400,000 MCG/250 ML INFUS.BAG IVPB SCH ×7 (00:14→18:04)
[2022-11-08] MEDS: HYDROCORTISONE SOD SUCCINATE 100 MG/2 ML VIAL IVPB SCH ×3 (01:02→17:07)
[2022-11-08] MEDS: NOREPINEPHRINE BITARTRATE/D5W 8 MG/250 ML BAG IVPB SCH ×4 (02:53→16:29)
[2022-11-08] MEDS: PERITONEAL DIALYSIS 1.5% SOLN 2,500 ML IP SCH ×3 (04:43→19:04)
[2022-11-08] MEDS: INSULIN (LEVEMIR) 100 UNITS/ML UNITS SQ SCH ×2 (06:47→21:38)
[2022-11-08] MEDS: INSULIN SLIDING SCALE (NOVOLOG) 1 VIAL SQ SCH ×4 (06:47→21:39)
[2022-11-08] MEDS: LEVOTHYROXINE NA 112 MCG TABLET (FP) PO SCH (06:47)
[2022-11-08] MEDS: INSULIN (NOVOLOG) ASPART 100 UNITS/ML 10ML VIAL SQ SCH ×3 (06:47→16:32)
[2022-11-08 07:32] LABS: HEMATOCRIT 33.3 % (32.4-45.2); HEMOGLOBIN 10.6 GM/dL (10.7-15.3); MCH 30.2 pg (25.7-33.7); MCHC 31.8 g/dl (32.0-36.0); MEAN CELL VOLUME 95.1 fl (80-96); MEAN PLT VOLUME 9.4 fl (7.5-11.1); PLATELET COUNT 165 10^3/uL (134-434); RDW 22.8 % (11.6-15.6)
[2022-11-08 07:34] LABS: ARTERIAL BLD GAS O2 SATURATION 99.4 % (95-98); ARTERIAL BLOOD GAS BASE EXCESS -14.6 mmol/L (-2-2); ARTERIAL BLOOD GAS PO2 211.2 mmHg (80-100); ARTERIAL BLOOD GAS pH 7.339 (7.350-7.450)
[2022-11-08 07:36] LABS: WHITE BLOOD COUNT 30.3 K/mm3 (4.0-10.0)
[2022-11-08] MEDS: AMIODARONE IN DEXTROSE,ISO-OSM 360 MG/200 ML BAG IV SCH ×3 (07:47→21:30)
[2022-11-08 07:53] LABS: POTASSIUM 3.4 mmol/L (3.5-5.1)
[2022-11-08 07:55] LABS: CALCIUM 8.4 mg/dL (8.5-10.1)
[2022-11-08 07:56] LABS: BLOOD UREA NITROGEN 57.2 mg/dL (7-18); MAGNESIUM 1.8 mg/dL (1.8-2.4)
[2022-11-08 07:59] LABS: CREATININE 3.2 mg/dL (0.55-1.3); PHOSPHOROUS 6.8 mg/dL (2.5-4.9)
[2022-11-08 08:00] LABS: BILIRUBIN,TOTAL 0.9 mg/dL (0.2-1)
[2022-11-08 08:01] LABS: TOT PROT 2.5 g/dl (6.4-8.2)
[2022-11-08 08:13] LABS: ALBUMIN 0.6 g/dl (3.4-5.0)
[2022-11-08 08:16] LABS: LACTIC ACID 4.1 mmol/L (0.4-2.0)
[2022-11-08] MEDS ORDERED: SODIUM CHLORIDE 0.9% 500 ML INFUS.BAG IV ONE ×3 (08:22→12:54)
[2022-11-08 08:26] LABS: ANISOCYTOSIS 2+; MACROCYTOSIS 2+
[2022-11-08] MEDS: MEROPENEM 1 GM in DEXTROSE 5%-WATER 100 ML IVPB SCH ×2 (08:36→21:37)
[2022-11-08] MEDS: CALCIUM ACETATE 667 MG CAPSULE (FP) PO SCH ×3 (09:11→16:33)
[2022-11-08] MEDS: AMINO ACIDS/PROTEIN HYDROLYS 30 ML LIQUID.PKT PO SCH ×3 (09:12→16:52)
[2022-11-08] MEDS: LACTOBACILLUS ACIDOPHILUS 1 TABLET PO SCH (09:12)
[2022-11-08] MEDS: SEVELAMER CARBONATE 800 MG TAB (FP) PO SCH ×3 (09:12→16:52)
[2022-11-08] MEDS: INSULIN REGULAR 100 UNITS in SODIUM CHLORIDE 99 ML IVPB SCH (10:14)
[2022-11-08] MEDS ORDERED: VANCOMYCIN/WATER FOR INJ (PEG) 1,000 MG/200 ML BAG IVPB ONE (10:33)
[2022-11-08] MEDS: VITAMIN B COMP W-C 1 EA TABLET (NEPHRO-VITE) PO SCH (11:02)
[2022-11-08] MEDS: CASPOFUNGIN ACETATE 50 MG in SODIUM CHLORIDE 250 ML IVPB SCH (11:02)
[2022-11-08] MEDS: HEPARIN NA (PORCINE) 5,000 UNITS/ML 1ML VIAL SQ SCH ×2 (11:14→21:37)
[2022-11-08] MEDS: FLUDROCORTISONE ACETATE 0.1 MG TABLET (FP) PO SCH ×2 (11:16→16:51)
[2022-11-08] MEDS: VASOPRESSIN 40 UNITS/100 ML BAG IV SCH (12:37)
[2022-11-08] MEDS: COLLAGENASE CLOSTRIDIUM HIST. 30 GRAMS TUBE TP SCH (12:38)
[2022-11-08] MEDS: SODIUM THIOSULFATE IVPB SCH (14:26)
[2022-11-08] MEDS: SODIUM CHLORIDE IVPB SCH (14:26)
[2022-11-08] MEDS ORDERED: KCL 20 MEQ PREMIX BAG 100 ML IVPB ONE (14:49)
[2022-11-08] MEDS: FENTANYL NS IVPB 500 MCG/100 ML BAG IVPB SCH (16:54)
[2022-11-08] MEDS: SEVELAMER CARBONATE 2.4 GM POWDER PACKET PO SCH (17:07)
[2022-11-08] MEDS: SODIUM BICARBONATE 8.4% 50 MEQ/50 ML DISP.SYRIN IVPUSH SCH ×2 (17:07→23:06)
[2022-11-08] MEDS ORDERED: SODIUM CHLORIDE 500 ML IV STA (18:33)
[2022-11-08] MEDS: MIDAZOLAM IN 0.9 % SOD.CHLORID 100 MG/100 ML PLAST..BAG IVPB SCH (19:15)
[2022-11-08] MEDS: ATORVASTATIN CA 40 MG TABLET (FP) PO SCH (21:38)
[2022-11-08] MEDS: HEPARIN PEDIATRIC IVPB SCH (23:07)
[2022-11-08] MEDS: PERITONEAL DIALYSIS 1.5% IVPB SCH (23:07)
[2022-11-09] MEDS: HYDROCORTISONE SOD SUCCINATE 100 MG/2 ML VIAL IVPB SCH ×2 (01:58→10:44)
[2022-11-09] MEDS: NOREPINEPHRINE BITARTRATE/D5W 8 MG/250 ML BAG IVPB SCH (02:14)
[2022-11-09] MEDS: DOPAMINE 400 MG/D5W - 400,000 MCG/250 ML INFUS.BAG IVPB SCH (02:24)
[2022-11-09] MEDS: PERITONEAL DIALYSIS 1.5% SOLN 2,500 ML IP SCH ×2 (05:05→11:39)
[2022-11-09] MEDS: SODIUM BICARBONATE 8.4% 50 MEQ/50 ML DISP.SYRIN IVPUSH SCH (05:06)
[2022-11-09] MEDS: VANCOMYCIN ORAL SOLUTION 125 MG/2.5 ML PO SCH (06:21)
[2022-11-09] MEDS: LEVOTHYROXINE NA 112 MCG TABLET (FP) PO SCH (06:21)
[2022-11-09] MEDS: INSULIN SLIDING SCALE (NOVOLOG) 1 VIAL SQ SCH (06:22)
[2022-11-09] MEDS: INSULIN (LEVEMIR) 100 UNITS/ML UNITS SQ SCH (06:22)
[2022-11-09] MEDS: INSULIN (NOVOLOG) ASPART 100 UNITS/ML 10ML VIAL SQ SCH (06:22)
[2022-11-09 07:56] LABS: POTASSIUM 3.3 mmol/L (3.5-5.1)
[2022-11-09 07:58] LABS: CALCIUM 7.2 mg/dL (8.5-10.1); HEMATOCRIT 26.9 % (32.4-45.2); HEMOGLOBIN 8.6 GM/dL (10.7-15.3); MCH 30.5 pg (25.7-33.7); MCHC 31.9 g/dl (32.0-36.0); MEAN CELL VOLUME 95.5 fl (80-96); MEAN PLT VOLUME 9.3 fl (7.5-11.1); PLATELET COUNT 88 10^3/uL (134-434); RBC 2.82 M/mm3 (3.60-5.2); RDW 21.8 % (11.6-15.6); WHITE BLOOD COUNT 20.7 K/mm3 (4.0-10.0)
[2022-11-09 07:59] LABS: BLOOD UREA NITROGEN 47.6 mg/dL (7-18); MAGNESIUM 1.5 mg/dL (1.8-2.4)
[2022-11-09 08:02] LABS: CREATININE 2.7 mg/dL (0.55-1.3); PHOSPHOROUS 6.8 mg/dL (2.5-4.9)
[2022-11-09 08:03] LABS: BILIRUBIN,TOTAL 0.9 mg/dL (0.2-1); TOT PROT 1.8 g/dl (6.4-8.2)
[2022-11-09 08:04] LABS: ALBUMIN 0.4 g/dl (3.4-5.0)
[2022-11-09] MEDS ORDERED: POTASSIUM CHLORIDE ORAL LIQUID 20 MEQ/15 ML PO ONE (08:45)
[2022-11-09] MEDS ORDERED: MAGNESIUM 2GM/50ML STERILE WATER IVPB IVPB ONE (08:45)
[2022-11-09 09:16] LABS: ANISOCYTOSIS 2+; MACROCYTOSIS 1+; TEAR DROP CELLS 1+
[2022-11-09 10:14] VITALS: RESP 30
[2022-11-09 10:16] VITALS: BP 48/20; TEMP 98.2
[2022-11-09] MEDS: LACTOBACILLUS ACIDOPHILUS 1 TABLET PO SCH (10:17)
[2022-11-09] MEDS: FLUDROCORTISONE ACETATE 0.1 MG TABLET (FP) PO SCH (10:17)
[2022-11-09] MEDS: CALCIUM ACETATE 667 MG CAPSULE (FP) PO SCH ×2 (10:18→12:45)
[2022-11-09] MEDS: SEVELAMER CARBONATE 2.4 GM POWDER PACKET PO SCH ×2 (10:18→12:45)
[2022-11-09] MEDS: AMINO ACIDS/PROTEIN HYDROLYS 30 ML LIQUID.PKT PO SCH ×2 (10:18→12:45)
[2022-11-09] MEDS: VITAMIN B COMP W-C 1 EA TABLET (NEPHRO-VITE) PO SCH (10:18)
[2022-11-09] MEDS: MEROPENEM 1 GM in DEXTROSE 5%-WATER 100 ML IVPB SCH (10:26)
[2022-11-09] MEDS: CASPOFUNGIN ACETATE 50 MG in SODIUM CHLORIDE 250 ML IVPB SCH (10:26)
[2022-11-09] MEDS: HEPARIN NA (PORCINE) 5,000 UNITS/ML 1ML VIAL SQ SCH (10:43)
[2022-11-09] MEDS ORDERED: SODIUM CHLORIDE 500 ML IV STA (11:22)
[2022-11-09] MEDS ORDERED: VASOPRESSIN 20 UNITS/ML VIAL IV ONE (11:52)
[2022-11-09 12:53] LABS: LACTIC ACID 9.6 mmol/L (0.4-2.0)
[2022-11-09] MEDS ORDERED: MORPHINE SULFATE/0.9% NACL/PF 100 MG/100 ML BAG IVPB SCH (14:00)
[2022-11-09] MEDS ORDERED: LORazepam 2 MG/ML SDV VIAL IVPUSH PRN (14:01)
[2022-11-09] MEDS ORDERED: LORazepam 2 MG/ML SDV VIAL IVPUSH ONE (14:15)
[2022-11-09 14:32] VITALS: PULSE 85
== END 2022-11-09 18:29 | disposition expired | DRG 853 ==
LOC: JER 14:18 → JERBED 14:44 → J2W 10-21 02:12 → J4S 10-21 13:18 → JICU 10-26 21:12 → J4S 11-01 18:53 → JICU 11-06 01:11
PROVIDERS: ADMIT Internal Medicine; ATTEND Internal Medicine Pulmonary Disease
PROC: 3E1M39Z Irrigation of Peritoneal Cavity using Dialysate, Percutaneous Approach (ICD-10-PCS; 2022-10-21)
PROC: 30233N1 Transfusion of Nonautologous Red Blood Cells into Peripheral Vein, Percutaneous Approach (ICD-10-PCS; 2022-10-25)
PROC: 4A133B1 Monitoring of Arterial Pressure, Peripheral, Percutaneous Approach (ICD-10-PCS; 2022-10-26)
PROC: 4A133J1 Monitoring of Arterial Pulse, Peripheral, Percutaneous Approach (ICD-10-PCS; 2022-10-26)
PROC: 05HN33Z Insertion of Infusion Device into Left Internal Jugular Vein, Percutaneous Approach (ICD-10-PCS; 2022-10-26)
PROC: B544ZZA Ultrasonography of Left Jugular Veins, Guidance (ICD-10-PCS; 2022-10-26)
PROC: 0KBN0ZZ Excision of Right Hip Muscle, Open Approach (ICD-10-PCS; principal; 2022-10-26 10:00)
PROC: 2W15X6Z Compression of Back using Pressure Dressing (ICD-10-PCS; 2022-10-29)
PROC: 4A133B1 Monitoring of Arterial Pressure, Peripheral, Percutaneous Approach (ICD-10-PCS; 2022-11-06)
PROC: 4A133J1 Monitoring of Arterial Pulse, Peripheral, Percutaneous Approach (ICD-10-PCS; 2022-11-06)
PROC: 05HM33Z Insertion of Infusion Device into Right Internal Jugular Vein, Percutaneous Approach (ICD-10-PCS; 2022-11-06)
PROC: B543ZZA Ultrasonography of Right Jugular Veins, Guidance (ICD-10-PCS; 2022-11-06)
PROC: 5A1945Z Respiratory Ventilation, 24-96 Consecutive Hours (ICD-10-PCS; 2022-11-06)
PROC: 0BH17EZ Insertion of Endotracheal Airway into Trachea, Via Natural or Artificial Opening (ICD-10-PCS; 2022-11-06)
DX: A41.9 Sepsis, unspecified organism (principal); I21.4 Non-ST elevation (NSTEMI) myocardial infarction; J18.9 Pneumonia, unspecified organism; J96.00 Acute respiratory failure, unspecified whether with hypoxia or hypercapnia; N18.6 End stage renal disease; R65.21 Severe sepsis with septic shock; K72.00 Acute and subacute hepatic failure without coma; I12.0 Hypertensive chronic kidney disease with stage 5 chronic kidney disease or end stage renal disease; D62 Acute posthemorrhagic anemia; Z68.42 Body mass index [BMI] 45.0-49.9, adult; I97.620 Postprocedural hemorrhage of a circulatory system organ or structure following other procedure; R57.1 Hypovolemic shock; L89.220 Pressure ulcer of left hip, unstageable; E11.9 Type 2 diabetes mellitus without complications; Z99.2 Dependence on renal dialysis; E78.5 Hyperlipidemia, unspecified; L89.210 Pressure ulcer of right hip, unstageable; E03.9 Hypothyroidism, unspecified; L89.300 Pressure ulcer of unspecified buttock, unstageable; L89.310 Pressure ulcer of right buttock, unstageable; L89.320 Pressure ulcer of left buttock, unstageable; N61.1 Abscess of the breast and nipple; E83.59 Other disorders of calcium metabolism; I46.9 Cardiac arrest, cause unspecified; T68.XXXA Hypothermia, initial encounter; E66.01 Morbid (severe) obesity due to excess calories; E87.70 Fluid overload, unspecified; D72.829 Elevated white blood cell count, unspecified; E87.6 Hypokalemia; E83.39 Other disorders of phosphorus metabolism; D63.1 Anemia in chronic kidney disease; E11.40 Type 2 diabetes mellitus with diabetic neuropathy, unspecified; E83.42 Hypomagnesemia; Y83.9 Surgical procedure, unspecified as the cause of abnormal reaction of the patient, or of later complication, without mention of misadventure at the time of the procedure; K59.00 Constipation, unspecified
CPT/HCPCS: 0241U-QW; 31500; 36415; 36430; 36600; 71045-TC-FY; 73610-TC-RT-FY; 80048; 80053; 82042; 82272; 82550; 82553; 82652; 82728; 82803; 82945; 82962; 82985; 83036; 83540; 83550; 83605; 83735; 83880; 83970; 83986; 84100; 84132; 84484; 85025; 85027; 85610; 85651; 86140; 86850; 86900; 86901; 86922; 87040; 87070; 87075; 87077; 87186; 87205; 88304-TC; 93005; 93010; 93306-TC; 94002; 94760; 97116-GP; 97161-GP; 99285-25; E0194; G0480; J0282; J0637; J1644; J2597; J3490; P9038; P9058; Q5106